=== PATIENT | male | born 1945 | race Caucasian/White ===

== ENCOUNTER 2019-05-22 14:49 | Emergency (ER) | payer OTHER ==
--- OUTSIDE RECORDS SUMMARY | 2019-05-22 14:52 | XMS REPORT ---
:1945 [facility] Address [address] [place] [address] Care Team Providers Name Role Phone EDUARDO TALAVERA Unavailable Unavailable Problems This patient has no known problems. Allergies, Adverse Reactions, Alerts This patient has no known allergies or adverse reactions. Medications This patient has no known medications. Results Test Description Test Time Test Comments Text Results Atomic Results Result Comments ALPHA FETOPROTEIN (AFP), TUMOR MARKER 2016-09-01 11:09:00 Test Item Value Reference Range Comments ALPHA-FETOPROTEIN (BEAKER) (test wvhv=3468) < ng/mL <10.0 Effective 04/16/2014: Reference Range ChangeNew: <10.0 Previous: 0.0- 8.0CBC W/PLT COUNT & AUTO [id number] 10:05:00 Test Item Value Reference Range Comments WHITE BLOOD CELL COUNT (BEAKER) (test oryf=164) 5.3 K/ L 4.0-10.0 RED BLOOD CELL COUNT (BEAKER) (test mqaa=610) 4.73 M/ L 4.20-5.80 HEMOGLOBIN (BEAKER) (test mcao=599) 15.1 GM/DL 13.0-16.8 HEMATOCRIT (BEAKER) (test gjsy=045) 45.8 % 40.0-50.0 MEAN CORPUSCULAR VOLUME (BEAKER) (test qxln=700) 97.0 fL 82.0-98.0 MEAN CORPUSCULAR HEMOGLOBIN (BEAKER) (test 31.9 pg 27.0-33.0 dwbb=858) MEAN CORPUSCULAR HEMOGLOBIN CONC (BEAKER) (test 32.9 GM/DL 32.0-36.0 jyui=736) RED CELL DISTRIBUTION WIDTH (BEAKER) (test 11.8 % 10.3-14.2 octx=073) PLATELET COUNT (BEAKER) (test osiv=375) 267 K/CU MM 150-430 MEAN PLATELET VOLUME (BEAKER) (test qcre=144) 5.9 fL 6.5-10.5 NUCLEATED RED BLOOD CELLS (BEAKER) (test 0 /100 WBC 0-0 drhv=785) NEUTROPHILS RELATIVE PERCENT (BEAKER) (test 61 % drbz=345) LYMPHOCYTES RELATIVE PERCENT (BEAKER) (test 25 % edcf=026) MONOCYTES RELATIVE PERCENT (BEAKER) (test 10 % eojx=285) EOSINOPHILS RELATIVE PERCENT (BEAKER) (test 3 % ebli=755) BASOPHILS RELATIVE PERCENT (BEAKER) (test 1 % utya=924) NEUTROPHILS ABSOLUTE COUNT (BEAKER) (test 3.21 K/ L 1.80-8.00 tani=023) LYMPHOCYTES ABSOLUTE COUNT (BEAKER) (test 1.32 K/ L 1.48-4.50 yzng=892) MONOCYTES ABSOLUTE COUNT (BEAKER) (test 0.53 K/ L 0.00-1.30 njoq=044) EOSINOPHILS ABSOLUTE COUNT (BEAKER) (test 0.15 K/ L 0.00-0.50 qihs=415) BASOPHILS ABSOLUTE COUNT (BEAKER) (test 0.08 K/ L 0.00-0.20 choq=385) 0.00HEPATIC FUNCTION [id number] 09:42:00 Test Item Value Reference Range Comments TOTAL PROTEIN (BEAKER) (test zybl=203) 7.7 gm/dL 6.0-8.3 ALBUMIN (BEAKER) (test kbtd=3267) 4.4 g/dL 3.5-5.0 BILIRUBIN TOTAL (BEAKER) (test papk=143) 0.5 mg/dL 0.2-1.2 BILIRUBIN DIRECT (BEAKER) (test ardl=598) 0.2 mg/dL 0.1-0.5 ALKALINE PHOSPHATASE (BEAKER) (test lsqb=192) 87 U/L 40-150 AST (SGOT) (BEAKER) (test stlj=684) 36 U/L 5-34 ALT (SGPT) (BEAKER) (test jlmb=787) 23 U/L 6-55 BASIC METABOLIC [id number] 09:42:00 Test Item Value Reference Range Comments SODIUM (BEAKER) (test 138 meq/L 136-145 xfww=790) POTASSIUM (BEAKER) (test 4.4 meq/L 3.5-5.1 szhx=257) CHLORIDE (BEAKER) (test 104 meq/L 98-107 nkfm=733) CO2 (BEAKER) (test 27 meq/L 22-29 ldvo=266) BLOOD UREA NITROGEN 16 mg/dL 7-21 (BEAKER) (test zfki=805) CREATININE (BEAKER) (test 0.88 mg/dL 0.57-1.25 dxob=288) GLUCOSE RANDOM (BEAKER) 102 mg/dL 70-105 (test tnou=457) CALCIUM (BEAKER) (test 9.3 mg/dL 8.4-10.2 qajw=306) EGFR (BEAKER) (test 86 mL/min/1.73 sq m ESTIMATED GFR IS NOT wpiz=9852) ACCURATE CREATININE CLEARANCE IN PREDICTING GLOMERULAR FILTRATION RATE. ESTIMATED GFR IS NOT APPLICABLE FOR DIALYSIS PATIENTS. GAMMA GLUTAMYL TRANSFERASE (GGT)2016-09-01 09:42:00 Test Item Value Reference Range Comments GAMMA GLUTAMYL TRANSFERASE (BEAKER) (test xmbe=155) 33 U/L 9-64 PROTHROMBIN TIME/[id number] 09:25:00 Test Item Value Reference Range Comments PROTIME (BEAKER) (test zcnt=599) 13.2 seconds 11.7-14.7 INR (BEAKER) (test wsai=293) 1.0 <=5.9 RECOMMENDED COUMADIN/WARFARIN INR THERAPY RANGESSTANDARD DOSE: 2.0 - 3.0 Includes: PROPHYLAXIS forvenous thrombosis, systemic embolization; TREATMENT for venous thrombosis and/or pulmonary embolus.HIGH RISK: Target INR is 2.5-3.5 for patients with mechanical heart valves.
--- OUTSIDE RECORDS SUMMARY | 2019-05-22 14:52 | XMS REPORT ---
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 Active Assessment Encounter for smoking cessation Z71.6 Active counseling Problem Hyperlipemia E78.5 Active Problem Encounter for smoking cessation Z71.6 Active counseling Problem Hypothyroidism E03.9 Active Problem Elevated blood pressure reading R03.0 Active Problem History of heart artery stent Z95.5 Active Problem Advanced COPD J44.9 Active Medications Medication Code Code Instructions Start End Date Status Dosage System Date Aspirin Adult [facility] 71627265339 81 MG Orally Active 1 tablet Low Dose Once a day Plavix ND 87241005090 75 MG Orally Active 1 tablet Once a day Anoro Ellipta [facility] 15603536196 62.5mcg/25 mcg Feb 06July Active inhaled Orally daily 2017 once a day atarax ND 0 25mg Po QID prn Active 1 Tudorza ND 89604146809 400 MCG/ACT Inactive 1 puff Pressair Inhalation Twice a day PreserVision [facility] 89093507033 - Orally Active not AREDS 2 defined COYOTE HUNTER Thyroid [facility] 93179358127 60 MG Active TAKE ONE TABLET BY MOUTH DAILY Claritin-D [address] [facility] 73302481013 5-120 MG Orally Active 1 tablet Hour every 12 hrs as needed Neurontin ND 82381553072 600 MG Orally Active 1 tablet Twice a day Magnesium Oxide ND 84422346493 400 MG Orally Active 1 tablet Once a day as needed Prevacid [facility] 16965837162 30 MG Orally Active 1 capsule Once a day Bevespi ND 91199840655 9-4.8 MCG/ACT December 08Feb 06, Inactive 2 puffs Aerosphere Inhalation 2017 2017 Twice a day PredniSONE ND 38415695101 10 MG Orally Active 1 tablet Once a day Fluticasone [facility] 97328160859 50 MCG/ACT Inactive 1 spray Propionate Nasally Once a in each day nostril Montelukast [facility] 20606252698 10 MG Orally Active 1 tablet Sodium Once a day in the evening Livalo [facility] 27791999247 4 MG Orally Active 1 tablet Once a day Proventil HFA [facility] 53361161265 108 (90 Base) Active 2 puffs MCG/ACT as needed Inhalation every 6 hrs Results No Known Results Summary Purpose eClinicalWorks Submission
--- OUTSIDE RECORDS SUMMARY | 2019-05-22 14:53 | XMS REPORT ---
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 Assessment Encounter for smoking cessation Z71.6 Active counseling Assessment Hypothyroidism E03.9 Active Problem 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 Problem Hypothyroidism E03.9 Active Problem Essential (primary) hypertension I10 Active Problem History of heart artery stent Z95.5 Active Problem Advanced COPD J44.9 Active Problem Hyperlipemia E78.5 Active Problem Encounter for smoking cessation Z71.6 Active counseling Medications Medication Code Code Instructions Start End Date Status Dosage System Date Aspirin Adult [facility] 68935941527 81 MG Orally Active 1 tablet Low Dose Once a day Plavix [facility] 85977439970 75 MG Orally Active 1 tablet Once a day Anoro Ellipta [facility] 37703985367 62.5mcg/25 mcg Feb 06July Active inhaled Orally daily 2017 once a day Neurontin ND 75992629085 600 MG Orally Active 1 tablet Twice a day Ventolin HFA [facility] 74384983062 108 (90 Base) Active 2 puffs as MCG/ACT needed Inhalation every 6 hrs Levothyroxine ND 72623514209 100 MCG Orally Dec 10, Active 1 tablet Sodium Once a day 2017 on an empty stomach in the morning PreserVision ND 47898035859 - Orally Active not AREDS 2 defined Montelukast ND 52465466799 10 MG Orally Active 1 tablet Sodium Once a day in the evening Claritin-D 12 [facility] 52423211710 5-120 MG Orally Active 1 tablet Hour every 12 hrs as needed atarax NDC 0 25mg Po QID prn Active 1 Magnesium Oxide [facility] 39760054365 400 MG Orally Active 1 tablet Once a day as needed Prevacid [facility] 39804551755 30 MG Orally Active 1 capsule Once a day Nitrostat [facility] 50844062418 0.3 MG May 08, Active as needed Sublingual 2017 for chest daily pain PredniSONE [facility] 60796312037 10 MG Orally Active 1 tablet Once a day Livalo [facility] 42667199755 4 MG Orally Active 1 tablet Once a day Results No Known Results Summary Purpose eClinicalWorks Submission
--- OUTSIDE RECORDS SUMMARY | 2019-05-22 14:53 | XMS REPORT ---
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 Problem Hypothyroidism E03.9 Active Problem Essential (primary) hypertension I10 Active Problem History of heart artery stent Z95.5 Active Problem Advanced COPD J44.9 Active Problem Hyperlipemia E78.5 Active Problem Encounter for smoking cessation Z71.6 Active counseling Medications Medication Code Code Instructions Start End Status Dosage System Date Date PreserVision [facility] 85504303881 - Orally Active not AREDS 2 defined Aspirin Adult Low [facility] 86524063386 81 MG Orally Active 1 tablet Dose Once a day Montelukast ND 79985263820 10 MG Orally Active 1 tablet Sodium Once a day in the evening Magnesium Oxide ND 93965699916 400 MG Orally Active 1 tablet Once a day as needed Levothyroxine ND 23664482158 100 MCG Orally Dec 10, Active 1 tablet Sodium Once a day 2017 on an empty stomach in the morning atarax NDC 0 25mg Po QID prn Active 1 Prevacid ND 75277719861 30 MG Orally Active 1 capsule Once a day Ventolin HFA [facility] 03324691103 108 (90 Base) Active 2 puffs as MCG/ACT needed Inhalation every 6 hrs Plavix ND 25530671892 75 MG Orally Active 1 tablet Once a day Livalo ND 50979274639 4 MG Orally Active 1 tablet Once a day Neurontin ND 79987807568 600 MG Orally Active 1 tablet Twice a day PredniSONE ND 30542488379 10 MG Orally Active 1 tablet Once a day Nitrostat NDC 28242422008 0.3 MG May 08, Active as needed Sublingual 2017 for chest daily pain Claritin-D 12 [facility] 39090647549 5-120 MG Orally Active 1 tablet Hour every 12 hrs as needed Diclofenac Sodium [facility] 34678475016 50 MG Orally AugustOctober 11, Active 1 tablet Three times a 2018 with food day or milk Results No Known Results Summary Purpose eClinicalWorks Submission
--- OUTSIDE RECORDS SUMMARY | 2019-05-22 14:53 | XMS REPORT ---
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 Problem Hypothyroidism E03.9 Active Problem Essential (primary) hypertension I10 Active Problem History of heart artery stent Z95.5 Active Problem Advanced COPD J44.9 Active Problem Hyperlipemia E78.5 Active Problem Encounter for smoking cessation Z71.6 Active counseling Medications Medication Code Code Instructions Start End Date Status Dosage System Date Anoro Ellipta [facility] 55840685667 62.5mcg/25 mcg Feb 06July Active inhaled Orally daily 2017 once a day Claritin-D 12 [facility] 15846850184 5-120 MG Orally Active 1 tablet Hour every 12 hrs as needed GNP Loratadine-D [facility] 46905678984 5-120 MG Orally May 15May 30, Active 1 tablet 12HR every 12 hrs 2017 2018 as needed Levothyroxine [facility] 39969474860 100 MCG Orally May 08, Active 1 tablet Sodium Once a day 2017 on an empty stomach in the morning Aspirin Adult [facility] 57881793486 81 MG Orally Active 1 tablet Low Dose Once a day Plavix [facility] 07134599221 75 MG Orally Active 1 tablet Once a day Prevacid [facility] 55987156852 30 MG Orally Active 1 capsule Once a day Montelukast [facility] 33628010247 10 MG Orally Active 1 tablet Sodium Once a day in the evening atarax ND 0 25mg Po QID prn Active 1 Neurontin ND 89130785068 600 MG Orally Active 1 tablet Twice a day Nitrostat [facility] 43359882322 0.3 MG May 08, Active as needed Sublingual 2017 for chest daily pain Ventolin HFA [facility] 13253066492 108 (90 Base) Active 2 puffs as MCG/ACT needed Inhalation every 6 hrs PredniSONE [facility] 72935502083 10 MG Orally Active 1 tablet Once a day PreserVision [facility] 91415387711 - Orally Active not AREDS 2 defined Zithromax [facility] 54771437433 500 MG Orally May 15, May 20, Active as Once a day 2017 2018 directed Livalo [facility] 12229085697 4 MG Orally Active 1 tablet Once a day Magnesium Oxide [facility] 66452357038 400 MG Orally Active 1 tablet Once a day as needed Results No Known Results Summary Purpose eClinicalWorks Submission
--- OUTSIDE RECORDS SUMMARY | 2019-05-22 14:53 | XMS REPORT ---
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 Problem Hypothyroidism E03.9 Active Problem Essential (primary) hypertension I10 Active Problem History of heart artery stent Z95.5 Active Problem Advanced COPD J44.9 Active Problem Hyperlipemia E78.5 Active Problem Encounter for smoking cessation Z71.6 Active counseling Medications Medication Code Code Instructions Start End Status Dosage System Date Date PredniSONE [facility] 19227551678 10 MG Orally Active 1 tablet Once a day Aspirin Adult Low [facility] 89612412750 81 MG Orally Active 1 tablet Dose Once a day Livalo [facility] 60058854932 4 MG Orally Active 1 tablet Once a day Diclofenac Sodium ND 06791168623 50 MG Orally AugustOctober 11, Active 1 tablet Three times a 2018 2019 with food day or milk Montelukast [facility] 79304699076 10 MG Orally Active 1 tablet Sodium Once a day in the evening Magnesium Oxide ND 56463368563 400 MG Orally Active 1 tablet Once a day as needed PreserVision [facility] 71190332038 - Orally Active not AREDS 2 defined Plavix [facility] 24541115947 75 MG Orally Active 1 tablet Once a day Levothyroxine ND 12722485241 100 MCG Orally May 08, Active 1 tablet Sodium Once a day 2017 on an empty stomach in the morning Nitrostat ND 83946249197 0.3 MG May 08, Active as needed Sublingual 2017 for chest daily pain Ventolin HFA [facility] 24375408183 108 (90 Base) Active 2 puffs as MCG/ACT needed Inhalation every 6 hrs Prevacid [facility] 43517069652 30 MG Orally Active 1 capsule Once a day Neurontin [facility] 15979912731 600 MG Orally Active 1 tablet Twice a day atarax NDC 0 25mg Po QID prn Active 1 Claritin-D 12 [facility] 53348597866 5-120 MG Orally Active 1 tablet Hour every 12 hrs as needed Results No Known Results Summary Purpose eClinicalWorks Submission
--- OUTSIDE RECORDS SUMMARY | 2019-05-22 14:53 | XMS REPORT ---
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 Problem Hypothyroidism E03.9 Active Problem Essential (primary) hypertension I10 Active Problem History of heart artery stent Z95.5 Active Problem Advanced COPD J44.9 Active Problem Hyperlipemia E78.5 Active Problem Encounter for smoking cessation Z71.6 Active counseling Assessment 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 Assessment Advanced COPD J44.9 Active Assessment Tobacco abuse counseling Z71.6 Active Assessment Hypothyroidism E03.9 Active Assessment Essential (primary) hypertension I10 Active Assessment Hyperlipemia E78.5 Active Medications Medication Code Code Instructions Start End Status Dosage System Date Date Nitrostat [facility] 57220798673 0.3 MG May 08, Active as needed Sublingual 2017 for chest daily pain Montelukast [facility] 04619166823 10 MG Orally Active 1 tablet Sodium Once a day in the evening atarax NDC 0 25mg Po QID prn Active 1 Anoro Ellipta [facility] 54901512858 62.5mcg/25 mcg Feb 06July Active inhaled Orally daily 2017 09, once a 2019 day [employer] Thyroid [facility] 43699602389 60 MG Inactive TAKE ONE TABLET BY MOUTH DAILY Levothyroxine ND 23402023042 100 MCG Orally May 08, Active 1 tablet Sodium Once a day 2017 on an empty stomach in the morning PredniSONE ND 52316721293 10 MG Orally Active 1 tablet Once a day Aspirin Adult [facility] 17733602186 81 MG Orally Active 1 tablet Low Dose Once a day Livalo [facility] 94994913228 4 MG Orally Active 1 tablet Once a day Neurontin [facility] 66865233242 600 MG Orally Active 1 tablet Twice a day Proventil HFA [facility] 94319247082 108 (90 Base) Active 2 puffs MCG/ACT as needed Inhalation every 6 hrs Ventolin HFA [facility] 11525686519 108 (90 Base) Active 2 puffs MCG/ACT as needed Inhalation every 6 hrs Claritin-D 12 [facility] 99905742682 5-120 MG Orally Active 1 tablet Hour every 12 hrs as needed Plavix [facility] 38652318788 75 MG Orally Active 1 tablet Once a day PreserVision [facility] 52704547811 - Orally Active not AREDS 2 defined Prevacid [facility] 05670853154 30 MG Orally Active 1 capsule Once a day Magnesium Oxide [facility] 45459709520 400 MG Orally Active 1 tablet Once a day as needed Results No Known Results Summary Purpose eClinicalWorks Submission
[2019-05-22 15:33] LABS: Absolute Lymphocytes (CBC) 1.2 K/uL (0.7-4.9); Basophils % 0.7 % (0-1.3); Hematocrit 35.8 % (39.6-49.0); Lymphocytes % 17.6 % (15.3-44.8); MPV 6.8 fL (7.6-11.3); RBC Red Blood Cell Count 4.08 M/uL (4.33-5.43)
[2019-05-22 15:52] LABS: Albumin 3.2 g/dL (3.4-5.0); Bilirubin Direct 0.1 mg/dL (0-0.2); Bilirubin Total 0.3 mg/dL (0.2-1.0); Potassium 3.8 mmol/L (3.5-5.1); Protein, Total 7.6 g/dL (6.4-8.2)
--- NOTE | 2019-05-22 16:04 | RAD REPORT ---
EXAM DESCRIPTION: RAD - Abdomen 1 View (KUB) - 05/22/2019 3:48 pm CLINICAL HISTORY: abd pain Pain COMPARISON: No comparisons FINDINGS: The bowel gas pattern is non-obstructive. No evidence of free air or pneumatosis. No suspi cious calcifications. No significant bony findings. There is a significant retention of stool in the colon. Cholecystectomy clips. IMPRESSION: Prominent fecal retention in the colon.
[2019-05-22] MEDS ORDERED: FLEET ENEMA ADULT PR ONE (17:00)
--- NOTE | 2019-05-22 18:05 | EDPHYS ---
Physician Documentation [facility] Name: Jose Lake Age: 73 yrs Sex: Male : 1945 Arrival Date: 05/22/2019 Time: 14:52 Bed 8 Private MD: ALY ANGUIANO ED Physician Arlet Joseph HPI: 05/22 18:02 This 73 yrs old Male presents to ER via Ambulatory with complaints of ma2 Constipation, Abdominal Pain. 18:02 Onset: The symptoms/episode began/occurred gradually. Associated signs and symptoms: ma2 Pertinent negatives: constipation, hematuria, nausea. Associated signs and symptoms: Pertinent negatives: anorexia, constipation, dysuria, vomiting, vomiting blood. Severity of pain: At its worst the pain was mild in the emergency department the pain is unchanged. Historical: - Allergies: 15:00 Sulfa (Sulfonamide Antibiotics); rv 15:00 PENICILLINS; rv - Home Meds: 15:00 Plavix 75 mg Oral tab 1 tab once daily [Active]; rv - PMHx: 15:00 cardiac stents; bleeding ulcers; rv 15:01 COPD; Thyroid problem; High Cholesterol; rv - PSHx: 15:00 Cholecystectomy; back sx; rv - Immunization history:: Adult Immunizations up to date, Flu vaccine is up to date. - Social history:: Smoking status: Patient uses tobacco products, smokes one-half pack cigarettes per day. - Ebola Screening: : No symptoms or risks identified at this time. - Family history:: not pertinent. ROS: 18:02 Constitutional: Negative for fever, chills, and weight loss. ma2 18:02 All other systems are negative. Exam: 18:02 Constitutional: This is a well developed, well nourished patient who is awake, alert, ma2 and in no acute distress. Head/Face: Normocephalic, atraumatic. Eyes: Pupils equal round and reactive to light, extra-ocular motions intact. Lids and lashes normal. Conjunctiva and sclera are non-icteric and not injected. Cornea within normal limits. Periorbital areas with no swelling, redness, or edema. ENT: Nares patent. No nasal discharge, no septal abnormalities noted. Tympanic membranes are normal and external auditory canals are clear. Oropharynx with no redness, swelling, or masses, exudates, or evidence of obstruction, uvula midline. Mucous membranes moist. Neck: Trachea midline, no thyromegaly or masses palpated, and no cervical lymphadenopathy. Supple, full range of motion without nuchal rigidity, or vertebral point tenderness. No Meningismus. Chest/axilla: Normal chest wall appearance and motion. Nontender with no deformity. No lesions are appreciated. Cardiovascular: Regular rate and rhythm with a normal S1 and S2. No gallops, murmurs, or rubs. Normal PMI, no JVD. No pulse deficits. Respiratory: Lungs have equal breath sounds bilaterally, clear to auscultation and percussion. No rales, rhonchi or wheezes noted. No increased work of breathing, no retractions or nasal flaring. Abdomen/GI: Soft, non-tender, with normal bowel sounds. No distension or tympany. No guarding or rebound. No evidence of tenderness throughout. Skin: Warm, dry with normal turgor. Normal color with no rashes, no lesions, and no evidence of cellulitis. MS/ Extremity: Pulses equal, no cyanosis. Neurovascular intact. Full, normal range of motion. Vital Signs: 14:58 BP 153 / 90; Pulse 92; Resp 19; Temp 97.5; Pulse Ox 99% ; Weight 58.97 kg; Height 5 ft. rv 4 in. (162.56 cm); Pain 6/10; 16:27 BP 140 / 88; Pulse 76; Resp 16; Pulse Ox 99% ; sv 14:58 Body Mass Index 22.31 (58.97 kg, 162.56 cm) rv MDM: 15:04 Patient medically screened. ma2 18:02 Differential diagnosis: Fatigue Prostatitis, Ureterolithiasis, urinary tract infection. ma2 Data reviewed: vital signs, nurses notes. Counseling: I had a detailed discussion with the patient and/or guardian regarding: the historical points, exam findings, and any diagnostic results supporting the discharge/admit diagnosis, the presence of at least one elevated blood pressure reading (>120/80) during this emergency department visit, the need for outpatient follow up. Response to treatment: the patient's symptoms have markedly improved after treatment. 05/22 15:32 Order name: Urine Dipstick--Ancillary (enter results) bd 05/22 15:17 Order name: Abdomen 1 View (KUB) XRAY ma2 05/22 17:25 Order name: Abdomen 1 View (KUB) EDAK 05/22 17:25 Order name: Basic Metabolic Panel [facility] 05/22 17:25 Order name: Liver (Hepatic) Function EDAK 05/22 17:25 Order name: Lipase [facility] 05/22 17:25 Order name: Creatinine (Radiology Only) [facility] 05/22 17:25 Order name: CBC with Automated Diff [facility] 05/22 15:06 Order name: IV Saline Lock; Complete Time: 15:17 [facility] 05/22 15:06 Order name: Labs collected and sent; Complete Time: 15:17 ia2 05/22 15:17 Order name: Gates Leg Bag; Complete Time: 17:13 [facility] Administered Medications: 17:08 Drug: Fleet Enema 133 ml Route: SC; sv 17:59 Follow up: Response: No adverse reaction sv 18:38 Not Given (Patient Refused): Fleet Enema 133 ml SC once hb Disposition: 05/22/19 18:04 Discharged to Home. Impression: Retention of urine, unspecified. - Condition is Stable. - Discharge Instructions: Acute Urinary Retention, Male, [id number]. - Prescriptions for Fleet Enema - take 1 ampule by RECTAL route 2-3 times daily; 5 Cartridge. Colace 100 mg Oral Tablet - take 1 tablet by ORAL route every 12 hours; 14 tablet. Flomax 0.4 mg Oral Capsule, Sust. Release 24 hr - take 1 capsule by ORAL route once daily 1/2 hour following the same meal each day; 30 capsule. - Medication Reconciliation Form, Thank You Letter, Antibiotic Education, Prescription Opioid Use form. - Follow up: Ab Paniagua MD; When: Tomorrow; Reason: Continuance of care. Signatures: Dispatcher [employer] [facility] Coni Melvin RN RN sv Anna Marie Duque RN RN hb Arlet Joseph MD MD [facility] Kushal Dewey RN RN rv Corrections: (The following items were deleted from the chart) 18:39 18:04 05/22/2019 18:04 Discharged to Home. Impression: Retention of urine, unspecified. hb Condition is Stable. Prescriptions for Fleet Enema - take 1 ampule by RECTAL route 2-3 times daily; 5 Cartridge, Colace 100 mg Oral Tablet - take 1 tablet by ORAL route every 12 hours; 14 tablet, Flomax 0.4 mg Oral Capsule, Sust. Release 24 hr - take 1 capsule by ORAL route once daily 1/2 hour following the same meal each day; 30 capsule. and Forms are Medication Reconciliation Form, Thank You Letter, Antibiotic Education, Prescription Opioid Use. Follow up: Ab Paniagua; When: Tomorrow; Reason: Continuance of care. ma2
--- NOTE | 2019-05-22 18:05 | ER ---
Nurse's Notes [facility] Name: Jose Lake Age: 73 yrs Sex: Male : 1945 Arrival Date: 05/22/2019 Time: 14:52 Bed 8 Private MD: ALY ANGUIANO Diagnosis: Retention of urine, unspecified Presentation: 05/22 14:54 Presenting complaint: Patient states: I have been constipated for four days now, and rv also having urine retention. last urine was at 2pm yesterday. complaining of abdominal pain. denies any fever/nausea/vomiting. Transition of care: patient was not received from another setting of care. Onset of symptoms was May 21, 2019 at 14:00. Risk Assessment: Do you want to hurt yourself or someone else? Patient reports no desire to harm self or others. Initial Sepsis Screen: Does the patient meet any 2 criteria? No. Patient's initial sepsis screen is negative. Does the patient have a suspected source of infection? No. Patient's initial sepsis screen is negative. Care prior to arrival: None. 14:54 Method Of Arrival: Ambulatory 14:54 Acuity: LASHANDA 3 rv Triage Assessment: 15:05 General: Appears in no apparent distress. Behavior is calm, cooperative. Pain: rv Complains of pain in abdomen. Neuro: Level of Consciousness is awake, alert, obeys commands, Oriented to person, place, time, situation. Cardiovascular: Patient's skin is warm and dry. Respiratory: Airway is patent. GI: Abdomen is flat, Reports constipation. Musculoskeletal:. Historical: - Allergies: 15:00 Sulfa (Sulfonamide Antibiotics); rv 15:00 PENICILLINS; rv - Home Meds: 15:00 Plavix 75 mg Oral tab 1 tab once daily [Active]; rv - PMHx: 15:00 cardiac stents; bleeding ulcers; rv 15:01 COPD; Thyroid problem; High Cholesterol; rv - PSHx: 15:00 Cholecystectomy; back sx; rv - Immunization history:: Adult Immunizations up to date, Flu vaccine is up to date. - Social history:: Smoking status: Patient uses tobacco products, smokes one-half pack cigarettes per day. - Ebola Screening: : No symptoms or risks identified at this time. - Family history:: not pertinent. Screenin:15 Abuse screen: Denies threats or abuse. Denies injuries from another. Nutritional sv screening: No deficits noted. Tuberculosis screening: No symptoms or risk factors identified. Fall Risk None identified. Assessment: 15:15 General: Appears in no apparent distress. uncomfortable, slender, Behavior is calm, sv cooperative, appropriate for age. Pain: Complains of pain in abdomen Pain currently is 6 out of 10 on a pain scale. Quality of pain is described as pressure, Is intermittent. Neuro: Level of Consciousness is awake, alert, obeys commands, Oriented to person, place, time, situation, Moves all extremities. Full function Gait is steady. Respiratory: Respiratory effort is even, unlabored, Respiratory pattern is regular, symmetrical. GI: Reports lower abdominal pain, constipation. : Reports inability to void, since 1400 yesterday pain in suprapubic area. Derm: Skin is normal. 16:00 Reassessment: Patient appears in no apparent distress at this time. No changes from sv previously documented assessment. Patient and/or family updated on plan of care and expected duration. Pain level reassessed. Patient is alert, oriented x 3, equal unlabored respirations, skin warm/dry/pink. 17:08 Reassessment: Patient appears in no apparent distress at this time. No changes from sv previously documented assessment. Patient and/or family updated on plan of care and expected duration. Pain level reassessed. Patient is alert, oriented x 3, equal unlabored respirations, skin warm/dry/pink. Fleets enema given. 17:48 Reassessment: Pt on BSC, NAD. Call light within reach. hb 18:26 Reassessment: Discharge ordered, pt still on BSC at this time. hb Vital Signs: 14:58 BP 153 / 90; Pulse 92; Resp 19; Temp 97.5; Pulse Ox 99% ; Weight 58.97 kg; Height 5 ft. rv 4 in. (162.56 cm); Pain 6/10; 16:27 BP 140 / 88; Pulse 76; Resp 16; Pulse Ox 99% ; sv 14:58 Body Mass Index 22.31 (58.97 kg, 162.56 cm) rv ED Course: 14:52 Patient arrived in ED. am2 14:53 ALY ANGUIANO is Private Physician. am2 14:58 Triage completed. rv 15:04 Arlet Joseph MD is Attending Physician. ma2 15:05 Arm band placed on Patient placed in the treatment room, on a stretcher, Patient rv notified of wait time. 15:15 Patient has correct armband on for positive identification. Placed in gown. Bed in low sv position. Call light in reach. Side rails up X 1. Pulse ox on. NIBP on. Door closed. Warm blanket given. Head of bed elevated. 15:16 Coni Melvin RN is Primary Nurse. sv 15:25 Gates cath inserted, using sterile technique, 16 Fr., by wy, balloon inflated, to sv gravity drainage, urine specimen collected. returned clear yellow urine. Patient tolerated well. 15:47 X-ray completed. Patient tolerated procedure well. Patient moved back from radiology. 1 17:59 CBC with Automated Diff Sent. sv 17:59 Creatinine (Radiology Only) Sent. sv 17:59 Lipase Sent. sv 17:59 Liver (Hepatic) Function Sent. sv 17:59 Basic Metabolic Panel Sent. sv 18:00 Abdomen 1 View (KUB) Sent. sv 18:04 Ab Paniagua MD is Referral Physician. ma2 18:18 Primary Nurse role handed off by Coni Melvin RN sv 18:38 No provider procedures requiring assistance completed. IV discontinued, intact, hb bleeding controlled, No redness/swelling at site. Pressure dressing applied. Administered Medications: 17:08 Drug: Fleet Enema 133 ml Route: TN; sv 17:59 Follow up: Response: No adverse reaction sv 18:38 Not Given (Patient Refused): Fleet Enema 133 ml TN once hb Outcome: 18:04 Discharge ordered by . ia2 18:38 Discharged to home ambulatory, with family. hb 18:38 Condition: stable 18:38 Discharge instructions given to patient, family, Instructed on discharge instructions, follow up and referral plans. medication usage, Gates Care Demonstrated understanding of instructions, follow-up care, medications, Prescriptions given X 3. 18:39 Patient left the ED. hb Signatures: Coni Melvin, RN [place] Rosamaria Raza 1 Anna Marie Duque RN RN hb Moreno, Amanda am2 Arlet Joseph MD MD ma2 Vicente, Ronaldo, RN RN rv
[2019-05-22 18:46] VITALS: TEMP 97.5; O2SAT 99
[2019-05-22 18:47] VITALS: BP 140/88
[2019-05-22 18:56] LABS: Urine Blood NEGATIVE (NEG); Urine Glucose NEGATIVE (NEG); Urine Protein NEGATIVE (NEG)
== END 2019-05-22 18:39 | disposition home or self-care (01) ==
LOC: ER 14:49
DX: R33.9 Retention of urine, unspecified (principal); F17.210 Nicotine dependence, cigarettes, uncomplicated; E78.00 Pure hypercholesterolemia, unspecified; E03.9 Hypothyroidism, unspecified; Z79.01 Long term (current) use of anticoagulants; Z88.0 Allergy status to penicillin; Z88.2 Allergy status to sulfonamides; Z95.818 Presence of other cardiac implants and grafts
CPT/HCPCS: 36415; 51702; 74018; 80048; 80076; 81003; 83690; 85025; 99284

== ENCOUNTER 2021-01-04 14:56 | Emergency (ER) | payer OTHER ==
--- OUTSIDE RECORDS SUMMARY | 2021-01-04 15:00 | XMS REPORT | Continuity of Care Document ---
:1945 Author Organization [facility] t Address [address] [place] [address] Care Team Providers Name Role Phone Sharpless Primary Care Physician Leonel Lees Attending Clinician Vadim Spangler DO Attending Clinician Chavez ROSENBAUM Attending Clinician DELVIS TALAVERA Attending Clinician Unavailable Salbador Harvey Jr Attending Clinician Problems Condition Condition Condition Status Onset Resolution Last Treating Co mments Source Name Details Category Date Date Treatment Clinician Date M51.26,CPT Diagnosis Active 2016-07-05 Memoria -[id number] 06-29 07:59:00 l 00:00: Kaz M51.26,CPT 00 -[id number] Active 06/29/2016 [facility] Screening Screening Disease Active [facility] for cancer 02-02 Molly kes - 00:00: Medical 00 [place] Immunity Immunity Disease Active Last [facility] status status 6-22 [facility] - testing testing 00:00: t & Plan: Medic al 00 [facility] Center recommend s that all patients with chronic liver disease, regardles s of etiology, should be immunized to prevent hepatitis A and hepatitis B if they are not already immune. This should be done in addition to other age-appro priate vaccines. We will test for immunity to both viruses - vaccine recommend ations will follow. Liver cyst Liver cyst Disease Active Last [facility] 11-18 Assessaltaf Agudelo - 00:00: t & Plan: Medical 00 Review of Center his record suggests that he has had a simple liver cyst dating back to at least 2008. The report for the 2008 imaging in not available for review. Most recent CT shows a 3.1 cm simple liver cyst in the lateral left liver lobe increased in size since 2008. An US from 08/2015 shows that the cyst is 2.9 x 3.2 cm in size. He has no associate d symptoms. No intervent ion needed at this time. Will obtain most recent imaging and 2009 imaging for our review. The interval increase in size of the liver cyst will be assessed. Will repeat imaging in 3 months. Uncomplica Uncomplica Disease Active Last [facility] - alcohol alcohol 00:00: t & Plan: Medic al dependence dependence 00 Suspect C enter his alcohol intake is greater than reported. He has changes on imaging consisten t with fatty liver from chronic alcoholis m. He should stop all alcohol to prevent progressi on of his liver disease. He says that he has cut back to 5 drinks a week. Coronary Coronary Disease Active [facility] artery artery 11-18 [facility] - disease disease 00:00: Medical involving involving 00 Cent er [place] coronary coronary artery of artery of [place] heart heart Pure Pure Disease Active [facility] St hyperchole hyperchole 11-18 Molly kes - sterolemia sterolemia 00:00: Me dical 00 Center Abnormal Abnormal Disease Active [facility] liver [facility] - diagnostic diagnostic 00:00: t & Plan: Medical imaging imaging 00 Noted to Center have an enlarged liver with increased echotextu re and a simple liver cyst in the lateral left lobe. Please seen discussio n of liver cyst below. Hepatomeg ned and increased echotextu re likely represent s fatty liver from chronic alcoholis m. Suspect his intake is greater than what he reports. Will do a full liver work up to rule out other causes of liver disease. Bronchitis Problem Resolve 2020-08-04 Memoria (disorder) d 01:40:14 l [place] Bronchitis (disorder) Resolved Problem 08/04/2020 Chelsy Art,[facility] Moderate Problem Resolve 2020-08-04 Me moria chronic d 01:40:14 l obstructiv Moderate He rmann e chronic pulmonary obstructiv disease e (disorder) pulmonary disease (disorder) Resolved [facility]04[facility] Bilateral Problem Resolve 2020-08-04 M emoria cataracts d 01:40:14 l (disorder) Eddie n Bilateral cataracts (disorder) Resolved Problem 08/04/2020 [facility] Pneumonia Problem Resolve 2020-08-04 M emoria (disorder) d 01:40:14 l Kaz Pneumonia (disorder) Resolved Problem 08/04/2020 [facility] Stented Problem Resolve 2020-08-04 Mem oria coronary d 01:40:14 l artery Stented [place] (finding) coronary artery (finding) Resolved Problem 08/04/2020 [facility] Coronary Problem Active 2020-08-04 Mem oria arterioscl 01:40:14 l erosis Coronary Eddie n (disorder) arterioscl erosis (disorder) Active Problem 08/04/2020 Chelsy Art,[facility] Pulmonary Problem Active 2020-08-04 Ar moria emphysema 01:40:14 l (disorder) Eddie n Pulmonary emphysema (disorder) Active Problem 08/04/2020 [facility] Ataxia Problem Active 2020-08-04 Memor ia (finding) 01:40:14 l Ataxia Kaz (finding) Active Problem 08/04/2020 [facility] Closed Problem Active 2020-08-04 Memor ia fracture 01:40:14 l of fourth Closed Audra nn cervical fracture vertebra of fourth (disorder) cervical vertebra (disorder) Active Problem 08/04/2020 [facility] Spinal Problem Active 2020-08-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:40:14 l disorder Spinal Eddie n (disorder) cord disorder (disorder) Active Problem 08/04/2020 [facility] Tremor Problem Active 2020-08-04 Memor ia (finding) 01:40:14 l Tremor [place] (finding) Active Problem 08/04/2020 [facility] Essential Problem Active 2020-08-04 Me moria tremor 01:40:14 l (disorder) Eddie n Essential tremor (disorder) Active Problem 08/04/2020 [facility] Orthostati Problem Active 2020-08-04 M emoria c tremor 01:40:14 l (finding) [place] Orthostati c tremor (finding) Active Problem 08/04/2020 [facility] OTHER Diagnosis Active 2016-07-05 Mem oria INTERVERTE 07:59:00 l BRAL DISC OTHER Eddie n DISPLACEME INTERVERTE NT, BRAL DISC DISPLACEME NT, Active [facility] Allergies, Adverse Reactions, Alerts Allergy Allergy Status Severity Reaction(s) Onset Inactive Treating Comm ents Source Name Type Date Date Clinician Penicill Propensi Active [facility] ins ty to 11-18 [facility] - adverse 00:00: Medical reaction 00 Center s Sulfa Propensi Active [facility] (Sulfona ty to 11-18 [facility] - mide adverse 00:00: Medical Antibiot reaction 00 Center ics) s penicill Adverse Active Info Not [facility] in Reaction Available [facility] Sulfacet Adverse Active Info Not [facility] amide Reaction Available [facility] - Sod-Sulf [facility] Amoxicil Adverse Active Info Not [facility] denny Reaction Available [facility] penicill penicill Active Memori a ins ins l Kaz sulfa sulfa Active <not Memoria drugs drugs entered> l Kaz Family History Family Member Diagnosis Comments Start Date Stop Date Source Natural brother Cancer [facility] Natural mother Diabetes [facility] Social History Social Habit Start Date Stop Date Quantity Comments Source Sex Assigned At [facility] Social History 2016-07-01 2016-07-01 [facility] hilary 20:50:54 20:50:54 Alcohol intake 2015-11-19 2015-11-19 Current drinker [facility] S t [facility] - 00:00:00 00:00:00 of alcohol [facility] (finding) Smoking Status Start Date Stop Date Source Former smoker 2015-11-19 00:00:00 2015-11-19 00:00:00 [facility] Medications Ordered Filled Start Stop Current Ordering Indication Dosage Frequency Signature Comments Components Source Medication Medication Date Date Medication? Clinician (SIG) Name Name primidone Yes 50 mg = 1 Mem oria 50 mg oral 5-01 tab, PO, l tablet 15:30: BID, # 60 Eddie n 00 tab, 3 Refill(s), [id number] primidone Yes 50 mg = 1 Mem oria 50 mg oral 1-07 tab, PO, l tablet 22:25: BID, # 60 Eddie n 32 tab, 3 Refill(s), [id number] primidone No 50 mg = 1 Mem oria 50 mg oral 1-07 tab, PO, l tablet 22:22: BID, X 30 Eddie n 48 day, # 60 tab, 3 Refill(s), Pharmacy: [place] [id number] primidone 2018-05 Yes 50 mg = 1 Mem oria 50 mg oral 1-22 tab, PO, l tablet 17:52: Daily, # [place] 00 30 tab, 3 Refill(s), Pharmacy: [place] [id number] omeprazole 2018-05 Yes 20 mg = 1 Me moria 20 mg oral 0-23 tab, PO, l enteric 20:03: Daily, 0 Eddie n coated 00 Refill(s) tablet levothyroxi 2018-05 Yes 100 Memori a ne 100 mcg 0-23 microgram, l (0.1 mg) 20:03: IV, Daily, Her wray intravenous 00 0 injection Refill(s) Mirtazapine 2018-05 Yes 15 mg = 1 M emoria 15 MG Oral 0-23 tab, PO, l Tablet 20:03: Bedtime, 0 Audra nn 00 Refill(s) clopidogrel 2018-05 Yes 75 mg = 1 M emoria 75 mg oral 0-23 tab, PO, l tablet 20:03: Daily, 0 Kaz 00 Refill(s) Bupropion 2018-05 Yes 15 mg, PO, Me moria 0-23 TID, 0 l 20:03: Refill(s) Kaz 00 atorvastati 2018-05 Yes 40 mg = 1 M emoria n 40 mg 0-23 tab, PO, l oral tablet 20:03: Daily, 0 He rmann 00 Refill(s) Fish Oil 2018-05 Yes 1,200 mg = Mem oria 1200 mg 0-23 1 cap, PO, l oral 20:03: TID, 0 [place] capsule 00 Refill(s) Ipratropium 2018-05 Yes 250 Memori a [place] 0.2 0-23 microgram l MG/ML 20:03: = 1.25 mL, Eddie n Inhalant 00 INHALATION Solution , TID, # 75 mL, 0 Refill(s) Albuterol 2018-05 Yes 2.5 mg = 3 Me moria 0.83 MG/ML 0-23 mL, NEB, l Inhalant 20:03: Q6H, 0 Kaz Solution 00 Refill(s) Dulera 100 2018-05 Yes 2 puff, Mathieu chaitanya mcg-5 0-23 INHALER, l mcg/inh 20:03: BID, # 1 Eddie n inhalation 00 ea, 3 aerosol Refill(s) Diclofenac Diclofenac 2018- No Chito [address] [facility] Sodium Sodium 4-15 05-15 Taryn with food Luke s - 00:00: 00:00 or milk Memoria 00 :00 l [facility] ent Clinics Levothyroxi Levothyroxi 2017-05 Yes Chito [address] [facility] ne Sodium ne Sodium 2-10 Taryn on an Nahid es - 00:00: empty Memoria 00 [facility] Nitrostat Nitrostat 2017-05 Yes Chito as needed [facility] 2-10 Taryn for chest [facility] - 00:00: pain Memoria 00 [facility] ent Clinics lansoprazol Yes 30mg QD Take [address] [facility] e 5-04 by mouth [facility] - (PREVACID) 09:14: daily. Medic al 30 MG 50 Center capsule fluticasone Yes 1{puff} Inhale [address] -salmeterol 5-04 puff by [facility] - (ADVAIR) 09:14: mouth via Medi nba 250-50 50 inhaler Center mcg/dose every 12 diskus (twelve) inhaler hours. aspirin 81 Yes 81mg QD Take [address] MG EC 5-04 by mouth [facility] - tablet 09:14: daily. Medical 50 Center magnesium Yes 400mg QD Take [address] oxide 5-04 mg by [facility] - (MAG-OX) 09:14: mouth Medical 400 mg 50 daily. Center tablet Diazepam 5 Yes See Memoria MG Oral 07-05 Instructio l Tablet 19:25: ns, PRN [place] [Valium] 00 Muscle Spasms, 1 tab PO q4-6 hrs prn muscle spasms, # 30 tab, 4 Refill(s) Docusate Yes 100 mg = 1 Mem oria Sodium 100 07-05 cap, PO, l MG Oral 19:25: BID, # 30 Audra nn Capsule 00 cap, 1 Refill(s) glycopyrrol No Route: IV, Memoria ate (ANES) 07-05 Drug form: l 17:07: INJ, ONCE, Stop date: 07/05/16 11:07:00 [employer] neostigmine No Route: IV, Memoria (ANES) 07-05 Drug form: l 17:07: INJ, ONCE, Stop date: 07/05/16 11:07:00 [employer] vancomycin No Route: IV, M emoria (ANES) 07-05 Drug form: l 16:56: INJ, ONCE, Stop date: 07/05/16 10:56:00 [employer] ondansetron No Route: IV, Memoria (ANES) 07-05 Drug form: l 16:51: INJ, ONCE, Stop date: 07/05/16 10:51:00 [employer] ketOROLAC No IV, ONCE Mathieu chaitanya (ANES) 07-05 l 16:51: propofol No Route: IV, Mem oria (ANES) 07-05 Drug form: l 16:51: INJ, ONCE, Stop date: 07/05/16 10:51:00 [employer] fentaNYL No Route: IV, Mem oria (ANES) 07-05 Drug form: l 16:51: INJ, ONCE, Stop date: 07/05/16 10:51:00 [employer] phenylephri No Route: IV, Memoria ne (ANES) 07-05 Drug form: l 16:51: INJ, ONCE, Stop date: 07/05/16 10:51:00 [employer] rocuronium No Route: IV, M emoria (ANES) 07-05 Drug form: l 16:51: INJ, ONCE, [place] 00 Stop date: 07/05/16 10:51:00 [employer] lidocaine No Route: IV, Me moria (ANES) 2- Drug form: l 16:51: INJ, ONCE, Kaz 00 Stop date: 07/05/16 10:51:00 [employer] midazolam No Route: IV, Me moria (ANES) 2-06 Drug form: l 16:51: SOLN, Kaz 00 ONCE, Stop date: 07/05/16 10:51:00 [employer] Albuterol No Notes: SEE Me moria 0.83 MG/ML - RT l Inhalant 16:46: DOCUMENTAT Her wray Solution 00 ION MEDICATION WASTE Product Size: 2.5 mg Product Wasted: ___ mg Atropine No Notes: Mem oria 07-05 MEDICATION l 16:46: WASTE Product Size: 0.4 mg Product Wasted: ___ mg Ephedrine No Notes: Memori a 2-06 (Same as: l 16:46: ePHEDrine Sulfate) Naloxone No Notes: Memoria 2-06 Same as l 16:46: Narcan Meperidine No Notes: Memor ia 2-06 (Same as: l 16:46: Demerol) "Use Precaution in Elderly, Seizure disorders, and Renal impairment " Glycopyrrol No Notes: Mathieu chaitanya ate 2-06 (Same as: l 16:46: Robinul) Racepinephr No Notes: Mathieu chaitanya ine 2-06 (racepinep l 16:46: hrine *2.25% inh 0.5ml SOLN) (Same as:S2) Flumazenil No Notes: Memor ia 2-06 (Same as: l 16:46: Romazicon) Morphine No Notes: Memoria 2-06 (Same l 16:46: as:MORPhin e Sulfate) Labetalol No Notes: Memori a 2-06 (Same as: l 16:46: Normodyne, Kaz 00 Trandate) Push over 2 minutes Give bolus over 2-3 minutes. Ibuprofen No Notes: Memori a 2- (Same as: l 16:46: Motrin) "Do Not Crush" Take with food. Oxycodone No Notes: Memori a 2- (Same as: l 16:46: Roxicodone ) Acetaminoph No Notes: Mathieu chaitanya en 07-05 Infuse l 16:46: over 15 00 minutes Do not exceed 4gm/day of acetaminop hen MEDICATION WASTE Product Size: 1000 mg Product Wasted: ___ mg Hydralazine No Notes: Mathieu chaitanya 07-05 (Same as: l 16:46: Apresoline ) Push over 5 minutes 72 HR No Notes: Memoria Scopolamine 07-05 Change l 0.0139 16:46: patch [place] MG/HR 00 every 72 Transdermal hours Patch (Same as: Transderm- Scop) Promethazin No 6.25 mg, Me moria e 2 50 mL, l 16:46: Route: 00 IVPB, Drug form: SOLN, ONCE, Dosing Weight 60.455, kg, PRN Nausea & Vomiting, Start date: 07/05/16 10:46:00 [employer] Ondansetron No Notes: Mathieu chaitanya 07-05 (Same as: l 16:46: Zofran) MEDICATION WASTE Product Size: 4 mg Product Wasted: ___ mg LR 1000 mL No Route: IV, M emoria INJ (ANES) 2 Total l 16:01: Volume: Kaz 00 1,000, Start date: 07/05/16 10:01:00 [employer], Stop date: 07/05/16 11:01:00 [employer] HYDROcodone Yes 30 mg = 1 M emoria 30 mg oral 2 cap, PO, l capsule, 14:21: Q12H, 0 Eddie n extended 00 Refill(s) release Lactated No 1,000 mL, Mathieu chaitanya Ringers 07-05 Rate: 100 l 1,000 mL 13:04: ml/hr, [place] 00 Infuse over: 10 hr, Route: IV, Dosing Weight 60.455 kg, Total Volume: 1,000, Start date: 07/05/16 7:04:00 [employer], Duration: 30 day, Stop date: 08/04/16 7:03:00 [employer] vancomycin 2016-0 No 2001 mg: Me moria + sodium 2-06 infuse l chloride 11:00: over 2.5 Audra nn 0.9% INJ 00 hours 250 mL MEDICATION WASTE Product Size: 1000 mg Product Wasted: ___ mg LIVALO [address] [facility] Tab 6-14 [facility] - 00:00: Medical 00 Center clopidogrel Yes [facility] (PLAVIX) 75 6-12 [facility] - mg tablet 00:00: Medical 00 [place] metoclopram [address] [facility] [facility] keysha HCl 5-24 [facility] - (REGLAN) 10 00:00: Medica l MG tablet 00 Center SUPREP Yes [facility] BOWEL PREP 5-24 [facility] - KIT 00:00: Medical 17.5-3.13-1 00 Center .6 gram SolR montelukast Yes [facility] (SINGULAIR) 5-16 [facility] - 10 mg 00:00: Medical tablet 00 Center Aspirin Aspirin Yes Chito [address] [facility] [facility] Adult Low Adult Low Taryn Luke s - Dose Dose [facility] atarax atarax Yes Chito [address] [facility] [facility] Taryn [facility] PreserVisio PreserVisio Yes Chito not [facility] n AREDS 2 n AREDS 2 Taryn defined L [facility] - [facility]ics Claritin-D Claritin-D Yes Chito [address] [facility] 12 Hour 12 Hour Taryn as needed Nahid es - [facility] ent Clinics Neurontin Neurontin Yes Chito [address] [facility] [facility] Taryn [facility] Magnesium Magnesium Yes Chito [address] Oxide Oxide Taryn as needed [facility] PredniSONE PredniSONE Yes Chito [address] [facility] [facility] Taryn [facility] Montelukast Montelukast Yes Chito [address] Sodium Sodium Taryn in the [facility] - evening [facility] Livalo Livalo Yes Chito 1 tablet [facility]aryn [facility] Plavix Plavix Yes Chito 1 tablet [facility]aryn [facility] Prevacid Prevacid Yes Chito [address] Taryn [facility] Ventolin Ventolin Yes Chito [address] HFA HFA Taryn needed [facility] Vital Signs Vital Name Observation Time Observation Value Comments Source Systolic (mm Hg) 2020-08-01 16:06:00 Mathieu rial [place] Diastolic (mm Hg) 2020-08-01 16:06:00 Mem orial [place] Heart Rate 2020-08-01 16:06:00 [facility] [place] Respitory Rate 2020-08-01 16:06:00 Memori al Kaz Height 2020-08-01 16:06:00 160.02 cm [facility] [place] Weight 2020-08-01 16:06:00 Memorial Kaz BMI Calculated 2020-08-01 16:06:00 Memori al Kaz Systolic (mm Hg) 2020-02-01 15:51:00 Mathieu rial [place] Diastolic (mm Hg) 2020-02-01 15:51:00 Mem orial [place] Heart Rate 2020-02-01 15:51:00 Memorial Kaz Respitory Rate 2020-02-01 15:51:00 Memori al [place] Height 2020-02-01 15:51:00 160.02 cm Memorial Kaz Weight 2020-02-01 15:51:00 [facility] [place] BMI Calculated 2020-02-01 15:51:00 Memori al Kaz Systolic (mm Hg) 2019-06-05 21:39:00 Mathieu rial Kaz Diastolic (mm Hg) 2019-06-05 21:39:00 Mem orial [place] Heart Rate 2019-06-05 21:39:00 [facility] [place] Respitory Rate 2019-06-05 21:39:00 Memori al Kaz Height 2019-06-05 21:39:00 162.56 cm Memorial Kaz Weight 2019-06-05 21:39:00 Memorial Kaz BMI Calculated 2019-06-05 21:39:00 Memori al Kaz Systolic (mm Hg) 2019-04-20 17:30:00 Mathieu rial Kaz Diastolic (mm Hg) 2019-04-20 17:30:00 Mem orial [place] Heart Rate 2019-04-20 17:30:00 Memorial Kaz Respitory Rate 2019-04-20 17:30:00 Memori al Kaz Height 2019-04-20 17:30:00 160.02 cm Memorial Kaz Weight 2019-04-20 17:30:00 Memorial Kaz BMI Calculated 2019-04-20 17:30:00 Memori al [place] Systolic (mm Hg) 2019-03-21 19:53:00 Mathieu rial Kaz Diastolic (mm Hg) 2019-03-21 19:53:00 Mem orial [place] Heart Rate 2019-03-21 19:53:00 Memorial Kaz Respitory Rate 2019-03-21 19:53:00 Memori al [place] Height 2019-03-21 19:53:00 167.64 cm Memorial Kaz Weight 2019-03-21 19:53:00 Memorial Kaz BMI Calculated 2019-03-21 19:53:00 Memori al [place] Systolic (mm Hg) 2016-07-05 19:05:00 Mathieu rial [place] Diastolic (mm Hg) 2016-07-05 19:05:00 Mem orial Kaz Respitory Rate 2016-07-05 19:05:00 Memori al Kaz Heart Rate 2016-07-05 19:05:00 [facility] [place] Systolic (mm Hg) 2016-07-05 18:30:00 Mathieu rial [place] Diastolic (mm Hg) 2016-07-05 18:30:00 Mem orial [place] Heart Rate 2016-07-05 18:30:00 Memorial Kaz Respitory Rate 2016-07-05 18:30:00 Memori al [place] Respitory Rate 2016-07-05 18:15:00 Memori al [place] Systolic (mm Hg) 2016-07-05 18:15:00 Mathieu rial [place] Diastolic (mm Hg) 2016-07-05 18:15:00 Mem orial Kaz Heart Rate 2016-07-05 14:02:00 [facility] [place] Height 2016-07-01 20:29:00 167.64 cm [facility] [place] BMI Calculated 2016-07-01 20:29:00 Tasha al [place] Weight 2016-07-01 20:29:00 [facility] Procedure Date / Time Performed Performing Clinician Ava martines Cataract extraction [facility] Hand closure<sup>1</sup> Memoria l [place] Heart procedure [facility] [place] Hernia repair [facility] Miscellaneous operations Memoz l Kaz stents in heart [facility] Tonsillectomy [facility] [place] Tonsillectomy and [facility] nn adenoidectomy Encounters Start End Encounter Admission Attending Care Care Encounter Source Date/Time Date/Time Type Type Clinicians Facility Department ID 2021-02-03 2021-02-03 Outpatient MHIE MHIE [id number] Memoria 10:15:00 10:15:00 11 emeka Mccurdy 2020-12-17 2020-12-17 Out[facility] [id number] 2020-08-01 2020-08-02 Outpatient nullFlavo MNA [id number] Memoria 16:00:00 05:59:59 r Neurology 10 emeka Mccurdy 2020-08-01 2020-08-[address] [facility] [id number] 10:00:00 23:59:59 Juan 10 Leonel 2020-08-01 2020-08-01 Outpatient MHIE MHIE [id number] Memoria 10:00:00 10:00:00 10 emeka IzquierdoKaz 2020-08-01 2020-08-01 Patient Aníbal IDOMARI [id number] 00:00:00 00:00:00 Outreach Adán PINO [id number] [facility] [id number] [id number] 2020-06-18 2020-06-18 Out[facility] [id number] [facility] 2020-02-23 2020-02-23 Refill Chavez IDOMARI [id number] 00:00:00 00:00:00 Lidia Trotter [id number] [place] [id number] Professio [id number] nal 085 [facility] 2020-02-21 2020-02-21 [facility] [id number] 00:00:00 00:00:00 (Out) [facility] [id number] CLINICS [id number] [facility] 2020-02-14 2020-02-14 [id number] 00:00:00 00:00:00 Secure Msg [facility] [id number] CLINICS [id number] [facility] 2020-02-01 2020-02-02 Outpatient nullFlavo MNA [id number] Memoria 15:30:00 04:59:59 r Neurology 09 l Carisa [place] 2020-02-01 2020-02-01 Outpatient ISHAN LeesMISCHER MHMISCHER [id number] 10:30:00 23:59:59 Juan 09 Leonel 2020-02-01 2020-02-01 Ambulatory nullFlavo MNA [id number] Memoria 15:30:00 15:30:00 Pre-Reg r Neurology 08 l Carisa [place] 2020-02-01 2020-02-01 Outpatient MHIE MHIE [id number] Memoria 10:30:00 10:30:00 08 l [place] 2020-02-01 2020-02-01 Outpatient MHIE MHIE [id number] Memoria 10:30:00 10:30:00 09 l [place] 2020-02-01 2020-02-01 Outpatient ISHAN LeesMISCHER MHMISCHER [id number] 10:30:00 10:30:00 Juan 08 [facility] 2020-01-31 2020-01-31 [id number] 00:00:00 00:00:00 [facility] [place] [id number] [place] [id number] Professio [id number] nal [address] [place] [address] 2019-09-28 2019-09-29 Outpatient nullFlavo MNA [id number] Memoria 15:30:00 04:59:59 r Neurology 07 l Carisa Mccurdy 2019-09-28 2019-09-28 Outpatient Nabeel, MHMISCHER MHMISCHER [id number] 10:30:00 23:59:59 Juan 07 Leonel 2019-09-28 2019-09-28 Outpatient MHIE MHIE [id number] Memoria 10:30:00 10:30:00 07 emeka Kaz 2019-06-05 2019-06-06 Outpatient nullFlavo MNA [id number] Memoria 21:30:00 05:59:59 r Neurology 06 l Carisa Izquierdoann 2019-06-05 2019-06-05 Outpatient Nabeel, MHMISCHER MHMISCHER [id number] 15:30:00 23:59:59 Juan 06 Leonel 2019-06-05 2019-06-05 Outpatient MHIE MHIE [id number] Memoria 15:30:00 15:30:00 06 emeka Kaz 2019-04-20 2019-04-21 Outpatient nullFlavo MNA [id number] Memoria 17:15:00 05:59:59 r Neurology 05 l [place] Kaz 2019-04-20 2019-04-20 Outpatient Nabeel, MHMISCHER MHMISCHER [id number] 11:15:00 23:59:59 Juan Franchesca Leonel 2019-04-20 2019-04-20 Outpatient MHIE MHIE [id number] Memoria 11:15:00 11:15:00 05 emeka Kaz 2019-03-21 2019-03-22 Outpatient nullFlavo MNA [id number] [facility] 20:00:00 04:59:59 r Neurology 04 l [place] Kaz 2019-03-21 2019-03-21 Outpatient Nabeel MHMISCHER MHMISCHER [id number] 15:00:00 23:59:59 Juan Lois Leonel 2019-03-21 2019-03-21 Outpatient MHIE MHIE [id number] [facility] 15:00:00 15:00:00 Lois hendrickson Kaz 2018-09-19 2018-09-19 [facility] [id number] [facility] 13:24:00 13:24:00 [facility] 2018-09-11 2018-09-11 [facility] [id number] 11[facility]30:00 11:30:00 t [facility] Medicine Outpati ent Clinics 2018-07-17 2018-07-17 [facility] [id number] [address] 09:15:00 09:15:00 t [facility] Medicine Outpati ent Clinics 2018-05-15 2018-05-15 [facility] [id number] 10:15:00 10:15:00 t [facility] Medicine Outpati ent Clinics 2018-05-08 2018-05-08 [facility] [id number] [facility] 08:45:00 08:45:00 t [facility] Medicine Outpati ent Clinics 2018-02-06 2018-02-06 [facility] [id number] [facility] 09:00:00 09:00:00 t [facility] Medicine Outpati ent Clinics 2017-07-08 2017-07-10 Phone nullFlavo MNA Spine [id number] [facility] 18:23:00 05:59:59 Message r [facility] 04 emeka Mccurdy 2017-07-08 2017-07-09 Outpatient MHMISCHER MHMISCHER [id number] 12:23:00 23:59:59 04 2016-08-18 2016-08-18 Outpatient MHIE IE [id number] [facility] 09:15:00 09:15:00 03 emeka Mccurdy 2016-07-21 2016-07-21 Outpatient MHIE MHIE [id number] [facility] 08:15:00 08:15:00 02 emeka Mccurdy 2016-07-05 2016-07-[address] [facility] [id number] [facility] 13:55:00 19:30:00 Surgery r Kaz 00 [facility] 2016-07-05 2016-07-05 Outpatient SHON Harvey [facility] [id number] 07:55:00 13:30:00 Alex Mcnamara 2016-07-05 2016-07-05 Outpatient MHIE IE [id number] [facility] 08:45:00 08:45:00 01 emeka Mccurdy 2016-06-23 2016-06-23 Outpatient KASSANDRA KASSANDRA [id number] [facility] 10:[facility] 10:00:00 00 emeka Mccurdy Results Test Description Test Time Test Comments Results Result Comments Source ALPHA FETOPROTEIN (AFP), TUMOR MARKER 2016-09-01 11:09:00 Test Item Value Reference Range Interpretation Comme nts ALPHA-FETOPROTEIN (BEAKER) (test code = 1094) < ng/mL <10.0 Effective 04/16/2014: Reference Range ChangeNew: <10.0 Previous: 0.0-8.0CBC W/PLT COUNT & AUTO [id number] 10:05:00 Test Item Value Reference Range Interpretation Comments WHITE BLOOD CELL COUNT (BEAKER) 5.3 K/ L 4.0-10.0 (test code = 775) RED BLOOD CELL COUNT (BEAKER) 4.73 M/ L 4.20-5.80 (test code = 761) HEMOGLOBIN (BEAKER) (test code = 15.1 GM/DL 13.0-16.8 410) HEMATOCRIT (BEAKER) (test code = 45.8 % 40.0-50.0 411) MEAN CORPUSCULAR VOLUME (BEAKER) 97.0 fL 82.0-98.0 (test code = 753) MEAN CORPUSCULAR HEMOGLOBIN 31.9 pg 27.0-33.0 (BEAKER) (test code = 751) MEAN CORPUSCULAR HEMOGLOBIN CONC 32.9 GM/DL 32.0-36.0 (BEAKER) (test code = 752) RED CELL DISTRIBUTION WIDTH 11.8 % 10.3-14.2 (BEAKER) (test code = 412) PLATELET COUNT (BEAKER) (test 267 K/CU MM 150-430 code = 756) MEAN PLATELET VOLUME (BEAKER) 5.9 fL 6.5-10.5 L (test code = 754) NUCLEATED RED BLOOD CELLS 0 /100 WBC 0-0 (BEAKER) (test code = 413) NEUTROPHILS RELATIVE PERCENT 61 % (BEAKER) (test code = 429) LYMPHOCYTES RELATIVE PERCENT 25 % (BEAKER) (test code = 430) MONOCYTES RELATIVE PERCENT 10 % (BEAKER) (test code = 431) EOSINOPHILS RELATIVE PERCENT 3 % (BEAKER) (test code = 432) BASOPHILS RELATIVE PERCENT 1 % (BEAKER) (test code = 437) NEUTROPHILS ABSOLUTE COUNT 3.21 K/ L 1.80-8.00 (BEAKER) (test code = 670) LYMPHOCYTES ABSOLUTE COUNT 1.32 K/ L 1.48-4.50 L (BEAKER) (test code = 414) MONOCYTES ABSOLUTE COUNT (BEAKER) 0.53 K/ L 0.00-1.30 (test code = 415) EOSINOPHILS ABSOLUTE COUNT 0.15 K/ L 0.00-0.50 (BEAKER) (test code = 416) BASOPHILS ABSOLUTE COUNT (BEAKER) 0.08 K/ L 0.00-0.20 (test code = 417) 0.00HEPATIC FUNCTION [id number] 09:42:00 Test Item Value Reference Range Interpretation Comments TOTAL PROTEIN (BEAKER) (test code = 7.7 gm/dL 6.0-8.3 770) ALBUMIN (BEAKER) (test code = 1145) 4.4 g/dL 3.5-5.0 BILIRUBIN TOTAL (BEAKER) (test code 0.5 mg/dL 0.2-1.2 = 377) BILIRUBIN DIRECT (BEAKER) (test 0.2 mg/dL 0.1-0.5 code = 706) ALKALINE PHOSPHATASE (BEAKER) (test 87 U/L 40-150 code = 346) AST (SGOT) (BEAKER) (test code = 36 U/L 5-34 H 353) ALT (SGPT) (BEAKER) (test code = 23 U/L 6-55 347) BASIC METABOLIC [id number] 09:42:00 Test Item Value Reference Range Interpretation Comments SODIUM (BEAKER) 138 meq/L 136-145 (test code = 381) POTASSIUM (BEAKER) 4.4 meq/L 3.5-5.1 (test code = 379) CHLORIDE (BEAKER) 104 meq/L 98-107 (test code = 382) CO2 (BEAKER) (test 27 meq/L 22-29 code = 355) BLOOD UREA NITROGEN 16 mg/dL 7-21 (BEAKER) (test code = 354) CREATININE (BEAKER) 0.88 mg/dL 0.57-1.25 (test code = 358) GLUCOSE RANDOM 102 mg/dL 70-105 (BEAKER) (test code = 652) CALCIUM (BEAKER) 9.3 mg/dL 8.4-10.2 (test code = 697) EGFR (BEAKER) (test 86 mL/min/1.73 ESTIMA MARIELA GFR IS code = 1092) sq m NOT ACCURATE CREATININE CLEARANCE IN PREDICTING GLOMERULAR FILTRATION RATE . ESTIMATED GFR I S NOT APPLICABLE FOR DIALYSIS PATIEN TS. GAMMA GLUTAMYL TRANSFERASE (GGT)2016-09-01 09:42:00 Test Item Value Reference Range Interpretation Comments GAMMA GLUTAMYL TRANSFERASE (TREYAKER) 33 U/L 9-64 (test code = 364) PROTHROMBIN TIME/[id number] 09:25:00 Test Item Value Reference Range Interpretation Comments PROTIME (TAMMI) (test code = 13.2 seconds 11.7-14.7 759) INR (BEAKER) (test code = 370) 1.0 <=5.9 RECOMMENDED COUMADIN/WARFARIN INR THERAPY RANGESSTANDARD DOSE: 2.0 - 3.0 Includes: PROPHYLAXIS forvenous thrombosis, systemic embolization; TREATMENT for venous thrombosis and/or pulmonary embolus.HIGH RISK: Target INR is 2.5-3.5 for patients with mechanical heart valves.BLOOD BANK [id number] 15:08:00 Positive 1(07/05/16 9:08 AM)[facility] YzyfcyfWVXLAKOAHFZL2015-96-81 20:55:0035 [facility] BsfuknyIQFKZZQSYYXR7841-97-46 20:55:91764Dgslxzkc HermannELECTROLYTES 2016-07-01 20:55:003.8[facility] JahyxgmJFAYTYQMRLKO0678-82-60 20:55:008.4[facility] PinlylxDMYHSPAYBANZ4550-36-19 20:55:0034[facility] MvxytqxGZLTYNJCSULN6134-97-06 20:55:003.4[facility] QoxgmqeVRAFGIUCBZEI9394-77-02 20:55:007.1[facility] BJCLWGEYVMPJ4795-48-45 20:55:0030[facility] MtycvnvRCOOBLOIYVUW8671-17-36 20:55:00 0.2[facility] FmjsyayQUPQGBSGTWMB8470-78-45 20:55:0072[facility] HermannELECTROLYTES 2016-07-01 20:55:10834Lkpkzfvb JmxzqagXPSWRZAECSPT0671-56-76 20:55:96748Iintxzid PjifabdFMUWGLPQJYPL8632-89-38 20:55:000.77[facility] HermannELECTROLYTES 2016-07-01 20:55:008[facility] CxspbkaCHMEIVHFZX8525-80-63 20:55:0017.8[facility] KiextpgIVDNPCDEZL6344-03-72 20:55:009.2[facility] UnreihzWALCIDVQIJ0382-57-73 20:55:0069.9[facility] QbusrqxBMMMTRMZNI9874-45-42 20:55:000.7[facility] YDIMISFQMP2501-85-01 20:55:002.4[facility] NisvicnRTBHDTVOCD8142-24-32 20:55:001.0 [facility] XlksgaeRIXUMBYZIH4364-97-48 20:55:000.1[facility] HermannHEMATOLOGY 2016-07-01 20:55:004.0[facility] GhusznjJONYJMBGFA4358-07-42 20:55:000.5[facility] BtwpcckHDGOJQOWCF5324-40-13 20:55:001.02[facility] MyofgkyZZWQQDOUCG3807-73-38 20:55:00 Test Item Value Reference Range Interpretation Comments PTT (test code = PTT) 28.1 s 22.9-35.8 [facility] HaaoyxcHXQJWQPZZA9973-76-62 20:55:00 Test Item Value Reference Range Interpretation Comments PT (test code = PT) 13.6 s 12.0-14.7 [facility] MhtbmpbGAQGFLABNS1443-28-12 20:55:007.1[facility] HermannHEMATOLOGY 2016-07-01 20:55:0095.1[facility] VclynikANVDKWKTYN3465-36-03 20:55:0033.0[facility] LoobijxVDTZTADMLC6709-05-98 20:55:00 Test Item Value Reference Range Interpretation Comments MCH (test code = MCH) 31.4 pg 27.0-31.0 [facility] YdgnbwjKRTPAOAXHB8467-06-93 20:55:92949Dohfbxhw HermannHEMATOLOGY 2016-07-01 20:55:0014.1[facility] IwrxlfgAFKEXUXHDC5112-00-55 20:55:0013.0[facility] GlmjstxURXPJHHZEH1532-83-08 20:55:004.14[facility] UibumwlLZIMWOOLKI1050-06-69 20:55:005.7[facility] DmlccmkHEDRENFULG8374-43-77 20:55:0039.4[facility] Kaz URINE AND [id number] 20:55:00Cloudy *ABN*(07/01/16 2:55 PM)[facility] URINE AND [id number] 20:55:00 Test Item Value Reference Range Interpretation Comments UA Spec Grav (test code = UA Spec 1.010 1 Grav) [facility] [id number] 20:55:00Negative (07/01/16 2:55 PM) [facility] [id number] 20:55:00Negative (07/01/16 2:55 PM) [facility] [id number] 20:55:00Negative (07/01/16 2:55 PM) [facility] [id number] 20:55:00Negative (07/01/16 2:55 PM) [facility] [id number] 20:55:00Negative *NA*(07/01/16 2:55 PM) [facility] NQJAF9124-32-08 20:55:000.2[facility]annURINE AND [id number] 20:55:00Negative (07/01/16 2:55 PM)[facility] AND STOOL 2016-07-01 20:55:00Yellow *NA*(07/01/16 2:55 PM)[facility] AND STOOL 2016-07-01 20:55:00Negative *NA*(07/01/16 2:55 PM)[facility]ann[facility] AND STOOL 2016-07-01 20:55:00 Test Item Value Reference Range Interpretation Comments UA pH (test code = UA pH) 8.0 1 5.0-8.0 [facility] AND [id number] 20:55:00None Seen (07/01/16 2:55 PM) [facility] YjlmvcxOANUOCUFNMLL6619-64-95 20:55:007.8[facility] HermannELECTROLYTES 2016-07-01 20:55:003.7[facility] WaadwkfIFDVQOBQZWUA7895-77-87 20:55:000.9[facility] TtbbpqbLRLQZEAFFEMR3868-84-66 20:55:0010[facility] HsorxxqBKZSQTLHIKPT9472-28-78 20:55:0093[facility]
--- NOTE | 2021-01-04 16:19 | RAD REPORT ---
EXAM DESCRIPTION: CT - Head Brain Wo Cont - 01/04/2021 4:05 pm CLINICAL HISTORY: WEAKNESS COMPARISON: Thorax Wo Con dated 12/07/2018Ct Stroke Brain Wo Cont dated 08/18/2018; HEAD BRAIN W O CON TRAST dated 12/22/2010HEAD BRAIN W O CONTRAST dated 04/01/2007 TECHNIQUE: All CT scans are performed using dose optimization technique as appropriate and may inclu de automated exposure control or mA/KV adjustment according to patient size. FINDINGS: No intracranial hemorrhage, hydrocephalus or extra-axial fluid collection.No areas of brai n edema or evidence of midline shift. Prior left orbital fracture repair. Mild thickening within both maxillary sinuses. The calvarium is intact. IMPRESSION: No acute intracranial abnormality.
--- NOTE | 2021-01-04 17:30 | RAD REPORT ---
EXAM DESCRIPTION: RAD - Chest Single View - 01/04/2021 4:33 pm CLINICAL HISTORY: general weakness COMPARISON: Abdomen 1 View (KUB) dated 05/22/2019; Chest Pa And Lat (2 Views) dated 05/02/2019; Head Brain Wo Cont dated 01/04/2021 FINDINGS: No evidence of edema or pneumonia. Emphysema. The heart size is within normal limits.No ac kenaitze osseous abnormality. No significant pleural effusions or pneumothorax. IMPRESSION: Emphysema without superimposed acute process.
[2021-01-04] MEDS ORDERED: NA CHLORIDE 0.9% 500 ML ONE (18:02)
[2021-01-04 18:18] LABS: Absolute Lymphocytes (CBC) 0.7 K/uL (0.7-4.9); Basophils % 0.6 % (0-1.3); Hematocrit 33.4 % (39.6-49.0); Lymphocytes % 12.3 % (15.3-44.8); MPV 6.6 fL (7.6-11.3); RBC Red Blood Cell Count 4.06 M/uL (4.33-5.43)
[2021-01-04 18:19] LABS: Protime INR 1.37
[2021-01-04 18:38] LABS: ALT/SGPT 68 U/L (12-78); AST/SGOT 63 U/L (15-37); Alkaline Phosphatase 121 U/L (45-117); BUN Blood Urea Nitrogen 10 mg/dL (7-18); Bicarbonate 28 mmol/L (21-32); Bilirubin Direct 0.1 mg/dL (0-0.2); Bilirubin Total 0.3 mg/dL (0.2-1.0); Glucose Level 91 mg/dL (74-106); Magnesium 2.4 mg/dL (1.8-2.4); NT PRO-BNP 66 pg/mL (<125); Potassium 4.7 mmol/L (3.5-5.1); Protein, Total 7.3 g/dL (6.4-8.2); Sodium Level 138 mmol/L (136-145); Troponin (Emerg Dept Use Only) < 0.02 ng/mL (0.0-0.045)
[2021-01-04 18:39] LABS: Urine Blood Negative (Negative); Urine Glucose Negative (Negative); Urine Protein Trace (Negative); Urine Specific Gravity 1.025 (1.005-1.030); Urine pH 5.5 (5.0-7.0)
[2021-01-04 19:06] LABS: Urine Bacteria <20 /HPF (NONE SEEN); Urine RBC <5 /HPF (NONE SEEN)
[2021-01-04 19:07] LABS: Urine Mucus HEAVY /HPF (NONE SEEN)
--- NOTE | 2021-01-04 19:11 | ER ---
Nurse's Notes [facility] Name: Jose Lake Age: 75 yrs Sex: Male : 1945 Arrival Date: 01/04/2021 Time: 15:03 Bed 16 Private MD: Diagnosis: Other fatigue;Anemia, unspecified Presentation: 01/04 15:46 Chief complaint: Patient states: Fatigue, no appetite, reports no BM x 4 days. jl7 Coronavirus screen: Client denies travel out of the [place] in the last 14 days. At this time, the client does not indicate any symptoms associated with coronavirus-19. Ebola Screen: No symptoms or risks identified at this time. Initial Sepsis Screen: Does the patient meet any 2 criteria? No. Patient's initial sepsis screen is negative. Does the patient have a suspected source of infection? No. Patient's initial sepsis screen is negative. Risk Assessment: Do you want to hurt yourself or someone else? Patient reports no desire to harm self or others. Onset of symptoms was December 31, 2020. 15:46 Method Of Arrival: Ambulatory [facility] 15:46 Acuity: LASHANDA 3 jl7 Triage Assessment: 15:48 General: Appears in no apparent distress. uncomfortable, Behavior is calm, cooperative, jl7 appropriate for age. Pain: Denies pain. GI: Reports constipation. Historical: - Allergies: 15:48 PENICILLINS; jl7 15:48 Sulfa (Sulfonamide Antibiotics); jl7 - Home Meds: 15:48 Plavix 75 mg Oral tab 1 tab once daily [Active]; losartan 25 mg oral tab [Active]; jl7 - PMHx: 15:48 Thyroid problem; High Cholesterol; COPD; cardiac stents; bleeding ulcers; Hypertensive jl7 disorder; - Immunization history:: Client reports receiving the 2nd dose of the Covid vaccine, Date received: August 2020. - Social history:: Smoking status: Patient/guardian denies using tobacco. Screenin:30 Abuse screen: Denies threats or abuse. Denies injuries from another. Nutritional bp screening: No deficits noted. Tuberculosis screening: No symptoms or risk factors identified. Fall Risk None identified. Assessment: 17:30 General: SEE TRIAGE NOTE. bp 18:30 Reassessment: No changes from previously documented assessment. Patient and/or family bp updated on plan of care and expected duration. Pain level reassessed. Patient is alert, oriented x 3, equal unlabored respirations, skin warm/dry/pink. Vital Signs: 15:46 BP 112 / 60; Pulse 95; Resp 17; Temp 96; Pulse Ox 99% ; Weight 66.68 kg; Height 5 ft. 2 jl7 in. (157.48 cm); Pain 0/10; 18:30 BP 146 / 79; Pulse 94; Resp 16; Pulse Ox 100% ; bp 15:46 Body Mass Index 26.89 (66.68 kg, 157.48 cm) jl7 ED Course: 15:03 Patient arrived in ED. ds1 15:48 Pako Elizalde PA is PHCP. cp 15:48 Pako Jones MD is Attending Physician. cp 15:48 Triage completed. jl7 15:48 Arm band placed on right wrist. jl7 16:05 CT Head Brain wo Cont In Process Unspecified. EDMS 16:33 XRAY Chest (1 view) In Process Unspecified. EDMS 17:19 Bhaskar Brizuela, [place] is Primary Nurse. bp 18:30 Patient has correct armband on for positive identification. Bed in low position. Call bp light in reach. Side rails up X2. Adult w/ patient. 18:30 Inserted saline lock: 20 gauge in right antecubital area, using aseptic technique. bp Blood collected. 19:24 No provider procedures requiring assistance completed. IV discontinued, No lp1 redness/swelling at site. Pressure dressing applied. Administered Medications: 18:30 Drug: NS 0.9% 500 ml Route: IV; Rate: 500 ml/hr; Site: right antecubital; bp 19:25 Follow up: IV Status: Completed infusion; IV Intake: 500ml lp1 Intake: 19:25 IV: 500ml; Total: 500ml. lp1 Outcome: 19:10 Discharge ordered by . cp 19:24 Discharged to home via wheelchair, with friend. lp1 19:24 Condition: good 19:24 Discharge instructions given to patient, Instructed on discharge instructions, follow up and referral plans. Demonstrated understanding of instructions, follow-up care, Reports f/u with PCP on Tuesday 19:24 Patient left the ED. lp1 Signatures: Dispatcher [employer] [facility] Keisha Blevins ds1 Kylah Cotto, RN RN lp1 Pako Elizalde PA PA cp Leal, Jahala, RN RN jl7 Bhaskar Brizuela, RN RN bp
--- NOTE | 2021-01-04 19:12 | EDPHYS ---
Physician Documentation [facility] Name: Jose Lake Age: 75 yrs Sex: Male : 1945 Arrival Date: 01/04/2021 Time: 15:03 Bed 16 Private MD: CAMERON Physician Pako Jones HPI: 01/04 15:55 This 75 yrs old Male presents to ER via Ambulatory with complaints of cp Constipation, Fatigue. 15:55 fatigue, general weakness. Onset: The symptoms/episode began/occurred 4 day(s) ago. cp Patient also reports constipation times 4 days. Patient denies abdominal pain. Historical: - Allergies: 15:48 PENICILLINS; jl7 15:48 Sulfa (Sulfonamide Antibiotics); jl7 - Home Meds: 15:48 Plavix 75 mg Oral tab 1 tab once daily [Active]; losartan 25 mg oral tab [Active]; jl7 - PMHx: 15:48 Thyroid problem; High Cholesterol; COPD; cardiac stents; bleeding ulcers; Hypertensive jl7 disorder; - Immunization history:: Client reports receiving the 2nd dose of the Covid vaccine, Date received: August 2020. - Social history:: Smoking status: Patient/guardian denies using tobacco. ROS: 16:00 Constitutional: Negative for body aches, chills, fever, poor PO intake. cp 16:00 Eyes: Negative for injury, pain, redness, and discharge. cp 16:00 Cardiovascular: Negative for chest pain, edema, palpitations. cp 16:00 ENT: Negative for drainage from ear(s), ear pain, sore throat, difficulty swallowing, cp difficulty handling secretions. 16:00 Respiratory: Negative for cough, shortness of breath, wheezing. 16:00 Abdomen/GI: Positive for constipation, Negative for abdominal pain, nausea, vomiting, and diarrhea, black/tarry stool, rectal bleeding. 16:00 Back: Negative for pain at rest, pain with movement. 16:00 : Negative for urinary symptoms. 16:00 Skin: Negative for rash. 16:00 Neuro: Positive for weakness, Negative for altered mental status, dizziness, gait disturbance, headache, syncope. 16:00 All other systems are negative. Exam: 16:15 Constitutional: The patient appears in no acute distress, alert, awake, cp non-diaphoretic, non-toxic, well developed, well nourished. 16:15 Head/Face: Normocephalic, atraumatic. cp 16:15 Eyes: Periorbital structures: appear normal, Pupils: equal, round, and reactive to light and accomodation, Extraocular movements: intact throughout, Conjunctiva: normal, no exudate, no injection, Sclera: no appreciated abnormality, Lids and lashes: appear normal, bilaterally. 16:15 ENT: External ear(s): are unremarkable, Ear canal(s): are normal, clear, TM's: bulging, is not appreciated, bilaterally, dullness, bilaterally, erythema, is not appreciated, bilaterally, Nose: is normal, Mouth: Lips: dry, Oral mucosa: moist, Posterior pharynx: Airway: no evidence of obstruction, patent. 16:15 Neck: ROM/movement: is normal, is supple, without pain, no range of motions limitations, no meningismus. 16:15 Chest/axilla: Inspection: normal, Palpation: is normal, no crepitus, no tenderness. 16:15 Cardiovascular: Rate: normal, Rhythm: regular, Edema: is not appreciated, JVD: is not appreciated. 16:15 Respiratory: the patient does not display signs of respiratory distress, Respirations: normal, no use of accessory muscles, no retractions, labored breathing, is not present, Breath sounds: are clear throughout, no decreased breath sounds, no stridor, no wheezing. 16:15 Abdomen/GI: Inspection: distension, that is mild, in the abdomen diffusely, Bowel sounds: active, all quadrants, Palpation: abdomen is soft and non-tender, in all quadrants, rebound tenderness, is not appreciated, involuntary guarding, is not appreciated. 16:15 Back: pain, is absent, ROM is normal. 16:15 Neuro: Orientation: to person, place \T\ time. Mentation: is normal. 18:07 ECG was reviewed by the Attending Physician. cp Vital Signs: 15:46 BP 112 / 60; Pulse 95; Resp 17; Temp 96; Pulse Ox 99% ; Weight 66.68 kg; Height 5 ft. 2 jl7 in. (157.48 cm); Pain 0/10; 18:30 BP 146 / 79; Pulse 94; Resp 16; Pulse Ox 100% ; bp 15:46 Body Mass Index 26.89 (66.68 kg, 157.48 cm) jl7 MDM: 16:00 Differential Diagnosis electrolyte abnormality, cardiac arrythmia, TN. cp 17:20 Patient medically screened. cp 19:10 Data reviewed: vital signs, nurses notes, lab test result(s), EKG, radiologic studies, cp CT scan, plain films. 19:10 Test interpretation: by ED physician or midlevel provider: ECG, plain radiologic cp studies. Counseling: I had a detailed discussion with the patient and/or guardian regarding: the historical points, exam findings, and any diagnostic results supporting the discharge/admit diagnosis, lab results, radiology results, the need for outpatient follow up, an hadoop admin, to return to the emergency department if symptoms worsen or persist or if there are any questions or concerns that arise at home. Response to treatment: the patient's symptoms have mildly improved after treatment. ED course: VSS. Discussed results of labs, EKG and radiology studies. Patient reports symptoms improved. Will discharge to home for continued monitoring. 01/04 15:49 Order name: Basic Metabolic Panel; Complete Time: 18:44 cp 01/04 15:49 Order name: CBC with Diff; Complete Time: 18:37 cp 01/04 18:38 Interpretation: Normal except: RBC 4.06; HGB 10.6; HCT 33.4; MCV 82.2; MCH 26.0; MCHC cp 31.6; RDW 18.5; MPV 6.6; LYM% 12.3; MN% 13.3. 01/04 15:49 Order name: LFT's; Complete Time: 18:44 cp 01/04 18:44 Interpretation: Normal except: AST 63; ALK 121; ALB 3.0; GLOB 4.3; A/G 0.7. cp 01/04 15:49 Order name: Magnesium; Complete Time: 18:44 cp 01/04 15:49 Order name: NT PRO-BNP; Complete Time: 18:44 cp 01/04 15:49 Order name: PT-INR; Complete Time: 18:37 cp 01/04 15:49 Order name: Troponin (emerg Dept Use Only); Complete Time: 18:44 cp 01/04 18:44 Interpretation: Abnormal: TROPED < 0.02. cp 01/04 15:49 Order name: XRAY Chest (1 view); Complete Time: 17:35 cp 01/04 17:35 Interpretation: No acute disease. cp 01/04 15:49 Order name: EKG; Complete Time: 15:50 cp 01/04 15:49 Order name: Cardiac monitoring; Complete Time: 18:50 cp 01/04 15:49 Order name: CT Head Brain wo Cont; Complete Time: 17:20 cp 01/04 17:20 Interpretation: Report reviewed. cp 01/04 17:25 Order name: Urine Microscopic Only; Complete Time: 19:09 cp 01/04 19:09 Interpretation: Reviewed. cp 01/04 18:39 Order name: Urine Dipstick-Ancillary; Complete Time: 18:44 EDMS 01/04 18:44 Interpretation: Normal except: UPROT Trace. cp 01/04 15:49 Order name: EKG - Nurse/Tech; Complete Time: 18:50 cp 01/04 15:49 Order name: IV Saline Lock; Complete Time: 18:50 cp 01/04 15:49 Order name: Labs collected and sent; Complete Time: 18:49 cp 01/04 15:49 Order name: O2 Per Protocol; Complete Time: 18:49 cp 01/04 15:49 Order name: O2 Sat Monitoring; Complete Time: 18:49 cp 01/04 17:25 Order name: Urine Dipstick-Ancillary (obtain specimen); Complete Time: 18:49 cp EC:07 Rate is 89 beats/min. Rhythm is regular. RI interval is normal. QRS interval is cp prolonged at 110 msec. QT interval is normal. T waves are Inverted in lead aVR. Interpreted by me. Reviewed by me. Administered Medications: 18:30 Drug: NS 0.9% 500 ml Route: IV; Rate: 500 ml/hr; Site: right antecubital; bp 19:25 Follow up: IV Status: Completed infusion; IV Intake: 500ml lp1 Disposition: 01/05 07:38 Co-signature as Attending Physician, Pako Jones MD I agree with the assessment and galo plan of care. Disposition Summary: 01/04/21 19:10 Discharge Ordered Location: Home cp Problem: new cp Symptoms: have improved cp Condition: Stable cp Diagnosis - Other fatigue cp - Anemia, unspecified cp Followup: cp - With: Private Physician - When: 2 - 3 days - Reason: Recheck today's complaints Discharge Instructions: - Discharge Summary Sheet cp - Anemia cp - Constipation, Adult cp - Fatigue cp Forms: - Medication Reconciliation Form cp - Thank You Letter cp - Antibiotic Education cp - Prescription Opioid Use cp Signatures: Dispatcher [employer] EDPako Kiser MD MD cha Page, Corey, PA PA cp Leal, Jahala, RN RN jl7 Bhaskar Brizuela RN RN bp Kylah Cotto RN lp1
[2021-01-04 19:31] VITALS: TEMP 96
[2021-01-04 19:33] VITALS: BP 146/79; O2SAT 100
== END 2021-01-04 19:24 | disposition home or self-care (01) ==
LOC: ER 14:56
DX: D64.9 Anemia, unspecified (principal); K59.00 Constipation, unspecified; I10 Essential (primary) hypertension; Z79.01 Long term (current) use of anticoagulants; Z88.0 Allergy status to penicillin; Z88.2 Allergy status to sulfonamides; Z95.818 Presence of other cardiac implants and grafts
CPT/HCPCS: 93005; 85025; 80048; 36415; 83735; 85610; 80076; 84484; 83880; 70450; 71045; 96360; 99284; J7040; 81003; 81015

== ENCOUNTER 2021-04-20 06:37 | Emergency (ER) | payer OTHER ==
--- OUTSIDE RECORDS SUMMARY | 2021-04-20 06:44 | XMS REPORT | Continuity of Care Document ---
:1945 Author Organization [facility] t Address [address] [place] [address] Care Team Providers Name Role Phone Meagan CORONA III Primary Care Physician Unavailable ALECIA Attending Clinician Unavailable ALECIA Attending Clinician Unavailable Vadim Spangler DO Attending Clinician Alecia ROSENBAUM Attending Clinician Doctor Unassigned, Name Attending Clinician Unavailable Ryan FLORES, Gene Attending Clinician Meagan Corona MD Attending Clinician 2, Lab Attending Clinician Unavailable Meagan Kaminski Attending Clinician Unavailable Ezekiel PAGE Attending Clinician Unavailable DELVIS TALAVERA Attending Clinician Unavailable ALECIA Admitting Clinician Unavailable Payers Payer Name Policy Type Policy Number Effective Date Expiration Date S master [employer] MEDICARE OUT [id number] 2019 OF NETWORK 00:00:00 Problems Condition Condition Condition Status Onset Resolution Last Treating Co mments Source Name Details Category Date Date Treatment Clinician Date Symptomati Symptomati Disease Active Overview : Univers c anemia c anemia 5-17 Added ity of 00:00: automatic [place] [id number] ally from Medical request Branch for surgery [id number] RLL RLL Disease Active Univers pneumonia pneumonia - ity of 00:00: [place] 00 Medical Branch Acute Acute Disease Active Univers exacerbati exacerbati - it y of on of on of 00:00: [place] chronic chronic 00 Medical obstructiv obstructiv Br anch e e pulmonary pulmonary disease disease (COPD) (COPD) M51.26,CPT Diagnosis Active 2016-07-05 Memoria -[id number] 06-29 07:59:00 l 00:00: [place] M51.26,CPT 00 -[id number] Active 06/29/2016 [facility] Bronchitis Problem Resolve 2020-08-04 Memoria (disorder) d 01:40:14 l Kaz Bronchitis (disorder) Resolved Problem 08/04/2020 [facility] [address] Moderate Problem Resolve 2020-08-04 Me moria chronic d 01:40:14 l obstructiv Moderate He rmann e chronic pulmonary obstructiv disease e (disorder) pulmonary disease (disorder) Resolved Problem 08/04/2020 [facility] [address] Bilateral Problem Resolve 2020-08-04 M emoria cataracts d 01:40:14 l (disorder) Eddie n Bilateral cataracts (disorder) Resolved Problem 08/04/2020 [facility] Pneumonia Problem Resolve 2020-08-04 M emoria (disorder) d 01:40:14 l Kaz Pneumonia (disorder) Resolved Problem 08/04/2020 [facility] Stented Problem Resolve 2020-08-04 Mem oria coronary d 01:40:14 l artery Stented Kaz (finding) coronary artery (finding) Resolved Problem 08/04/2020 [facility] Coronary Problem Active 2020-08-04 Mem oria arterioscl 01:40:14 l erosis Coronary Eddie n (disorder) arterioscl erosis (disorder) Active Problem 08/04/2020 [facility] Pulmonary Problem Active 2020-08-04 Me moria emphysema 01:40:14 l (disorder) Eddie n Pulmonary emphysema (disorder) Active Problem 08/04/2020 [facility] [address] Ataxia Problem Active 2020-08-04 Memor ia (finding) 01:40:14 l Ataxia [place] (finding) Active Problem 08/04/2020 [facility] Closed Problem Active 2020-08-04 Memor ia fracture 01:40:14 l of fourth Closed Audra nn cervical fracture vertebra of fourth (disorder) cervical vertebra (disorder) Active Problem 08/04/2020 [facility] Spinal Problem Active 2020-08-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:40:14 l disorder Spinal Eddie n (disorder) cord disorder (disorder) Active Problem 08/04/2020 [facility] Tremor Problem Active 2020-08-04 Memor ia (finding) 01:40:14 l Tremor [place] (finding) Active Problem 08/04/2020 [facility] Essential Problem Active 2020-08-04 Me moria tremor 01:40:14 l (disorder) Eddie n Essential tremor (disorder) Active Problem 08/04/2020 [facility] Orthostati Problem Active 2020-08-04 M emoria c tremor 01:40:14 l (finding) [place] Orthostati c tremor (finding) Active Problem 08/04/2020 [facility] OTHER Diagnosis Active 2016-07-05 Mem oria INTERVERTE 07:59:00 l BRAL DISC OTHER Eddie n DISPLACEME INTERVERTE NT, BRAL DISC DISPLACEME NT, Active [facility] Allergies, Adverse Reactions, Alerts Allergy Allergy Status Severity Reaction(s) Onset Inactive Treating Comm ents Source Name Type Date Date Clinician Penicill Propensi Active Rash Univer s ins ty to 2-18 ity of adverse 00:00: [place] reaction 00 Medical s Branch Sulfa Propensi Active Unknown - Unive rs (Sulfona ty to See comments 2-18 it y of mide adverse 00:00: [place] Antibiot reaction 00 Medica l ics) s Branch PENICILL Drug Active Med Rash Univers INS Class 2-18 ity of 00:00: [place] 00 Medical Branch SULFA Drug Active Unknown-Cmnt Univ ers (SULFONA Class 2-18 ity of MIDE 00:00: [place] ANTIBIOT 00 Medical ICS) Branch penicill Adverse Active Info Not [facility] Sulfacet Adverse Active Info Not [facility] amide Reaction Available [facility] Amoxicil Adverse Active Info Not [facility] denny Reaction Available [facility] penicill penicill Active Memori a ins ins l [place] sulfa sulfa Active <not Memoria drugs drugs entered> l [place] Social History Social Habit Start Date Stop Date Quantity Comments Source Exposure to Not sure University SARS-CoV-2 (event) [facility] History of tobacco Cigarette Smoker University of use [facility] Sex Assigned At Universit y of [facility] Tobacco use and 2019-07-19 2019-07-19 Never used Universit y of exposure 00:00:00 00:00:00 [facility] Cigarettes smoked 2019-07-19 2019-07-19 Univers ity of current (pack per 00:00:00 00:00:00 [facility] ) - Reported Branch Cigarette 2019-07-19 2019-07-19 University of pack-years 00:00:00 00:00:00 [facility] Alcohol intake 2019-07-19 2019-07-19 Current University of 00:00:00 00:00:00 non-drinker of [facility] alcohol [place] (finding) Social History 2016-07-01 2016-07-01 [facility] 20:50:54 20:50:54 Smoking Status Start Date Stop Date Source Current every day smoker 2019-07-19 00:00:00 Uni versity of [facility] Medications Ordered Filled Start Stop Current Ordering Indication Dosage Frequency Signature Comments Components Source Medication Medication Date Date Medication? Clinician (SIG) Name Name ADVAIR 2019-05 Yes [id number] INHALE 1 Un kim DISKUS 0-07 PUFF EVERY ity of 250-50 00:00: 12 [place] mcg/dose 00 (TWELVE) Medical inhalation HOURS. Branch disk ADVAIR 2019-05 Yes [id number] INHALE 1 Un kim DISKUS 0-07 PUFF EVERY ity of 250-50 00:00: 12 [place] mcg/dose 00 (TWELVE) Medical inhalation HOURS. Branch disk ALBUTEROL Yes TAKE 2 Univer s 90 8-05 PUFFS BY ity of mcg/actuati 00:00: MOUTH [place] on inhaler 00 EVERY 6 Medica l HOURS Branch NEEDED FOR WHEEZE OR FOR SHORTNESS OF BREATH ALBUTEROL Yes TAKE 2 Univer s 90 8-05 PUFFS BY ity of mcg/actuati 00:00: MOUTH [place] on inhaler 00 EVERY 6 Medica l HOURS Branch NEEDED FOR WHEEZE OR FOR SHORTNESS OF BREATH ALBUTEROL 2020-0 Yes TAKE 2 Univer s 90 8-05 PUFFS BY ity of mcg/actuati 00:00: MOUTH [place] on inhaler 00 EVERY 6 Medica l HOURS Branch NEEDED FOR WHEEZE OR FOR SHORTNESS OF BREATH ALBUTEROL 2020-0 Yes TAKE 2 Univer s 90 8-05 PUFFS BY ity of mcg/actuati 00:00: MOUTH [place] on inhaler 00 EVERY 6 Medica l HOURS Branch NEEDED FOR WHEEZE OR FOR SHORTNESS OF BREATH ALBUTEROL 2020-0 Yes TAKE 2 Univer s 90 8-05 PUFFS BY ity of mcg/actuati 00:00: MOUTH [place] on inhaler 00 EVERY 6 Medica l HOURS Branch NEEDED FOR WHEEZE OR FOR SHORTNESS OF BREATH ALBUTEROL 2020-0 Yes TAKE 2 Univer s 90 8-05 PUFFS BY ity of mcg/actuati 00:00: MOUTH [place] on inhaler 00 EVERY 6 Medica l HOURS Branch NEEDED FOR WHEEZE OR FOR SHORTNESS OF BREATH ALBUTEROL 2020-0 Yes TAKE 2 Univer s 90 8-05 PUFFS BY ity of mcg/actuati 00:00: MOUTH [place] on inhaler 00 EVERY 6 Medica l HOURS Branch NEEDED FOR WHEEZE OR FOR SHORTNESS OF BREATH ALBUTEROL 2020-0 Yes TAKE 2 Univer s 90 8-05 PUFFS BY ity of mcg/actuati 00:00: MOUTH [place] on inhaler 00 EVERY 6 Medica l HOURS Branch NEEDED FOR WHEEZE OR FOR SHORTNESS OF BREATH ALBUTEROL 2020-0 Yes TAKE 2 Univer s 90 8-05 PUFFS BY ity of mcg/actuati 00:00: MOUTH [place] on inhaler 00 EVERY 6 Medica l HOURS Branch NEEDED FOR WHEEZE OR FOR SHORTNESS OF BREATH ALBUTEROL 2020-0 Yes TAKE 2 Univer s 90 8-05 PUFFS BY ity of mcg/actuati 00:00: MOUTH [place] on inhaler 00 EVERY 6 Medica l HOURS Branch NEEDED FOR WHEEZE OR FOR SHORTNESS OF BREATH ALBUTEROL 2020-0 Yes TAKE 2 Univer s 90 8-05 PUFFS BY ity of mcg/actuati 00:00: MOUTH [place] on inhaler 00 EVERY 6 Medica l HOURS Branch NEEDED FOR WHEEZE OR FOR SHORTNESS OF BREATH primidone 2020-0 Yes 50 mg = 1 Mem oria 50 mg oral 5-01 tab, PO, l tablet 15:30: BID, # 60 Eddie n 00 tab, 3 Refill(s), Pharmacy: [id number] fluticasone 2020-0 Yes [id number] 1{puff} Inhale 1 Univers propion-sam 2-20 Puff every it y of meterol 00:00: 12 [place] (ADVAIR 00 (twelve) Medical DISKUS) hours. Branch 250-50 mcg/dose inhalation disk albuterol 2020-0 Yes 2{puff} Inhale 2 U nivers 90 2-20 Puffs ity of mcg/actuati 00:00: every 6 [place] as on inhaler 00 (six) Medical hours as Branch needed for Wheezing or Shortness of Breath. fluticasone 2020-0 Yes [id number] 1{puff} Inhale 1 Univers propion-sam 2-20 Puff every it y of meterol 00:00: 12 [place] (ADVAIR 00 (twelve) Medical DISKUS) hours. Branch 250-50 mcg/dose inhalation disk albuterol 2020-0 Yes 2{puff} Inhale 2 U nivers 90 2-20 Puffs ity of mcg/actuati 00:00: every 6 [place] on inhaler 00 (six) Medical hours as Branch needed for Wheezing or Shortness of Breath. fluticasone 2020-0 Yes [id number] 1{puff} Inhale 1 Univers propion-sam 2-20 Puff every it y of meterol 00:00: 12 [place] (ADVAIR 00 (twelve) Medical DISKUS) hours. Branch 250-50 mcg/dose inhalation disk albuterol 2020-0 Yes 2{puff} Inhale 2 U nivers 90 2-20 Puffs ity of mcg/actuati 00:00: every 6 [place] on inhaler 00 (six) Medical hours as Branch needed for Wheezing or Shortness of Breath. fluticasone 2020-0 Yes [id number] 1{puff} Inhale 1 Univers propion-sam 2-20 Puff every it y of meterol 00:00: 12 [place] (ADVAIR 00 (twelve) Medical DISKUS) hours. Branch 250-50 mcg/dose inhalation disk albuterol 2020-0 Yes 2{puff} Inhale 2 U nivers 90 2-20 Puffs ity of mcg/actuati 00:00: every 6 [place] on inhaler 00 (six) Medical hours as Branch needed for Wheezing or Shortness of Breath. fluticasone 2020-0 Yes [id number] 1{puff} Inhale 1 Univers propion-sam 2-20 Puff every it y of meterol 00:00: 12 [place] (ADVAIR (twelve) Medical DISKUS) hours. Branch 250-50 mcg/dose inhalation disk albuterol 2020-0 Yes 2{puff} Inhale 2 U nivers 90 2-20 Puffs ity of mcg/actuati 00:00: every 6 [place] on inhaler 00 (six) Medical hours as Branch needed for Wheezing or Shortness of Breath. fluticasone 2020-0 Yes [id number] 1{puff} Inhale 1 Univers propion-sam 2-20 Puff every it y of meterol 00:00: 12 [place] (ADVAIR (twelve) Medical DISKUS) hours. Branch 250-50 mcg/dose inhalation disk albuterol 2020-0 Yes 2{puff} Inhale 2 U nivers 90 2-20 Puffs ity of mcg/actuati 00:00: every 6 [place] on inhaler 00 (six) Medical hours as Branch needed for Wheezing or Shortness of Breath. fluticasone 2020-0 Yes [id number] 1{puff} Inhale 1 Univers propion-sam 2-20 Puff every it y of meterol 00:00: 12 [place] (ADVAIR (twelve) Medical DISKUS) hours. Branch 250-50 mcg/dose inhalation disk fluticasone 2020-0 Yes [id number] 1{puff} Inhale 1 Univers propion-sam 2-20 Puff every it y of meterol 00:00: 12 [place] (ADVAIR (twelve) Medical DISKUS) hours. Branch 250-50 mcg/dose inhalation disk fluticasone 2020-0 Yes [id number] 1{puff} Inhale 1 Univers propion-sam 2-20 Puff every it y of meterol 00:00: 12 [place] (ADVAIR 00 (twelve) Medical DISKUS) hours. Branch 250-50 mcg/dose inhalation disk fluticasone 2020-0 Yes [id number] 1{puff} Inhale 1 Univers propion-sam 2-20 Puff every it y of meterol 00:00: 12 [place] (ADVAIR 00 () Medical DISKUS) hours. Branch 250-50 mcg/dose inhalation disk fluticasone 2020-0 Yes [id number] 1{puff} Inhale 1 Univers propion-sam 2-20 Puff every it y of meterol 00:00: 12 [place] (ADVAIR (twelve) Medical DISKUS) hours. Branch 250-50 mcg/dose inhalation disk fluticasone 2020-0 Yes [id number] 1{puff} Inhale 1 Univers propion-sam 2-20 Puff every it y of meterol 00:00: 12 [place] (ADVAIR () Medical DISKUS) hours. Branch 250-50 mcg/dose inhalation disk fluticasone 2020-0 Yes [id number] 1{puff} Inhale 1 Univers propion-sam 2-20 Puff every it y of meterol 00:00: 12 [place] (ADVAIR () Medical DISKUS) hours. Branch 250-50 mcg/dose inhalation disk fluticasone 2020-0 Yes [id number] 1{puff} Inhale 1 Univers propion-sam 2-20 Puff every it y of meterol 00:00: 12 [place] (ADVAIR 00 () Medical DISKUS) hours. Branch 250-50 mcg/dose inhalation disk fluticasone 2020-0 Yes [id number] 1{puff} Inhale 1 Univers propion-sam 2-20 Puff every it y of meterol 00:00: 12 [place] (ADVAIR 00 () Medical DISKUS) hours. Branch 250-50 mcg/dose inhalation disk fluticasone 2020-0 Yes [id number] 1{puff} Inhale 1 Univers propion-sam 2-20 Puff every it y of meterol 00:00: 12 [place] (ADVAIR (twelve) Medical DISKUS) hours. Branch 250-50 mcg/dose inhalation disk fluticasone 2020-0 2020- No [id number] 1{puff} Inhale 1 Univers propion-sam 2-20 10-07 Puff every i ty of meterol 00:00: 00:00 12 [place] (ADVAIR 00 : (twelve) Medical DISKUS) hours. Branch 250-50 mcg/dose inhalation disk albuterol 2020-0 2020- No 2{puff} Inhale 2 Univers 90 2-20 08-05 Puffs ity of mcg/actuati 00:00: 00:00 [place] 6 [place] inhaler 00 :00 (six) Medical hours as Branch needed for Wheezing or Shortness of Breath. primidone Yes 50 mg = 1 Mem oria 50 mg oral 1-07 tab, PO, l tablet 22:25: BID, # 60 Eddie n 32 tab, 3 Refill(s), Pharmacy: [id number] primidone No 50 mg = 1 Mem oria 50 mg oral 1-07 tab, PO, l tablet 22:22: BID, X 30 Eddie n 48 day, # 60 tab, 3 Refill(s), Pharmacy: [place] [id number] primidone 2018-05 Yes 50 mg = 1 Mem oria 50 mg oral 1-22 tab, PO, l tablet 17:52: Daily, # Kaz 00 30 tab, 3 Refill(s), Pharmacy: [place] [id number] omeprazole 2018-05 Yes 20 mg = 1 [...] moria 0-23 TID, 0 l 20:03: Refill(s) [place] 00 atorvastati 2018-05 Yes 40 mg = 1 M emoria n 40 mg 0-23 tab, PO, l oral tablet 20:03: Daily, 0 He rmann 00 Refill(s) Fish Oil 2018-05 Yes 1,200 mg = Mem oria 1200 mg 0-23 1 cap, PO, l oral 20:03: TID, 0 Kaz capsule 00 Refill(s) Ipratropium 2018-05 Yes 250 Memori [place] 0.2 0-23 microgram l MG/ML 20:03: = [...] n inhalation 00 ea, 3 aerosol Refill(s) vit Yes Take by Univers C/E/Zn/juliet 9 mouth. ity of r/lutein/ze 20:53: [place] [address] Medical (PRESERVISI Branch ON AREDS-2 ORAL) levothyroxi Yes 100ug Take 100 U nivers ne 100 mcg 9-03 mcg by ity of tablet 20:53: mouth. [address] docosahexan Yes Take by Un kim oic 9 mouth. ity of acid/epa 20:53: [place] (FISH OIL 54 Medical ORAL) Branch omeprazole Yes 20mg Take 20 mg U nivers 20 mg 9-03 by mouth ity of capsule 20:53: daily. [address] vit Yes Take by Univers C/E/Zn/juliet 9 mouth. ity of r/lutein/ze 20:53: [address] (PRESERVISI Branch ON AREDS-2 ORAL) levothyroxi Yes 100ug Take 100 U nivers ne 100 mcg 9-03 mcg by ity of tablet 20:53: mouth. [address] docosahexan Yes Take by Un kim oic 903 mouth. ity of acid/epa 20:53: [place] (FISH OIL 54 Medical ORAL) Branch omeprazole Yes 20mg Take 20 mg U nivers 20 mg 9-03 by mouth ity of capsule 20:53: daily. [address] vit Yes Take by Univers C/E/Zn/juliet 9-03 mouth. ity of r/lutein/ze 20:53: [place] [address] Medical (PRESERVISI Branch ON AREDS-2 ORAL) levothyroxi 2019-0 Yes 100ug Take 100 U nivers ne 100 mcg 9-03 mcg by ity of tablet 20:53: mouth. [place] [address] Medical Branch docosahexan 0 Yes Take by Un kim oic 9-03 mouth. ity of acid/epa 20:53: [place] (FISH OIL 54 Medical ORAL) Branch omeprazole 0 Yes 20mg Take 20 mg U nivers 20 mg 9-03 by mouth ity of capsule 20:53: daily. [address] vit 0 Yes Take by Univers C/E/Zn/juliet 9-03 mouth. ity of r/lutein/ze 20:53: [place] [address] Medical (PRESERVISI Branch ON AREDS-2 ORAL) levothyroxi 0 Yes 100ug Take 100 U nivers ne 100 mcg 9-03 mcg by ity of tablet 20:53: mouth. [place] [address] Medical Branch docosahexan 0 Yes Take by Un kim oic 9-03 mouth. ity of acid/epa 20:53: [place] (FISH OIL 54 Medical ORAL) Branch omeprazole 0 Yes 20mg Take 20 mg U nivers 20 mg 9-03 by mouth ity of capsule 20:53: daily. [address] vit 2018-0 Yes Take by Univers C/E/Zn/juliet 9-03 mouth. ity of r/lutein/ze 20:53: [place] [address] Medical (PRESERVISI Branch ON AREDS-2 ORAL) levothyroxi 2018-0 Yes 100ug Take 100 U nivers ne 100 mcg 9-03 mcg by ity of tablet 20:53: mouth. [place] [address] Medical Branch docosahexan 0 Yes Take by Un kim oic 9-03 mouth. ity of acid/epa 20:53: [place] (FISH OIL 54 Medical ORAL) Branch omeprazole 2019-0 Yes 20mg Take 20 mg U nivers 20 mg 9-03 by mouth ity of capsule 20:53: daily. [address] vit 2018-0 Yes Take by Univers C/E/Zn/juliet 9-03 mouth. ity of r/lutein/ze 20:53: [place] axan 54 Medical (PRESERVISI Branch ON AREDS-2 ORAL) levothyroxi 2018-0 Yes 100ug Take 100 U nivers ne 100 mcg 9-03 mcg by ity of tablet 20:53: mouth. [place] [address] Medical Branch docosahexan 2018-0 Yes Take by Un kim oic 9-03 mouth. ity of acid/epa 20:53: [place] (FISH OIL 54 Medical ORAL) Branch omeprazole 0 Yes 20mg Take 20 mg U nivers 20 mg 9-03 by mouth ity of capsule 20:53: daily. [address] vit 2018-0 Yes Take by Univers C/E/Zn/juliet 9-03 mouth. ity of r/lutein/ze 20:53: [place] [address] Medical (PRESERVISI Branch ON AREDS-2 ORAL) levothyroxi 0 Yes 100ug Take 100 U nivers ne 100 mcg 9-03 mcg by ity of tablet 20:53: mouth. [place] [address] Medical [place] docosahexan Yes Take by Un kim oic 9-03 mouth. ity of acid/epa 20:53: [place] (FISH OIL 54 Medical ORAL) Branch omeprazole Yes 20mg Take 20 mg U nivers 20 mg 9-03 by mouth ity of capsule 20:53: daily. [address] vit 0 Yes Take by Univers C/E/Zn/juliet 9-03 mouth. ity of r/lutein/ze 20:53: [place] [address] Medical (PRESERVISI Branch ON AREDS-2 ORAL) levothyroxi 0 Yes 100ug Take 100 U nivers ne 100 mcg 9-03 mcg by ity of tablet 20:53: mouth. [place] [address] Medical Branch docosahexan 0 Yes Take by Un kim oic 9-03 mouth. ity of acid/epa 20:53: [place] (FISH OIL 54 Medical ORAL) Branch omeprazole [id number] Yes 20mg Take 20 mg U nivers 20 mg 9-03 by mouth ity of capsule 20:53: daily. [address] vit 2019-0 Yes Take by Univers C/E/Zn/juliet 9-03 mouth. ity of r/lutein/ze 20:53: [place] [address] Medical (PRESERVISI Branch ON AREDS-2 ORAL) levothyroxi 2019-0 Yes 100ug Take 100 U nivers ne 100 mcg 9-03 mcg by ity of tablet 20:53: mouth. [place] [address] Medical Branch docosahexan 0 Yes Take by Un kim oic 9-03 mouth. ity of acid/epa 20:53: [place] (FISH OIL 54 Medical ORAL) Branch omeprazole [id number] Yes 20mg Take 20 mg U nivers 20 mg 9-03 by mouth ity of capsule 20:53: daily. [address] vit 2018-0 Yes Take by Univers C/E/Zn/juliet 9-03 mouth. ity of r/lutein/ze 20:53: [place] [address] Medical (PRESERVISI Branch ON AREDS-2 ORAL) levothyroxi 0 Yes 100ug Take 100 U nivers ne 100 mcg 9-03 mcg by ity of tablet 20:53: mouth. [address] docosahexan Yes Take by Un kim oic 9-03 mouth. ity of acid/epa 20:53: [place] (FISH OIL 54 Medical ORAL) Branch omeprazole 0 Yes 20mg Take 20 mg U nivers 20 mg 9-03 by mouth ity of capsule 20:53: daily. [address] vit 2018-0 Yes Take by Univers C/E/Zn/juliet 9-03 mouth. ity of r/lutein/ze 20:53: [place] [address] Medical (PRESERVISI Branch ON AREDS-2 ORAL) levothyroxi 2018-0 Yes 100ug Take 100 U nivers ne 100 mcg 9-03 mcg by ity of tablet 20:53: mouth. [place] [address] Medical Branch docosahexan 2018-0 Yes Take by Un kim oic 9-03 mouth. ity of acid/epa 20:53: [place] (FISH OIL 54 Medical ORAL) Branch omeprazole 2019-0 Yes 20mg Take 20 mg U nivers 20 mg 9-03 by mouth ity of capsule 20:53: daily. [address] vit 2019-0 Yes Take by Univers C/E/Zn/juliet 9-03 mouth. ity of r/lutein/ze 20:53: [place] [address] Medical (PRESERVISI Branch ON AREDS-2 ORAL) levothyroxi 2019-0 Yes 100ug Take 100 U nivers ne 100 mcg 9-03 mcg by ity of tablet 20:53: mouth. [place] [address] Medical Branch docosahexan 0 Yes Take by Un kim oic 9-03 mouth. ity of acid/epa 20:53: [place] (FISH OIL 54 Medical ORAL) Branch omeprazole 0 Yes 20mg Take 20 mg U nivers 20 mg 9-03 by mouth ity of capsule 20:53: daily. [address] vit 0 Yes Take by Univers C/E/Zn/juliet 9-03 mouth. ity of r/lutein/ze 20:53: [place] [address] Medical (PRESERVISI Branch ON AREDS-2 ORAL) levothyroxi 0 Yes 100ug Take 100 U nivers ne 100 mcg 9-03 mcg by ity of tablet 20:53: mouth. [place] [address] Medical Branch docosahexan Yes Take by Un kim oic 9-03 mouth. ity of acid/epa 20:53: [place] (FISH OIL 54 Medical ORAL) Branch omeprazole 0 Yes 20mg Take 20 mg U nivers 20 mg 9-03 by mouth ity of capsule 20:53: daily. [address] vit 0 Yes Take by Univers C/E/Zn/juliet 9-03 mouth. ity of r/lutein/ze 20:53: [place] [address] Medical (PRESERVISI Branch ON AREDS-2 ORAL) levothyroxi 0 Yes 100ug Take 100 U nivers ne 100 mcg 9-03 mcg by ity of tablet 20:53: mouth. [address] Branch docosahexan 0 Yes Take by Un kim oic 9-03 mouth. ity of acid/epa 20:53: [place] (FISH OIL 54 Medical ORAL) Branch omeprazole 0 Yes 20mg Take 20 mg U nivers 20 mg 9-03 by mouth ity of capsule 20:53: daily. [address] vit 0 Yes Take by Univers C/E/Zn/juliet 9-03 mouth. ity of r/lutein/ze 20:53: [place] [address] Medical (PRESERVISI Branch ON AREDS-2 ORAL) levothyroxi 2018-0 Yes 100ug Take 100 U nivers ne 100 mcg 9-03 mcg by ity of tablet 20:53: mouth. [place] [address] Medical Branch docosahexan 0 Yes Take by Un kim oic 9-03 mouth. ity of acid/epa 20:53: [place] (FISH OIL 54 Medical ORAL) Branch omeprazole 0 Yes 20mg Take 20 mg U nivers 20 mg 9-03 by mouth ity of capsule 20:53: daily. [address] vit 0 Yes Take by Univers C/E/Zn/juliet 9-03 mouth. ity of r/lutein/ze 20:53: [place] [address] Medical (PRESERVISI Branch ON AREDS-2 ORAL) levothyroxi 2018-0 Yes 100ug Take 100 U nivers ne 100 mcg 9-03 mcg by ity of tablet 20:53: mouth. [address] docosahexan Yes Take by Un kim oic 9-03 mouth. ity of acid/epa 20:53: [place] (FISH OIL 54 Medical ORAL) Branch omeprazole Yes 20mg Take 20 mg U nivers 20 mg 9-03 by mouth ity of capsule 20:53: daily. [address] vit 0 Yes Take by Univers C/E/Zn/juliet 9-03 mouth. ity of r/lutein/ze 20:53: [place] [address] Medical (PRESERVISI Branch ON AREDS-2 ORAL) levothyroxi 0 Yes 100ug Take 100 U nivers ne 100 mcg 9-03 mcg by ity of tablet 20:53: mouth. [address] docosahexan Yes Take by Un kim oic 9-03 mouth. ity of acid/epa 20:53: [place] (FISH OIL 54 Medical ORAL) Branch omeprazole 0 Yes 20mg Take 20 mg U nivers 20 mg 9-03 by mouth ity of capsule 20:53: daily. [address] vit 2018-0 Yes Take by Univers C/E/Zn/juliet 9-03 mouth. ity of r/lutein/ze 20:53: [place] [address] Medical (PRESERVISI Branch ON AREDS-2 ORAL) levothyroxi 0 Yes 100ug Take 100 U nivers ne 100 mcg 9-03 mcg by ity of tablet 20:53: mouth. [place] 54 Medical Branch docosahexan Yes Take by Un kim oic 9-03 mouth. ity of acid/epa 20:53: [place] (FISH OIL 54 Medical ORAL) Branch omeprazole 0 Yes 20mg Take 20 mg U nivers 20 mg 9-03 by mouth ity of capsule 20:53: daily. [place] [address] Medical Branch vit 2018-0 Yes Take by Univers C/E/Zn/juliet 9-03 mouth. ity of r/lutein/ze 20:53: [place] [address] Medical (PRESERVISI Branch ON AREDS-2 ORAL) levothyroxi 0 Yes 100ug Take 100 U nivers ne 100 mcg 9-03 mcg by ity of tablet 20:53: mouth. [place] [address] Medical Branch docosahexan Yes Take by Un kim oic 9-03 mouth. ity of acid/epa 20:53: [place] (FISH OIL 54 Medical ORAL) Branch omeprazole Yes 20mg Take 20 mg U nivers 20 mg 9-03 by mouth ity of capsule 20:53: daily. [place] [address] [facility] [place] vit 0 Yes Take by [facility] C/E/Zn/juliet 9-03 mouth. ity of r/lutein/ze 20:53: [place] [address] Medical (PRES[facility] Branch ON AREDS-2 ORAL) levothyroxi 0 Yes 100ug Take 100 U nivers ne 100 mcg 9-03 mcg by ity of tablet 20:53: mouth. [place] [address] [facility] [place] docosahexan Yes Take by Un k[facility] oic 9-03 mouth. ity of acid/epa 20:53: [place] (FISH OIL 54 Medical ORAL) Branch omeprazole 0 Yes 20mg Take 20 mg U nivers 20 mg 9-03 by mouth ity of capsule 20:53: daily. [place] [address] [facility] [place] vit 0 Yes Take by [facility] C/E/Zn/juliet 9-03 mouth. ity of r/lutein/ze 20:53: [place] [address] Medical (PRES[facility] Branch ON AREDS-2 ORAL) levothyroxi 0 Yes 100ug Take 100 U nivers ne 100 mcg 9-03 mcg by ity of tablet 20:53: mouth. [place] [address] [facility] Branch docosahexan 0 Yes Take by [facility] 9-03 mouth. ity of acid/epa 20:53: [place] (FISH OIL 54 Medical ORAL) Branch omeprazole [id number] Yes 20mg Take 20 mg U nivers 20 mg 9-03 by mouth ity of capsule 20:53: daily. [address] vit 2018-0 Yes Take by [facility] C/E/Zn/juliet 9-03 mouth. ity of r/lutein/ze 20:53: [place] [address] Medical (PRES[facility] Branch ON AREDS-2 ORAL) levothyroxi 0 Yes 100ug Take 100 U nivers ne 100 mcg 9-03 mcg by ity of tablet 20:53: mouth. [place] [address] [facility] Branch docosahexan 0 Yes Take by [facility] 9-03 mouth. ity of acid/epa 20:53: [place] (FISH OIL 54 Medical ORAL) Branch omeprazole Yes 20mg Take 20 mg U nivers 20 mg 9-03 by mouth ity of capsule 20:53: daily. [address] vit 0 Yes Take by [facility] C/E/Zn/juliet 9-03 mouth. ity of r/lutein/ze 20:53: [place] [address] Medical (PRESERV[facility] Branch ON AREDS-2 ORAL) levothyroxi 0 Yes 100ug Take 100 U nivers ne 100 mcg 9-03 mcg by ity of tablet 20:53: mouth. [place] [address] [facility] Branch docosahexan 0 Yes Take by Un [facility] 9-03 mouth. ity of acid/epa 20:53: [place] (FISH OIL 54 Medical ORAL) Branch omeprazole Yes 20mg Take 20 mg U nivers 20 mg 9-03 by mouth ity of capsule 20:53: daily. [place] [address] [facility] [place] vit 2018-0 Yes Take by [facility] C/E/Zn/juliet 9-03 mouth. ity of r/lutein/ze 20:53: [place] [address] Medical ([facility] ON AREDS-2 ORAL) levothyroxi 2018-0 Yes 100ug Take 100 U nivers ne 100 mcg 9-03 mcg by ity of tablet 20:53: mouth. [address] docosahexan 2018-0 Yes Take by [facility] 9-03 mouth. ity of acid/epa 20:53: [place] (FISH OIL 54 Medical ORAL) Branch omeprazole 2019-0 Yes 20mg Take 20 mg U nivers 20 mg 9-03 by mouth ity of capsule 20:53: daily. [address] vit 2018-0 Yes Take by [facility] C/E/Zn/juliet 9-03 mouth. ity of r/lutein/ze 20:53: [place] [address] Medical ([facility] ON AREDS-2 ORAL) levothyroxi 2018-0 Yes 100ug Take 100 U nivers ne 100 mcg 9-03 mcg by ity of tablet 20:53: mouth. [place] [address] [facility] Branch docosahexan 0 Yes Take by [facility] 9-03 mouth. ity of acid/epa 20:53: [place] (FISH OIL 54 Medical ORAL) Branch omeprazole 0 Yes 20mg Take 20 mg U nivers 20 mg 9-03 by mouth ity of capsule 20:53: daily. [address] vit 0 Yes Take by [facility] C/E/Zn/juliet 9-03 mouth. ity of r/lutein/ze 20:53: [place] [address] Medical ([facility] ON AREDS-2 ORAL) levothyroxi 2018-0 Yes 100ug Take 100 U nivers ne 100 mcg 9-03 mcg by ity of tablet 20:53: mouth. [place] [address] [facility] Branch docosahexan 0 Yes Take by [facility] 9-03 mouth. ity of acid/epa 20:53: [place] (FISH OIL 54 Medical ORAL) Branch omeprazole 0 Yes 20mg Take 20 mg U nivers 20 mg 9-03 by mouth ity of capsule 20:53: daily. [address] vit 2018-0 Yes Take by [facility] C/E/Zn/juliet 9-03 mouth. ity of r/lutein/ze 20:53: [place] [address] Medical ([facility] ON AREDS-2 ORAL) levothyroxi 2019-0 Yes 100ug Take 100 U nivers ne 100 mcg 9-03 mcg by ity of tablet 20:53: mouth. [place] [address] [facility] Branch docosahexan 2019-0 Yes Take by [facility] 9-03 mouth. ity of acid/epa 20:53: [place] (FISH OIL 54 Medical ORAL) Branch omeprazole 2019-0 Yes 20mg Take 20 mg U nivers 20 mg 9-03 by mouth ity of capsule 20:53: daily. [address] vit 2018-0 Yes Take by [facility] C/E/Zn/juliet 9-03 mouth. ity of r/lutein/ze 20:53: [place] [address] Medical ([facility] ON AREDS-2 ORAL) levothyroxi 2018-0 Yes 100ug Take 100 U nivers ne 100 mcg 9-03 mcg by ity of tablet 20:53: mouth. [address] Branch docosahexan 2018-0 Yes Take by Un [facility] 9-03 mouth. ity of acid/epa 20:53: [place] (FISH OIL 54 Medical ORAL) Branch omeprazole Yes 20mg Take 20 mg U nivers 20 mg 9-03 by mouth ity of capsule 20:53: daily. [address] vit 0 Yes Take by [facility] C/E/Zn/juliet 9-03 mouth. ity of r/lutein/ze 20:53: [place] [address] Medical ([facility] ON AREDS-2 ORAL) levothyroxi 0 Yes 100ug Take 100 U nivers ne 100 mcg 9-03 mcg by ity of tablet 20:53: mouth. [address] Branch docosahexan 0 Yes Take by [facility] 9-03 mouth. ity of acid/epa 20:53: [place] (FISH OIL 54 Medical ORAL) Branch omeprazole 0 Yes 20mg Take 20 mg U nivers 20 mg 9-03 by mouth ity of capsule 20:53: daily. [address] Branch ipratropium 2019-0 Yes [id number] .5mg Inhale 2.5 Univers 0.02 % 8-26 mL every 6 ity of nebulizer 00:00: (six) [place] solution 00 hours as Medical needed for Branch Wheezing or Shortness of Breath. albuterol 2018-0 Yes [id number] 2.5mg Inhale 3 Univers 2.5 mg /3 8-26 mL every 6 ity of mL (0.083 00:00: (six) [place] %) 00 hours as Medical nebulizer needed for Bran ch solution Wheezing or Shortness of Breath. ipratropium 2018-0 Yes [id number] .5mg Inhale 2.5 Univers 0.02 % 8-26 mL every 6 ity of nebulizer 00:00: (six) [place] solution 00 hours as Medical needed for Branch Wheezing or Shortness of Breath. albuterol 2019-0 Yes [id number] 2.5mg Inhale 3 [facility] 2.5 mg /3 8-26 mL every 6 ity of mL (0.083 00:00: (six) [place] %) 00 hours as Medical nebulizer needed for Bran ch solution Wheezing or Shortness of Breath. ipratropium 2019-0 Yes [id number] .5mg Inhale 2.5 Univers 0.02 % 8-26 mL every 6 ity of nebulizer 00:00: (six) [place] solution 00 hours as Medical needed for Branch Wheezing or Shortness of Breath. albuterol 2019-0 Yes [id number] 2.5mg Inhale 3 [facility] 2.5 mg /3 8-26 mL every 6 ity of mL (0.083 00:00: (six) [place] %) 00 hours as Medical nebulizer needed for Bran ch solution Wheezing or Shortness of Breath. ipratropium 2019-0 Yes [id number] .5mg Inhale 2.5 Univers 0.02 % 8-26 mL every 6 ity of nebulizer 00:00: (six) [place] solution 00 hours as Medical needed for Branch Wheezing or Shortness of Breath. albuterol 2019-0 Yes [id number] 2.5mg Inhale 3 Univers 2.5 mg /3 8-26 mL every 6 ity of mL (0.083 00:00: (six) [place] %) 00 hours as Medical nebulizer needed for Bran ch solution Wheezing or Shortness of Breath. ipratropium 2019-0 Yes [id number] .5mg Inhale 2.5 [facility] 0.02 % 8-26 mL every 6 ity of nebulizer 00:00: (six) [place] solution 00 hours as Medical needed for Branch Wheezing or Shortness of Breath. albuterol 2019-0 Yes [id number] 2.5mg Inhale 3 [facility] 2.5 mg /3 8-26 mL every 6 ity of mL (0.083 00:00: (six) [place] %) 00 hours as Medical nebulizer needed for Bran ch solution Wheezing or Shortness of Breath. ipratropium 2019-0 Yes [id number] .5mg Inhale 2.5 Univers 0.02 % 8-26 mL every 6 ity of nebulizer 00:00: (six) [place] solution 00 hours as Medical needed for Branch Wheezing or Shortness of Breath. albuterol 2019-0 Yes [id number] 2.5mg Inhale 3 Univers 2.5 mg /3 8-26 mL every 6 ity of mL (0.083 00:00: (six) [place] %) 00 hours as Medical nebulizer needed for Bran ch solution Wheezing or Shortness of Breath. ipratropium 2019-0 Yes [id number] .5mg Inhale 2.5 Univers 0.02 % 8-26 mL every 6 ity of nebulizer 00:00: (six) [place] solution 00 hours as Medical needed for Branch Wheezing or Shortness of Breath. albuterol 2019-0 Yes [id number] 2.5mg Inhale 3 [facility] 2.5 mg /3 8-26 mL every 6 ity of mL (0.083 00:00: (six) [place] %) 00 hours as Medical nebulizer needed for Bran ch solution Wheezing or Shortness of Breath. ipratropium 2019-0 Yes [id number] .5mg Inhale 2.5 Univers 0.02 % 8-26 mL every 6 ity of nebulizer 00:00: (six) [place] solution 00 hours as Medical needed for Branch Wheezing or Shortness of Breath. albuterol 2019-0 Yes [id number] 2.5mg Inhale 3 Univers 2.5 mg /3 8-26 mL every 6 ity of mL (0.083 00:00: (six) [place] %) 00 hours as Medical nebulizer needed for Bran ch solution Wheezing or Shortness of Breath. ipratropium 2019-0 Yes [id number] .5mg Inhale 2.5 [facility] 0.02 % 8-26 mL every 6 ity of nebulizer 00:00: (six) [place] solution 00 hours as Medical needed for Branch Wheezing or Shortness of Breath. albuterol 2019-0 Yes [id number] 2.5mg Inhale 3 [facility] 2.5 mg /3 8-26 mL every 6 ity of mL (0.083 00:00: (six) [place] %) 00 hours as Medical nebulizer needed for Bran ch solution Wheezing or Shortness of Breath. ipratropium 2019-0 Yes [id number] .5mg Inhale 2.5 Univers 0.02 % 8-26 mL every 6 ity of nebulizer 00:00: (six) [place] solution 00 hours as Medical needed for Branch Wheezing or Shortness of Breath. albuterol 2019-0 Yes [id number] 2.5mg Inhale 3 [facility] 2.5 mg /3 8-26 mL every 6 ity of mL (0.083 00:00: (six) [place] %) 00 hours as Medical nebulizer needed for Bran ch solution Wheezing or Shortness of Breath. ipratropium 2019-0 Yes [id number] .5mg Inhale 2.5 Univers 0.02 % 8-26 mL every 6 ity of nebulizer 00:00: (six) [place] solution 00 hours as Medical needed for Branch Wheezing or Shortness of Breath. albuterol 2019-0 Yes [id number] 2.5mg Inhale 3 [facility] 2.5 mg /3 8-26 mL every 6 ity of mL (0.083 00:00: (six) [place] %) 00 hours as Medical nebulizer needed for Bran ch solution Wheezing or Shortness of Breath. ipratropium 2019-0 Yes [id number] .5mg Inhale 2.5 Univers 0.02 % 8-26 mL every 6 ity of nebulizer 00:00: (six) [place] solution 00 hours as Medical needed for Branch Wheezing or Shortness of Breath. albuterol 2019-0 Yes [id number] 2.5mg Inhale 3 [facility] 2.5 mg /3 8-26 mL every 6 ity of mL (0.083 00:00: (six) [place] %) 00 hours as Medical nebulizer needed for Bran ch solution Wheezing or Shortness of Breath. ipratropium 2019-0 Yes [id number] .5mg Inhale 2.5 Univers 0.02 % 8-26 mL every 6 ity of nebulizer 00:00: (six) [place] solution 00 hours as Medical needed for Branch Wheezing or Shortness of Breath. albuterol 2019-0 Yes [id number] 2.5mg Inhale 3 [facility] 2.5 mg /3 8-26 mL every 6 ity of mL (0.083 00:00: (six) [place] %) 00 hours as Medical nebulizer needed for Bran ch solution Wheezing or Shortness of Breath. ipratropium 2019-0 Yes [id number] .5mg Inhale 2.5 Univers 0.02 % 8-26 mL every 6 ity of nebulizer 00:00: (six) [place] solution 00 hours as Medical needed for Branch Wheezing or Shortness of Breath. albuterol 2019-0 Yes [id number] 2.5mg Inhale 3 [facility] 2.5 mg /3 8-26 mL every 6 ity of mL (0.083 00:00: (six) [place] %) 00 hours as Medical nebulizer needed for Bran ch solution Wheezing or Shortness of Breath. ipratropium 2019-0 Yes [id number] .5mg Inhale 2.5 Univers 0.02 % 8-26 mL every 6 ity of nebulizer 00:00: (six) [place] solution 00 hours as Medical needed for Branch Wheezing or Shortness of Breath. albuterol 2019-0 Yes [id number] 2.5mg Inhale 3 [facility] 2.5 mg /3 8-26 mL every 6 ity of mL (0.083 00:00: (six) [place] %) 00 hours as Medical nebulizer needed for Bran ch solution Wheezing or Shortness of Breath. ipratropium 2019-0 Yes [id number] .5mg Inhale 2.5 Univers 0.02 % 8-26 mL every 6 ity of nebulizer 00:00: (six) [place] solution 00 hours as Medical needed for Branch Wheezing or Shortness of Breath. albuterol 2019-0 Yes [id number] 2.5mg Inhale 3 [facility] 2.5 mg /3 8-26 mL every 6 ity of mL (0.083 00:00: (six) [place] %) 00 hours as Medical nebulizer needed for Bran ch solution Wheezing or Shortness of Breath. ipratropium 2019-0 Yes [id number] .5mg Inhale 2.5 Univers 0.02 % 8-26 mL every 6 ity of nebulizer 00:00: (six) [place] solution 00 hours as Medical needed for Branch Wheezing or Shortness of Breath. albuterol 2019-0 Yes [id number] 2.5mg Inhale 3 [facility] 2.5 mg /3 8-26 mL every 6 ity of mL (0.083 00:00: (six) [place] %) 00 hours as Medical nebulizer needed for Bran ch solution Wheezing or Shortness of Breath. ipratropium 2019-0 Yes [id number] .5mg Inhale 2.5 Univers 0.02 % 8-26 mL every 6 ity of nebulizer 00:00: (six) [place] solution 00 hours as Medical needed for Branch Wheezing or Shortness of Breath. albuterol 2019-0 Yes [id number] 2.5mg Inhale 3 [facility] 2.5 mg /3 8-26 mL every 6 ity of mL (0.083 00:00: (six) [place] %) 00 hours as Medical nebulizer needed for Bran ch solution Wheezing or Shortness of Breath. ipratropium 2019-0 Yes [id number] .5mg Inhale 2.5 Univers 0.02 % 8-26 mL every 6 ity of nebulizer 00:00: (six) [place] solution 00 hours as Medical needed for Branch Wheezing or Shortness of Breath. albuterol 2019-0 Yes [id number] 2.5mg Inhale 3 Univers 2.5 mg /3 8-26 mL every 6 ity of mL (0.083 00:00: (six) [place] %) 00 hours as Medical nebulizer needed for Bran ch solution Wheezing or Shortness of Breath. ipratropium 2019-0 Yes [id number] .5mg Inhale 2.5 Univers 0.02 % 8-26 mL every 6 ity of nebulizer 00:00: (six) [place] solution 00 hours as Medical needed for Branch Wheezing or Shortness of Breath. albuterol 2019-0 Yes [id number] 2.5mg Inhale 3 Univers 2.5 mg /3 8-26 mL every 6 ity of mL (0.083 00:00: (six) [place] %) 00 hours as Medical nebulizer needed for Bran ch solution Wheezing or Shortness of Breath. ipratropium 2019-0 Yes [id number] .5mg Inhale 2.5 Univers 0.02 % 8-26 mL every 6 ity of nebulizer 00:00: (six) [place] solution 00 hours as Medical needed for Branch Wheezing or Shortness of Breath. albuterol 2019-0 Yes [id number] 2.5mg Inhale 3 Univers 2.5 mg /3 8-26 mL every 6 ity of mL (0.083 00:00: (six) [place] %) 00 hours as Medical nebulizer needed for Bran ch solution Wheezing or Shortness of Breath. ipratropium 2019-0 Yes [id number] .5mg Inhale 2.5 Univers 0.02 % 8-26 mL every 6 ity of nebulizer 00:00: (six) [place] solution 00 hours as Medical needed for Branch Wheezing or Shortness of Breath. albuterol 2019-0 Yes [id number] 2.5mg Inhale 3 Univers 2.5 mg /3 8-26 mL every 6 ity of mL (0.083 00:00: (six) [place] %) 00 hours as Medical nebulizer needed for Bran ch solution Wheezing or Shortness of Breath. ipratropium 2019-0 Yes [id number] .5mg Inhale 2.5 Univers 0.02 % 8-26 mL every 6 ity of nebulizer 00:00: (six) [place] solution 00 hours as Medical needed for Branch Wheezing or Shortness of Breath. albuterol 2019-0 Yes [id number] 2.5mg Inhale 3 [facility] 2.5 mg /3 8-26 mL every 6 ity of mL (0.083 00:00: (six) [place] %) 00 hours as Medical nebulizer needed for Bran ch solution Wheezing or Shortness of Breath. ipratropium 2019-0 Yes [id number] .5mg Inhale 2.5 Univers 0.02 % 8-26 mL every 6 ity of nebulizer 00:00: (six) [place] solution 00 hours as Medical needed for Branch Wheezing or Shortness of Breath. albuterol 2019-0 Yes [id number] 2.5mg Inhale 3 [facility] 2.5 mg /3 8-26 mL every 6 ity of mL (0.083 00:00: (six) [place] %) 00 hours as Medical nebulizer needed for Bran ch solution Wheezing or Shortness of Breath. ipratropium 2019-0 Yes [id number] .5mg Inhale 2.5 Univers 0.02 % 8-26 mL every 6 ity of nebulizer 00:00: (six) [place] solution 00 hours as Medical needed for Branch Wheezing or Shortness of Breath. albuterol 2019-0 Yes [id number] 2.5mg Inhale 3 [facility] 2.5 mg /3 8-26 mL every 6 ity of mL (0.083 00:00: (six) [place] %) 00 hours as Medical nebulizer needed for Bran ch solution Wheezing or Shortness of Breath. ipratropium 2019-0 Yes [id number] .5mg Inhale 2.5 Univers 0.02 % 8-26 mL every 6 ity of nebulizer 00:00: (six) [place] solution 00 hours as Medical needed for Branch Wheezing or Shortness of Breath. albuterol 2019-0 Yes [id number] 2.5mg Inhale 3 [facility] 2.5 mg /3 8-26 mL every 6 ity of mL (0.083 00:00: (six) [place] %) 00 hours as Medical nebulizer needed for Bran ch solution Wheezing or Shortness of Breath. ipratropium 2019-0 Yes [id number] .5mg Inhale 2.5 Univers 0.02 % 8-26 mL every 6 ity of nebulizer 00:00: (six) [place] solution 00 hours as Medical needed for Branch Wheezing or Shortness of Breath. albuterol 2019-0 Yes [id number] 2.5mg Inhale 3 Univers 2.5 mg /3 8-26 mL every 6 ity of mL (0.083 00:00: (six) [place] %) 00 hours as Medical nebulizer needed for Bran ch solution Wheezing or Shortness of Breath. ipratropium 2019-0 Yes [id number] .5mg Inhale 2.5 Univers 0.02 % 8-26 mL every 6 ity of nebulizer 00:00: (six) [place] solution 00 hours as Medical needed for Branch Wheezing or Shortness of Breath. albuterol 2019-0 Yes [id number] 2.5mg Inhale 3 [facility] 2.5 mg /3 8-26 mL every 6 ity of mL (0.083 00:00: (six) [place] %) 00 hours as Medical nebulizer needed for Bran ch solution Wheezing or Shortness of Breath. ipratropium 2019-0 Yes [id number] .5mg Inhale 2.5 Univers 0.02 % 8-26 mL every 6 ity of nebulizer 00:00: (six) [place] solution 00 hours as Medical needed for Branch Wheezing or Shortness of Breath. albuterol 2019-0 Yes [id number] 2.5mg Inhale 3 Univers 2.5 mg /3 8-26 mL every 6 ity of mL (0.083 00:00: (six) [place] %) 00 hours as Medical nebulizer needed for Bran ch solution Wheezing or Shortness of Breath. ipratropium 2019-0 Yes [id number] .5mg Inhale 2.5 Univers 0.02 % 8-26 mL every 6 ity of nebulizer 00:00: (six) [place] solution 00 hours as Medical needed for Branch Wheezing or Shortness of Breath. albuterol 2019-0 Yes [id number] 2.5mg Inhale 3 [facility] 2.5 mg /3 8-26 mL every 6 ity of mL (0.083 00:00: (six) [place] %) 00 hours as Medical nebulizer needed for Bran ch solution Wheezing or Shortness of Breath. ipratropium 2019-0 Yes [id number] .5mg Inhale 2.5 Univers 0.02 % 8-26 mL every 6 ity of nebulizer 00:00: (six) [place] solution 00 hours as Medical needed for Branch Wheezing or Shortness of Breath. albuterol 2019-0 Yes [id number] 2.5mg Inhale 3 Univers 2.5 mg /3 8-26 mL every 6 ity of mL (0.083 00:00: (six) [place] %) 00 hours as Medical nebulizer needed for Bran ch solution Wheezing or Shortness of Breath. ipratropium 2019-0 Yes [id number] .5mg Inhale 2.5 Univers 0.02 % 8-26 mL every 6 ity of nebulizer 00:00: (six) [place] solution 00 hours as Medical needed for Branch Wheezing or Shortness of Breath. albuterol 2019-0 Yes [id number] 2.5mg Inhale 3 Univers 2.5 mg /3 8-26 mL every 6 ity of mL (0.083 00:00: (six) [place] %) 00 hours as Medical nebulizer needed for Bran ch solution Wheezing or Shortness of Breath. ipratropium 2019-0 Yes [id number] .5mg Inhale 2.5 Univers 0.02 % 8-26 mL every 6 ity of nebulizer 00:00: (six) [place] solution 00 hours as Medical needed for Branch Wheezing or Shortness of Breath. albuterol 2019-0 Yes [id number] 2.5mg Inhale 3 [facility] 2.5 mg /3 8-26 mL every 6 ity of mL (0.083 00:00: (six) [place] %) 00 hours as Medical nebulizer needed for Bran ch solution Wheezing or Shortness of Breath. omeprazole 2019-0 Yes 20mg Take 20 mg U nivers 20 mg 8-15 by mouth ity of capsule 13:46: daily. [address] omeprazole 2019-0 Yes 20mg Take 20 mg U nivers 20 mg 8-15 by mouth ity of capsule 13:46: daily. [address] omeprazole 2019-0 Yes 20mg Take 20 mg U nivers 20 mg 8-15 by mouth ity of capsule 13:46: daily. [address] omeprazole 2018-0 Yes 20mg Take 20 mg U nivers 20 mg 8-15 by mouth ity of capsule 13:46: daily. [address] omeprazole 2019-0 Yes 20mg Take 20 mg U nivers 20 mg 8-15 by mouth ity of capsule 13:46: daily. [address] omeprazole 2019-0 Yes 20mg Take 20 mg U nivers 20 mg 8-15 by mouth ity of capsule 13:46: daily. [address] omeprazole 2019- Yes 20mg Take 20 mg U nivers 20 mg 8-15 by mouth ity of capsule 13:46: daily. [address] omeprazole 2019-0 Yes 20mg Take 20 mg U nivers 20 mg 8-15 by mouth ity of capsule 13:46: daily. [address] omeprazole 2019-0 Yes 20mg Take 20 mg U nivers 20 mg 8-15 by mouth ity of capsule 13:46: daily. [address] vit 2019-0 Yes Take by Univers C/E/Zn/juliet 7-22 mouth. ity of r/lutein/ze 14:53: [address] (PRES[facility] Branch ON AREDS-2 ORAL) docosahexan 2019-0 Yes Take by Un [facility] - mouth. ity of acid/epa 14:53: [place] (FISH OIL Medical ORAL) Branch vit 2019-0 Yes Take by Univers C/E/Zn/juliet -22 mouth. ity of r/lutein/ze 14:53: [address] (PRESERV[facility]I Branch ON AREDS-2 ORAL) docosahexan 2019-0 Yes Take by Un kim oic 7-22 mouth. ity of acid/epa 14:53: [place] (FISH OIL 51 Medical ORAL) Branch vit 2019-0 Yes Take by [facility] C/E/Zn/juliet 7-22 mouth. ity of r/lutein/ze 14:53: [place] [address] Medical (PRESERV[facility]I Branch ON AREDS-2 ORAL) vit 2019-0 Yes Take by Univers C/E/Zn/juliet 7-22 mouth. ity of r/lutein/ze 14:53: [place] [address] Medical (PRESERV[facility]I Branch ON AREDS-2 ORAL) docosahexan 2018-0 Yes Take by Un [facility] 7-22 mouth. ity of acid/epa 14:53: [place] (FISH OIL 51 Medical ORAL) Branch docosahexan 2018-0 Yes Take by Un k[facility]ic 7- mouth. ity of acid/epa 14:53: [place] (FISH OIL 51 Medical ORAL) Branch vit 2018-0 Yes Take by Univers C/E/Zn/juliet 7- mouth. ity of r/lutein/ze 14:53: [place] [address] Medical (PRESERV[facility]I Branch ON AREDS-2 ORAL) docosahexan 2018-0 Yes Take by Un [facility] 7-22 mouth. ity of acid/epa 14:53: [place] (FISH OIL 51 Medical ORAL) Branch vit 2018-0 Yes Take by Univers C/E/Zn/juliet 7-22 mouth. ity of r/lutein/ze 14:53: [place] [address] Medical (PRESERV[facility]I Branch ON AREDS-2 ORAL) docosahexan 2019-0 Yes Take by Un [facility] 7-22 mouth. ity of acid/epa 14:53: [place] (FISH OIL 51 Medical ORAL) Branch vit 2019-0 Yes Take by Univers C/E/Zn/juliet 7-22 mouth. ity of r/lutein/ze 14:53: [place] [address] Medical (PRESERV[facility]I Branch ON AREDS-2 ORAL) docosahexan 2019-0 Yes Take by Un kim oic 7-22 mouth. ity of acid/epa 14:53: [place] (FISH OIL 51 Medical ORAL) Branch vit 2019-0 Yes Take by Univers C/E/Zn/juliet 7-22 mouth. ity of r/lutein/ze 14:53: [place] ax [address] Medical (PRESERVISI Branch ON AREDS-2 ORAL) docosahexan 0 Yes Take by Un kim oic 7-22 mouth. ity of acid/epa 14:53: [place] (FISH OIL 51 Medical ORAL) Branch vit Yes Take by Univers C/E/Zn/juliet 7-22 mouth. ity of r/lutein/ze 14:53: [place] ax [address] Medical (PRESERVISI Branch ON AREDS-2 ORAL) docosahexan Yes Take by Un kim oic 7-22 mouth. ity of acid/epa 14:53: [place] (FISH OIL 51 Medical ORAL) Branch levothyroxi Yes 100ug Take 100 U nivers ne 100 mcg 7-10 mcg by ity of tablet 12:29: mouth. [address] levothyroxi Yes 100ug Take 100 U nivers ne 100 mcg 7-10 mcg by ity of tablet 12:29: mouth. [address] levothyroxi Yes 100ug Take 100 U nivers ne 100 mcg 7-10 mcg by ity of tablet 12:29: mouth. [address] levothyroxi Yes 100ug Take 100 U nivers ne 100 mcg 7-10 mcg by ity of tablet 12:29: mouth. [address] levothyroxi Yes 100ug Take 100 U nivers ne 100 mcg 7-10 mcg by ity of tablet 12:29: mouth. [address] levothyroxi Yes 100ug Take 100 U nivers ne 100 mcg 7-10 mcg by ity of tablet 12:29: mouth. [address] levothyroxi Yes 100ug Take 100 U nivers ne 100 mcg 7-10 mcg by ity of tablet 12:29: mouth. [address] levothyroxi Yes 100ug Take 100 U nivers ne 100 mcg 7-10 mcg by ity of tablet 12:29: mouth. [address] levothyroxi Yes 100ug Take 100 U nivers ne 100 mcg 7-10 mcg by ity of tablet 12:29: mouth. [address] mirtazapine 2018-0 Yes [id number] 15mg Take 1 Univers (REM[facility]) 6-10 tablet by ity o f 15 mg 00:00: mouth at [place] tablet 00 bedtime. [facility] mirtazapine 2018-0 Yes [id number] 15mg Take 1 Univers ([place]ER[place]) 6-10 tablet by ity o f 15 mg 00:00: mouth at [place] tablet 00 bedtime. [facility] mirtazapine 2018-0 Yes [id number] 15mg Take 1 Univers ([place]ER[place]) 6-10 tablet by ity o f 15 mg 00:00: mouth at [place] tablet 00 bedtime. [facility] mirtazapine 2018-0 Yes [id number] 15mg Take 1 Univers ([place]ER[place]) 6-10 tablet by ity o f 15 mg 00:00: mouth at [place] tablet 00 bedtime. [facility] mirtazapine 2018-0 Yes [id number] 15mg Take 1 Univers ([place]ER[place]) 6-10 tablet by ity o f 15 mg 00:00: mouth at [place] tablet 00 bedtime. [facility] mirtazapine 2018-0 Yes [id number] 15mg Take 1 Univers ([place]ER[place]) 6-10 tablet by ity o f 15 mg 00:00: mouth at [place] tablet 00 bedtime. [facility] [facility] mirtazapine 2018-0 Yes [id number] 15mg Take 1 [facility] (REM[facility] 6-10 tablet by ity o f 15 mg 00:00: mouth at [place] tablet 00 bedtime. [facility] mirtazapine 2018-0 Yes [id number] 15mg Take 1 [facility] (REMERON) 6-10 tablet by ity o f 15 mg 00:00: mouth at [place] tablet 00 bedtime. [facility] mirtazapine 2018-0 Yes [id number] 15mg Take 1 [facility] (REMERON) 6-10 tablet by ity o f 15 mg 00:00: mouth at [place] tablet 00 bedtime. [facility] mirtazapine 2018-0 Yes [id number] 15mg Take 1 [facility] (REMERON) 6-10 tablet by ity o f 15 mg 00:00: mouth at [place] tablet 00 bedtime. [facility] mirtazapine 2018-0 Yes [id number] 15mg Take 1 [facility] (REMERON) 6-10 tablet by ity o f 15 mg 00:00: mouth at [place] tablet 00 bedtime. [facility] mirtazapine 2018-0 Yes [id number] 15mg Take 1 [facility] (REMERON) 6-10 tablet by ity o f 15 mg 00:00: mouth at [place] tablet 00 bedtime. [facility] mirtazapine 2018-0 Yes [id number] 15mg Take 1 [facility] (REMERON) 6-10 tablet by ity o f 15 mg 00:00: mouth at [place] tablet 00 bedtime. [facility] mirtazapine 2018-0 Yes [id number] 15mg Take 1 [facility] (REMERON) 6-10 tablet by ity o f 15 mg 00:00: mouth at [place] tablet 00 bedtime. [facility] mirtazapine 2018-0 Yes [id number] 15mg Take 1 [facility] (REMERON) 6-10 tablet by ity o f 15 mg 00:00: mouth at [place] tablet 00 bedtime. [facility] mirtazapine 2018- Yes [id number] 15mg Take 1 [facility] (REMERON) 6-10 tablet by ity o f 15 mg 00:00: mouth at [place] tablet 00 bedtime. [facility] mirtazapine 2018-0 Yes [id number] 15mg Take 1 [facility] (REMERON) 6-10 tablet by ity o f 15 mg 00:00: mouth at [place] tablet 00 bedtime. [facility] mirtazapine 2018-0 Yes [id number] 15mg Take 1 [facility] (REMERON) 6-10 tablet by ity o f 15 mg 00:00: mouth at [place] tablet 00 bedtime. [facility] mirtazapine 2018-0 Yes [id number] 15mg Take 1 [facility] (REMERON) 6-10 tablet by ity o f 15 mg 00:00: mouth at [place] tablet 00 bedtime. [facility] mirtazapine 2018-0 Yes [id number] 15mg Take 1 [facility] (REMERON) 6-10 tablet by ity o f 15 mg 00:00: mouth at [place] tablet 00 bedtime. [facility] mirtazapine 2018-0 Yes [id number] 15mg Take 1 [facility] (REMERON) 6-10 tablet by ity o f 15 mg 00:00: mouth at [place] tablet 00 bedtime. [facility] mirtazapine 2018-0 Yes [id number] 15mg Take 1 [facility] (REMERON) 6-10 tablet by ity o f 15 mg 00:00: mouth at [place] tablet 00 bedtime. [facility] mirtazapine 2018-0 Yes [id number] 15mg Take 1 [facility] (REMERON) 6-10 tablet by ity o f 15 mg 00:00: mouth at [place] tablet 00 bedtime. [facility] mirtazapine 2018-0 Yes [id number] 15mg Take 1 [facility] (REMERON) 6-10 tablet by ity o f 15 mg 00:00: mouth at [place] tablet 00 bedtime. [facility] mirtazapine 2018- Yes [id number] 15mg Take 1 [facility] (REMERON) 6-10 tablet by ity o f 15 mg 00:00: mouth at [place] tablet 00 bedtime. [facility] mirtazapine Yes [id number] 15mg Take 1 [facility] (REMERON) 6-10 tablet by ity o f 15 mg 00:00: mouth at [place] tablet 00 bedtime. [facility] mirtazapine 2018- Yes [id number] 15mg Take 1 [facility] (REMERON) 6-10 tablet by ity o f 15 mg 00:00: mouth at [place] tablet 00 bedtime. [facility] mirtazapine 2018- Yes [id number] 15mg Take 1 [facility] (REMERON) 6-10 tablet by ity o f 15 mg 00:00: mouth at [place] tablet 00 bedtime. [facility] mirtazapine 2018-0 Yes [id number] 15mg Take 1 [facility] (REMERON) 6-10 tablet by ity o f 15 mg 00:00: mouth at [place] tablet 00 bedtime. [facility] mirtazapine 2018-0 Yes [id number] 15mg Take 1 [facility] (REMERON) 6-10 tablet by ity o f 15 mg 00:00: mouth at [place] tablet 00 bedtime. [facility] mirtazapine 2018-0 Yes [id number] 15mg Take 1 [facility] (REMERON) 6-10 tablet by ity o f 15 mg 00:00: mouth at [place] tablet 00 bedtime. [facility] mirtazapine 2018-0 Yes [id number] 15mg Take 1 [facility] (REMERON) 6-10 tablet by ity o f 15 mg 00:00: mouth at [place] tablet 00 bedtime. [facility] mirtazapine 2018- Yes [id number] 15mg Take 1 [facility] (REMERON) 6-10 tablet by ity o f 15 mg 00:00: mouth at [place] tablet 00 bedtime. [facility] mirtazapine Yes [id number] 15mg Take 1 [facility] (REMERON) 6-10 tablet by ity o f 15 mg 00:00: mouth at [place] tablet 00 bedtime. [facility] mirtazapine Yes [id number] 15mg Take 1 [facility] (REMERON) 6-10 tablet by ity o f 15 mg 00:00: mouth at [place] tablet 00 bedtime. [facility] mirtazapine Yes [id number] 15mg Take 1 [facility] (REMERON) 6-10 tablet by ity o f 15 mg 00:00: mouth at [place] tablet 00 bedtime. [facility] mirtazapine Yes [id number] 15mg Take 1 [facility] (REMERON) 6-10 tablet by ity o f 15 mg 00:00: mouth at [place] tablet 00 bedtime. [facility] mirtazapine Yes [id number] 15mg Take 1 [facility] (REMERON) 6-10 tablet by ity o f 15 mg 00:00: mouth at [place] tablet 00 bedtime. [facility] pantoprazol Yes [id number] 40mg Take 1 [facility] e 40 mg EC 5-20 tablet by ity of tablet 00:00: mouth 2 (two) Medical times Branch daily. pantoprazol Yes [id number] 40mg Take 1 [facility] e 40 mg EC 5-20 tablet by ity of tablet 00:00: mouth 2 (two) Medical times Branch daily. pantoprazol Yes [id number] 40mg Take 1 [facility] e 40 mg EC 5-20 tablet by ity of tablet 00:00: mouth 2 (two) Medical times Branch daily. pantoprazol Yes [id number] 40mg Take 1 [facility] e 40 mg EC 5-20 tablet by ity of tablet 00:00: mouth 2 (two) Medical times Branch daily. pantoprazol Yes [id number] 40mg Take 1 [facility] e 40 mg EC 5-20 tablet by ity of tablet 00:00: mouth 2 (two) Medical times Branch daily. pantoprazol Yes [id number] 40mg Take 1 [facility] e 40 mg EC 5-20 tablet by ity of tablet 00:00: mouth (two) Medical times Branch daily. pantoprazol Yes [id number] 40mg Take 1 [facility] e 40 mg EC 5-20 tablet by ity of tablet 00:00: mouth (two) Medical times Branch daily. pantoprazol Yes [id number] 40mg Take 1 [facility] e 40 mg EC 5-20 tablet by ity of tablet 00:00: mouth (two) Medical times Branch daily. pantoprazol Yes [id number] 40mg Take 1 [facility] e 40 mg EC 5-20 tablet by ity of tablet 00:00: mouth (two) Medical times Branch daily. pantoprazol Yes [id number] 40mg Take 1 [facility] e 40 mg EC 5-20 tablet by ity of tablet 00:00: mouth (two) Medical times Branch daily. pantoprazol Yes [id number] 40mg Take 1 [facility] e 40 mg EC 5-20 tablet by ity of tablet 00:00: mouth (two) Medical times Branch daily. pantoprazol Yes [id number] 40mg Take 1 [facility] e 40 mg EC 5-20 tablet by ity of tablet 00:00: mouth (two) Medical times Branch daily. pantoprazol Yes [id number] 40mg Take 1 [facility] e 40 mg EC 5-20 tablet by ity of tablet 00:00: mouth (two) Medical times Branch daily. pantoprazol Yes [id number] 40mg Take 1 [facility] e 40 mg EC 5-20 tablet by ity of tablet 00:00: mouth (two) Medical times Branch daily. pantoprazol 2018-0 Yes [id number] 40mg Take 1 [facility] e 40 mg EC 5-20 tablet by ity of tablet 00:00: mouth (two) Medical times Branch daily. pantoprazol 2018- Yes [id number] 40mg Take 1 [facility] e 40 mg EC 5-20 tablet by ity of tablet 00:00: mouth (two) Medical times Branch daily. pantoprazol Yes [id number] 40mg Take 1 [facility] e 40 mg EC 5-20 tablet by ity of tablet 00:00: mouth (two) Medical times Branch daily. pantoprazol Yes [id number] 40mg Take 1 [facility] e 40 mg EC 5-20 tablet by ity of tablet 00:00: mouth (two) Medical times Branch daily. pantoprazol Yes [id number] 40mg Take 1 [facility] e 40 mg EC 5-20 tablet by ity of tablet 00:00: mouth (two) Medical times Branch daily. pantoprazol Yes [id number] 40mg Take 1 [facility] e 40 mg EC 5-20 tablet by ity of tablet 00:00: mouth (two) Medical times Branch daily. pantoprazol Yes [id number] 40mg Take 1 [facility] e 40 mg EC 5-20 tablet by ity of tablet 00:00: mouth (two) Medical times Branch daily. pantoprazol Yes [id number] 40mg Take 1 [facility] e 40 mg EC 5-20 tablet by ity of tablet 00:00: mouth (two) Medical times Branch daily. pantoprazol Yes [id number] 40mg Take 1 [facility] e 40 mg EC 5-20 tablet by ity of tablet 00:00: mouth (two) Medical times Branch daily. pantoprazol Yes [id number] 40mg Take 1 [facility] e 40 mg EC 5-20 tablet by ity of tablet 00:00: mouth (two) Medical times Branch daily. pantoprazol Yes [id number] 40mg Take 1 [facility] e 40 mg EC 5-20 tablet by ity of tablet 00:00: mouth (two) Medical times Branch daily. pantoprazol Yes [id number] 40mg Take 1 [facility] e 40 mg EC 5-20 tablet by ity of tablet 00:00: mouth (two) Medical times Branch daily. pantoprazol Yes [id number] 40mg Take 1 [facility] e 40 mg EC 5-20 tablet by ity of tablet 00:00: mouth (two) Medical times Branch daily. pantoprazol Yes [id number] 40mg Take 1 [facility] e 40 mg EC 5-20 tablet by ity of tablet 00:00: mouth (two) Medical times Branch daily. pantoprazol Yes [id number] 40mg Take 1 [facility] e 40 mg EC 5-20 tablet by ity of tablet 00:00: mouth (two) Medical times Branch daily. pantoprazol Yes [id number] 40mg Take 1 [facility] e 40 mg EC 5-20 tablet by ity of tablet 00:00: mouth (two) Medical times Branch daily. pantoprazol 2018- Yes [id number] 40mg Take 1 [facility] e 40 mg EC 5-20 tablet by ity of tablet 00:00: mouth (two) Medical times Branch daily. pantoprazol Yes [id number] 40mg Take 1 [facility] e 40 mg EC 5-20 tablet by ity of tablet 00:00: mouth (two) Medical times Branch daily. pantoprazol Yes [id number] 40mg Take 1 [facility] e 40 mg EC 5-20 tablet by ity of tablet 00:00: mouth (two) Medical times Branch daily. pantoprazol Yes [id number] 40mg Take 1 [facility] e 40 mg EC 5-20 tablet by ity of tablet 00:00: mouth (two) Medical times Branch daily. pantoprazol Yes [id number] 40mg Take 1 [facility] e 40 mg EC 5-20 tablet by ity of tablet 00:00: mouth (two) Medical times Branch daily. pantoprazol Yes [id number] 40mg Take 1 [facility] e 40 mg EC 5-20 tablet by ity of tablet 00:00: mouth (two) Medical times Branch daily. pantoprazol Yes [id number] 40mg Take 1 [facility] e 40 mg EC 5-20 tablet by ity of tablet 00:00: mouth (two) Medical times Branch daily. pantoprazol Yes [id number] 40mg Take 1 [facility] e 40 mg EC 5-20 tablet by ity of tablet 00:00: mouth 2 (two) Medical times Branch daily. Diclofenac Diclofenac 2019- No [place] [address] [facility] Sodium Sodium 4-15 05-15 Taryn with food Luke [facility] - 00:00: 00:00 or milk [facility] 00 :[facility] Mometasone- Yes [id number] 2{puff} Inhale 2 [facility] Formoterol 3-08 Puffs 2 ity of (DULERA) 00:00: (two) [place] 100-5 00 times Medical mcg/actuati daily. Branch on inhaler Mometasone- Yes [id number] 2{puff} Inhale 2 [facility] Formoterol 3-08 Puffs 2 ity of (DULERA) 00:00: (two) [place] 100-5 00 times Medical mcg/actuati daily. Branch on inhaler Mometasone Yes [id number] 2{puff} Inhale 2 [facility] Formoterol 3-08 Puffs 2 ity of (DULERA) 00:00: (two) [place] 100-5 00 times Medical mcg/actuati daily. Branch on inhaler Mometasone Yes [id number] 2{puff} Inhale 2 [facility] Formoterol 3-08 Puffs 2 ity of (DULERA) 00:00: (two) [place] 100-5 00 times Medical mcg/actuati daily. Branch on inhaler Mometasone Yes [id number] 2{puff} Inhale 2 [facility] Formoterol 3-08 Puffs 2 ity of (DULERA) 00:00: (two) [place] 100-5 00 times Medical mcg/actuati daily. Branch on inhaler Mometasone Yes [id number] 2{puff} Inhale 2 [facility] Formoterol 3-08 Puffs 2 ity of (DULERA) 00:00: (two) [place] 100-5 00 times Medical mcg/actuati daily. Branch on inhaler Mometasone Yes [id number] 2{puff} Inhale 2 [facility] Formoterol 3-08 Puffs 2 ity of (DULERA) 00:00: (two) [place] 100-5 00 times Medical mcg/actuati daily. Branch on inhaler Mometasone Yes [id number] 2{puff} Inhale 2 [facility] Formoterol 3-08 Puffs 2 ity of (DULERA) 00:00: (two) [place] 100-5 00 times Medical mcg/actuati daily. Branch on inhaler Mometasone Yes [id number] 2{puff} Inhale 2 [facility] Formoterol 3-08 Puffs 2 ity of (DULERA) 00:00: (two) [place] 100-5 00 times Medical mcg/actuati daily. Branch on inhaler Mometasone Yes [id number] 2{puff} Inhale 2 [facility] Formoterol 3-08 Puffs 2 ity of (DULERA) 00:00: (two) [place] 100-5 00 times Medical mcg/actuati daily. Branch on inhaler Mometasone Yes [id number] 2{puff} Inhale 2 [facility] Formoterol 3-08 Puffs 2 ity of (DULERA) 00:00: (two) [place] 100-5 00 times Medical mcg/actuati daily. Branch on inhaler Mometasone Yes [id number] 2{puff} Inhale 2 [facility] Formoterol 3-08 Puffs 2 ity of (DULERA) 00:00: (two) [place] 100-5 00 times Medical mcg/actuati daily. Branch on inhaler Mometasone Yes [id number] 2{puff} Inhale 2 [facility] Formoterol 3-08 Puffs 2 ity of (DULERA) 00:00: (two) [place] 100-5 00 times Medical mcg/actuati daily. Branch on inhaler Mometasone Yes [id number] 2{puff} Inhale 2 [facility] Formoterol 3-08 Puffs 2 ity of (DULERA) 00:00: (two) [place] 100-5 00 times Medical mcg/actuati daily. Branch on inhaler Mometasone Yes [id number] 2{puff} Inhale 2 [facility] Formoterol 3-08 Puffs 2 ity of (DULERA) 00:00: (two) [place] 100-5 00 times Medical mcg/actuati daily. Branch on inhaler Mometasone Yes [id number] 2{puff} Inhale 2 [facility] Formoterol 3-08 Puffs 2 ity of (DULERA) 00:00: (two) [place] 100-5 00 times Medical mcg/actuati daily. Branch on inhaler Mometasone Yes [id number] 2{puff} Inhale 2 [facility] Formoterol 3-08 Puffs 2 ity of (DULERA) 00:00: (two) [place] 100-5 00 times Medical mcg/actuati daily. Branch on inhaler Mometasone- Yes [id number] 2{puff} Inhale 2 [facility] Formoterol 3-08 Puffs 2 ity of (DULERA) 00:00: (two) [place] 100-5 00 times Medical mcg/actuati daily. Branch on inhaler Mometasone- Yes [id number] 2{puff} Inhale 2 [facility] Formoterol 3-08 Puffs 2 ity of (DULERA) 00:00: (two) [place] 100-5 00 times Medical mcg/actuati daily. Branch on inhaler Mometasone- 2020- No [id number] 2{puff} Inhale 2 [facility] Formoterol 3-08 02-20 Puffs 2 ity o f (DULERA) 00:00: 00:00 (two) [place] 100-5 00 :00 times Medical mcg/actuati daily. Branch on inhaler Mometasone- 2020- No [id number] 2{puff} Inhale 2 [facility] Formoterol 3-08 02-20 Puffs 2 ity o f (DULERA) 00:00: 00:00 (two) [place] 100-5 00 :00 times Medical mcg/actuati daily. Branch on inhaler albuterol Yes [id number] 2{puff} Inhale 2 [facility] 90 2-14 Puffs ity of mcg/actuati 00:00: every 6 [place] as on inhaler 00 (six) Medical hours as Branch needed for Wheezing or Shortness of Breath. albuterol Yes [id number] 2{puff} Inhale 2 [facility] 90 2-14 Puffs ity of mcg/actuati 00:00: every 6 [place] as on inhaler 00 (six) Medical hours as Branch needed for Wheezing or Shortness of Breath. albuterol Yes [id number] 2{puff} Inhale 2 [facility] 90 2-14 Puffs ity of mcg/actuati 00:00: every 6 [place] on inhaler 00 (six) Medical hours as Branch needed for Wheezing or Shortness of Breath. albuterol Yes [id number] 2{puff} Inhale 2 [facility] 90 2-14 Puffs ity of mcg/actuati 00:00: every 6 [place] on inhaler 00 (six) Medical hours as Branch needed for Wheezing or Shortness of Breath. albuterol Yes [id number] 2{puff} Inhale 2 [facility] 90 2-14 Puffs ity of mcg/actuati 00:00: every 6 [place] on inhaler 00 (six) Medical hours as Branch needed for Wheezing or Shortness of Breath. albuterol Yes [id number] 2{puff} Inhale 2 [facility] 90 2-14 Puffs ity of mcg/actuati 00:00: every 6 [place] on inhaler 00 (six) Medical hours as Branch needed for Wheezing or Shortness of Breath. albuterol Yes [id number] 2{puff} Inhale 2 [facility] 90 2-14 Puffs ity of mcg/actuati 00:00: every 6 [place] on inhaler 00 (six) Medical hours as Branch needed for Wheezing or Shortness of Breath. albuterol Yes [id number] 2{puff} Inhale 2 [facility] 90 2-14 Puffs ity of mcg/actuati 00:00: every 6 [place] on inhaler 00 (six) Medical hours as Branch needed for Wheezing or Shortness of Breath. albuterol Yes [id number] 2{puff} Inhale 2 [facility] 90 2-14 Puffs ity of mcg/actuati 00:00: every 6 [place] on inhaler 00 (six) Medical hours as Branch needed for Wheezing or Shortness of Breath. albuterol Yes [id number] 2{puff} Inhale 2 [facility] 90 2-14 Puffs ity of mcg/actuati 00:00: every 6 [place] on inhaler 00 (six) Medical hours as Branch needed for Wheezing or Shortness of Breath. albuterol Yes [id number] 2{puff} Inhale 2 [facility] 90 2-14 Puffs ity of mcg/actuati 00:00: every 6 [place] on inhaler 00 (six) Medical hours as Branch needed for Wheezing or Shortness of Breath. albuterol Yes [id number] 2{puff} Inhale 2 [facility] 90 2-14 Puffs ity of mcg/actuati 00:00: every 6 [place] on inhaler 00 (six) Medical hours as Branch needed for Wheezing or Shortness of Breath. albuterol Yes [id number] 2{puff} Inhale 2 [facility] 90 2-14 Puffs ity of mcg/actuati 00:00: every 6 [place] on inhaler 00 (six) Medical hours as Branch needed for Wheezing or Shortness of Breath. albuterol 2018- Yes [id number] 2{puff} Inhale 2 [facility] 90 2-14 Puffs ity of mcg/actuati 00:00: every 6 [place] on inhaler 00 (six) Medical hours as Branch needed for Wheezing or Shortness of Breath. albuterol Yes [id number] 2{puff} Inhale 2 [facility] 90 2-14 Puffs ity of mcg/actuati 00:00: every 6 [place] on inhaler 00 (six) Medical hours as Branch needed for Wheezing or Shortness of Breath. albuterol Yes [id number] 2{puff} Inhale 2 [facility] 90 2-14 Puffs ity of mcg/actuati 00:00: every 6 [place] as on inhaler 00 (six) Medical hours as Branch needed for Wheezing or Shortness of Breath. albuterol Yes [id number] 2{puff} Inhale 2 [facility] 90 2-14 Puffs ity of mcg/actuati 00:00: every 6 [place] on inhaler 00 (six) Medical hours as Branch needed for Wheezing or Shortness of Breath. albuterol Yes [id number] 2{puff} Inhale 2 [facility] 90 2-14 Puffs ity of mcg/actuati 00:00: every 6 [place] as on inhaler 00 (six) Medical hours as Branch needed for Wheezing or Shortness of Breath. albuterol Yes [id number] 2{puff} Inhale 2 [facility] 90 2-14 Puffs ity of mcg/actuati 00:00: every 6 [place] as on inhaler 00 (six) Medical hours as Branch needed for Wheezing or Shortness of Breath. albuterol 2020- No [id number] 2{puff} Inhale 2 [facility] 90 2-14 02-20 Puffs ity of mcg/actuati 00:00: 00:00 every 6 [place] on inhaler 00 :00 (six) Medical hours as Branch needed for Wheezing or Shortness of Breath. albuterol 2020- No [id number] 2{puff} Inhale 2 [facility] 90 2-14 02-20 Puffs ity of mcg/actuati 00:00: 00:00 every 6 [place] on inhaler 00 :00 (six) Medical hours as Branch needed for Wheezing or Shortness of Breath. atorvastati 2019-0 Yes Univer s n 40 mg 1-22 ity of tablet 00:00: [place] [facility] atorvastati 2019-0 Yes Univer s n 40 mg 1-22 ity of tablet 00:00: [place] [facility] atorvastati 2019-0 Yes Univer s n 40 mg 1-22 ity of tablet 00:00: [place] [facility] atorvastati 2019-0 Yes Univer s n 40 mg 1-22 ity of tablet 00:00: [place] [facility] atorvastati 2019-0 Yes Univer s n 40 mg 1-22 ity of tablet 00:00: [place] [facility] atorvastati 2019-0 Yes Univer s n 40 mg 1-22 ity of tablet 00:00: [place] [facility] atorvastati 2019-0 Yes Univer s n 40 mg 1-22 ity of tablet 00:00: [place] [facility] atorvastati 2019-0 Yes Univer s n 40 mg 1-22 ity of tablet 00:00: [place] [facility] atorvastati 2019-0 Yes Univer s n 40 mg 1-22 ity of tablet 00:00: [place] [facility] atorvastati 2019-0 Yes Univer s n 40 mg 1-22 ity of tablet 00:00: [place] [facility] atorvastati 2019-0 Yes Univer s n 40 mg 1-22 ity of tablet 00:00: [place] [facility] atorvastati 2019-0 Yes Univer s n 40 mg 1-22 ity of tablet 00:00: [place] [facility] atorvastati 2019-0 Yes Univer s n 40 mg 1-22 ity of tablet 00:00: [place] [address] Medical Branch atorvastati 2019-0 Yes Univer s n 40 mg 1-22 ity of tablet 00:00: [place] 00 [facility] Branch atorvastati 2019-0 Yes Univer s n 40 mg 1-22 ity of tablet 00:00: [place] 00 [facility] Branch atorvastati 2019-0 Yes Univer s n 40 mg 1-22 ity of tablet 00:00: [place] [facility] atorvastati 2019-0 Yes Univer s n 40 mg 1-22 ity of tablet 00:00: [place] [facility] atorvastati 2019-0 Yes Univer s n 40 mg 1-22 ity of tablet 00:00: [place] [facility] atorvastati 2019-0 Yes Univer s n 40 mg 1-22 ity of tablet 00:00: [place] [address] Medical Branch atorvastati 2019-0 Yes Univer s n 40 mg 1-22 ity of tablet 00:00: [place] [address] Medical Branch atorvastati 2019-0 Yes Univer s n 40 mg 1-22 ity of tablet 00:00: [place] [address] Medical Branch atorvastati 2019-0 Yes Univer s n 40 mg 1-22 ity of tablet 00:00: [place] [address] Medical Branch atorvastati 2019-0 Yes Univer s n 40 mg 1-22 ity of tablet 00:00: [place] [address] Medical Branch atorvastati 2019-0 Yes Univer s n 40 mg 1-22 ity of tablet 00:00: [place] [address] Medical Branch atorvastati 2019-0 Yes Univer s n 40 mg 1-22 ity of tablet 00:00: [place] [address] Medical Branch atorvastati 2019-0 Yes Univer s n 40 mg 1-22 ity of tablet 00:00: [place] [facility] atorvastati 2019-0 Yes Univer s n 40 mg 1-22 ity of tablet 00:00: [place] [address] Medical Branch atorvastati 2019-0 Yes Univer s n 40 mg 1-22 ity of tablet 00:00: [place] [address] Medical Branch atorvastati 2019-0 Yes Univer s n 40 mg 1-22 ity of tablet 00:00: [place] [address] Medical Branch atorvastati 2019-0 Yes Univer s n 40 mg 1-22 ity of tablet 00:00: [place] [address] Medical Branch atorvastati 2019-0 Yes Univer s n 40 mg 1-22 ity of tablet 00:00: [place] [address] Medical Branch atorvastati 2019-0 Yes Univer s n 40 mg 1-22 ity of tablet 00:00: [place] [facility] atorvastati Yes Univer s n 40 mg 1-22 ity of tablet 00:00: [place] [facility] atorvastati Yes Univer s n 40 mg 1-22 ity of tablet 00:00: [place] [facility] atorvastati Yes Univer s n 40 mg 1-22 ity of tablet 00:00: [place] [facility] atorvastati Yes Univer s n 40 mg 1-22 ity of tablet 00:00: [place] [facility] atorvastati Yes Univer s n 40 mg -22 ity of tablet 00:00: [place] [facility] atorvastati Yes Univer s n 40 mg -22 ity of tablet 00:00: [place] [facility] Levothyroxi Levothyroxi 2017-05 Yes [place] [address] [facility] ne Sodium ne Sodium 2-10 Taryn on an Nahid es - 00:00: empty [facility] 00 stomach [facility] l [facility] Nitrostat Nitrostat 2017-05 Yes [facility] as needed [facility] 2-10 [facility]: [facility] Diazepam 5 Yes See [facility] MG Oral 206 Instructio l Tablet 19:25: ns, PRN Kaz [Valium] 00 Muscle Spasms, 1 tab PO q4-6 hrs prn muscle spasms, # 30 tab, 4 Refill(s) Docusate Yes 100 mg = 1 Mem oria Sodium 100 2-06 cap, PO, l MG Oral 19:25: BID, # 30 Audra nn Capsule 00 cap, 1 Refill(s) glycopyrrol No Route: IV, Memoria ate (ANES) 07-05 Drug form: l 17:07: INJ, ONCE, [place] Stop date: 07/05/16 11:07:00 BUSINESS OFFICE DIRECTOR neostigmine No Route: IV, [facility] (ANES) 07-05 Drug form: l 17:07: INJ, ONCE, [place] Stop date: 07/05/16 11:07:00 BUSINESS OFFICE DIRECTOR vancomycin 2016- No Route: IV, M emoria (ANES) 07-05 Drug form: l 16:56: INJ, ONCE, Stop date: 07/05/16 10:56:00 BUSINESS OFFICE DIRECTOR ondansetron No Route: IV, [facility] (ANES) 2 Drug form: l 16:51: INJ, ONCE, Stop date: 07/05/16 10:51:00 BUSINESS OFFICE DIRECTOR ketOROLAC 2016- No IV, ONCE Mathieu chaitanya (ANES) 07-05 l 16:51: Kaz 00 propofol No Route: IV, Mem oria (ANES) 07-05 Drug form: l 16:51: INJ, ONCE, Stop date: 07/05/16 10:51:00 BUSINESS OFFICE DIRECTOR fentaNYL No Route: IV, Mem oria (ANES) 07-05 Drug form: l 16:51: INJ, ONCE, Stop date: 07/05/16 10:51:00 BUSINESS OFFICE DIRECTOR phenylephri No Route: IV, Memoria ne (ANES) 07-05 Drug form: l 16:51: INJ, ONCE, Stop date: 07/05/16 10:51:00 BUSINESS OFFICE DIRECTOR rocuronium No Route: IV, M emoria (ANES) 07-05 Drug form: l 16:51: INJ, ONCE, Stop date: 07/05/16 10:51:00 BUSINESS OFFICE DIRECTOR lidocaine 2016- No Route: IV, Me moria (ANES) 07-05 Drug form: l 16:51: INJ, ONCE, Stop date: 07/05/16 10:51:00 BUSINESS OFFICE DIRECTOR midazolam 2016- No Route: IV, Me moria (ANES) 07-05 Drug form: l 16:51: SOLN, Kaz 00 ONCE, Stop date: 07/05/16 10:51:00 BUSINESS OFFICE DIRECTOR Albuterol No Notes: SEE Me moria 0.83 MG/ML 2-06 RT l Inhalant 16:46: DOCUMENTAT Her wray Solution 00 ION MEDICATION WASTE Product Size: 2.5 mg Product Wasted: ___ mg Atropine No Notes: Mem oria 2-06 MEDICATION l 16:46: WASTE Product Size: 0.4 [...] chaitanya ine 2-06 (racepinep l 16:46: hrine 00 *2.25% inh 0.5ml SOLN) (Same as:S2) Flumazenil No Notes: Memor ia 2-06 (Same as: l 16:46: Romazicon) Morphine No Notes: Memoria 2-06 (Same l 16:46: as:MORPhin e Sulfate) Labetalol No Notes: Memori a 2-06 (Same as: l 16:46: Normodyne, Trandate) Push over 2 minutes Give bolus over 2-3 minutes. Ibuprofen No Notes: Memori a 2-06 (Same as: l 16:46: Motrin) "Do Not Crush" Take with food. Oxycodone No Notes: Memori a 2-06 (Same as: l 16:46: Roxicodone ) Acetaminoph No Notes: Mathieu chaitanya en 2-06 Infuse l 16:46: over 15 minutes Do not exceed 4gm/day of acetaminop hen MEDICATION WASTE Product Size: 1000 mg Product Wasted: ___ mg Hydralazine No Notes: Mathieu chaitanya 2-06 (Same as: l 16:46: Apresoline ) Push over 5 minutes 72 HR No Notes: Memoria Scopolamine 2-06 Change l 0.0139 16:46: patch Kaz MG/HR 00 every 72 Transdermal hours Patch (Same as: Transderm- Scop) Promethazin No 6.25 mg, Me moria e 2-06 50 mL, l 16:46: Route: Vernon 00 IVPB, Drug form: SOLN, ONCE, Dosing Weight 60.455, kg, PRN Nausea & Vomiting, Start date: 07/05/16 10:46:00 BUSINESS OFFICE DIRECTOR Ondansetron No Notes: Mathieu chaitanya 2-06 (Same as: l 16:46: Zofran) [place] 00 MEDICATION WASTE Product Size: 4 mg Product Wasted: ___ mg LR 1000 mL No Route: IV, M emoria INJ (ANES) 2-06 Total l 16:01: Volume: Kaz 00 1,000, Start date: 07/05/16 10:01:00 BUSINESS OFFICE DIRECTOR, Stop date: 07/05/16 11:01:00 BUSINESS OFFICE DIRECTOR HYDROcodone Yes 30 mg = 1 M emoria 30 mg oral 206 cap, PO, l capsule, 14:21: Q12H, 0 Eddie n extended 00 Refill(s) release Lactated No 1,000 mL, Mathieu chaitanya Ringers 07-05 Rate: 100 l 1,000 mL 13:04: ml/hr, Vernon 00 Infuse over: 10 hr, Route: IV, Dosing Weight 60.455 kg, Total Volume: 1,000, Start date: 07/05/16 7:04:00 BUSINESS OFFICE DIRECTOR, Duration: 30 day, Stop date: 08/04/16 7:03:00 BUSINESS OFFICE DIRECTOR vancomycin No 2001 mg: Me moria + sodium 2-06 infuse l chloride 11:00: over 2.5 Audra nn 0.9% INJ 00 hours 250 mL MEDICATION WASTE Product Size: 1000 mg Product Wasted: ___ mg Aspirin Aspirin Yes Chito [address] [facility] Adult Low Adult Low T[facility] - Dose [facility] atarax atarax Yes Chito [address] [facility] PreserVisio PreserVisio Yes Chito not [facility] n AREDS 2 n AREDS 2 Taryn defined [facility] Claritin-D Claritin-D Yes Chito [address] [facility] 12 Hour 12 Hour Taryn as needed N[facility]id es [facility] Neurontin Neurontin Yes Chito [address] [facility] Magnesium Magnesium Yes Chito [address] [facility] Oxide Oxide Taryn as needed [facility] PredniSONE PredniSONE Yes Chito [address] [facility] Montelukast Montelukast Yes Chito [address] [facility] Sodium Sodium Taryn in the [facility] - evening [facility] Plavix Plavix Yes [facility] Prevacid Prevacid Yes Chito [address] [facility] Ventolin Ventolin Yes Chito [address] [facility] HFA HFA Taryn needed kes - [facility] Immunizations Ordered Filled Immunization Date Status Comments Sour e Immunization Name Name Influenza Virus 2019-03-22 Completed [facility]it [facility] Vaccine [facility] 00:00:00 [facility] [place] [facility], Preserv and ABX Branc h Free 18-64 YRS Influenza Virus 2019-03-22 Completed [facility]it [facility] of Vaccine [facility] 00:00:00 [facility], Preserv and ABX Branc h Free 18-64 YRS Influenza Virus 2019-03-22 Completed [facility]it y of Vaccine [facility]comb Quad 00:00:00 [facility] [place] [facility], Preserv and ABX Branc h Free 18-64 YRS Influenza Virus 2019-03-22 Completed [facility]it [facility] Vaccine [facility] 00:00:00 [place] [facility], Preserv and ABX Branc h Free 18-64 YRS Influenza Virus 2019-03-22 Completed [facility]it y of Vaccine Recomb Quad 00:00:00 [facility], Preserv and ABX Branc h Free 18-64 YRS Influenza Virus 2019-03-22 Completed [facility]it [facility] Vaccine [facility] 00:00:00 [place] [facility], Preserv and ABX Branc h Free 18-64 YRS Influenza Virus 2019-03-22 Completed [facility]it y of Vaccine [facility]comb Quad 00:00:00 [facility], Preserv and ABX Branc h Free 18-64 YRS Influenza Virus 2019-03-22 Completed [facility]it [facility] of Vaccine [facility] 00:00:00 [facility], Preserv and ABX Branc h Free 18-64 YRS Influenza Virus 2019-03-22 Completed [facility]it y of Vaccine [facility] Quad 00:00:00 [place] [facility], Preserv and ABX Branc h Free 18-64 YRS Influenza Virus 2019-03-22 Completed [facility]it [facility] of Vaccine Recomb Quad 00:00:00 [place] [facility], Preserv and ABX Branc h Free 18-64 YRS Influenza Virus 2019-03-22 Completed [facility]it [facility] of Vaccine Recomb Quad 00:00:00 [facility], Preserv and ABX Branc h Free 18-64 YRS Influenza Virus 2019-03-22 Completed [facility]it y of Vaccine Recomb Quad 00:00:00 [place] [facility], Preserv and ABX Branc h Free 18-64 YRS Influenza Virus 2019-03-22 Completed [facility]it y of Vaccine Recomb Quad 00:00:00 [place] [facility], Preserv and ABX Branc h Free 18-64 YRS Influenza Virus 2019-03-22 Completed [facility]it y of Vaccine Recomb Quad 00:00:00 [place] [facility], Preserv and ABX Branc h Free 18-64 YRS Influenza Virus 2019-03-22 Completed [facility]it [facility] of Vaccine Recomb Quad 00:00:00 [place] [facility], Preserv and ABX Branc h Free 18-64 YRS Influenza Virus 2019-03-22 Completed [facility]it [facility] of Vaccine Recomb Quad 00:00:00 [place] [facility], Preserv and ABX Branc h Free 18-64 YRS Influenza Virus 2019-03-22 Completed [facility]it [facility] of Vaccine Recomb Quad 00:00:00 [place] [facility], Preserv and ABX Branc h Free 18-64 YRS Influenza Virus 2019-03-22 Completed [facility]it y of Vaccine Recomb Quad 00:00:00 [place] [facility], Preserv and ABX Branc h Free 18-64 YRS Influenza Virus 2019-03-22 Completed [facility]it y of Vaccine Recomb Quad 00:00:00 [place] [facility], Preserv and ABX Branc h Free 18-64 YRS Pneumococcal 2018-10-18 Completed University o f Polysaccharide, 00:00:00 [place] [facility] PPSV23 (PNEUMOVAX) Branch Pneumococcal 2018-10-18 Completed University o f Polysaccharide, 00:00:00 [place] [facility] PPSV23 (PNEUMOVAX) Branch Pneumococcal 2018-10-18 Completed University o f Polysaccharide, 00:00:00 [place] [facility] PPSV23 (PNEUMOVAX) Branch Pneumococcal 2018-10-18 Completed University o f Polysaccharide, 00:00:00 [place] [facility] PPSV23 (PNEUMOVAX) Branch Pneumococcal 2018-10-18 Completed University o f Polysaccharide, 00:00:00 [place] [facility] PPSV23 (PNEUMOVAX) Branch Pneumococcal 2018-10-18 Completed University o f Polysaccharide, 00:00:00 [place] [facility] PPSV23 (PNEUMOVAX) Branch Pneumococcal 2018-10-18 Completed University o f Polysaccharide, 00:00:00 [place] [facility] PPSV23 (PNEUMOVAX) Branch Pneumococcal 2018-10-18 Completed University o f Polysaccharide, 00:00:00 [place] [facility] PPSV23 (PNEUMOVAX) Branch Pneumococcal 2018-10-18 Completed University o f Polysaccharide, 00:00:00 [place] [facility] PPSV23 (PNEUMOVAX) Branch Pneumococcal 2018-10-18 Completed University o f Polysaccharide, 00:00:00 [place] [facility] PPSV23 (PNEUMOVAX) Branch Pneumococcal 2018-10-18 Completed University o f Polysaccharide, 00:00:00 [place] [facility] PPSV23 (PNEUMOVAX) Branch Pneumococcal 2018-10-18 Completed University o f Polysaccharide, 00:00:00 [place] [facility] PPSV23 (PNEUMOVAX) Branch Pneumococcal 2018-10-18 Completed University o f Polysaccharide, 00:00:00 [place] [facility] PPSV23 (PNEUMOVAX) Branch Pneumococcal 2018-10-18 Completed University o f Polysaccharide, 00:00:00 [place] [facility] PPSV23 (PNEUMOVAX) Branch Pneumococcal 2018-10-18 Completed University o f Polysaccharide, 00:00:00 [place] [facility] PPSV23 (PNEUMOVAX) Branch Pneumococcal 2018-10-18 Completed University o f Polysaccharide, 00:00:00 [place] [facility] PPSV23 (PNEUMOVAX) Branch Pneumococcal 2018-10-18 Completed University o f Polysaccharide, 00:00:00 [place] [facility] PPSV23 (PNEUMOVAX) Branch Pneumococcal 2018-10-18 Completed University o f Polysaccharide, 00:00:00 [place] [facility] PPSV23 (PNEUMOVAX) Branch Pneumococcal 2018-10-18 Completed University o f Polysaccharide, 00:00:00 [place] [facility] PPSV23 (PNEUMOVAX) Branch Pneumococcal 2018-10-18 Completed University o f Polysaccharide, 00:00:00 [place] [facility] PPSV23 (PNEUMOVAX) Branch Pneumococcal 2018-10-18 Completed University o f Polysaccharide, 00:00:00 [place] [facility] PPSV23 (PNEUMOVAX) Branch Pneumococcal 2018-10-18 Completed University o f Polysaccharide, 00:00:00 [place] [facility] PPSV23 (PNEUMOVAX) Branch Pneumococcal 2018-10-18 Completed University o f Polysaccharide, 00:00:00 [place] [facility] PPSV23 (PNEUMOVAX) Branch Pneumococcal 2018-10-18 Completed University o f Polysaccharide, 00:00:00 [place] [facility] PPSV23 (PNEUMOVAX) Branch Pneumococcal 2018-10-18 Completed University o f Polysaccharide, 00:00:00 [place] [facility] PPSV23 (PNEUMOVAX) Branch Pneumococcal 2018-10-18 Completed University o f Polysaccharide, 00:00:00 [place] [facility] PPSV23 (PNEUMOVAX) Branch Pneumococcal 2018-10-18 Completed University o f Polysaccharide, 00:00:00 [place] [facility] PPSV23 (PNEUMOVAX) Branch Pneumococcal 2018-10-18 Completed University o f Polysaccharide, 00:00:00 [place] [facility] PPSV23 (PNEUMOVAX) Branch Pneumococcal 2018-10-18 Completed University o f Polysaccharide, 00:00:00 [place] [facility] PPSV23 (PNEUMOVAX) Branch Pneumococcal 2018-10-18 Completed University o f Polysaccharide, 00:00:00 [place] [facility] PPSV23 (PNEUMOVAX) Branch Pneumococcal 2018-10-18 Completed University o f Polysaccharide, 00:00:00 [place] [facility] PPSV23 (PNEUMOVAX) Branch Pneumococcal 2018-10-18 Completed University o f Polysaccharide, 00:00:00 [place] [facility] PPSV23 (PNEUMOVAX) Branch Pneumococcal 2018-10-18 Completed University o f Polysaccharide, 00:00:00 [place] [facility] PPSV23 (PNEUMOVAX) Branch Pneumococcal 2018-10-18 Completed University o f Polysaccharide, 00:00:00 [place] [facility] PPSV23 (PNEUMOVAX) Branch Pneumococcal 2018-10-18 Completed University o f Polysaccharide, 00:00:00 [place] [facility] PPSV23 (PNEUMOVAX) Branch Pneumococcal 2018-10-18 Completed University o f Polysaccharide, 00:00:00 [place] [facility] PPSV23 (PNEUMOVAX) Branch Pneumococcal 2018-10-18 Completed University o f Polysaccharide, 00:00:00 [place] [facility] PPSV23 (PNEUMOVAX) Branch Pneumococcal 2018-10-18 Completed University o f Polysaccharide, 00:00:00 [facility] ical PPSV23 (PNEUMOVAX) Branch Tdap 2018-05-30 Completed University of 00:00:00 [facility] Tdap 2018-05-30 Completed University of 00:00:00 [facility] Tdap 2018-05-30 Completed University of 00:00:00 [facility] Tdap 2018-05-30 Completed University of 00:00:00 [facility] Tdap 2018-05-30 Completed University of 00:00:00 [facility] Tdap 2018-05-30 Completed University of 00:00:00 [facility] Tdap 2018-05-30 Completed University of 00:00:00 [facility] TDAP 2018-05-30 Completed University of 00:00:00 [facility] TDAP 2018-05-30 Completed University of 00:00:00 [facility] TDAP 2018-05-30 Completed University of 00:00:00 [facility] TDAP 2018-05-30 Completed University of 00:00:00 [facility] TDAP 2018-05-30 Completed University of 00:00:00 [facility] TDAP 2018-05-30 Completed University of 00:00:00 [facility] TDAP 2018-05-30 Completed University of 00:00:00 [facility] TDAP 2018-05-30 Completed University of 00:00:00 [facility] TDAP 2018-05-30 Completed University of 00:00:00 [facility] TDAP 2018-05-30 Completed University of 00:00:00 [facility] TDAP 2018-05-30 Completed University of 00:00:00 [facility] TDAP 2018-05-30 Completed University of 00:00:00 [facility] Zoster Vaccine 2015-05-30 Completed University of Recombinant 00:00:00 [facility] Zoster Vaccine 2015-05-30 Completed University of Recombinant 00:00:00 [facility] Zoster Vaccine 2015-05-30 Completed University of Recombinant 00:00:00 [facility] Zoster Vaccine 2015-05-30 Completed University of Recombinant 00:00:00 [facility] Zoster Vaccine 2015-05-30 Completed University of Recombinant 00:00:00 [facility] Zoster Vaccine 2015-05-30 Completed University of Recombinant 00:00:00 [facility] Zoster Vaccine 2015-05-30 Completed University of Recombinant 00:00:00 [facility] Zoster Vaccine 2015-05-30 Completed University of Recombinant 00:00:00 [facility] Zoster Vaccine 2015-05-30 Completed University of Recombinant 00:00:00 [facility] Zoster Vaccine 2015-05-30 Completed University of Recombinant 00:00:00 [facility] Zoster Vaccine 2015-05-30 Completed University of Recombinant 00:00:00 [facility] Zoster Vaccine 2015-05-30 Completed University of Recombinant 00:00:00 [facility] Zoster Vaccine 2015-05-30 Completed University of Recombinant 00:00:00 [facility] Zoster Vaccine 2015-05-30 Completed University of Recombinant 00:00:00 [facility] Zoster Vaccine 2015-05-30 Completed University of Recombinant 00:00:00 [facility] Zoster Vaccine 2015-05-30 Completed University of Recombinant 00:00:00 [facility] Zoster Vaccine 2015-05-30 Completed University of Recombinant 00:00:00 [facility] Zoster Vaccine 2015-05-30 Completed University of Recombinant 00:00:00 [facility] Zoster Vaccine 2015-05-30 Completed University of Recombinant 00:00:00 [facility] Vital Signs Vital Name Observation Time Observation Value Comments Source Systolic blood 2019-07-19 14:45:00 152 mm[Hg] Univer sity of pressure [facility] Diastolic blood 2019-07-19 14:45:00 88 mm[Hg] Unive rsity of pressure [facility] Heart rate 2019-07-19 14:44:00 78 /min [facility] Respiratory rate 2019-07-19 14:44:00 19 /min Univ ersity of [facility] Body height 2019-07-19 14:44:00 162.6 cm [facility] Body weight 2019-07-19 14:44:00 62.596 kg [facility] BMI 2019-07-19 14:44:00 23.69 kg/m2 [facility] Oxygen saturation in 2019-07-19 14:44:00 98 /min University of Arterial blood by [place] [employer] Pulse oximetry Branch Systolic blood 2019-01-30 20:52:00 121 mm[Hg] Univer sity of pressure [facility] Diastolic blood 2019-01-30 20:52:00 72 mm[Hg] Unive rsity of pressure [facility] Heart rate 2019-01-30 20:52:00 91 /min [facility] Body temperature 2019-01-30 20:52:00 36.33 Sri Univ ersity of [facility] Respiratory rate 2019-01-30 20:52:00 18 /min Univ ersity of [facility] Body weight 2019-01-30 20:52:00 61.326 kg [facility] BMI 2019-01-30 20:52:00 21.82 kg/m2 [facility] Oxygen saturation in 2019-01-30 20:52:00 97 /min University of Arterial blood by [place] [employer] Pulse oximetry Branch Systolic blood 2019-01-22 13:41:00 134 mm[Hg] Univer sity of pressure [facility] Diastolic blood 2019-01-22 13:41:00 79 mm[Hg] Unive rsity of pressure [facility] Heart rate 2019-01-22 13:41:00 96 /min [facility] Respiratory rate 2019-01-22 13:41:00 19 /min Univ ersity of [facility] Body height 2019-01-22 13:41:00 167.6 cm [facility] Body weight 2019-01-22 13:41:00 61.417 kg [facility] BMI 2019-01-22 13:41:00 21.85 kg/m2 [facility] Oxygen saturation in 2019-01-22 13:41:00 97 /min University of Arterial blood by [place] [employer] Pulse oximetry Branch Systolic blood 2019-01-11 13:46:00 149 mm[Hg] Univer sity of pressure [facility] Diastolic blood 2019-01-11 13:46:00 77 mm[Hg] Unive rsity of pressure [facility] Heart rate 2019-01-11 13:39:00 85 /min [facility] Respiratory rate 2019-01-11 13:39:00 18 /min [facility] Body height 2019-01-11 13:39:00 167.6 cm [facility] Body weight 2019-01-11 13:39:00 62.143 kg [facility] BMI 2019-01-11 13:39:00 22.11 kg/m2 [facility] Oxygen saturation in 2019-01-11 13:39:00 98 /min [facility] Arterial blood by [facility] Pulse oximetry Branch Systolic (mm Hg) 2020-08-01 16:06:00 Mathieu rial Kaz Diastolic (mm Hg) 2020-08-01 16:06:00 Mem orial Kaz Heart Rate 2020-08-01 16:06:00 [facility] Respitory Rate 2020-08-01 16:06:00 Memori al Kaz Height 2020-08-01 16:06:00 160.02 cm [facility] Kaz Weight 2020-08-01 16:06:00 [facility] BMI Calculated 2020-08-01 16:06:00 Memori al Kaz Systolic (mm Hg) 2020-02-01 15:51:00 Mathieu rial Kaz Diastolic (mm Hg) 2020-02-01 15:51:00 Mem orial [place] Heart Rate 2020-02-01 15:51:00 [facility] Respitory Rate 2020-02-01 15:51:00 Memori al Kaz Height 2020-02-01 15:51:00 160.02 cm [facility] Weight 2020-02-01 15:51:00 [facility] BMI Calculated 2020-02-01 15:51:00 Memori al [place] Systolic (mm Hg) 2019-06-05 21:39:00 Mathieu rial Kaz Diastolic (mm Hg) 2019-06-05 21:39:00 Mem orial Kaz Heart Rate 2019-06-05 21:39:00 [facility] Respitory Rate 2019-06-05 21:39:00 Memori al Kaz Height 2019-06-05 21:39:00 162.56 cm [facility] Weight 2019-06-05 21:39:00 [facility] BMI Calculated 2019-06-05 21:39:00 Memori al Kaz Systolic (mm Hg) 2019-04-20 17:30:00 Mathieu rial Kaz Diastolic (mm Hg) 2019-04-20 17:30:00 Mem orial [place] Heart Rate 2019-04-20 17:30:00 [facility] Respitory Rate 2019-04-20 17:30:00 Memori al [place] Height 2019-04-20 17:30:00 160.02 cm [facility] Weight 2019-04-20 17:30:00 [facility] BMI Calculated 2019-04-20 17:30:00 Memori al [place] Systolic (mm Hg) 2019-03-21 19:53:00 Mathieu rial Kaz Diastolic (mm Hg) 2019-03-21 19:53:00 Mem orial Kaz Heart Rate 2019-03-21 19:53:00 [facility] Respitory Rate 2019-03-21 19:53:00 Memori al [place] Height 2019-03-21 19:53:00 167.64 cm [facility] Weight 2019-03-21 19:53:00 [facility] Kaz BMI Calculated 2019-03-21 19:53:00 Memori al Kaz Systolic (mm Hg) 2016-07-05 19:05:00 Mathieu rial Kaz Diastolic (mm Hg) 2016-07-05 19:05:00 Mem orial Kaz Respitory Rate 2016-07-05 19:05:00 Memori al Kaz Heart Rate 2016-07-05 19:05:00 [facility] [place] Systolic (mm Hg) 2016-07-05 18:30:00 Mathieu rial Kaz Diastolic (mm Hg) 2016-07-05 18:30:00 Mem orial Kaz Heart Rate 2016-07-05 18:30:00 [facility] [place] Respitory Rate 2016-07-05 18:30:00 Memori al [place] Respitory Rate 2016-07-05 18:15:00 Memori al [place] Systolic (mm Hg) 2016-07-05 18:15:00 Mathieu rial Kaz Diastolic (mm Hg) 2016-07-05 18:15:00 Mem orial [place] Heart Rate 2016-07-05 14:02:00 [facility] Akz Height 2016-07-01 20:29:00 167.64 cm [facility] BMI Calculated 2016-07-01 20:29:00 Memori al Kaz Weight 2016-07-01 20:29:00 Delmar [place] Procedures Procedure Date / Time Performing Clinician Source Performed CT LOW DOSE LUNG NODULE 2020-01-10 18:47:34 Analilia Alston [facility] CT LOW DOSE LUNG NODULE 2019-10-01 14:36:40 Analilia Alston [facility] ASSIGNMENT OF BENEFITS 2019-10-01 14:18:18 Doctor Tawny, [facility] Name [facility] EXTERNAL PROVIDER RECORDS 2019-08-01 06:01:00 Doctor Tawny, [facility] Name [facility] INSURANCE CORRESPONDENCE 2019-07-18 06:01:00 Doctor Tawny, [facility] Name [facility] MR BRAIN WO CONTRAST 2019-02-06 20:52:30 Henok Corona [facility] COMP. METABOLIC PANEL 2019-01-31 13:24:00 Henok Corona [facility] ([id number]) [facility] CBC WITH DIFFERENTIAL 2019-01-31 13:24:00 Heonk Corona [facility] NOTICE OF BILLING 2019-01-30 20:11:06 Doctor Tawny, [facility] PRACTICES FOR MEDICARE [facility] PATIENTS AGREEMENTS AUTHORIZATIONS 2019-01-11 05:01:00 Doctor Tawyn, [facility] AND IRREVOCABLE [facility] ASSIGNMENTS (FORM 2001) Cataract extraction Delmar wray Hand closure<sup>1</sup> Marimar hendrickson [facility] Miscellaneous operations Marimar hendrickson Kaz stents in heart [facility] Tons[facility] T[facility] and [facility] nn adenoidectomy Encounters Start End Encounter Admission Attending Care Care Encounter Source Date/Time Date/Time Type Type Clinicians Facility Department ID 2021-04-16 2021-04-16 Outpatient R ANALILIA ALSTON [facility] [id number] Univers 10:00:00 10:00:00 ANALILIA ALSTON [id number] i ty of [facility] 2021-04-16 2021-04-16 Outpatient R ANALILIA ALSTON [facility] [id number] Univers 10:00:00 10:00:00 ANALILIA ALSTON i ty of [facility] 2021-02-03 2021-02-03 Outpatient MHIE MHIE [id number] [facility] [place] 10:15:00 10:15:00 11 l Kaz 2020-12-17 2020-12-17 Outpatient [facility] [id number] 00:[facility]:00 Magnus hendrickson Outpati ent Clinics 2020-08-01 2020-08-02 Outpatient nullFlavo MNA [id number] Memoria 16:00:00 05:59:59 r Neurology 10 l [place] 2020-08-01 2020-08-01 [facility] [id number] 00:00:00 00:00:00 Outreach Adán PRIMARY [id number] [facility] [id number] PAVILLION [id number] 2020-08-01 2020-08-01 Patient Aníbal [facility] [id number] Univers 00:00:00 00:00:00 Outreach [facility] [id number] i ty of [facility] [id number] [id number] Ri dical [address] Branch 2020-06-18 2020-06-18 [facility] [id number] 00:[facility] 00:00:00 Magnus hendrickson Outpati ent [facility] 2020-02-23 2020-02-23 Saba Alston [facility] [id number] 00:00:00 00:00:00 Analilia [place] [id number] [place] [id number] Professio [id number] nal [address] [place] [address] 2020-02-23 2020-02-23 [facility] [id number] Univers 00:00:00 00:00:00 Shiwan [place] [id number] i ty of [id number] [id number] Ri dical [address] 2020-02-21 2020-02-21 DEVONTE Andres [id number] 00:00:00 00:00:00 (Out) [facility] HEALTH [id number] CLINICS [id number] [facility] 2020-02-21 2020-02-[address] [facility] [id number] Univers 00:00:00 00:00:00 (Out) [facility] HE[facility] 350.1.13.10 i [place] [phone] [address] 2020-02-14 2020-02-[address] [facility] [id number] 00:00:00 00:00:00 Secure Msg [facility] HEALTH 350.1.13.10 CLINICS 4.2.7.2.686 [phone] [facility] 2020-02-14 2020-02-[address] [facility] [id number] Univers 00:00:00 00:00:00 Secure Msg [facility]ly [facility] 350.1.13.10 it[place] [phone] [address] 2020-02-01 2020-02-02 Outpatient nullFlavo MNA [id number] Memoria 15:30:00 04:59:59 r Neurology 09 l [facility] 2020-02-01 2020-02-01 Ambulatory nullFlavo MNA [id number] Memoria 15:30:00 15:30:00 Pre-Reg r [facility] 08 [facility] 2020-01-31 2020-01-31 Telephone [facility] [id number] 00:00:00 00:00:00 Analilia Trotter 350.1.13.10 [place] 4.2.7.2.686 Professio [phone] [address] 2020-01-31 2020-01-31 Telephone [facility] [id number] Univers 00:00:00 00:00:00 Shijosen [place] 350.1.13.10 i ty [place] Profess[place] [phone] Ri dical nal [address] [place] [address] 2020-01-10 2020-01-10 [facility] 1.2.840.114 [id number] Univers 13:21:33 23:59:00 Encounter Analilia Trotter 350.1.13.10 ity of [place] [phone] [address] 2020-01-10 2020-01-10 Outpatient R ANALILIA ALSTON [facility] [id number] Univers 00:00:00 00:00:00 ANALILIA ALSTON [id number] i ty of [facility] 2020-01-10 2020-01-10 Outpatient R YISSEL ALSTONNMRuy [facility] RAD 10 [id number] Univers 00:00:00 00:00:00 ANALILIA ALSTON i ty of [facility] 2019-12-22 2019-12-22 [facility] 1.2.840.114 [id number] Univers 00:00:00 00:00:00 Analilia Trotter 350.1.13.10 i [place] [phone] [address] 2019-11-01 2019-11-01 [facility] 1.2.840.114 [id number] Univers 00:00:00 00:00:00 Analilia Trotter 350.1.13.10 i [place] [phone] Ri dicms nal [address] [place] [address] 2019-10-18 2019-10-18 Outpatient R ANALILIA ALSTON [facility] [id number] Univers 11:40:00 11:40:00 ANALILIA ALSTON [id number] i ty of [facility] 2019-10-12 2019-10-12 Outpatient R ANALILIA ALSTON [facility] 10 [id number] Univers 10:00:00 10:00:00 ANALILIA ALSTON i ty of [facility] 2019-10-12 2019-10-12 Outpatient R ANALILIA ALSTON [facility] [id number] Univers 09:55:00 09:55:00 ANALILIA ALSTON [id number] i ty of [facility] 2019-10-12 2019-10-12 [facility]ici [facility] 1.2.840.114 [id number] Univers 07:50:28 08:10:28 ne Visit Analilia Trotter 350.1.13.10 ity of [place] [phone] Ri dical nal 085 [facility] 2019-10-01 2019-10-01 Outpatient R ANALILIA ALSTON [facility] RAD 10 [id number] Univers 09:22:50 23:59:00 ANALILIA ALSTON i ty of [facility] 2019-10-01 2019-10-01 [facility] 1.2.840.114 [id number] Univers 09:22:00 23:59:00 Encounter Analilia Trotter 350.1.13.10 ity of [place] [phone] [address] 2019-10-01 2019-10-01 Outpatient ANALILIA ALSTON [facility] [id number] Univers 09:30:00 09:30:00 ANALILIA ALSTON [id number] i ty of [facility] 2019-10-01 2019-10-01 Orders Doctor MAMTA 1.2.840.114 [id number] Univers 00:00:00 00:00:00 Only Unassigned, TIMOTHY 350.1.13.10 ity of [place] [facility] 4.2.7.2.686 Shawn as [phone] [address] 2019-09-28 2019-09-29 Outpatient nullFlavo MNA [id number] Memoria 15:30:00 04:59:59 r Neurology 07 l [place] 2019-08-01 2019-08-01 Orders Doctor OLEARY 1.2.840.114 [id number] Univers 00:00:00 00:00:00 Only Unassigned, TIMOTHY 350.1.13.10 ity of [place] [facility] 4.2.7.2.686 Shawn as [phone] [address] 2019-07-19 2019-07-19 Outpatient R YISSEL ALSTONNMRuy [facility] 10 [id number] Univers 09:40:00 09:22:07 ANALILIA ALSTON i ty of [facility] 2019-07-19 2019-07-19 Office Alston [facility] 1.2.840.114 [id number] Univers 08:02:41 08:22:41 Visit Analilia Trotter 350.1.13.10 i [place] [phone] Ri dical nal 085 [facility] 2019-07-18 2019-07-18 Orders Doctor MAMTA 1.2.840.114 [id number] Univers 00:00:00 00:00:00 Only Unassigned, TIMOTHY 350.1.13.10 ity of [facility] 4.2.7.2.686 Shawn as [phone] [address] 2019-07-02 2019-07-02 Telephone Alecia [facility] [id number] [facility] 00:00:00 00:00:00 Analilia Trotter 350.1.13.10 i [place] [phone] Ri dical nal 059 [facility] 2019-06-05 2019-06-06 Outpatient nullFlavo MNA [id number] Memoria 21:30:00 05:59:59 r Neurology 06 l Carisa [place] 2019-04-20 2019-04-21 Outpatient nullFlavo MNA [id number] Memoria 17:15:00 05:59:59 r Neurology 05 l Carisa [place] 2019-03-21 2019-03-22 Outpatient nullFlavo MNA [id number] Memoria 20:00:00 04:59:59 r Neurology 04 l Carisa Izquierdoann 2019-02-13 2019-02-13 Telephone Ryan [facility] 1.2.840.114 [id number] Univers 00:00:00 00:00:00 Angel Trotter 350.1.13.10 ity of [place] [phone] Ri dical nal 092 [facility] 2019-02-07 2019-02-07 Telephone Henok Corona [facility] 1.2.840.114 [id number] Univers 00:00:00 00:00:00 Meagan Trotter 350.1.13.10 i ty [place] [phone] Ri dical nal 044 [facility] 2019-02-06 2019-02-06 Hospital Henok Corona [facility] 1.2.840.114 [id number] Univers 14:57:14 23:59:00 Encounter C SPECIALTY 350.1.13.10 [place] [phone] Ri mya VICTORY 804 [facility] 2019-01-30 2019-02-01 Office Henok Corona [facility] 1.2.840.114 [id number] Univers 15:11:23 08:54:18 Visit Meagan Trotter 350.1.13.10 i ty [place] [phone] Ri dical nal 044 [facility] 2019-01-31 2019-01-31 Spanish Medical Interpreter 2, Adc Lab [facility] 1.2.840.114 [id number] Univers 08:19:00 08:34:00 Visit CjHenok 350.1.13.10 ity of [place] [phone] Ri dical nal 353 [facility] 2019-01-30 2019-01-30 Orders Doctor MAMTA 1.2.840.114 [id number] Univers 00:00:00 00:00:00 Only Unassigned, TIMOTHY 350.1.13.10 ity of [place] [facility] 4.2.7.2.686 Shawn as [phone] [facility] 009 [place] 2019-01-22 2019-01-22 Office Alecia [facility] 1.2.840.114 [id number] Univers 08:22:57 09:24:15 Visit Analilia Trotter 350.1.13.10 i [place] [phone] Ri dical nal 085 [facility] 2019-01-15 2019-01-15 Telephone Henok Corona [facility] 1.2.840.114 [id number] Univers 00:00:00 00:00:00 Meagan Trotter 350.1.13.10 i ty [place] [phone] Ri dical nal 044 [facility] 2019-01-11 2019-01-11 Spanish Medical Interpreter 2, Adc Lab [facility] 1.2.840.114 [id number] Univers 09:36:58 10:06:58 Visit Henok [place]ona 350.1.13.10 it[place] [phone] Ri dical nal 353 [facility] 2019-01-11 2019-01-11 Office Henok Corona [facility] 1.2.840.114 [id number] Univers 08:38:13 09:31:04 Visit Meagan Trotter 350.1.13.10 i ty [place] [phone] [facility] 044 [facility] 2019-01-11 2019-01-11 Letter Jun [facility] 1.2.840.114 [id number] Univers 00:00:00 00:00:00 (Out) Vesna Trotter 350.1.13.10 i ty [place] [phone] Ri dical nal 296 [facility] 2019-01-11 2019-01-11 Orders Doctor MAMTA 1.2.840.114 [id number] Univers 00:00:00 00:00:00 Only Unassigned, TIMOTHY 350.1.13.10 ity of [place] [facility] 4.2.7.2.686 Shawn as [phone] [address] 2018-11-21 2018-11-21 Outpatient Chay PAGE [facility] [id number] Univers 10:00:00 15:12:43 ESTELA silvestre [facility] 2018-10-27 2018-10-27 Outpatient Chay PAGE [facility] [id number] Univers 10:00:00 13:09:17 ESTELA silvestre [facility] 2018-09-19 2018-09-19 [facility] [id number] [facility] 13:24:00 13:24:00 t [facility] Medicine Outpati [facility] Clinics 2018-09-11 2018-09-11 [facility] [id number] [facility] 11:30:00 11:30:00 t [facility] Medicine Outpati [facility] Clinics 2018-07-17 2018-07-17 [facility] [id number] [facility] [address] 09:15:00 09:15:00 t [facility] Medicine Outpati [facility] Clinics 2018-05-15 2018-05-15 [facility] [id number] [facility] [address] 10:15:00 10:15:00 t [facility] Medicine Outpati [facility] Clinics 2018-05-08 2018-05-08 [facility] [id number] [facility] [address] 08:45:00 08:45:00 t [facility] Medicine Outpati [facility] Clinics 2018-02-06 2018-02-06 [facility] [id number] 09:00:00 09:00:00 t [facility] Medicine Outpati ent Clinics 2017-07-08 2017-07-10 Phone nullFlavo MNA Spine [id number] Memoria 18:23:00 05:59:59 Message r Clinic [facility] 04 [facility] 2016-08-18 2016-08-18 Outpatient MHIE MHIE [id number] Memoria 09:15:00 09:15:00 03 emeka [place] 2016-07-21 2016-07-21 Outpatient MHIE MHIE [id number] Memoria 08:15:00 08:15:00 02 [facility] 2016-07-05 2016-07-05 Day nullFlavo [facility] [id number] Memoria 13:55:00 19:30:00 Surgery r [place] 00 [facility] 2016-07-05 2016-07-05 Outpatient MHIE MHIE [id number] Memoria 08:45:00 08:45:00 01 [facility] 2016-06-23 2016-06-23 Outpatient MHIE MHIE [id number] Memoria 10:00:00 10:00:00 00 l Kaz Results Test Test Test Results Result Source Description Time Comments Comments CT LUNG NODULE 2019-12 1. Unchanged left lung University -13 nodule.2. Additional chronic of [place] 19:08:0 bilateral pulmonary and pleural Medical 4 changes discussedabove.3. Branch Nodular thickening of the mucosal lining and the mucosal webs noted inthe lower trachea without tracheal stenosis, unchanged. Lung RADS Category 2-S. Recommendation: Continue with annual screening Category 2: Negative screen - nodules with benign appearance or behavior -continue annual screening in 12 months ?S modifier: Other clinically significant or potentially significantfindings PROCEDURE: CT CHEST NON CONTRAST ? LUNG CANCER SCREENING. CLINICAL INDICATION: Lung nodule, >=1cm COMPARISON: None. TECHNIQUE: Low dose helical CT was acquired from lung apices to bases wasobtained and reconstructed at 1 mm, without intravenous contrast. MIP andcoronal & sagittal MPR images were generated and reviewed. (DFOV = 40 cm) FINDINGS: Comparison is made with most recent CT scan of 10/01/2019. Lower neck/thyroid: Unremarkable. Lungs: Chronic changes of obstructive lung disease noted throughout butmore in the upper lobes. Mild bilateral apical pleural scarring noted.Focal areas of pulmonary fibrosis are seen in posterior segment of rightupper lobe and superior segment of right lower lobe. Calcified granulomas are seen in both apical lungs. 6 mm nodule in the superior segment of left lower lobe noted on series #8:44 Central airway: Retained secretions/nodularity in the trachea noted withlong mucous with blebs in lower portion of the trachea extending up tobifurcation. Pleura: No pleural effusion, thickening or pneumothorax. Nodular pleuralthickening noted in the right lower chest. An additional nodule thickeningalso noted near the lateral segment of the right middle lobe. Thoracic aorta and great vessels: Classic arch anatomy. Normal in diameter.Mild atherosclerotic disease affects the visualized aorta. Pulmonary arteries: Unremarkable. Heart and pericardium: Extensive triple-vessel coronary atherosclerosiswith probable metallic stents in the right coronary artery. Unremarkablecardiac morphology and pericardium. Lymph nodes: Slightly enlarged lymph nodes are seen anterior to thetrachea, in the subcarinal space and subcentimeter lymph nodes are seen inboth jamal, unchanged. Thoracic spine and chest wall: Degenerative changes in middle and lowerthoracic spines. Shallow Schmorl's nodes in lower thoracic/upper lumbarvertebral endplates secondary to remote trauma. Old trauma to upper plateof T4 vertebral body and old fracture of left ninth rib noted. Other Lines/Tubes/Devices/Hardware: None Visualized upper abdomen: Short sliding hiatal hernia. S/P cholecystectomy. [facility], Radiant Results Inft User - 01/10/2020 2:09 PM CDTPROCEDURE: CT CHEST NON CONTRAST ? LUNG CANCER SCREENING.CLINICAL INDICATION: Lung nodule, >=1cm COMPARISON: None.TECHNIQUE: Low dose helical CT was acquired from lung apices to bases wasobtained and reconstructed at 1 mm, without intravenous contrast. MIP andcoronal & sagittal MPR images were generated and reviewed. (DFOV = 40 cm)FINDINGS: Comparison is made with most recent CT scan of 10/01/2019.Lower neck/thyroid: Unremarkable.Lungs: Chronic changes of obstructive lung disease noted throughout butmore in the upper lobes. Mild bilateral apical pleural scarring noted.Focal areas of pulmonary fibrosis are seen in posterior segment of rightupper lobe and superior segment of right lower lobe.Calcified granulomas are seen in both apical lungs.6 mm nodule in the superior segment of left lower lobe noted on series #8:44Central airway: Retained secretions/nodularity in the trachea noted withlong mucous with blebs in lower portion of the trachea extending up tobifurcation.Pleura: No pleural effusion, thickening or pneumothorax. Nodular pleuralthickening noted in the right lower chest. An additional nodule thickeningalso noted near the lateral segment of the right middle lobe.Thoracic aorta and great vessels: Classic arch anatomy. Normal in diameter.Mild atherosclerotic disease affects the visualized aorta.Pulmonary arteries: Unremarkable.Heart and pericardium: Extensive triple-vessel coronary atherosclerosiswith probable metallic stents in the right coronary artery. Unremarkablecardiac morphology and pericardium.Lymph nodes: Slightly enlarged lymph nodes are seen anterior to thetrachea, in the subcarinal space and subcentimeter lymph nodes are seen inboth jamal, unchanged.Thoracic spine and chest wall: Degenerative changes in middle and lowerthoracic spines. Shallow Schmorl's nodes in lower thoracic/upper lumbarvertebral endplates secondary to remote trauma. Old trauma to upper plateof T4 vertebral body and old fracture of left ninth rib noted.Other Lines/Tubes/Devices/Hardware: NoneVisualized upper abdomen: Short sliding hiatal hernia. S/P cholecystectomy. IMPRESSION1. Unchanged left lung nodule.2. Additional chronic bilateral pulmonary and pleural changes discussedabove.3. Nodular thickening of the mucosal lining and the mucosal webs noted inthe lower trachea without tracheal stenosis, unchanged.Lung RADS Category 2-S. Recommendation: Continue with annual screeningCategory 2: Negative screen - nodules with benign appearance or behavior -continue annual screening in 12 months S modifier: Other clinically significant or potentially significantfindings CT LUNG NODULE 2019-09 1. LungRADS Category 3. - Recommendation a 6 month of [place] 19:04:0 follow-up chest CT toassess for Medical 3 stability of finding. 2. Right Branch middle/lower lobe atelectasis and mild lung scarring, likelysequela of remote infection. 3. Emphysema. LungRADS reference table: See www.acr.org/Quality-Safety/Reso urces/LungRads for more information onthe lung cancer screening reporting structure. Category 0 ?Incomplete screen Category 1 ?Negative screen ? no nodules and/or definitely benign nodules ?continue annual screening in 12 months Category 2 ? ? Negative screen - nodules with benign appearance or behavior- continue annual screening in 12 months Category 3 ? Positive screen, probably benign - recommend low dose noduleCT in 6 months Category 4A ? ?Positive screen, suspicious - recommend low dose nodule CTin 3 months; may consider PET/CT if solid ? nodule component of 8 mm or more Category 4B ? Positive screen,?suspicious?- recommend multidisciplinaryconsultation and additional imaging(either ? chest CT with contrast and/or PET CT?if solid nodule componentof 8 mm or more)and/or tissue sampling ?S modifier ? ? Other clinically significant or potentially significantfindings C modifier ? ? History of prior lung cancer Preliminary Report Dictated by Resident: Yasmine Anna ?MD. Rayo, have reviewed this study and agree with the abovereport.EXAM: CT LUNG NODULE HISTORY: Lung nodule, <1cm, mod-high risk COMPARISON: Chest CT-10/05/2018. TECHNIQUE: Low dose helical CT was acquired from lung apices withoutintravenous contrast at a slice thickness of 1 mm. MIP and coronal &sagittal MPR images were generated and reviewed. (DFOV = 40 cm) FINDINGS: Lower neck/thyroid: Unremarkable. Lungs: Mild upper lobe predominant centrilobular emphysematous changes arenoted bilaterally. Right middle/lower lobe mild peribronchial thickening,mild bronchiectasis and atelectatic changes are seen, likely sequela ofremote infection. - 7 mm left lower lobe, image # [id number] Central airway: Nodularity of the tracheal wall and streaks of mucus in thelower trachea and the right mainstem bronchus. Diffuse tracheal andbronchial wall thickening with mild bronchial dilatation in the rightmiddle and bilateral lower lobes with areas of scattered mucous plugging.. Pleura: There is flattening of bilateral hemidiaphragms. Moderate pleuraleffusion with areas of nodular pleural thickening. The right lower lobenodular pleural thickening or pleural-based nodule measuring 8 x 11 mm(2:129). Thoracic aorta and great vessels: Normal in diameter. Calcifiedatherosclerotic disease of the visualized aorta. Pulmonary arteries: Unremarkable. Heart and pericardium: 3 vessels coronary arterial calcification. The heartis normal in size. Lymph nodes: No enlarged thoracic lymph nodes. Mediastinum: Unremarkable. Thoracic spine and chest wall: Diffuse osteopenia is seen. Remote fracturedeformity of left lateral ninth rib. Other Lines/Tubes/Devices/Hardware: None Visualized upper abdomen: 3.7 x 3.8 cm fluid attenuation lesion is presentin the left hepatic lobe. [facility], Radiant Results Inft User - 10/01/2019 2:05 PM CDTEXAM: CT LUNG NODULEHISTORY: Lung nodule, <1cm, mod-high risk COMPARISON: Chest CT-10/05/2018.TECHNIQUE: Low dose helical CT was acquired from lung apices withoutintravenous contrast at a slice thickness of 1 mm. MIP and coronal &sagittal MPR images were generated and reviewed. (DFOV = 40 cm)FINDINGS:Lower neck/thyroid: Unremarkable.Lungs: Mild upper lobe predominant centrilobular emphysematous changes arenoted bilaterally. Right middle/lower lobe mild peribronchial thickening,mild bronchiectasis and atelectatic changes are seen, likely sequela ofremote infection. - 7 mm left lower lobe, image # [id number] airway: Nodularity of the tracheal wall and streaks of mucus in thelower trachea and the right mainstem bronchus. Diffuse tracheal andbronchial wall thickening with mild bronchial dilatation in the rightmiddle and bilateral lower lobes with areas of scattered mucous plugging..Pleura: There is flattening of bilateral hemidiaphragms. Moderate pleuraleffusion with areas of nodular pleural thickening. The right lower lobenodular pleural thickening or pleural-based nodule measuring 8 x 11 mm(2:129).Thoracic aorta and great vessels: Normal in diameter. Calcifiedatherosclerotic disease of the visualized aorta.Pulmonary arteries: Unremarkable.Heart and pericardium: 3 vessels coronary arterial calcification. The heartis normal in size.Lymph nodes: No enlarged thoracic lymph nodes.Mediastinum: Unremarkable.Thoracic spine and chest wall: Diffuse osteopenia is seen. Remote fracturedeformity of left lateral ninth rib.Other Lines/Tubes/Devices/Hardware: NoneVisualized upper abdomen: 3.7 x 3.8 cm fluid attenuation lesion is presentin the left hepatic lobe. IMPRESSION1. LungRADS Category 3. Recommendation a 6 month follow-up chest CT toassess for stability of finding.2. Right middle/lower lobe atelectasis and mild lung scarring, likelysequela of remote infection.3. Emphysema. LungRADS reference table: See www.acr.org/Quality-Safety/Reso urces/LungRads for more information onthe lung cancer screening reporting structure.Category 0 Incomplete screenCategory 1 Negative screen ? no nodules and/or definitely benign nodules ?continue annual screening in 12 monthsCategory 2 ? Negative screen - nodules with benign appearance or behavior- continue annual screening in 12 monthsCategory 3 ? Positive screen, probably benign - recommend low dose noduleCT in 6 monthsCategory 4A ? Positive screen, suspicious - recommend low dose nodule CTin 3 months; may consider PET/CT if solid nodule component of 8 mm or moreCategory 4B Positive screen,?suspicious?- recommend multidisciplinaryconsultation and additional imaging(either chest CT with contrast and/or PET CT?if solid nodule componentof 8 mm or more)and/or tissue sampling S modifier ? Other clinically significant or potentially significantfindingsC modifier ? History of prior lung cancerPreliminary Report Dictated by Resident: Calderon Wang, Yasmien Cade MD., have reviewed this study and agree with the abovereport. MR BRAIN WO 2019-01 No acute intracranial findings University CONTRAST -10 such as acute ischemia, o f [place] 21:47:5 intracranialhemorrhage or mass Medical 7 effect. Mild chronic small Branch vessel ischemic disease is seen. IJose C MD., have reviewed this study and agree with the abovereport.MR BRAIN WO CONTRAST HISTORY: 73 years-old; Male; Neuro deficit(s), subacute COMPARISON: None TECHNIQUE: Multiplanar multisequence imaging of the brain was obtained on a1.5 Myrna MRI without contrast. FINDINGS: The ventricles and cerebral sulci are normal in caliber and configuration.No midline shift, hydrocephalus or pathological extra-axial fluidcollection is present. The basal cisterns are unremarkable. No restricted diffusion is present to suggest acute infarct. A few foci ofT2/FLAIR hyperintensity are noted in the periventricular, deep andsubcortical white matter, suggestive of mild chronic small vessel ischemicdisease. No abnormal gradient blooming. The T2 flow voids for the major intracranial vessels are unremarkable.Susceptibility artifact noted in the left premaxillary region. Correlationwith physical exam would be useful. [facility], Radiant Results Inft User - 02/06/2019 4:48 PM CDTMR BRAIN WO CONTRASTHISTORY: 73 years-old; Male; Neuro deficit(s), subacute COMPARISON: NoneTECHNIQUE: Multiplanar multisequence imaging of the brain was obtained on a1.5 Myrna MRI without contrast.FINDINGS:The ventricles and cerebral sulci are normal in caliber and configuration.No midline shift, hydrocephalus or pathological extra-axial fluidcollection is present. The basal cisterns are unremarkable.No restricted diffusion is present to suggest acute infarct. A few foci ofT2/FLAIR hyperintensity are noted in the periventricular, deep andsubcortical white matter, suggestive of mild chronic small vessel ischemicdisease. No abnormal gradient blooming.The T2 flow voids for the major intracranial vessels are unremarkable.Susceptibility artifact noted in the left premaxillary region. Correlationwith physical exam would be useful.IMPRESSIONNo acute intracranial findings such as acute ischemia, intracranialhemorrhage or mass effect.Mild chronic small vessel ischemic disease is seen.IJose C MD., have reviewed this study and agree with the abovereport. COMP. METABOLIC PANEL (18111) 2019-01-31 17:29:00 Test Item Value Reference Range Interpretation Comme nts NA (test code = 4460174784) 142 mmol/L 135-145 K (test code = 3739582131) 5.0 mmol/L 3.5-5 CL (test code = 0117279845) 104 mmol/L 98-108 CO2 TOTAL (test code = 8098934648) 28 mmol/L 23-31 AGAP (test code = 0874711130) 2-16 BUN (test code = 4762781588) 12 mg/dL 7-23 GLUCOSE (test code = 9272402134) 83 mg/dL 70-110 CREATININE (test code = 0.70 mg/dL 0.6-1.25 7379804368) TOTAL BILI (test code = 0.2 mg/dL 0.1-1.9 0726556540) CALCIUM (test code = 4319735966) 8.9 mg/dL 8.6-10.6 T PROTEIN (test code = 1434014172) 7.6 g/dL 6.3-8.2 ALBUMIN (test code = 8881583979) 4.2 g/dL 3.5-5 ALK PHOS (test code = 2876228489) 117 U/L 34-122 ALT(SGPT) (test code = 1858279261) 24 U/L 9-51 AST(SGOT) (test code = 6158928907) 41 U/L 13-40 H eGFR Calculation (Non- mL/min/1.73m2 [facility]) (test code = 5963242128) eGFR Calculation ( mL/min/1.73m2 [facility]) (test code = 9638317102) PRABHA (test code = PRABHA) Association of Glomerular Filtration Rate (GFR) and Staging of Kidney Disease*+ + + +| GFR (mL/min/1.73 m2)?| With Kidney Damage?|?Without Kidney Damage+ +-- + +|?>90?|?Stage one?|? Normal?+ +- + +|?60-89?|?Stage two?|? Decreased GFR? + +-------- + ------+|?30-59?|?Stage three?|? Stage three? + +-------- + ------+|?15-29?|?Stage four? |? Stage four?+ +--- + +|?<15 (or dialysis)?|?Stage five? |? Stage five?+ +--- + +*Each stage assumes the associated GFR level has been in effect for at least three months.?Stages 1 to 5, with or without kidney disease, indicate chronic kidney disease.Notes: Determination of stages one and two (with eGFR >59mL/min/1.73 m2) requires estimation of kidney damage for at least three months as defined by structural or functional abnormalities of the kidney, manifested by either:Pathological abnormalities or Markers of kidney damage (including abnormalities in the composition of the blood or urine or abnormalities in imaging tests). Lab Interpretation (test code = Abnormal 74448-2) [facility] WITH [id number] 17:16:00 Test Item Value Reference Range Interpretation Comments WBC (test code = See_Comment [Automated 2575-2) message] The sy stem which generated this result transmitted reference range : 4.20 - 10.70 10*3/?L. The reference range was not used to interpret this result as normal/abnormal . RBC (test code = See_Comment [Automated 329-8) message] The sy stem which generated this result transmitted reference range : 4.26 - 5.52 10*6/?L. The reference range was not used to interpret this result as normal/abnormal . HGB (test code = 11.9 g/dL 12.2-16.4 L 718-7) HCT (test code = 40.1 % 38.4-49.3 4544-3) MCV (test code = 82.5 fL 81.7-95.6 787-2) MCH (test code = 24.5 pg 26.1-32.7 L 785-6) MCHC (test code = 29.7 g/dL 31.2-35 L 786-4) RDW-SD (test code = 70.5 fL 38.5-51.6 H 52073-5) RDW-CV (test code = 23.5 % 12.1-15.4 H 788-0) PLT (test code = See_Comment H [Automated 777-3) message] The sy stem which generated this result transmitted reference range : 150 - 328 10*3/ ?L. The reference r brandie was not used to interpret this result as normal/abnormal . MPV (test code = 9.2 fL 9.8-13 L 17154-9) NRBC/100 WBC (test See_Comment [Automat ed code = 7904601352) message] The system which generated this result transmitted reference range : 0.0 - 10.0 /100 WBCs. The refer ence range was not u sed to interpret th is result as normal/abnormal . NRBC x10^3 (test code <0.01 See_Comment [Auto mated = 7486359162) message] The s ystem which generated this result transmitted reference range : 10*3/?L. The reference range was not used to interpret this result as normal/abnormal . GRAN MAT (NEUT) % 51.8 % (test code = 770-8) IMM GRAN % (test code 0.20 % = 3124264473) LYMPH % (test code = 28.4 % 736-9) MONO % (test code = 11.6 % 5905-5) EOS % (test code = 6.7 % 713-8) BASO % (test code = 1.3 % 706-2) GRAN MAT x10^3(ANC) 2.40 10*3/uL 1.99-6.95 (test code = 4384958418) IMM GRAN x10^3 (test <0.03 0-0.06 code = 3593265268) LYMPH x10^3 (test code 1.32 10*3/uL 1.09-3.23 = 731-0) MONO x10^3 (test code 0.54 10*3/uL 0.36-1.02 = 742-7) EOS x10^3 (test code = 0.31 10*3/uL 0.06-0.53 711-2) BASO x10^3 (test code 0.06 10*3/uL 0.01-0.09 = 704-7) Lab Interpretation Abnormal (test code = 28919-9) [facility] T[facility] 2016-09-01 11:09:00 Test Item Value Reference Range Interpretation Comments ALPHA-FETOPROTEIN (BEAKER) (test code < ng/mL <10.0 = 1094) Effective 04/16/2014: Reference Range ChangeNew: <10.0 Previous: 0.0-8.0CBC W/PLT COUNT & AUTO [id number] 10:05:00 Test Item Value Reference Range Interpretation [...] 0.00-0.20 (test code = 417) 0.00HEPATIC FUNCTION [id number] 09:42:00 Test Item Value Reference Range Interpretation [...] = 23 U/L 6-55 347) BASIC METABOLIC [id number] 09:42:00 Test Item Value Reference Range Interpretation [...] Reference Range Interpretation Comments GAMMA GLUTAMYL TRANSFERASE (BEAKER) 33 U/L 9-64 (test code = 364) PROTHROMBIN TIME/[id number] 09:25:00 Test Item Value Reference Range Interpretation Comments PROTIME (BEAKER) (test code = 13.2 seconds 11.7-14.7 759) INR (BEAKER) (test code = 370) 1.0 <=5.9 RECOMMENDED COUMADIN/WARFARIN INR THERAPY RANGESSTANDARD DOSE: 2.0 - 3.0 Includes: PROPHYLAXIS forvenous thrombosis, systemic embolization; TREATMENT for venous thrombosis and/or pulmonary embolus.HIGH RISK: Target INR is 2.5-3.5 for patients with mechanical heart valves.BLOOD BANK [id number] 15:08:00 Positive 1(07/05/16 9:08 AM)[facility] [id number] 20:55:00 Negative (07/01/16 2:55 PM)[facility] [id number] 20:55:00 Negative (07/01/16 2:55 PM)[facility] [id number] 20:55:00 Negative *NA*(07/01/16 2:55 PM)[facility] [id number] 20:55:00 0.2[facility] [id number] 20:55:00Negative (07/01/16 2:55 PM) [facility] [id number] 20:55:00Yellow *NA*(07/01/16 2:55 PM) [facility] [id number] 20:55:00Negative *NA*(07/01/16 2:55 PM) [facility] [id number] 20:55:00 Test Item Value Reference Range Interpretation Comments UA pH (test code = UA pH) 8.0 1 5.0-8.0 [facility] [id number] 20:55:00None Seen (07/01/16 2:55 PM) [facility] KcpniwzEDJPYNHDOYWM4026-69-44 20:55:007.8[facility]ann[facility]LECTROLYTES 2016-07-01 20:55:003.7[facility] OqsfciaTMYHZHHZFRGH8937-74-22 20:55:000.9[facility] UybkhldEIFVSHATGIPE7318-90-05 20:55:0010[facility] AydfcusJAEDTBKWFQDC2703-12-48 20:55:0093[facility] LrhpzduGGOFVINHQKOR2545-47-72 20:55:0035[facility] HALJBKRPALBR6258-23-25 20:55:60420Mhwgtqfg BktasrwDEUTMOPQTHHY4247-76-43 20:55:003.8[facility] ZfolqikDHOXNBHKFOOD8125-26-01 20:55:008.4[facility] OXNZQEGVSGTB7518-32-37 20:55:0034[facility] ZguvrmbOSHUHDWZZDLM1705-60-11 20:55:00 3.4[facility] DulptskQTWFIZSQSJOA2570-78-21 20:55:007.1[facility] CDGDZPNKCBLE1864-92-23 20:55:0030[facility] VycslgmNGPENSMTFLOI8669-71-89 20:55:00 0.2[facility] JmebzebPSHUNIIKLBXS0404-20-96 20:55:0072[facility]ann[facility]LECTROLYTES 2016-07-01 20:55:81689Kyyxafaa ShgjxhoKKBMYTSKDEPB8470-28-75 20:55:50824Zqfahmvv ZqklbrhZUNSQRGJWIRA6915-03-50 20:55:000.77[facility] ZfntmvwNNOTAXCQKVTZ4301-33-35 20:55:008[facility] VeikrujVOUABQKJIJ6313-81-37 20:55:0017.8[facility] NISMHXRBJN4610-66-44 20:55:009.2[facility] DrvvpjyVVWPBAMRDG4844-68-55 20:55:00 69.9[facility] LmiqyzkJDEUNJHPFQ7699-66-87 20:55:000.7[facility]OLOGY 2016-07-01 20:55:002.4[facility] YljkdvpOZAHEAHKSN1937-67-02 20:55:001.0[facility] EhrlthfBZNZNKBROS8322-79-88 20:55:000.1[facility] GhjltseQPUDQEDBTZ8639-26-84 20:55:004.0[facility] BhimfrkSVVHPBVKMK4853-71-96 20:55:000.5[facility] VPWLATOMZR6651-27-99 20:55:001.02[facility] DcodklbOUTSAMIFUM8555-56-10 20:55:00 Test Item Value Reference Range Interpretation Comments PTT (test code = PTT) 28.1 s 22.9-35.8 [facility] QvjhzvcZIRKTOTPRR0489-79-74 20:55:00 Test Item Value Reference Range Interpretation Comments PT (test code = PT) 13.6 s 12.0-14.7 [facility] ZcrbxdfHEEDXKKWHN7740-26-35 20:55:007.1[facility] 2016-07-01 20:55:0095.1[facility] UpccehiVVAZCRXQYP6698-76-72 20:55:0033.0[facility] BkbiosfIVVVVTZJWO9493-88-97 20:55:00 Test Item Value Reference Range Interpretation Comments MCH (test code = MCH) 31.4 pg 27.0-31.0 [facility] MqikkjbLQSMWJXPTM9850-94-73 20:55:50356Bjzycysp [facility]annHEMATOLOGY 2016-07-01 20:55:0014.1[facility] SwmxqqiARITPJNYYI7837-72-56 20:55:0013.0[facility] NvuygvbLHZIWVWTUN1829-03-42 20:55:004.14[facility] RcxptxuRCIVXPMAQS6705-85-92 20:55:005.7[facility] BezkqmtRMLPYCPNJO4167-82-26 20:55:0039.4[facility] JBNWB0310-80-45 20:55:00Cloudy *ABN*(07/01/16 2:55 PM)[facility] AND [id number] 20:55:00 Test Item Value Reference Range Interpretation Comments UA Spec Grav (test code = UA Spec 1.010 1 Grav) [facility] AND [id number] 20:55:00Negative (07/01/16 2:55 PM) [facility] AND EHNQK7734-16-72 20:55:00Negative (07/01/16 2:55 PM) [facility]
[2021-04-20] MEDS ORDERED: NA CHLORIDE 0.9% 100 ML ONE (06:55)
[2021-04-20] MEDS ORDERED: CEFAZOLIN SODIUM 1 GM/VIAL ONE (06:55)
[2021-04-20] MEDS ORDERED: NA CHLORIDE 0.9% 1,000 ML ONE ×2 (06:57→10:23)
[2021-04-20] MEDS ORDERED: TETANUS & DIPHTHERIA TOX,ADULT 0.5 ML VIAL ONE (06:57)
[2021-04-20 07:32] LABS: Protime INR 1.04
[2021-04-20 07:36] LABS: Absolute Lymphocytes (CBC) 0.8 K/uL (0.7-4.9); Basophils % 0.6 % (0-1.3); Hematocrit 39.6 % (39.6-49.0); Lymphocytes % 7.9 % (15.3-44.8); MPV 6.8 fL (7.6-11.3); RBC Red Blood Cell Count 4.18 M/uL (4.33-5.43)
[2021-04-20 07:44] LABS: ALT/SGPT 47 U/L (12-78); AST/SGOT 42 U/L (15-37); Albumin 3.4 g/dL (3.4-5.0); Alkaline Phosphatase 95 U/L (45-117); BUN Blood Urea Nitrogen 16 mg/dL (7-18); Bicarbonate 28 mmol/L (21-32); Bilirubin Total 0.2 mg/dL (0.2-1.0); Glucose Level 105 mg/dL (74-106); Potassium 4.4 mmol/L (3.5-5.1); Protein, Total 7.2 g/dL (6.4-8.2); Sodium Level 141 mmol/L (136-145)
[2021-04-20] MEDS ORDERED: FENTANYL CITR 100 MCG/2 ML ONE ×3 (07:53→10:23)
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
[2021-04-20 11:18] VITALS: TEMP 97.8
[2021-04-20 11:23] VITALS: BP 108/80; O2SAT 95
== END 2021-04-20 11:12 | disposition short-term general hospital (02) ==
LOC: ER 06:37
PROC: 2W3MX1Z Immobilization of Left Lower Extremity using Splint (ICD-10-PCS; principal; 2021-04-20)
DX: S72.402A Unspecified fracture of lower end of left femur, initial encounter for closed fracture (principal); W32.0XXA Accidental handgun discharge, initial encounter; E78.00 Pure hypercholesterolemia, unspecified; I10 Essential (primary) hypertension; F17.210 Nicotine dependence, cigarettes, uncomplicated; Z23 Encounter for immunization; Z88.0 Allergy status to penicillin; Z88.2 Allergy status to sulfonamides; Z20.822 Contact with and (suspected) exposure to COVID-19; Z95.818 Presence of other cardiac implants and grafts
CPT/HCPCS: 29505; 96365; 96361; 85025; 36415; 86900; 86850; 85610; 86902; 86870; 86901; 85730; 80053; 73706; 73562; 90471; 90714; 96375; 99285; U0003; Q9967; J3010 ×3; J7030 ×2; J0690

== ENCOUNTER 2021-08-11 08:28 | Day surgery (SDC) | payer OTHER ==
[2021-08-07 10:38] LABS: Absolute Lymphocytes (CBC) 0.7 K/uL (0.7-4.9); Hematocrit 39.8 % (39.6-49.0); MPV 6.2 fL (7.6-11.3)
--- NOTE | 2021-08-07 10:40 | RAD REPORT ---
EXAM DESCRIPTION: RAD - Chest Pa And Lat (2 Views) - 08/07/2021 10:34 am CLINICAL HISTORY: Pre op pending urolift COMPARISON: Chest Single View dated 01/04/2021; Abdomen 1 View (KUB) dated 05/22/2019; Chest Pa And La t (2 Views) dated 05/02/2019 FINDINGS: Lines: None. Lungs: No evidence of edema or pneumonia. Emphysema. Mild scarring in the right lung base. Pleural: No significant pleural effusions or pneumothorax. Cardiac: The heart size is within normal limits. Bones: No acute fractures. Other: IMPRESSION: No acute cardiopulmonary disease.
[2021-08-07 10:43] LABS: Protime INR 1.12
[2021-08-07 10:53] LABS: BUN Blood Urea Nitrogen 10 mg/dL (7-18); Bicarbonate 28 mmol/L (21-32); Glucose Level 87 mg/dL (74-106); Sodium Level 132 mmol/L (136-145)
--- NOTE | 2021-08-07 13:08 | EKG ---
Test Date: 2021-08-07 Test Time: 10:14:16 Digital Media Coordinator: [employer]EMA MEASUREMENT RESULTS: Intervals: Rate: 77 OR: 148 QRSD: 120 QT: 388 QTc: 439 Given: P: 66 OR: 148 QRS: -73 T: 55 INTERPRETIVE STATEMENTS: Normal sinus rhythm Left axis deviation Right bundle branch block Abnormal ECG Compared to ECG 01/04/2021 17:59:02 Left-axis deviation now present Electronically Signed On 08-07-21 13:07:51 MULTI CRAFT MAINTENANCE TECHNICIAN by Luis Miguel Gilbert
[~2021-08-11 08:28] MED LIST: CLINDAMYCIN 600MG/D5W 600 MG/50 ML BAG IV ONE; Gentamicin Inj 120 MG in NA CHLORIDE 0.9% 100 ML IV ONE
[2021-08-11] MEDS ORDERED: Ringers Lactate 1,000 ML IV ONE (08:59)
[2021-08-11] MEDS ORDERED: ACETAMINOPHEN 500 MG TAB ONE (09:48)
[2021-08-11] MEDS ORDERED: MIDAZOLAM HCL 2 MG/2 ML INJ ONE (10:40)
[2021-08-11] MEDS ORDERED: FENTANYL CITR 100 MCG/2 ML ONE (10:40)
[2021-08-11] MEDS ORDERED: propofoL 200 MG/20 ML VIAL IV ONE (10:40)
[2021-08-11] MEDS ORDERED: Phenylephrine HCl 10 MG/ML 1 ML VIAL ONE (11:06)
[2021-08-11 11:53] VITALS: O2SAT 99
[2021-08-11 14:27] VITALS: BP 92/55; TEMP 96.8
--- NOTE | 2021-08-11 20:01 | OP ---
Surgeon: TEE STEVENSON Preoperative Diagnoses: BPH with lower urinary tract obstruction and history of acute urinary retention. Postoperative Diagnoses: BPH with lower urinary tract obstruction and history of acute urinary retention. Principal Procedures: 1. UroLift. 2. Number of implants placed 5 with 3 on the left and 2 on the right. Indication For Procedure: Mr. Lake is a 76-year-old gentleman, heavy smoker with COPD, hypothyroidism, GERD, and coronary artery disease status post percutaneous intervention in 2012, on aspirin and Plavix, also on prednisone with a history of urinary retention in 2019, asymptomatic on Flomax, but with moderate volume and incomplete emptying. He had also been on finasteride for over a year and still had postoperative urinary retention. As a result, after cystoscopic evaluation revealed some lateral lobar hypertrophy without significant intravesical projection, UroLift was recommended, and he agreed. Side effects were discussed in detail. Procedure In Detail: The patient was consented in the preoperative holding area before being transferred to the operative suite where general anesthesia was induced. He was given clindamycin and gentamicin IV antimicrobial prophylaxis due to his allergy to penicillin and sulfa. Pneumo boots were provided for DVT prophylaxis. He was placed in the lithotomy position, padded and secured to the table appropriately. His genitalia were prepped using Hibiclens and was draped in standard fashion. The case was begun by inserting the 20-Bolivian cystoscope into the urethra and traversed the urethra before entering the bladder. The bladder was decompressed of fluid and urine, and then refilled and surveyed. There was no significant intravesical projection; however, there was the expected and previously observed lateral lobar hypertrophy. The prostatic urethral length was approximately 2-3 cm. The first treatment was on the patient's left side approximately 1-1.5 cm proximal to the verumontanum. The distal tip of the delivery device was angled laterally approximately 30-35 degrees to compress the lateral lobe in the upper 1/2 to 1/3 of the tissue. The needle was retracted allowing one end of the implant to be delivered to the capsular surface of the prostate. The implant was then tensioned to assure capsular seeding and removal of a slack monofilament. The device was then angled back toward midline and slowly advanced proximally typically 3-4 mm until cystoscopic verification of the monofilament being centered in the delivery bed. The urethral end piece was then affixed to the monofilament, thereby tailoring the size of the implant. Excess filament was then severed. The delivery device was then readvanced into the bladder. The bladder was then decompressed while a new implant was attached to the cystoscope, and a similar implant was placed contralaterally in the right lateral lobe. This implant did end up more superior in the lateral lobe than its contralateral implant, which did open the urethral lumen, but slightly asymmetrically. An additional implant following the same procedure described above was then placed at the left apex this time at the level of the verumontanum. A fourth implant was then placed in the apex at the level of the verumontanum on the right lateral lobe. Once this was completed, we then surveyed the prostatic urethral lumen, and there was some slight anterior overhang from the left lateral lobe that persisted; so a fifth implant was then placed to essentially stack it above the most proximally placed implant on the left lateral lobe, but this time more anteriorly. This did completely open the channel, and the implants were sufficient distance from the bladder neck to avoid intravesical injury and incrustation. Final cystoscopic evaluation was conducted to inspect the location and state of each implant and confirmed the presence of a continuous anterior channel through the prostatic urethra. This was done with the bladder decompressed, and then the bladder was filled in order to place an 18-Bolivian urethral catheter. This was done, and about 20 cc of sterile water was placed in the balloon. The catheter was connected to a leg bag and the patient was taken out of the lithotomy position. He was then awakened from general anesthesia, transferred to a stretcher, and then transferred to the recovery room in good condition. Complications: None. Discharge Disposition: He will be taught to remove the catheter at home tomorrow morning by the discharge nurses and subsequently will establish follow up with me in about a month. He was given a prescription for ciprofloxacin again given his allergy to penicillin and sulfa for 3 days. He will resume his Plavix on or Tuesday if the urine is minimally pink or clear. He may resume his aspirin immediately. LATASHA/MONIKAL Voice ID: [id number] Report ID: [id number] [facility] CENTER[facility]olly
== END 2021-08-11 13:08 | disposition home or self-care (01) ==
LOC: OR 08:28
PROVIDERS: ATTEND Urology
PROC: 0T7D8DZ Dilation of Urethra with Intraluminal Device, Via Natural or Artificial Opening Endoscopic (ICD-10-PCS; principal; 2021-08-11 10:30)
DX: N40.1 Benign prostatic hyperplasia with lower urinary tract symptoms (principal); R33.9 Retention of urine, unspecified; J44.9 Chronic obstructive pulmonary disease, unspecified; K21.9 Gastro-esophageal reflux disease without esophagitis; I25.10 Atherosclerotic heart disease of native coronary artery without angina pectoris; F17.220 Nicotine dependence, chewing tobacco, uncomplicated; E03.9 Hypothyroidism, unspecified; Z20.822 Contact with and (suspected) exposure to COVID-19
CPT/HCPCS: 93005; 87088; 85025; 87086; 80048; 36415; 85610; 85730; 71046; 52441; 52442 ×4; U0003; J2704; J2370; J1580; J2250; J3010; J7120

== ENCOUNTER 2022-03-01 09:20 | Inpatient (IN) | payer OTHER ==
--- OUTSIDE RECORDS SUMMARY | 2022-03-01 09:32 | XMS REPORT | Continuity of Care Document ---
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 Pharmacy: [facility] #[id number], 162.56, cm, 02/03/21 10:23:00 CDT, Height, 65.455, kg, 02/03/21 10:23:00 CDT, Weight ALBUTEROL 2019-0 Yes TAKE 2 Univer s 90 8-05 PUFFS BY ity of mcg/actuati 00:00: MOUTH [place] on inhaler 00 EVERY 6 Medica l HOURS Branch NEEDED FOR WHEEZE OR FOR SHORTNESS OF BREATH ALBUTEROL 2019-0 Yes TAKE 2 Univer s 90 8-05 PUFFS BY ity of mcg/actuati 00:00: MOUTH [place] on inhaler 00 EVERY 6 Medica l HOURS Branch NEEDED FOR WHEEZE OR FOR SHORTNESS OF BREATH primidone 2019-0 Yes 50 mg = 1 Mem oria 50 mg oral 5-01 tab, PO, l tablet 15:30: BID, # 60 Eddie n 00 tab, 3 Refill(s), Pharmacy: [facility] #[id number] primidone 2020-0 Yes 50 mg = 1 Mem oria 50 mg oral 5-01 tab, PO, l tablet 15:30: BID, # 60 Eddie n 00 tab, 3 Refill(s), Pharmacy: [facility] #[id number] primidone 2020-0 Yes 50 mg = 1 Mem oria 50 mg oral 1-07 tab, PO, l tablet 22:25: BID, # 60 Eddie n 32 tab, 3 Refill(s), [id number] primidone 2020-0 Yes 50 mg = 1 Mem oria 50 mg oral 1-07 tab, PO, l tablet 22:25: BID, # 60 Eddie n 32 tab, 3 Refill(s), [id number] primidone 0 No 50 mg = 1 Mem oria 50 mg oral 1-07 tab, PO, l tablet 22:22: BID, X 30 Eddie n 48 day, # 60 tab, 3 Refill(s), Pharmacy: [place] [id number] primidone 2019-0 No 50 mg = 1 Mem oria 50 mg oral 1-07 tab, PO, l tablet 22:22: BID, X 30 Eddie n 48 day, # 60 tab, 3 Refill(s), Pharmacy: [place] [id number] primidone 2018-05 Yes 50 mg = 1 Mem oria 50 mg oral 1-22 tab, PO, l tablet 17:52: Daily, # Kaz 00 30 tab, 3 Refill(s), Pharmacy: [place] [id number] primidone 2018-05 Yes 50 mg = 1 Mem oria 50 mg oral 1-22 tab, PO, l tablet 17:52: Daily, # [place] 00 30 tab, 3 Refill(s), Pharmacy: [place] [id number] omeprazole 2018-05 Yes 20 mg = 1 [...] Refill(s) Ipratropium 2018-05 Yes 250 Memori a [place] 0.2 0-23 microgram l MG/ML 20:03: = [...] n inhalation 00 ea, 3 aerosol Refill(s) omeprazole 2018-05 Yes 20 mg = 1 [...] tab, PO, l tablet 20:03: Daily, 0 [place] 00 Refill(s) Bupropion 2018-05 Yes 15 mg, [...] Refill(s) Ipratropium 2018-05 Yes 250 Memori a [place] 0.2 0-23 microgram l MG/ML 20:03: = 1.25 mL, Eddie n Inhalant 00 INHALATION Solution , TID, # 75 mL, 0 Refill(s) Albuterol 2018-05 Yes 2.5 mg = 3 Me moria 0.83 MG/ML 0-23 mL, NEB, l Inhalant 20:03: Q6H, 0 [place] Solution 00 Refill(s) Dulera 100 2018-05 Yes 2 puff, Mathieu chaitanya mcg-5 0-23 INHALER, l mcg/inh 20:03: BID, # 1 Eddie n inhalation 00 ea, 3 aerosol Refill(s) ipratropium Yes [id number] .5mg Inhale 2.5 Univers 0.02 % 8-26 mL every 6 ity of nebulizer 00:00: (six) [place] solution 00 hours as Medical needed for Branch Wheezing or Shortness of Breath. albuterol Yes [id number] 2.5mg Inhale 3 Univers 2.5 mg /3 8-26 mL every 6 ity of mL (0.083 00:00: (six) [place] %) 00 hours as Medical nebulizer needed for Bran ch solution Wheezing or Shortness of Breath. ipratropium Yes [id number] .5mg Inhale 2.5 Univers 0.02 % 8-26 mL every 6 ity of nebulizer 00:00: (six) [place] solution 00 hours as Medical needed for Branch Wheezing or Shortness of Breath. albuterol Yes [id number] 2.5mg Inhale 3 Univers 2.5 mg /3 8-26 mL every 6 ity of mL (0.083 00:00: (six) [place] %) 00 hours as Medical nebulizer needed for Bran ch solution Wheezing or Shortness of Breath. Diclofenac Diclofenac 2019- No Chito 1 tablet Common Sodium Sodium 4-15 05-15 Taryn with food Spir it 00:00: 00:00 or milk - [facility] 00 [facility]00 [facility] atorvastati Yes 40mg Take 40 mg Univers n 40 mg 1-22 by mouth ity of tablet 00:00: at [place] 00 bedtime. Medical Branch atorvastati Yes 40mg Take 40 mg Univers n 40 mg 1-22 by mouth ity of tablet 00:00: at [place] [id number] bedtime. Medical Branch Levothyroxi Levothyroxi 2017-05 Yes Chito 1 tablet Common ne Sodium ne Sodium 2-10 Taryn on an Spi rit 00:00: empty - [facility] 00 stomach in [facility] Nitrostat Nitrostat 2017-05 Yes Chito as needed Common 2-10 Taryn for chest Spirit 00:00: pain - [facility] lansoprazol Yes 30mg QD Take [address] e 5-04 by [facility] (PREVACID) 09:14: daily. Medic al 30 MG 50 Center capsule fluticasone Yes 1{puff} Inhale [address] -salmeterol 5-04 puff by [facility] (ADVAIR) 09:14: mouth via Medi nba 250-50 50 inhaler Center mcg/dose every 12 diskus (twelve) inhaler hours. aspirin 81 Yes 81mg QD Take [address] MG EC 5-04 by mouth [facility] tablet 09:14: daily. Medical 50 Center magnesium Yes 400mg QD Take [address] oxide 5-04 mg by [facility] (MAG-OX) 09:14: mouth Medical 400 mg 50 daily. Center tablet Diazepam 5 Yes See Memoria MG Oral 2-06 Instructio l Tablet 19:25: ns, PRN [place] [Valium] 00 Muscle Spasms, 1 tab PO q4-6 hrs prn muscle spasms, # 30 tab, 4 Refill(s) Docusate Yes 100 mg = 1 Mem oria Sodium 100 2-06 cap, PO, l MG Oral 19:25: BID, # 30 Audra nn Capsule 00 cap, 1 Refill(s) Diazepam 5 Yes See Memoria MG Oral 2-06 Instructio l Tablet 19:25: ns, PRN Kaz [...] 17:07: INJ, ONCE, Stop date: 07/05/16 11:07:00 PHARMACEUTICAL ANALYST neostigmine No Route: IV, Memoria (ANES) 07-05 Drug form: l 17:07: INJ, ONCE, Stop date: 07/05/16 11:07:00 PHARMACEUTICAL ANALYST glycopyrrol No Route: IV, Memoria ate (ANES) 07-05 Drug form: l 17:07: INJ, ONCE, Stop date: 07/05/16 11:07:00 PHARMACEUTICAL ANALYST neostigmine No Route: IV, Memoria (ANES) 07-05 Drug form: l 17:07: INJ, ONCE, Stop date: 07/05/16 11:07:00 PHARMACEUTICAL ANALYST vancomycin No Route: IV, M emoria (ANES) 07-05 Drug form: l 16:56: INJ, ONCE, Stop date: 07/05/16 10:56:00 PHARMACEUTICAL ANALYST vancomycin No Route: IV, M emoria (ANES) 07-05 Drug form: l 16:56: INJ, ONCE, Stop date: 07/05/16 10:56:00 PHARMACEUTICAL ANALYST ondansetron No Route: IV, Memoria (ANES) 07-05 Drug form: l 16:51: INJ, ONCE, Stop date: 07/05/16 10:51:00 PHARMACEUTICAL ANALYST ketOROLAC No IV, ONCE Mathieu chaitanya (ANES) 07-05 l 16:51: [place] 00 propofol No Route: IV, Mem oria (ANES) 07-05 Drug form: l 16:51: INJ, ONCE, Stop date: 07/05/16 10:51:00 PHARMACEUTICAL ANALYST fentaNYL 2017-0 No Route: IV, Mem oria (ANES) 2- Drug form: l 16:51: INJ, ONCE, Stop date: 07/05/16 10:51:00 PHARMACEUTICAL ANALYST phenylephri 2017-0 No Route: IV, Memoria ne (ANES) 2 Drug form: l 16:51: INJ, ONCE, Stop date: 07/05/16 10:51:00 PHARMACEUTICAL ANALYST rocuronium 2017-0 No Route: IV, M emoria (ANES) 2- Drug form: l 16:51: INJ, ONCE, Stop date: 07/05/16 10:51:00 PHARMACEUTICAL ANALYST lidocaine 2017-0 No Route: IV, Me moria (ANES) 2 Drug form: l 16:51: INJ, ONCE, Stop date: 07/05/16 10:51:00 PHARMACEUTICAL ANALYST midazolam 2017-0 No Route: IV, Me moria (ANES) 2- Drug form: l 16:51: SOLN, ONCE, Stop date: 07/05/16 10:51:00 PHARMACEUTICAL ANALYST ondansetron 2017-0 No Route: IV, Memoria (ANES) 2- Drug form: l 16:51: INJ, ONCE, Stop date: 07/05/16 10:51:00 PHARMACEUTICAL ANALYST ketOROLAC 2017-0 No IV, ONCE Mathieu chaitanya (ANES) 2- l 16:51: propofol 2017-0 No Route: IV, Mem oria (ANES) 2- Drug form: l 16:51: INJ, ONCE, Stop date: 07/05/16 10:51:00 PHARMACEUTICAL ANALYST fentaNYL 2017-0 No Route: IV, Mem oria (ANES) 2- Drug form: l 16:51: INJ, ONCE, Stop date: 07/05/16 10:51:00 PHARMACEUTICAL ANALYST phenylephri 2017-0 No Route: IV, Memoria ne (ANES) 2- Drug form: l 16:51: INJ, ONCE, Stop date: 07/05/16 10:51:00 PHARMACEUTICAL ANALYST rocuronium 2017-0 No Route: IV, M emoria (ANES) 2 Drug form: l 16:51: INJ, ONCE, Kaz Stop date: 07/05/16 10:51:00 PHARMACEUTICAL ANALYST lidocaine No Route: IV, moria (ANES) 2 Drug form: l 16:51: INJ, ONCE, Kaz 00 Stop date: 07/05/16 10:51:00 PHARMACEUTICAL ANALYST midazolam No Route: IV, moria (ANES) 2 Drug form: l 16:51: SOLN, Kaz 00 ONCE, Stop date: 07/05/16 10:51:00 PHARMACEUTICAL ANALYST Albuterol No Notes: SEE Me moria 0.83 MG/ML 07-05 RT l Inhalant 16:46: DOCUMENTAT Her wray [...] ) Acetaminoph No Notes: Mathieu chaitanya en - Infuse l 16:46: over 15 [place] 00 minutes Do not exceed 4gm/day of acetaminop hen MEDICATION WASTE Product Size: 1000 mg Product Wasted: ___ mg Hydralazine No Notes: Mathieu chaitanya - (Same as: l 16:46: Apresoline ) Push over 5 minutes 72 HR No Notes: Memoria Scopolamine 07-05 Change l 0.0139 16:46: patch [place] MG/HR 00 every 72 Transdermal hours Patch (Same as: Transderm- Scop) Promethazin No 6.25 mg, Me moria e - 50 mL, l 16:46: Route: 00 IVPB, Drug form: SOLN, ONCE, Dosing Weight 60.455, kg, PRN Nausea & Vomiting, Start date: 07/05/16 10:46:00 PHARMACEUTICAL ANALYST Ondansetron No Notes: Mathieu chaitanya 07-05 (Same as: l 16:46: Zofran) [place] 00 MEDICATION WASTE Product Size: 4 mg Product Wasted: ___ mg Albuterol No Notes: SEE Me moria 0.83 MG/ML - RT l Inhalant 16:46: DOCUMENTAT Her wray Solution 00 ION MEDICATION WASTE Product Size: 2.5 mg Product Wasted: ___ mg Atropine No Notes: Mem oria 07-05 MEDICATION l 16:46: WASTE [place] Product Size: 0.4 mg Product Wasted: ___ mg Ephedrine No Notes: Memori a 2-06 (Same as: l 16:46: ePHEDrine Kaz 00 Sulfate) Naloxone No Notes: Memoria 2-06 Same [...] Notes: Memoria 2-06 (Same l 16:46: as:MORPhin [place] 00 e Sulfate) Labetalol No Notes: Memori a 2-06 (Same as: l 16:46: Normodyne, 00 Trandate) Push over 2 minutes Give bolus over 2-3 minutes. Ibuprofen No Notes: Memori a 2-06 (Same as: l 16:46: Motrin) 00 "Do Not Crush" Take with food. Oxycodone No Notes: Memori a 2-06 (Same as: l 16:46: Roxicodone ) Acetaminoph No Notes: Mathieu chaitanya en 2-06 Infuse l 16:46: over 15 00 minutes [...] e 2-06 50 mL, l 16:46: Route: [place] 00 IVPB, Drug form: SOLN, ONCE, Dosing Weight 60.455, kg, PRN Nausea & Vomiting, Start date: 07/05/16 10:46:00 PHARMACEUTICAL ANALYST Ondansetron 2016-0 No Notes: Mathieu chaitanya 2-06 (Same as: l 16:46: Zofran) [place] 00 MEDICATION WASTE Product Size: 4 mg Product Wasted: ___ mg LR 1000 mL No Route: IV, M emoria INJ (ANES) 2-06 Total l 16:01: Volume: Kaz 00 1,000, Start date: 07/05/16 10:01:00 PHARMACEUTICAL ANALYST, Stop date: 07/05/16 11:01:00 PHARMACEUTICAL ANALYST LR 1000 mL No Route: IV, M emoria INJ (ANES) 2-06 Total l 16:01: Volume: Kaz 00 1,000, Start date: 07/05/16 10:01:00 PHARMACEUTICAL ANALYST, Stop date: 07/05/16 11:01:00 PHARMACEUTICAL ANALYST HYDROcodone 2017-0 Yes 30 mg = 1 M emoria 30 mg oral 2-06 cap, PO, l capsule, 14:21: Q12H, 0 Eddie n extended 00 Refill(s) release HYDROcodone 2017-0 Yes 30 mg = 1 M emoria 30 mg oral 2-06 cap, PO, l capsule, 14:21: Q12H, 0 Eddie n extended 00 Refill(s) release Lactated 2016-0 No 1,000 mL, Mathieu chaitanya Ringers 2-06 Rate: 100 l 1,000 mL 13:04: ml/hr, [place] 00 Infuse over: 10 hr, Route: IV, Dosing Weight 60.455 kg, Total Volume: 1,000, Start date: 07/05/16 7:04:00 PHARMACEUTICAL ANALYST, Duration: 30 day, Stop date: 08/04/16 7:03:00 PHARMACEUTICAL ANALYST Lactated 2017-0 No 1,000 mL, Mathieu chaitanya [place] 2-06 Rate: 100 l 1,000 mL 13:04: ml/hr, [place] 00 Infuse over: 10 hr, Route: IV, Dosing Weight 60.455 kg, Total Volume: 1,000, Start date: 07/05/16 7:04:00 PHARMACEUTICAL ANALYST, Duration: 30 day, Stop date: 08/04/16 7:03:00 PHARMACEUTICAL ANALYST vancomycin 2016- No 2001 mg: Me moria + sodium 2-06 infuse l chloride 11:00: over 2.5 Audra nn 0.9% INJ 00 hours 250 mL MEDICATION WASTE Product Size: 1000 mg Product Wasted: ___ mg vancomycin No 2001 mg: Me moria + sodium 2-06 infuse l chloride 11:00: over 2.5 Audra nn 0.9% INJ 00 hours 250 mL MEDICATION WASTE Product Size: 1000 mg Product Wasted: ___ mg LIVALO [address] [facility] Tab 6-14 [facility]: Medical 00 [place] clopidogrel [facility] (PLAVIX) 75 6-12 [facility] mg tablet 00:00: Medical 00 [place] metoclopram Yes [facility] keysha HCl 5-24 [facility] (REGLAN) 10 00:00: Medica l MG tablet 00 [place] SUPREP Yes [facility] BOWEL PREP 5-24 [facility] KIT 00:00: Medical 17.5-3.13-1 00 Center .6 gram SolR [facility] (SINGULAIR) 5-16 [facility] 10 mg 00:00: Medical tablet 00 Center PredniSONE PredniSONE Yes [place] 1 tablet Common Taryn [facility] Yes [place] 1 tablet Common Sodium Sodium Taryn in the Spirit evening [facility] Livalo Livalo Yes [place] 1 tablet Commo n Taryn [facility] Plavix Plavix Yes [place] 1 tablet Commo n Taryn [facility] Prevacid Prevacid Yes Chito 1 capsule Common Taryn [facility] Ventolin Ventolin Yes Chito 2 puffs as Common HFA HFA Taryn needed [facility] Aspirin Aspirin Yes [place] 1 tablet Com mon Adult Low Adult Low Taryn Spir it Dose Dose - [facility] atarax atarax Yes Chito 1 Common Taryn [facility] PreserVisio PreserVisio Yes Chito not Common n AREDS 2 n AREDS 2 Taryn defined S pirit [facility] Claritin-D Claritin-D Yes Chito 1 tablet Common 12 Hour 12 Hour Taryn as needed Spi rit - [facility] Neurontin Neurontin Yes [place] 1 tablet Common Taryn Spirit [facility] Magnesium Magnesium Yes Chito 1 tablet Common Oxide Oxide Taryn as needed [facility] Immunizations Ordered Filled Immunization Date Status Comments Sourc e Immunization Name Name Influenza Virus 2019-03-22 Completed [facility] Vaccine Recomb Quad 00:00:00 [place] [facility] IM, Preserv and ABX Branc h Free 18-64 YRS Influenza Virus 2019-03-22 Completed Universit y of Vaccine Recomb Quad 00:00:00 [place] [facility] IM, Preserv and ABX Branc h Free 18-64 YRS Pneumococcal 2018-10-18 Completed [place] o f Polysaccharide, 00:00:00 [place] [facility] ical PPSV23 (PNEUMOVAX) Branch Pneumococcal 2018-10-18 Completed [place] o f Polysaccharide, 00:00:00 [facility] ical PPSV23 (PNEUMOVAX) Branch TDAP 2018-05-30 Completed University of 00:00:00 [facility] TDAP 2018-05-30 Completed University of 00:00:00 [facility] Zoster Vaccine 2015-05-30 Completed University of Recombinant 00:00:00 [facility] Zoster Vaccine 2015-05-30 Completed University of Recombinant 00:00:00 [facility] Vital Signs Vital Name Observation Time Observation Value Comments Source Body height 2021-08-20 16:20:00 [facility] weight 2021-08-20 16:20:00 [facility]411 [facility] BMI 2021-08-20 16:20:00 25.97 kg[facility]m2 [facility] Body height 2021-06-04 17:32:00 [facility]5 [facility] Body weight 2021-06-04 17:32:00 [facility]225 [facility] BMI 2021-06-04 17:32:00 26.70 kg[facility]m2 [facility] Body height 2021-05-07 17:42:00 157[facility]5 [facility] Body weight 2021-05-07 17:42:00 [facility]225 [facility] BMI 2021-05-07 17:42:00 26.70 [facility]2 [facility] 2022-02-04 15:51:00 Mathieu rial Kaz Diastolic (mm Hg) 2022-02-04 15:51:00 Mem orial Kaz Heart Rate 2022-02-04 15:51:00 [facility] [place] Respitory Rate 2022-02-04 15:51:00 Memori al Kaz Height 2022-02-04 15:51:00 162.56 cm [facility] Kaz Weight 2022-02-04 15:51:00 [facility] Kaz BMI Calculated 2022-02-04 15:51:00 Memori al [place] Systolic (mm Hg) 2021-08-04 16:03:00 Mathieu rial [place] Diastolic (mm Hg) 2021-08-04 16:03:00 Mem orial Kaz Heart Rate 2021-08-04 16:03:00 [facility] [place] Respitory Rate 2021-08-04 16:03:00 Memori al [place] Height 2021-08-04 16:03:00 160.02 cm [facility] [place] Weight 2021-08-04 16:03:00 [facility] Kaz BMI Calculated 2021-08-04 16:03:00 Memori al [place] Temperature Oral (F) 2021-04-22 17:36:00 97.6 F [facility] [place] Heart Rate 2021-04-22 17:36:00 [facility] [place] Respitory Rate 2021-04-22 17:36:00 Memori al [place] Systolic (mm Hg) 2021-04-22 17:36:00 Mathieu rial [place] Diastolic (mm Hg) 2021-04-22 17:36:00 Mem orial [place] Temperature Oral (F) 2021-04-22 13:16:00 98.1 F [facility] Kaz Heart Rate 2021-04-22 13:16:00 [facility] [place] Respitory Rate 2021-04-22 13:16:00 Memori al [place] Systolic (mm Hg) 2021-04-22 13:16:00 Mathieu rial [place] Diastolic (mm Hg) 2021-04-22 13:16:00 Mem orial Kaz Temperature Oral (F) 2021-04-22 11:27:00 98.1 F [facility] Kaz Heart Rate 2021-04-22 11:27:00 [facility] [place] Respitory Rate 2021-04-22 11:27:00 Memori al [place] Systolic (mm Hg) 2021-04-22 11:27:00 Mathieu rial [place] Diastolic (mm Hg) 2021-04-22 11:27:00 Mem orial [place] Height 2021-04-21 02:56:00 157.48 cm Memorial Kaz Weight 2021-04-21 02:56:00 [facility] [place] BMI Calculated 2021-04-21 02:56:00 Memori al [place] Systolic (mm Hg) 2021-02-03 15:23:00 Mathieu rial [place] Diastolic (mm Hg) 2021-02-03 15:23:00 Mem orial [place] Heart Rate 2021-02-03 15:23:00 [facility] [place] Respitory Rate 2021-02-03 15:23:00 Memori al [place] Height 2021-02-03 15:23:00 162.56 cm [facility] Kaz Weight 2021-02-03 15:23:00 [facility] [place] BMI Calculated 2021-02-03 15:23:00 Memori al [place] Systolic (mm Hg) 2020-08-01 16:06:00 Mathieu rial [place] Diastolic (mm Hg) 2020-08-01 16:06:00 Mem orial Kaz Heart Rate 2020-08-01 16:06:00 [facility] [place] Respitory Rate 2020-08-01 16:06:00 Memori al [place] Height 2020-08-01 16:06:00 160.02 cm [facility] Kaz Weight 2020-08-01 16:06:00 [facility] [place] BMI Calculated 2020-08-01 16:06:00 Memori al Kaz Systolic (mm Hg) 2020-02-01 15:51:00 Mathieu rial [place] Diastolic (mm Hg) 2020-02-01 15:51:00 Mem orial [place] Heart Rate 2020-02-01 15:51:00 [facility] Kaz Respitory Rate 2020-02-01 15:51:00 Memori al Kaz Height 2020-02-01 15:51:00 160.02 cm [facility] [place] Weight 2020-02-01 15:51:00 [facility] [place] BMI Calculated 2020-02-01 15:51:00 Memori al [place] Systolic (mm Hg) 2019-06-05 21:39:00 Mathieu rial Kaz Diastolic (mm Hg) 2019-06-05 21:39:00 Mem orial Kaz Heart Rate 2019-06-05 21:39:00 [facility] Kaz Respitory Rate 2019-06-05 21:39:00 Memori al [place] Height 2019-06-05 21:39:00 162.56 cm [facility] [place] Weight 2019-06-05 21:39:00 [facility] Kaz BMI Calculated 2019-06-05 21:39:00 Memori al [place] Systolic (mm Hg) 2019-04-20 17:30:00 Mathieu rial [place] Diastolic (mm Hg) 2019-04-20 17:30:00 Mem orial Kaz Heart Rate 2019-04-20 17:30:00 [facility] Kaz Respitory Rate 2019-04-20 17:30:00 Memori al [place] Height 2019-04-20 17:30:00 160.02 cm [facility] Kaz Weight 2019-04-20 17:30:00 [facility] [place] BMI Calculated 2019-04-20 17:30:00 Memori al Kaz Systolic (mm Hg) 2019-03-21 19:53:00 Mathieu rial [place] Diastolic (mm Hg) 2019-03-21 19:53:00 Mem orial Kaz Heart Rate 2019-03-21 19:53:00 [facility] Kaz Respitory Rate 2019-03-21 19:53:00 Memori al Kaz Height 2019-03-21 19:53:00 167.64 cm [facility] Kaz Weight 2019-03-21 19:53:00 [facility] [place] BMI Calculated 2019-03-21 19:53:00 Memori al [place] Systolic (mm Hg) 2016-07-05 19:05:00 Mathieu rial Kaz Diastolic (mm Hg) 2016-07-05 19:05:00 Mem orial Kaz Respitory Rate 2016-07-05 19:05:00 Memori al [place] Heart Rate 2016-07-05 19:05:00 [facility] [place] Systolic (mm Hg) 2016-07-05 18:30:00 Mathieu rial Kaz Diastolic (mm Hg) 2016-07-05 18:30:00 Mem orial [place] Heart Rate 2016-07-05 18:30:00 [facility] [place] Respitory Rate 2016-07-05 18:30:00 Memori al [place] Respitory Rate 2016-07-05 18:15:00 Memori al [place] Systolic (mm Hg) 2016-07-05 18:15:00 Mathieu rial Kaz Diastolic (mm Hg) 2016-07-05 18:15:00 Mem orial [place] Heart Rate 2016-07-05 14:02:00 [facility] [place] Height 2016-07-01 20:29:00 167.64 cm [facility] Kaz BMI Calculated 2016-07-01 20:29:00 Memori al Kaz Weight 2016-07-01 20:29:00 [facility] Kaz Procedures Procedure Date / Time Performing Clinician Source Performed EXTERNAL PROVIDER - ADC 2021-12-02 05:01:00 Doctor Unassigned, N o [facility] Cataract extraction [facility] Hand closure<sup>1</sup> Memoria l Kaz Heart procedure [facility] Hernia repair [facility] [place] Miscellaneous operations Memoria l [place] stents in heart [facility] Tonsillectomy [facility] [place] Tonsillectomy and Memorial Audra nn adenoidectomy Encounters Start End Encounter Admission Attending Care Care Encounter Source Date/Time Date/Time Type Type Clinicians Facility Department ID 2021-09-02 Outpatient [facility] [id number] Common 12:56:00 [facility] 2021-08-24 Outpatient [facility] [id number] [place] 01:05:51 [id number] [facility] 2021-08-20 Outpatient JAMI, [facility] [id number] [place] 11:02:43 [facility] [id number] [facility] 2021-08-18 Outpatient [facility] [id number] Common 10:39:01 [facility] 2021-07-21 Outpatient SANTO, [facility] [id number] [place] 01:04:45 [facility] 2021-07-13 Outpatient [facility] [id number] Common 13:52:00 [facility] 2021-06-29 Outpatient [facility] [id number] [place] 10:00:43 [facility] 2021-06-24 Outpatient [facility] [id number] Common 12:23:38 [id number] [facility] 2021-06-24 Outpatient Erica [facility] [id number] Common 12:19:51 Chito [id number] [facility] 2021-06-04 Outpatient SANTO [facility] [id number] [place] 11:33:41 MEDINA [facility] 2021-05-28 Outpatient [facility] [id number] [place] 10:05:27 [facility] 2022-04-27 2022-04-27 Outpatient R ANALILIA ALSTON [facility] [id number] [facility] 10:30:00 10:30:00 ANALILIA ALSTON [id number] i ty [facility] 2022-03-23 2022-03-23 Outpatient MHIE ISHANIE [id number] Memoria 10:15:00 10:15:00 14 emeka Mccurdy 2022-02-11 2022-02-11 Outpatient R ANALILIA ALSTON [facility] 10 [id number] Univers 09:00:00 09:00:00 ANALILIA ALSTON i ty of [facility] 2022-02-11 2022-02-11 Outpatient R ANALILIA ALSTON [facility] 53 [id number] Univers 00:00:00 00:00:00 ANALILIA ALSTON [id number] i ty of [facility] 2022-02-04 2022-02-05 Outpatient nullFlavo [facility] [id number] Memoria 15:45:00 04:59:59 r Neurology 13 l Carisa Mccurdy 2022-02-04 2022-02-04 Outpatient ISHAN LeesMISCHER MHMISCHER [id number] 10:45:00 23:59:59 Juan 13 Leonel 2022-02-04 2022-02-04 Outpatient ISHANIE ISHANIE [id number] Memoria 10:45:00 10:45:00 13 emeka Mccurdy 2021-12-02 2021-12-02 Telephone Chavez [facility] [id number] [facility] 00:00:00 00:00:00 Analilia KENNEDY [id number] i ty of [id number] [id number] Dc dical NAL 5 [facility] 2021-12-02 2021-12-02 Orders Doctor MAMTA [id number] Univers 00:00:00 00:00:00 Only Unassigned, TIMOTHY [id number] [place] [facility] [id number] Shawn as [id number] [place] [address] [place] 2021-09-11 2021-09-11 ambulatory STLMLC STLMLC [id number] Common 00:00:00 00:00:00 [facility] 2021-08-20 2021-08-20 Office RUDY Farrell 6414 [id number] [place] 11:00:00 11:50:00 Visit Dany BRAVO [id number] [facility] [id number] [id number] 2021-08-14 2021-08-14 ambulatory STLMLC STLMLC [id number] Common 00:00:00 00:00:00 [facility] 2021-08-12 2021-08-12 ambulatory STLMLC STLMLC [id number] Common 00:00:00 00:00:00 [facility] 2021-08-04 2021-08-05 Outpatient nullFlavo MNA [id number] Memoria 16:00:00 05:59:59 r Neurology 12 l Carisa Mccurdy 2021-08-04 2021-08-04 Outpatient KHAO LeesSCHKIMBERLY COUCHSCHKIMBERLY [id number] 10:00:00 23:59:59 Juan 12 Leonel 2021-08-04 2021-08-04 Outpatient BHAVNA HUGGINS [id number] Memoria 10:00:00 10:00:00 12 emeka Mccurdy 2021-06-17 2021-06-17 ambulatory STLMLC STLMLC [id number] Common 00:00:00 00:00:00 [facility] 2021-06-04 2021-06-04 Office RUDY [place] 6414 [id number] [place] 11:00:00 11:32:[address] [id number] Health [id number] 2021-05-07 2021-05-07 Office RUDY [place] 6414 [id number] [place] 10:45:00 12:04:[address] [id number] Health 9.2.7.2.686 [id number] 2021-04-29 2021-04-29 ambulatory STLMLC STLMLC [id number] Common 00:00:00 00:00:00 [facility] 2021-04-20 2021-04-22 [facility] [id number] Memoria 18:07:00 19:45:00 chanda Mccurdy 26 [facility] 2021-04-20 2021-04-22 Outpatient Priya [facility] [id number] 12:07:00 13:45:00 Heenamariam [place] 2021-04-20 2021-04-22 Outpatient Priya [facility] [id number] 12:07:00 13:45:00 Heena [place] 2021-02-03 2021-02-04 Outpatient nullFlavo [facility] [id number] Memoria 15:15:00 04:59:59 r Neurology 11 emeka Mccurdy 2021-02-03 2021-02-03 Outpatient PEGGY Lees [id number] 10:15:00 23:59:59 Juan You Castaneda 2021-02-03 2021-02-03 Outpatient MHIE MHIE [id number] Memoria 10:15:00 10:15:00 11 emeka Mccurdy 2021-02-03 2021-02-03 Outpatient MHIE MHIE [id number] Memoria 10:15:00 10:15:00 11 meeka Mccurdy 2020-12-17 2020-12-17 Outpatient STLMLC STLMLC [id number] Common 00:00:00 00:00:00 [facility] 2020-08-01 2020-08-02 Outpatient nullFlavo MNA [id number] Memoria 16:00:00 05:59:59 r Neurology 10 l Carisa Mccurdy 2020-08-01 2020-08-02 Outpatient nullFlavo MNA [id number] Memoria 16:00:00 05:59:59 r Neurology 10 l Carisa Mccurdy 2020-08-01 2020-08-01 [id number] 10:00:00 23:59:59 Juan 10 Leonel 2020-08-01 2020-08-01 Outpatient MHIE MHIE [id number] Memoria 10:00:00 10:00:00 10 l Kaz 2020-08-01 2020-08-01 Patient Aníbal [facility] [id number] 00:00:00 00:00:00 Outreach [facility] [id number] [facility] 4.2.7.2.686 [facility] [id number] 2020-06-18 2020-06-18 Outpatient STLMLC STLMLC [id number] Common 00:00:00 00:00:00 [facility] 2020-02-23 2020-02-23 [facility] 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 Item Value Reference Range Interpretation [...] (test code = 23 U/L 6-55 347) PROTHROMBIN TIME/[id number] 09:25:00 Test Item Value Reference Range Interpretation Comments PROTIME (BEAKER) (test code = 13.2 seconds 11.7-14.7 759) INR (BEAKER) (test code = 370) 1.0 <=5.9 RECOMMENDED COUMADIN/WARFARIN INR THERAPY RANGESSTANDARD DOSE: 2.0 - 3.0 Includes: PROPHYLAXIS for venous thrombosis, systemic embolization; TREATMENT for venous thrombosis and/or pulmonary embolus.HIGH RISK: Target INR is 2.5-3.5 for patients with mechanical heart valves.BLO[facility] BANK [id number] 15:08:00 Test Item Value Reference Range Interpretation Comments AB Int (test code = AB Int) Anti-E [facility] BANK RHNTAOU7718-38-97 15:08:00 Test Item Value Reference Range Interpretation Comments Antigen VOLODYMYR Int (test code = Antigen c pos VOLODYMYR Int) [facility] [employer] GYPCXKG5465-47-41 15:08:00 Test Item Value Reference Range Interpretation Comments Antigen VOLODYMYR Int (test code = Antigen E neg VOLODYMYR Int) [facility] [employer] [id number] 15:08:00 Test Item Value Reference Range Interpretation Comments Antibody Scrn (test Positive 1(07/05/16 9:08 code = Antibody Scrn) AM) [facility] [employer] [id number] 15:08:00 Test Item Value Reference Range Interpretation Comments ABO/Rh (test code = ABO/Rh) A POS [facility] [employer] QXFJSBE2635-73-80 15:08:00Positive 1(07/05/16 9:08 AM) [facility] XrdjwutOJAIOWLOSWFH4448-83-31 20:55:00 Test Item Value Reference Range Interpretation Comments AGAP (test code = AGAP) 7.8 10.0-20.0 [facility] QahurjzKEJPMFZLKXUA9788-38-31 20:55:00 Test Item Value Reference Range Interpretation Comments Globulin (test code = Globulin) 3.7 2.7-4.2 [facility] LgonmmwNAQJCEMWUKML6516-66-42 20:55:00 Test Item Value Reference Range Interpretation Comments A/G Ratio (test code = A/G Ratio) 0.9 0.7-1.6 [facility] UolezacTOXOABRKKBFL8960-49-73 20:55:00 Test Item Value Reference Range Interpretation Comments B/C Ratio (test code = B/C Ratio) 10 6-25 [facility] SbjcpvbUSQKWTDPXLVX3095-58-50 20:55:00 Test Item Value Reference Range Interpretation Comments eGFR (test code = eGFR) 93 [facility]VisvnvgXFTPAGMSSQIM5970-05-19 20:55:00 Test Item Value Reference Range Interpretation Comments CO2 (test code = CO2) 35 24-32 [facility]FlintRdzfkgvQZRTGBRUIQLY6673-06-70 20:55:00 Test Item Value Reference Range Interpretation Comments Chloride Lvl (test code = Chloride Lvl) 103 95-109 [facility]FlintEgwrjwyKUCTPOQQLSYS4430-66-65 20:55:00 Test Item Value Reference Range Interpretation Comments Potassium Lvl (test code = Potassium 3.8 3.5-5.1 Lvl) [facility]FlintZacdljtQCQKXZBFSKLE2219-27-59 20:55:00 Test Item Value Reference Range Interpretation Comments Calcium Lvl (test code = Calcium Lvl) 8.4 8.5-10.5 [facility]FlintFawzlcuCPTAZZXPMRRO8307-91-49 20:55:00 Test Item Value Reference Range Interpretation Comments ALT (test code = ALT) 34 See_Comment [Auto mated message] The system which ge nerated this result transmit mariela reference range : <=65. The reference range was not used to interpr et this result as morgan l/abnormal. [facility]intXcjgjkpQAPOPNVALKZF1600-08-21 20:55:00 Test Item Value Reference Range Interpretation Comments Albumin Lvl (test code = Albumin Lvl) 3.4 3.5-5.0 [facility]intXpbmwdhPBDEHNARSWKO7927-77-76 20:55:00 Test Item Value Reference Range Interpretation Comments Total Protein (test code = Total 7.1 6.4-8.4 Protein) [facility]intIvgtlztZNXHKYKYFXIQ3807-08-77 20:55:00 Test Item Value Reference Range Interpretation Comments AST (test code = AST) 30 See_Comment [Auto mated message] The system which ge nerated this result transmit mariela reference range : <=37. The reference range was not used to interpr et this result as morgan l/abnormal. [facility]intNtxzpgePBHOYGHNSQQG5474-86-16 20:55:00 Test Item Value Reference Range Interpretation Comments Bili Total (test code = Bili Total) 0.2 0.2-1.3 [facility]FlintBgyhgtnULIZBEYPRJVD9791-42-07 20:55:00 Test Item Value Reference Range Interpretation Comments Alk Phos (test code = Alk Phos) 72 39-136 [facility]FlintYuppczwHDGKKMNJZNHV1747-44-51 20:55:00 Test Item Value Reference Range Interpretation Comments Sodium Lvl (test code = Sodium Lvl) 142 135-145 [facility]FlintXkziwnbCBHDWPIPMWMD5979-48-66 20:55:00 Test Item Value Reference Range Interpretation Comments Glucose Lvl (test code = Glucose Lvl) 110 70-99 [facility]FlintTbbnqmxLFXTKVMONFHI7485-95-41 20:55:00 Test Item Value Reference Range Interpretation Comments Creatinine Lvl (test code = Creatinine 0.77 0.50-1.40 Lvl) [facility]intEpsxuwkNKUUFQTORBVY6509-98-83 20:55:00 Test Item Value Reference Range Interpretation Comments BUN (test code = BUN) 8 7-22 [facility] CenterCaqplbiHPOVYSLFQU6058-48-10 20:55:00 Test Item Value Reference Range Interpretation Comments Lymphocytes (test code = Lymphocytes) 17.8 20.0-40.0 [facility] CenterGrcfmrsJETZVUTJFG8638-88-23 20:55:00 Test Item Value Reference Range Interpretation Comments Monocytes (test code = Monocytes) 9.2 2.0-12.0 [facility] CenterOjpcaxyMGFQQIUIDH8919-55-01 20:55:00 Test Item Value Reference Range Interpretation Comments Segs (test code = Segs) 69.9 45.0-75.0 [facility] CenterGovudbzVYMQJZRCKF9988-12-25 20:55:00 Test Item Value Reference Range Interpretation Comments Basophils (test code = 0.7 See_Comment [Aut omated message] The Basophils) system which ge nerated this result tra nsmitted reference range : <=1.0. The reference r brandie was not used to int erpret this result as normal/abnormal . [facility] CenterSxjwxtdCIFPBVMPQA2969-14-09 20:55:00 Test Item Value Reference Range Interpretation Comments Eosinophils (test code = 2.4 See_Comment [A utomated message] The Eosinophils) system which ge nerated this result tra nsmitted reference range : <=4.0. The reference r brandie was not used to int erpret this result as normal/abnormal . [facility] CenterAyugzjdDAAFRIMPAT4660-75-20 20:55:00 Test Item Value Reference Range Interpretation Comments Lymphocytes # (test code = Lymphocytes 1.0 1.0-5.5 #) [facility] CenterYnouikqKDLICRQDTR1820-44-04 20:55:00 Test Item Value Reference Range Interpretation Comments Eosinophils # (test code 0.1 See_Comment [A utomated message] The = Eosinophils #) system whic h generated this result tra nsmitted reference range : <=0.5. The reference r brandie was not used to int erpret this result as normal/abnormal . [facility] CenterAhuxjkfLHRMNYRZSC2347-42-61 20:55:00 Test Item Value Reference Range Interpretation Comments Segs-Bands # (test code = Segs-Bands #) 4.0 1.5-8.1 [facility] CenterOzeltgmGXMKUWAZIY5824-35-06 20:55:00 Test Item Value Reference Range Interpretation Comments Monocytes # (test code 0.5 See_Comment [Aut omated message] The = Monocytes #) system which generated this result tra nsmitted reference range : <=0.8. The reference r brandie was not used to int erpret this result as normal/abnormal . [facility] CenterYhwraszPGNNHPPTTP2389-21-01 20:55:00 Test Item Value Reference Range Interpretation Comments INR (test code = INR) 1.02 0.85-1.17 [facility] CenterMrpzhyvLENSIDWWHJ0079-38-62 20:55:00 Test Item Value Reference Range Interpretation Comments PTT (test code = PTT) 28.1 s 22.9-35.8 [facility] CenterIsdryxwFZAVPZGWPZ4553-32-26 20:55:00 Test Item Value Reference Range Interpretation Comments PT (test code = PT) 13.6 s 12.0-14.7 [facility] CenterWcqokidIHOROUQNUH2562-68-71 20:55:00 Test Item Value Reference Range Interpretation Comments MPV (test code = MPV) 7.1 7.4-10.4 [facility] CenterRsoovbtNTGWVAALZN3073-72-30 20:55:00 Test Item Value Reference Range Interpretation Comments MCV (test code = MCV) 95.1 80.0-94.0 [facility] CenterAprobaaAYUEEPYPOF9259-11-29 20:55:00 Test Item Value Reference Range Interpretation Comments MCHC (test code = MCHC) 33.0 32.0-36.0 [facility] CenterLdzyboyCIWHAGDTDH2838-02-89 20:55:00 Test Item Value Reference Range Interpretation Comments MCH (test code = MCH) 31.4 pg 27.0-31.0 [facility] CenterApugtfqZZHXQREITL3849-52-28 20:55:00 Test Item Value Reference Range Interpretation Comments Platelet (test code = Platelet) 256 133-450 [facility] CenterXunfmcpDWPDXFVWYW4720-54-50 20:55:00 Test Item Value Reference Range Interpretation Comments RDW (test code = RDW) 14.1 11.5-14.5 [facility] CenterZzjqguiXSRACNKSJF0567-01-17 20:55:00 Test Item Value Reference Range Interpretation Comments Hgb (test code = Hgb) 13.0 14.0-18.0 [facility] CenterRztfdhbGBPKCMCUPI5650-05-02 20:55:00 Test Item Value Reference Range Interpretation Comments RBC (test code = RBC) 4.14 4.70-6.10 [facility] CenterKecyhmjOQMGXNLVSP3884-67-45 20:55:00 Test Item Value Reference Range Interpretation Comments WBC (test code = WBC) 5.7 3.7-10.4 [facility] CenterTrustweNVDFEOOCKG9924-89-15 20:55:00 Test Item Value Reference Range Interpretation Comments Hct (test code = Hct) 39.4 42.0-54.0 [facility] AND [id number] 20:55:00 Test Item Value Reference Range Interpretation Comments UA Turbidity (test code Cloudy *ABN*(07/01/16 = UA Turbidity) 2:55 PM) [facility] AND [id number] 20:55:00 Test Item Value Reference Range Interpretation Comments UA Spec Grav (test code = UA Spec 1.010 1 Grav) [facility] AND [id number] 20:55:00 Test Item Value Reference Range Interpretation Comments UA Nitrite (test code Negative (07/01/16 2:55 = UA Nitrite) PM) [facility] AND [id number] 20:55:00 Test Item Value Reference Range Interpretation Comments UA Leuk Est (test Negative (07/01/16 2:55 code = UA Leuk Est) PM) [facility] AND [id number] 20:55:00 Test Item Value Reference Range Interpretation Comments UA Glucose (test code Negative (07/01/16 2:55 = UA Glucose) PM) [facility] AND EBDWG7977-09-24 20:55:00 Test Item Value Reference Range Interpretation Comments UA Protein (test code Negative (07/01/16 2:55 = UA Protein) PM) [facility] BJPGY1563-20-23 20:55:00 Test Item Value Reference Range Interpretation Comments UA Bili (test code = Negative *NA*(07/01/16 UA Bili) 2:55 PM) [facility] [id number] 20:55:00 Test Item Value Reference Range Interpretation Comments UA Urobilinogen (test code = UA 0.2 0.1-1.0 Urobilinogen) [facility] [id number] 20:55:00 Test Item Value Reference Range Interpretation Comments UA Blood (test code = Negative (07/01/16 2:55 UA Blood) PM) [facility] [id number] 20:55:00 Test Item Value Reference Range Interpretation Comments UA Color (test code = Yellow *NA*(07/01/16 2:55 UA Color) PM) [facility] [id number] 20:55:00 Test Item Value Reference Range Interpretation Comments UA Ketones (test code Negative *NA*(07/01/16 = UA Ketones) 2:55 PM) [facility] GLMZS1187-08-85 20:55:00 Test Item Value Reference Range Interpretation Comments UA pH (test code = UA pH) 8.0 1 5.0-8.0 [facility] [id number] 20:55:00 Test Item Value Reference Range Interpretation Comments UA RBC (test code = 0-2 /HPF See_Comment [Automa mariela message] The UA RBC) system which ge nerated this result tra nsmitted reference range : <=2. The reference range was not used to interpr et this result as morgan l/abnormal. [facility] [id number] 20:55:00 Test Item Value Reference Range Interpretation Comments UA Mucus (test code = UA Mucus) Few /LPF [facility] [id number] 20:55:00 Test Item Value Reference Range Interpretation Comments UA Sq Epi (test code = None Seen (07/01/16 2:55 UA Sq Epi) PM) [facility] JRJWL0752-58-45 20:55:00 Test Item Value Reference Range Interpretation Comments UA WBC (test code = UA WBC) 0-2 /HPF [facility] AND WSZKC1469-42-09 20:55:00 Test Item Value Reference Range Interpretation Comments UA Amorph Rani (test code = UA Many /HPF Amorph Rani) [facility] AloeamgCRWNYMWPJDMK4448-92-17 20:55:0072[facility]annELECTROLYTES 2016-07-01 20:55:11328Chqtttzp LjeutvoCXJFAXQVSSYS6942-66-09 20:55:11567Rgbhklza GdcbvsaZXEBRWWNFNWK1635-41-69 20:55:000.77[facility] SbsqsvtMOSXOWXIRBWX6963-34-62 20:55:008[facility] BezvdcxRGICMNCKGS5554-80-26 20:55:0017.8[facility] SHMDBBKTPG9478-72-34 20:55:009.2[facility] SqeffweOCOEIFYZNS8111-48-57 20:55:00 69.9[facility] UysnfyqCKVXLHQMIU6934-29-88 20:55:000.7[facility]annHEMATOLOGY 2016-07-01 20:55:002.4[facility] UiqbxkyMTHDYGWFDH5975-21-96 20:55:001.0[facility] MsxaitfRGFOCNTXOV4093-49-03 20:55:000.1[facility] DxflwtaVHRKQESOXT2457-04-68 20:55:004.0[facility] AwmuifqVDTVTLAIYS3581-87-47 20:55:000.5[facility] [place] TTVHBEVVHV0429-02-50 20:55:001.02[facility] FmuyqcrFTWKBNFXME2869-69-64 20:55:00 Test Item Value Reference Range Interpretation Comments PTT (test code = PTT) 28.1 s 22.9-35.8 [facility] VmmwquaGKTCRESFCT9945-09-06 20:55:00 Test Item Value Reference Range Interpretation Comments PT (test code = PT) 13.6 s 12.0-14.7 [facility] PvlgbztESFHITOBWV1808-23-66 20:55:007.1[facility]annHEMATOLOGY 2016-07-01 20:55:0095.1[facility] XkbusntDNEWSBCRBD5420-33-53 20:55:0033.0[facility] ZfjukxeRVIFOECZZI1319-13-24 20:55:00 Test Item Value Reference Range Interpretation Comments MCH (test code = MCH) 31.4 pg 27.0-31.0 [facility] ZicuxrwBIVCDJSKBB5625-87-60 20:55:55524Upwmaaou [facility]annHEMATOLOGY 2016-07-01 20:55:0014.1[facility] NuqzuvrBOSIMPKMYH4307-80-90 20:55:0013.0[facility] AncqkmoWYLNAONPVU6019-98-03 20:55:004.14[facility] BnuckenFOANWXWWLM9858-09-85 20:55:005.7[facility] UyjolyyXXAMHVACMO3403-28-68 20:55:0039.4[facility] [place] [facility] AND VNNQE6572-75-98 20:55:00Cloudy *ABN*(07/01/16 2:55 PM)[facility] [place] [facility] AND ZTRTV4980-31-17 20:55:00 Test Item Value Reference Range Interpretation Comments UA Spec Grav (test code = UA Spec 1.010 1 Grav) [facility] CKKQY7737-66-13 20:55:00Negative (07/01/16 2:55 PM) [facility] GTJUI0206-82-30 20:55:00Negative (07/01/16 2:55 PM) [facility] DEPLW0569-34-87 20:55:00Negative (07/01/16 2:55 PM) [facility] TCYKH6255-49-64 20:55:00Negative (07/01/16 2:55 PM) [facility] ECGTA9686-90-59 20:55:00Negative *NA*(07/01/16 2:55 PM) [facility] DGXTB4589-58-07 20:55:000.2[facility] NVBXY1601-59-17 20:55:00Negative (07/01/16 2:55 PM)[facility] STOOL 2016-07-01 20:55:00Yellow *NA*(07/01/16 2:55 PM)[facility] STOOL 2016-07-01 20:55:00Negative *NA*(07/01/16 2:55 PM)[facility] STOOL 2016-07-01 20:55:00 Test Item Value Reference Range Interpretation Comments UA pH (test code = UA pH) 8.0 1 5.0-8.0 [facility] OQJVQ5813-35-71 20:55:00None Seen (07/01/16 2:55 PM) [facility] CyeoyitLPVPBZZSDCUI9225-03-73 20:55:007.8[facility] HermannELECTROLYTES 2016-07-01 20:55:003.7[facility] UvcpismRBOSSFCYNYXO5127-05-47 20:55:000.9[facility] EjvtfrqJKESZVKIASPT6388-88-63 20:55:0010[facility] GgvpnyiMHSPBNIRIFCF3915-96-12 20:55:0093[facility] VetuikzNKEHYAUDJNJZ5097-59-26 20:55:0035[facility] JPSPMZKXDBMP4350-84-88 20:55:72222Rkvoihgz HtjpuceDCOLWHIOTIWV6094-09-71 20:55:003.8[facility] ZnkiszfOVLYCUFCRDMV6735-95-51 20:55:008.4[facility] HWHERNLMZELA5340-56-39 20:55:0034[facility] PsdylieLGIGMMIVXTOR7360-95-41 20:55:00 3.4[facility] MgpsidhMICNCGYXHTVI5379-59-14 20:55:007.1[facility] HRAJPDEPPQPZ2372-78-95 20:55:0030[facility] DohkpifNKSGEZRRJSTA0905-18-97 20:55:00 0.2[facility]
[2022-03-01] MEDS ORDERED: IPRATROPIUM BROM 0.5MG/2.5ML ONE (09:39)
[2022-03-01] MEDS ORDERED: METHYLPREDNISOLONE 125 MG INJ ONE (09:39)
[2022-03-01] MEDS ORDERED: ALBUTEROL 2.5 MG/3 ML NEB SOL ONE (09:39)
[2022-03-01] MEDS ORDERED: Magnesium Sulfate 2gm IVPB 2 G/50 ML BAG IV ONE (09:39)
[2022-03-01 09:58] LABS: Absolute Lymphocytes (CBC) 0.9 K/uL (0.7-4.9); Hematocrit 44.1 % (39.6-49.0); Lymphocytes % 6.8 % (15.3-44.8); MCV 91.8 fL (80-100); MPV 6.9 fL (7.6-11.3)
[2022-03-01 10:00] LABS: Troponin High Sensitivity 5.7 pg/mL (<58.9)
[2022-03-01 10:15] LABS: Albumin 3.5 g/dL (3.4-5.0); Bilirubin Total 0.5 mg/dL (0.2-1.0); Protein, Total 8.1 g/dL (6.4-8.2)
[2022-03-01] MEDS ORDERED: NA CHLORIDE 0.9% 2,000 ML ONE (10:40)
--- NOTE | 2022-03-01 10:55 | RAD REPORT ---
EXAM DESCRIPTION: RAD - Chest Single View - 03/01/2022 10:38 am CLINICAL HISTORY: DYSPNEA Chest pain. COMPARISON: Chest Pa And Lat (2 Views) dated 08/07/2021; Chest Single View dated 01/04/2021; Abdomen 1 View (KUB) dated 05/22/2019; Chest Pa And Lat (2 Views) dated 05/02/2019 FINDINGS: Portable technique limits examination quality. Emphysematous changes are seen with moderate airspace infiltrate in the right lung base and right mid lung most likely representing pneumonia. The heart is upper limit of normal in size. No displaced fr actures.Aortic atherosclerosis. IMPRESSION: Moderate right-sided infiltrate/pneumonia.
[2022-03-01] MEDS ORDERED: CEFTRIAXONE 1000 MG/VIAL ONE ×2 (11:16→19:55)
[2022-03-01] MEDS ORDERED: NA CHLORIDE 0.9% 250 ML ONE (11:16)
[2022-03-01] MEDS ORDERED: AZITHROMYCIN 500 MG INJ IVPB ONE (11:16)
[2022-03-01] MEDS ORDERED: NA CHLORIDE 0.9% 50 ML IV ONE (11:17)
[2022-03-01] MEDS ORDERED: NOREPINEPHRINE BITARTRATE/D5W 4 MG/250 ML BAG IV ONE (11:58)
--- NOTE | 2022-03-01 12:01 | EDPHYS ---
Physician Documentation [facility] Name: Jose Lake Age: 76 yrs Sex: Male : 1945 Arrival Date: 03/01/2022 Time: 09:22 Bed 19 Private MD: Chito Centeno ED Physician Cash Martinez HPI: 03/01 14:23 This 76 yrs old Male presents to ER via Wheelchair with complaints of Shortness Of kb Breath, Wheezing > 1 Year. 14:23 The patient has shortness of breath at rest. Onset: The symptoms/episode began/occurred kb 3 day(s) ago. Duration: The symptoms are continuous. The patient's shortness of breath is aggravated by exertion, light activity, is alleviated by nothing. Associated signs and symptoms: Pertinent positives: chest pain, non-productive cough. Severity of symptoms: At their worst the symptoms were moderate in the emergency department the symptoms are unchanged. The patient has experienced similar episodes in the past. The patient has been recently seen by a physician: the patient's primary care provider, earlier today, with similar presenting complaints, and was sent to the [facility] Emergency Department for further evaluation. Pt reports shortness of breath that started on Tuesday. States he went to Dr Centeno's office today and was sent to ED for treatment and admission. Dr Centeno called ahead and reported pt's O2 sat 83% on room air in his office. . Historical: - Allergies: 09:49 PENICILLINS; ss 09:49 Sulfa (Sulfonamide Antibiotics); ss - PMHx: 09:49 bleeding ulcers; High Cholesterol; COPD; cardiac stents; Thyroid problem; Hypertensive ss disorder; - Immunization history:: Adult Immunizations up to date, Client reports receiving the 2nd dose of the Covid vaccine. - Social history:: Smoking status: Patient/guardian denies using tobacco, Stopped _ months ago .25. ROS: 12:25 Constitutional: Negative for fever, chills, and weight loss. kb 12:25 Cardiovascular: Positive for chest pain, with cough. 12:25 Respiratory: Positive for cough, dyspnea on exertion, shortness of breath, wheezing. 12:25 All other systems are negative. Exam: 11:56 Constitutional: This is a well developed, well nourished patient who is awake, alert, kb and in no acute distress. Head/Face: Normocephalic, atraumatic. ENT: Moist Mucous membranes Cardiovascular: Regular rate and rhythm with a normal S1 and S2. No gallops, murmurs, or rubs. No pulse deficits. Abdomen/GI: Soft, non-tender. No distention Skin: Warm, dry with normal turgor. Normal color. MS/ Extremity: Pulses equal, no cyanosis. Neurovascular intact. Full, normal range of motion. Neuro: Awake and alert, GCS 15, oriented to person, place, time, and situation. Moves all extremities. Normal gait. Psych: Awake, alert, with orientation to person, place and time. Behavior, mood, and affect are within normal limits. 11:56 ECG was reviewed by the Attending Physician. 11:56 Respiratory: mild respiratory distress is noted, Respirations: labored breathing, that kb is mild, that is moderate, Breath sounds: decreased breath sounds, that are mild, are located in both bases, wheezing: inspiratory expiratory is heard diffusely. Vital Signs: 09:25 Pulse Ox 84% on R/A; mb8 09:28 BP 102 / 79; Pulse 97; Resp 24; Temp 98.0(TE); Pulse Ox 85% on R/A; Weight 62.6 kg; ss Height 5 ft. 3 in. (160.02 cm); Pain 0/10; 09:28 Pulse Ox 98% on 4 lpm NC; mb8 09:50 BP 101 / 74; Pulse 97; Resp 37; Pulse Ox 100% on 6% Nebulizer Mask; Pain 0/10; mb8 10:10 BP 99 / 69; Pulse 96; Resp 31; Pulse Ox 100% on 6% Nebulizer Mask; mb8 10:25 BP 87 / 70; Pulse 99; Resp 32; Pulse Ox 96% on R/A; mb8 10:37 BP 84 / 67; Pulse 102; Pulse Ox 96% on R/A; mb8 10:48 Pulse Ox 89% on R/A; mb8 10:50 BP 88 / 62; Pulse 101; Resp 30; Pulse Ox 95% on 2 lpm NC; mb8 11:05 BP 77 / 61; Pulse 99; Resp 29; Pulse Ox 95% on 2 lpm NC; mb8 11:09 BP 82 / 63; Pulse 98; Resp 30; Pulse Ox 94% on 2 lpm NC; mb8 11:15 BP 85 / 68; Pulse 96; Resp 30; Pulse Ox 95% on 2 lpm NC; mb8 11:30 BP 84 / 64; Pulse 99; mb8 11:45 BP 82 / 63; Pulse 97; Resp 32; Pulse Ox 96% on 2 lpm NC; mb8 12:05 BP 73 / 56; Pulse 97; mb8 12:10 BP 77 / 63; Pulse 95; mb8 12:20 BP 77 / 64; Pulse 96; mb8 12:37 BP 81 / 59; Pulse 97; Resp 26; Pulse Ox 95% ; mb8 12:40 BP 80 / 64; Pulse 95; Resp 27; Temp 98.6(T); Pulse Ox 95% 2 lpm ; Pain 0/10; mb8 12:50 BP 78 / 66; Pulse 95; Resp 29; Pulse Ox 95% on 2 lpm NC; mb8 13:00 BP 80 / 68; Pulse 95; Resp 30; Pulse Ox 97% on 2 lpm NC; mb8 13:10 BP 75 / 60; Pulse 93; Resp 29; Pulse Ox 97% on 2 lpm NC; mb8 13:21 BP 76 / 60; Pulse 92; mb8 13:30 BP 73 / 62; Pulse 91; Resp 30; Pulse Ox 92% on 2 lpm NC; mb8 13:40 BP 89 / 62; Pulse 99; Resp 29; Pulse Ox 95% on 2 lpm NC; mb8 13:50 BP 74 / 53; Pulse 92; Pulse Ox 96% on 2 lpm NC; mb8 14:01 BP 91 / 55 RA; Pulse 95; Resp 28; Pulse Ox 97% on 2 lpm NC; mb8 14:30 BP 97 / 53; Pulse 90; Resp 28; Pulse Ox 95% on 2 lpm NC; mb8 09:28 Body Mass Index 24.45 (62.60 kg, 160.02 cm) ss 10:25 MAP=76 mb8 10:50 MAP=72 mb8 11:05 MAP=68 mb8 11:15 MAP=76 mb8 12:05 MAP=63 mb8 12:10 MAP=69 mb8 12:20 MAP=70 mb8 12:37 MAP=68 mb8 12:40 MAP=71 mb8 12:50 MAP=72 mb8 13:00 MAP=73 mb8 13:21 MAP=67 mb8 13:30 MAP=67 mb8 14:30 MAP=67 mb8 MDM: 09:22 Patient medically screened. kb 11:57 Data reviewed: vital signs, nurses notes. Data interpreted: Pulse oximetry: on room air kb is 86 %. Interpretation: hypoxia. 12:25 Counseling: I had a detailed discussion with the patient and/or guardian regarding: the kb historical points, exam findings, and any diagnostic results supporting the discharge/admit diagnosis, lab results, radiology results, the need for further work-up and treatment in the hospital. Physician consultation: Chito Centeno MD was contacted at 11:09, regarding admission, to the ICU, patient's condition, and will see patient. 14:16 ED course: Dr Centeno saw pt in the ED. Recommends NS at 250ml/hr for 2 liters prior to kb initiation of levophed. . 14:27 ED course: Sepsis reevaluation complete.. kb 14:29 ED course: Severe sepsis criteria met at 1038. Source (A): Pneumonia; SIRS criteria kb (B): HR, RR, WBC; End Organ Damage (C): SBP <90. Septic Shock criteria met at 1038 due to SBP <90mmHg x2. . 03/01 09:29 Order name: CBC with Diff kb 03/01 09:29 Order name: Basic Metabolic Panel kb 03/01 09:29 Order name: Blood Culture Adult (2) kb 03/01 09:29 Order name: Lactate kb 03/01 09:29 Order name: Troponin High Sensitivity kb 03/01 10:00 Order name: Basic Metabolic Panel; Complete Time: 10:14 EDMS 03/01 10:00 Order name: Troponin High Sensitivity; Complete Time: 10:15 EDMS 03/01 10:05 Order name: CBC with Automated Diff; Complete Time: 12:26 EDMS 03/01 10:14 Order name: COVID-19 SARS RT PCR (Document "Date of Onset" if Symptomatic) kb 03/01 10:15 Order name: Comprehensive Metabolic Panel; Complete Time: 10:15 EDMS 03/01 10:15 Order name: Lactate; Complete Time: 10:15 EDMS 03/01 11:07 Order name: SARS-COV-2 RT PCR; Complete Time: 11:18 EDMS 10/03 12:17 Order name: CBC Smear Scan; Complete Time: 12:26 EDMS 03/01 09:29 Order name: IV Start; Complete Time: 09:49 kb 03/01 09:29 Order name: EKG; Complete Time: 09:29 kb 03/01 09:29 Order name: EKG - Nurse/Tech; Complete Time: 09:39 kb 03/01 09:29 Order name: Oxygen; Complete Time: 09:49 kb 03/01 10:14 Order name: Chest Single View XRAY kb 03/01 10:55 Order name: RAD; Complete Time: 11:03 EDMS EC:56 Rate is 95 beats/min. Rhythm is regular. QRS Leslie is Normal. OK interval is normal at kb 132 msec. QRS interval is normal at 122 msec. QT interval is normal at 449 msec. Administered Medications: 09:48 Drug: Magnesium Sulfate 2 grams Route: IVPB; Infused Over: 2 hrs; Site: right mb8 antecubital; 10:47 Follow up: IV Status: Completed infusion; Order to discontinue infusion mb8 09:48 Drug: DuoNeb (albuterol 2.5 mg, ipratropium 0.5 mg) (3:1) (2.5 mg - 0.5 mg) 3 ml Route: mb8 Nebulizer; 10:10 Follow up: Response: No adverse reaction; Wheezing diminished mb8 09:49 Drug: SOLU-Medrol (methylPrednisoLONE) 125 mg Route: IVP; Site: right antecubital; mb8 10:10 Follow up: Response: No adverse reaction mb8 10:47 Drug: NS 0.9% (30 ml/kg) 30 ml/kg Route: IV; Rate: bolus; Site: right antecubital; mb8 11:51 Follow up: IV Status: Completed infusion mb8 11:26 Drug: Rocephin (cefTRIAXone) 1 grams Route: IV; Rate: calculated rate; Site: right mb8 antecubital; 11:59 Follow up: Response: No adverse reaction; IV Status: Completed infusion mb8 11:59 Drug: Zithromax (azithromycin) 500 mg Route: IVPB; Infused Over: 1 hrs; Site: right mb8 antecubital; 13:00 Follow up: Response: No adverse reaction mb8 13:00 Follow up: IV Status: Completed infusion mb8 13:19 Not Given (Physician Discretion): Levophed (norepinephrine) 0.1 mcg/kg/min IV at kb calculated rate See Administration Instructions; (Standard concentration 4 mg / 250 mL D5W); Recommended max rate 3 mcg/kg/min; Titrate 0.05 mcg/kg/min as often as every 5 minutes to achieve goal (see titration policy); Goal parameter MAP greater than 65 mmHg. 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 I agree with assessment [id number] and care plan and confirm the diagnosis (es) above. Attestation: The patient's history, exam findings, diagnostics, and a summary of any interventions or procedures was reviewed in detail with Veronica SIDDIQUI. Disposition Summary: 03/01/22 12:00 Hospitalization Ordered Hospitalization Status: Inpatient Admission kb Provider: Chito Centeno Location: Intensive Care Unit kb Condition: Fair kb Problem: new kb Symptoms: are unchanged kb Bed/Room Type: Standard Room Assignment: 2-(03/01/22 14:05) bd Diagnosis - Pneumonia, unspecified organism kb - Severe sepsis with septic shock kb Forms: - Medication Reconciliation Form kb - SBAR form kb Signatures: Dispatcher [employer] Veronica Modi FNP-C FNP-Ckb Dirrim, Barbara bd Smirch, Shelby, RN RN ss Rosillo, Jose, MD MD [id number] Juanito Momin RN RN mb8 Corrections: (The following items were deleted from the chart) 14:05 12:00 kb bd
--- NOTE | 2022-03-01 12:01 | ER ---
Nurse's Notes [facility] Name: Jose Lake Age: 76 yrs Sex: Male : 1945 Arrival Date: 03/01/2022 Time: 09:22 Bed 19 Private MD: Chito Centeno Diagnosis: Pneumonia, unspecified organism;Severe sepsis with septic shock Presentation: 03/01 09:28 Chief complaint: Patient states: Shortness of breath and cough that began Tuesday. ss Sent by Dr. Centeno for further evaluation. O2 in office was 83% on RA. Coronavirus screen: Client denies travel out of the [place] in the last 14 days. Ebola Screen: Patient denies exposure to infectious person. Patient denies travel to an Ebola-affected area in the 21 days before illness onset. Initial Sepsis Screen: Does the patient meet any 2 criteria? RR > 20 per min. HR > 90 bpm. Does the patient have a suspected source of infection? Yes: Productive cough/pneumonia Risk Assessment: Do you want to hurt yourself or someone else? Patient reports no desire to harm self or others. Onset of symptoms was February 27, 2022. 09:28 Method Of Arrival: Wheelchair ss 09:28 Acuity: LAHSANDA 2 ss Historical: - Allergies: 09:49 PENICILLINS; ss 09:49 Sulfa (Sulfonamide Antibiotics); ss - PMHx: 09:49 bleeding ulcers; High Cholesterol; COPD; cardiac stents; Thyroid problem; Hypertensive ss disorder; - Immunization history:: Adult Immunizations up to date, Client reports receiving the 2nd dose of the Covid vaccine. - Social history:: Smoking status: Patient/guardian denies using tobacco, Stopped _ months ago .25. Screenin:52 Abuse screen: Denies threats or abuse. Denies injuries from another. Nutritional mb8 screening: No deficits noted. Tuberculosis screening: No symptoms or risk factors identified. Tuberculosis screening: No symptoms or risk factors identified. Fall Risk None identified. Assessment: 09:30 Pain: Complains of pain in chest Aggravated by Coughing. Cardiovascular: Pulses are 3+ mb8 in right radial artery and left radial artery Rhythm is sinus rhythm. Respiratory: Airway is patent Respiratory effort is labored, Respiratory pattern is tachypnea Breath sounds with wheezes bilaterally. 09:30 General: Appears uncomfortable, ill, Behavior is cooperative, appropriate for age, mb8 anxious. 10:48 General: Patient BP decreasing, [employer] aware, ordered to d/c mag infusion and start 30ml/kg mb8 of NS. . 10:51 Reassessment: Patient and/or family updated on plan of care and expected duration. Pain mb8 level reassessed. Patient is alert, oriented x 3, equal unlabored respirations, skin warm/dry/pink. 11:28 Reassessment: Patient and/or family updated on plan of care and expected duration. Pain mb8 level reassessed. Patient is alert, oriented x 3, equal unlabored respirations, skin warm/dry/pink. 12:30 Reassessment: Patient and/or family updated on plan of care and expected duration. Pain mb8 level reassessed. Patient is alert, oriented x 3, equal unlabored respirations, skin warm/dry/pink. Vital Signs: 09:25 Pulse Ox 84% on R/A; mb8 09:28 BP 102 / 79; Pulse 97; Resp 24; Temp 98.0(TE); Pulse Ox 85% on R/A; Weight 62.6 kg; ss Height 5 ft. 3 in. (160.02 cm); Pain 0/10; 09:28 Pulse Ox 98% on 4 lpm NC; mb8 09:50 BP 101 / 74; Pulse 97; Resp 37; Pulse Ox 100% on 6% Nebulizer Mask; Pain 0/10; mb8 10:10 BP 99 / 69; Pulse 96; Resp 31; Pulse Ox 100% on 6% Nebulizer Mask; mb8 10:25 BP 87 / 70; Pulse 99; Resp 32; Pulse Ox 96% on R/A; mb8 10:37 BP 84 / 67; Pulse 102; Pulse Ox 96% on R/A; mb8 10:48 Pulse Ox 89% on R/A; mb8 10:50 BP 88 / 62; Pulse 101; Resp 30; Pulse Ox 95% on 2 lpm NC; mb8 11:05 BP 77 / 61; Pulse 99; Resp 29; Pulse Ox 95% on 2 lpm NC; mb8 11:09 BP 82 / 63; Pulse 98; Resp 30; Pulse Ox 94% on 2 lpm NC; mb8 11:15 BP 85 / 68; Pulse 96; Resp 30; Pulse Ox 95% on 2 lpm NC; mb8 11:30 BP 84 / 64; Pulse 99; mb8 11:45 BP 82 / 63; Pulse 97; Resp 32; Pulse Ox 96% on 2 lpm NC; mb8 12:05 BP 73 / 56; Pulse 97; mb8 12:10 BP 77 / 63; Pulse 95; mb8 12:20 BP 77 / 64; Pulse 96; mb8 12:37 BP 81 / 59; Pulse 97; Resp 26; Pulse Ox 95% ; mb8 12:40 BP 80 / 64; Pulse 95; Resp 27; Temp 98.6(T); Pulse Ox 95% 2 lpm ; Pain 0/10; mb8 12:50 BP 78 / 66; Pulse 95; Resp 29; Pulse Ox 95% on 2 lpm NC; mb8 13:00 BP 80 / 68; Pulse 95; Resp 30; Pulse Ox 97% on 2 lpm NC; mb8 13:10 BP 75 / 60; Pulse 93; Resp 29; Pulse Ox 97% on 2 lpm NC; mb8 13:21 BP 76 / 60; Pulse 92; mb8 13:30 BP 73 / 62; Pulse 91; Resp 30; Pulse Ox 92% on 2 lpm NC; mb8 13:40 BP 89 / 62; Pulse 99; Resp 29; Pulse Ox 95% on 2 lpm NC; mb8 13:50 BP 74 / 53; Pulse 92; Pulse Ox 96% on 2 lpm NC; mb8 14:01 BP 91 / 55 RA; Pulse 95; Resp 28; Pulse Ox 97% on 2 lpm NC; mb8 14:30 BP 97 / 53; Pulse 90; Resp 28; Pulse Ox 95% on 2 lpm NC; mb8 09:28 Body Mass Index 24.45 (62.60 kg, 160.02 cm) ss 10:25 MAP=76 mb8 10:50 MAP=72 mb8 11:05 MAP=68 mb8 11:15 MAP=76 mb8 12:05 MAP=63 mb8 12:10 MAP=69 mb8 12:20 MAP=70 mb8 12:37 MAP=68 mb8 12:40 MAP=71 mb8 12:50 MAP=72 mb8 13:00 MAP=73 mb8 13:21 MAP=67 mb8 13:30 MAP=67 mb8 14:30 MAP=67 mb8 Vitals: 10:10 Cardiac Rhythm Assessment Sinus rhythm. mb8 12:40 Cardiac Rhythm Assessment Sinus rhythm. mb8 12:50 Cardiac Rhythm Assessment Sinus rhythm. mb8 ED Course: 09:22 Patient arrived in ED. as 09:22 Chito Centeno MD is Private Physician. as 09:22 Veronica Newton F[facility]-C [facility]. kb 09:22 Cash Martinez MD is Attending Physician. kb 09:22 Juanito Momin RN is Primary Nurse. mb8 09:30 Patient has correct armband on for positive identification. Allergy band placed. Placed mb8 in gown. Bed in low position. Call light in reach. Side rails up X2. Client placed on continuous cardiac and pulse oximetry monitoring. NIBP monitoring applied. monitoring analyst on. 09:33 Triage completed. ss 09:36 Inserted saline lock: 18 gauge in right antecubital area, using aseptic technique. mb8 Blood collected. 09:49 Troponin High Sensitivity Sent. mb8 09:49 Lactate Sent. mb8 09:49 Blood Culture Adult (2) Sent. mb8 09:49 Basic Metabolic Panel Sent. mb8 09:49 CBC with Diff Sent. mb8 09:49 Arm band placed on right wrist. ss 11:51 COVID-19 SARS RT PCR (Document "Date of Onset" if Symptomatic) Sent. mb8 11:51 Chest Single View XRAY Sent. mb8 12:00 Chito Centeno MD is Hospitalizing Provider. kb 14:23 No provider procedures requiring assistance completed. Patient admitted, IV remains in mb8 place. Administered Medications: 09:48 Drug: Magnesium Sulfate 2 grams Route: IVPB; Infused Over: 2 hrs; Site: right mb8 antecubital; 10:47 Follow up: IV Status: Completed infusion; Order to discontinue infusion mb8 09:48 Drug: DuoNeb (albuterol 2.5 mg, ipratropium 0.5 mg) (3:1) (2.5 mg - 0.5 mg) 3 ml Route: mb8 Nebulizer; 10:10 Follow up: Response: No adverse reaction; Wheezing diminished mb8 09:49 Drug: SOLU-Medrol (methylPrednisoLONE) 125 mg Route: IVP; Site: right antecubital; mb8 10:10 Follow up: Response: No adverse reaction mb8 10:47 Drug: NS 0.9% (30 ml/kg) 30 ml/kg Route: IV; Rate: bolus; Site: right antecubital; mb8 11:51 Follow up: IV Status: Completed infusion mb8 11:26 Drug: Rocephin (cefTRIAXone) 1 grams Route: IV; Rate: calculated rate; Site: right mb8 antecubital; 11:59 Follow up: Response: No adverse reaction; IV Status: Completed infusion mb8 11:59 Drug: Zithromax (azithromycin) 500 mg Route: IVPB; Infused Over: 1 hrs; Site: right mb8 antecubital; 13:00 Follow up: Response: No adverse reaction mb8 13:00 Follow up: IV Status: Completed infusion mb8 13:19 Not Given (Physician Discretion): Levophed (norepinephrine) 0.1 mcg/kg/min IV at kb calculated rate See Administration Instructions; (Standard concentration 4 mg / 250 mL D5W); Recommended max rate 3 mcg/kg/min; Titrate 0.05 mcg/kg/min as often as every 5 minutes to achieve goal (see titration policy); Goal parameter MAP greater than 65 mmHg. 14:09 Drug: NS 0.9% 1000 ml Route: IV; Rate: 250 ml/hr; Site: right antecubital; mb8 Intake: 12:43 IV: 2050ml; Total: 2050ml. mb8 Output: 12:43 Urine: 400ml (Voided); Total: 400ml. mb8 Outcome: 12:00 Decision to Hospitalize by Provider. kb 14:23 Admitted to ICU accompanied by nurse, accompanied by tech, family with patient, via mb8 stretcher, room 2, with oxygen, on monitor, with chart, Report called to Rocio 15:19 Patient left the ED. mb8 Signatures: Veronica Newton, CHEN MAYA-Era Roldan Shelby, RN RN ss Bates, Michael, RN RN mb8 Corrections: (The following items were deleted from the chart) 12:54 12:40 BP 80 / 64; Pulse 95bpm; Resp 27bpm; Pulse Ox 95% 2 lpm; Pain 0/10; mb8 mb8 13:14 10:25 BP 87 / 70; Pulse 99bpm; Resp 32bpm; Pulse Ox 96% RA; mb8 mb8 13:14 10:50 BP 88 / 62; Pulse 101bpm; Resp 30bpm; Pulse Ox 95% 2 lpm Nasal Cannula; mb8 mb8 13:14 11:05 BP 77 / 61; Pulse 99bpm; Resp 29bpm; Pulse Ox 95% 2 lpm Nasal Cannula; mb8 mb8 13:14 11:15 BP 85 / 68; Pulse 96bpm; Resp 30bpm; Pulse Ox 95% 2 lpm Nasal Cannula; mb8 mb8 13:14 12:13 BP 73 / 56; Pulse 96bpm; mb8 mb8 13:14 12:20 BP 77 / 64; Pulse 96bpm; mb8 mb8 13:14 12:10 BP 77 / 63; Pulse 95bpm; mb8 mb8 13:14 12:05 BP 73 / 56; Pulse 97bpm; mb8 mb8 13:14 12:37 BP 81 / 59; Pulse 97bpm; Resp 26bpm; Pulse Ox 95%; mb8 mb8 13:14 12:40 BP 80 / 64; Pulse 95bpm; Resp 27bpm; Pulse Ox 95% 2 lpm; Temp 98.6F Tympanic; mb8 Pain 0/10; mb8 13:14 12:50 BP 78 / 66; Pulse 95bpm; Resp 29bpm; Pulse Ox 95% 2 lpm Nasal Cannula; mb8 mb8
[2022-03-01 12:16] LABS: Anisocytosis 1+; Blood Morphology Comment NOTED (NOT SEEN); Macrocytosis 1+; Platelet Estimate ADEQ; Platelets, Giant 1+; White Blood Cell Scan OK (OK)
[2022-03-01] MEDS ORDERED: ACETAMINOPHEN 500 MG TAB PO PRN (13:00)
[2022-03-01] MEDS ORDERED: ALBUTEROL 2.5 MG/3 ML NEB SOL NEB PRN (13:00)
[2022-03-01] MEDS ORDERED: NOREPINEPHRINE BITARTRATE/D5W 4 MG/250 ML BAG IV SCH (14:00)
[2022-03-01] MEDS ORDERED: NA CHLORIDE 0.9% 1,000 ML ONE (14:05)
[2022-03-01 15:30] VITALS: BMI 24.3
[2022-03-01] MEDS: METHYLPREDNISOLONE 40 MG INJ IV SCH (16:42)
--- NOTE | 2022-03-01 16:52 | P.HP ---
Certification for Inpatient Patient admitted to: Inpatient With expected LOS: >2 Midnights Practitioner: I am a practitioner with admitting privileges, knowledge of patient current condition, hospital course, and medical plan of care. Services: Services provided to patient in accordance with Admission requirements found in Title 42 Section 412.3 of the Code of Federal Regulations Patient History Date of Service: 03/01/22 Primary Care Provider: Cari Hoskins Reason for admission: Pneumonia, severe sepsis History of Present Illness: Patient came to the office short of breath using accessory muscles to breath. The paitent had hypoxia of approx 83. The patient was sent to the ER Was found to have right sided pneumonia and was hypoxic. He recieved 2 units of fluids. However the map stayed below 65. He was awake and stating he was feeling better. Allergies Penicillins Adverse Reaction (Verified 08/07/21 10:04) unknown Sulfa (Sulfonamide Antibiotics) Adverse Reaction (Verified 08/07/21 10:04) unknown Home Medications: Clopidogrel Bisulfate [Plavix] 75 mg PO DAILY 05/13/17 Albuterol Inhaler [Ventolin Inhaler*] 2 puff IH Q6HP PRN 08/07/21 Albuterol Neb [Proventil 0.083% Neb Soln] 2.5 mg IH PRN PRN 08/07/21 Atorvastatin Calcium 40 mg PO BEDTIME 08/07/21 Levothyroxine [Synthroid*] 100 mcg PO [id number] 08/07/21 Losartan Potassium [Cozaar] 25 mg PO DAILY 08/07/21 Primidone 50 mg PO BID 08/07/21 Sertraline HCl 100 mg PO DAILY 08/07/21 Temazepam [Restoril*] 15 mg PO BEDTIME 08/07/21 - Past Medical/Surgical History Has patient received pneumonia vaccine in the past: Yes Diabetic: No -: bleeding ulcer -: high cholesterol -: COPD -: hypothyroid -: HTN -: blockage in L arm -: 4 cardiac stents -: gallbladder removal. - Social History Smoking Status: Current every day smoker Alcohol use: Yes CD- Drugs: No Caffeine use: Yes Place of Residence: Home Review of Systems 10-point ROS is otherwise unremarkable Respiratory: Cough, Shortness of Breath Physical Examination - Vital Signs Temperature: 98.6 F Blood Pressure: 97/53 Pulse: 90 Respirations: 28 - Physical Exam General: Alert, In no apparent distress HEENT: Atraumatic, PERRLA, Mucous membr. moist/pink, EOMI, Sclerae nonicteric Neck: Supple, 2+ carotid pulse no bruit, No LAD, Without JVD or thyroid abnormality Respiratory: Crackles/rales, Expiratory wheezes Cardiovascular: Regular rate/rhythm, Normal S1 S2 Gastrointestinal: Normal bowel sounds, No tenderness Musculoskeletal: No tenderness Integumentary: No rashes Neurological: Normal gait, Normal speech, Normal strength at 5/5 x4 extr, Normal tone, Normal affect Lymphatics: No axilla or inguinal lymphadenopathy - Studies Laboratory Data (last 24 hrs) 03/01/22 09:34: Sodium 134 L, Potassium 4.0, BUN 11, Creatinine 0.76, Glucose 122 H, Total Bilirubin 0.5, AST 23, ALT 26, Alkaline Phosphatase 102 03/01/22 09:34: WBC 12.60 H, Hgb 14.7, Hct 44.1, Plt Count 259 Assessment and Plan - Problems (Diagnosis) (1) Pneumonia Current Visit: Yes Status: Acute Plan: will admit to the ICU . continue fluids and antibiotics. Will start him on steroids and breathing treatment. Await blood cultures. Qualifiers: Pneumonia type: due to unspecified organism Laterality: right Lung location: unspecified part of lung Qualified Code(s): J18.9 - Pneumonia, unspecified organism (2) Severe sepsis Current Visit: Yes Status: Acute Plan: Continue fluid hydration. Patient is AAO x 3. The patient bp remains low. Continue aggressive fluid hydration. Will continue antibiotics (3) Atrial fibrillation Current Visit: Yes Status: Chronic Plan: Patient is stable. Off beta blockers as this time. 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 transplanted heart: [place] heart Qualified Code(s): I25.10 - Atherosclerotic heart disease of [place] coronary artery without angina pectoris Discharge Plan: Home Plan to discharge in: Greater than 2 days - Advance Directives Does patient have a Living Will: No Does patient have a Durable POA for Healthcare: No - Code Status/Comfort Care Code Status Assessed: Yes Code Status: Full Code Physician Review: Patient Assessed, Agree with Above Assessment and Plan Critical Care: Yes Time Spent Managing Pts Care (In Minutes): 60
[2022-03-01] MEDS: ENOXAPARIN 40 MG/0.4 ML SQ SCH (17:10)
[2022-03-01] MEDS ORDERED: NA CHLORIDE 0.9% 100 ML IV ONE (19:58)
[2022-03-01] MEDS: CEFTRIAXONE 1,000 MG in NA CHLORIDE 0.9% 50 ML IVPB SCH (20:02)
[2022-03-02] MEDS: METHYLPREDNISOLONE 40 MG INJ IV SCH ×3 (01:15→20:45)
[2022-03-02 05:16] LABS: Potassium 4.5 mmol/L (3.5-5.1)
[2022-03-02 05:28] LABS: Absolute Lymphocytes (CBC) 0.5 K/uL (0.7-4.9); Hematocrit 37.7 % (39.6-49.0); MCV 92.6 fL (80-100); MPV 7.4 fL (7.6-11.3); RBC Red Blood Cell Count 4.07 M/uL (4.33-5.43)
[2022-03-02] MEDS: PANTOPRAZOLE 40MG TABLET PO SCH (07:35)
[2022-03-02] MEDS: AZITHROMYCIN IV 250 MG in NA CHLORIDE 0.9% 250 ML IVPB SCH (09:34)
[2022-03-02] MEDS: CEFTRIAXONE 1,000 MG in NA CHLORIDE 0.9% 50 ML IVPB SCH ×2 (09:53→20:42)
[2022-03-02] MEDS: IPRATROPIUM BROM 0.5MG/2.5ML NEB PRN ×2 (10:56→17:14)
[2022-03-02] MEDS: LEVALBUTEROL 0.63 MG/3 ML NEB NEB PRN ×2 (10:56→17:14)
--- NOTE | 2022-03-02 10:57 | P.PN ---
Subjective Date of Service: 03/02/22 Primary Care Provider: Cari Hoskins Chief Complaint: Pneumonia, severe sepsis Subjective: Improving (Patient bp has improved. Talking comfortably) Review of Systems 10-point ROS is otherwise unremarkable Physical Examination - Vital Signs Temperature: 97.5 F Blood Pressure: 115/59 Pulse: 64 Respirations: 29 Pulse Ox (%): 97 - Physical Exam General: Alert, In no apparent distress HEENT: Atraumatic, PERRLA, EOMI Neck: Supple, JVD not distended Respiratory: Crackles/rales (much improved from yesterday ) Cardiovascular: Regular rate/rhythm, Normal S1 S2 Gastrointestinal: Normal bowel sounds, No tenderness Musculoskeletal: No tenderness Integumentary: No rashes Neurological: Normal speech, Normal tone, Normal affect Lymphatics: No axilla or inguinal lymphadenopathy Assessment And Plan - Current Problems (Diagnosis) (1) Pneumonia Current Visit: Yes Status: Acute Plan: will admit to the ICU . continue fluids and antibiotics. Will start him on steroids and breathing treatment. Await blood cultures. 03/02 Patient is much improved. His bp is stable. Will decrease his steroids and send him to the floor. Qualifiers: Pneumonia type: due to unspecified organism Laterality: right Lung location: unspecified part of lung Qualified Code(s): J18.9 - Pneumonia, unspecified organism (2) Atrial fibrillation Current Visit: Yes Status: Chronic Plan: Patient is stable. Off beta blockers as this time. 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 transplanted heart: [place] heart Qualified Code(s): I25.10 - Atherosclerotic heart disease of [place] coronary artery without angina pectoris Discharge Plan: Home Plan to discharge in: 48 Hours - Code Status/Comfort Care Code Status Assessed: No Physician Review: Patient Assessed, Agree with Above Assessment and Plan Critical Care: Yes Time Spent Managing PTS Care (In Minutes): 20
[2022-03-02] MEDS: ENOXAPARIN 40 MG/0.4 ML SQ SCH (16:59)
[2022-03-02] MEDS ORDERED: CEFTRIAXONE 1000 MG/VIAL ONE (20:30)
[2022-03-02] MEDS ORDERED: NA CHLORIDE 0.9% 100 ML ONE (20:36)
[2022-03-02] MEDS: TEMAZEPAM 15 MG CAP PO SCH (20:44)
[2022-03-02] MEDS: ATORVASTATIN 40 MG TAB PO SCH (20:44)
[2022-03-02] MEDS ORDERED: PRIMIDONE 50 MG TAB PO SCH ×2 (21:00→21:26)
[2022-03-02] MEDS ORDERED: PRIMIDONE 50 MG TAB PO ONE (21:35)
[2022-03-03] MEDS: LEVOTHYROXINE SOD 0.1 MG TAB PO SCH (06:32)
--- NOTE | 2022-03-03 07:55 | EKG ---
Test Date: 2022-03-01 Test Time: 09:28:00 Color Repairer: ALP MEASUREMENT RESULTS: Intervals: Rate: 95 GA: 132 QRSD: 122 QT: 358 QTc: 449 [place]: P: 50 GA: 132 QRS: -77 T: 50 INTERPRETIVE STATEMENTS: Normal sinus rhythm Left axis deviation Right bundle branch block Abnormal ECG Compared to ECG 08/07/2021 10:14:16 No significant changes Electronically Signed On 03-03-22 07:48:42 CDT by Luis Miguel Gilbert
[2022-03-03] MEDS ORDERED: CEFTRIAXONE 1000 MG/VIAL ONE (08:47)
[2022-03-03] MEDS ORDERED: NA CHLORIDE 0.9% 50 ML ONE (09:05)
[2022-03-03] MEDS: CEFTRIAXONE 1,000 MG in NA CHLORIDE 0.9% 50 ML IVPB SCH ×2 (09:22→20:00)
[2022-03-03] MEDS: METHYLPREDNISOLONE 40 MG INJ IV SCH ×2 (09:23→20:00)
[2022-03-03] MEDS: CLOPIDOGREL 75 MG TABLET PO SCH (09:23)
[2022-03-03] MEDS: PANTOPRAZOLE 40MG TABLET PO SCH (09:23)
[2022-03-03] MEDS: AZITHROMYCIN IV 250 MG in NA CHLORIDE 0.9% 250 ML IVPB SCH (09:23)
[2022-03-03] MEDS: PRIMIDONE 50 MG TAB PO SCH ×2 (09:24→20:00)
[2022-03-03] MEDS: SERTRALINE HCL 100 MG TAB PO SCH (09:24)
--- NOTE | 2022-03-03 10:29 | P.PN ---
Subjective Date of Service: 03/03/22 Primary Care Provider: Cari Hoskins Chief Complaint: Pneumonia, severe sepsis Subjective: No new changes Review of Systems 10-point ROS is otherwise unremarkable Physical Examination - Vital Signs Temperature: 97.1 F Blood Pressure: 126/74 Pulse: 75 Respirations: 19 Pulse Ox (%): 99 - Physical Exam General: Alert, In no apparent distress HEENT: Atraumatic, PERRLA, EOMI Neck: Supple, JVD not distended Respiratory: Clear to auscultation bilaterally, Normal air movement Cardiovascular: Regular rate/rhythm, Normal S1 S2 Gastrointestinal: Normal bowel sounds, No tenderness Musculoskeletal: No tenderness Integumentary: No rashes Neurological: Normal speech, Normal tone, Normal affect Lymphatics: No axilla or inguinal lymphadenopathy Assessment And Plan - Current Problems (Diagnosis) (1) Pneumonia Current Visit: Yes Status: Acute Plan: will admit to the ICU . continue fluids and antibiotics. Will start him on steroids and breathing treatment. Await blood cultures. 03/02 Patient is much improved. His bp is stable. Will decrease his steroids and send him to the floor. Qualifiers: Pneumonia type: due to unspecified organism Laterality: right Lung location: unspecified part of lung Qualified Code(s): J18.9 - Pneumonia, unspecified organism (2) Atrial fibrillation Current Visit: Yes Status: Chronic Plan: Patient is stable. Off beta blockers as this time. 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 transplanted heart: [place] heart Qualified Code(s): I25.10 - Atherosclerotic heart disease of [place] coronary artery without angina pectoris Discharge Plan: Home Plan to discharge in: 24 Hours - Code Status/Comfort Care Code Status Assessed: No Physician Review: Patient Assessed, Agree with Above Assessment and Plan Critical Care: No Time Spent Managing PTS Care (In Minutes): 20
[2022-03-03] MEDS: ENOXAPARIN 40 MG/0.4 ML SQ SCH (16:35)
[2022-03-03] MEDS: ATORVASTATIN 40 MG TAB PO SCH (19:59)
[2022-03-03] MEDS: TEMAZEPAM 15 MG CAP PO SCH (20:00)
[2022-03-03 21:42] VITALS: O2SAT 98
[2022-03-04] MEDS: LEVOTHYROXINE SOD 0.1 MG TAB PO SCH (05:02)
--- NOTE | 2022-03-04 07:53 | P.DS ---
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 transplanted heart: [place] heart Qualified Code(s): I25.10 - At herosclerotic heart disease of [place] coronary artery without angina pectoris Brief History of Present Illness: Patient came to the office short of breath using accessory muscles to breath. The paitent had hypoxia of approx 83. The patient was sent to the ER Was found to have right sided pneumonia and was hypoxic. He recieved 2 units of fluids. However the map stayed below 65. He was awake and stating he was feeling better. Hospital Course: Patient was admitted and put in the icu due to low blood pressure. He responded to fluids. He is doing well. Walking, eating and has no complaints of fevers or chills, cough. He has plans to go fishing. He has negative blood cultures. Will discharge the patient on 10 days of levaquin. Vital Signs/Physical Exam: Temp Pulse Resp BP Pulse Ox 97.1 F 68 14 109/60 99 03/04/22 04:00 03/04/22 04:00 03/04/22 04:00 03/04/22 04:00 03/04/22 04:00 General: Alert, In no apparent distress HEENT: Atraumatic, PERRLA, EOMI Neck: Supple, JVD not distended Respiratory: Clear to auscultation bilaterally, Normal air movement Cardiovascular: Regular rate/rhythm, Normal S1 S2 Gastrointestinal: Normal bowel sounds, No tenderness Musculoskeletal: No tenderness Integumentary: No rashes Neurological: Normal speech, Normal tone, Normal affect Lymphatics: No axilla or inguinal lymphadenopathy Laboratory Data at Discharge: WBC 8.90 K/uL (4.3-10.9) 03/02/22 04:48 Hgb 12.7 g/dL (13.6-17.9) L D 03/02/22 04:48 Hct 37.7 % (39.6-49.0) L 03/02/22 04:48 Plt Count 197 K/uL (152-406) 03/02/22 04:48 Sodium 139 mmol/L (136-145) D 03/02/22 04:48 Potassium 4.5 mmol/L (3.5-5.1) 03/02/22 04:48 BUN 13 mg/dL (7-18) 03/02/22 04:48 Creatinine 0.66 mg/dL (0.55-1.3) 03/02/22 04:48 Glucose 215 mg/dL (74-106) H 03/02/22 04:48 Total Bilirubin 0.5 mg/dL (0.2-1.0) 03/01/22 09:34 AST 23 U/L (15-37) 03/01/22 09:34 ALT 26 U/L (12-78) 03/01/22 09:34 Alkaline Phosphatase 102 U/L (45-117) 03/01/22 09:34 Home Medications: Clopidogrel Bisulfate [Plavix] 75 mg PO DAILY 05/13/17 Albuterol Inhaler [Ventolin Inhaler*] 2 puff IH Q6HP PRN 08/07/21 Albuterol Neb [Proventil 0.083% Neb Soln] 2.5 mg IH PRN PRN 08/07/21 Atorvastatin Calcium 40 mg PO BEDTIME 08/07/21 Levothyroxine [Synthroid*] 100 mcg PO [id number] 08/07/21 Primidone 100 mg PO BID 08/07/21 Sertraline HCl 100 mg PO DAILY 08/07/21 Temazepam [Restoril*] 15 mg PO BEDTIME 08/07/21 Levofloxacin [Levaquin] 500 mg PO DAILY 10 Days #10 tab 03/03/22 New Medications: Levofloxacin [Levaquin] 500 mg PO DAILY 10 Days #10 tab Diet: Regular Activity: Ad johnnie Followup: Chito Centeno MD [Primary Care Provider] - 1 Week Physician Review: Patient Assessed, Agree with Above Assessment and Plan Time spent managing pt's care (in minutes): 30
[2022-03-04] MEDS: PANTOPRAZOLE 40MG TABLET PO SCH (08:03)
[2022-03-04] MEDS: CLOPIDOGREL 75 MG TABLET PO SCH (08:03)
[2022-03-04] MEDS: SERTRALINE HCL 100 MG TAB PO SCH (08:04)
[2022-03-04] MEDS: METHYLPREDNISOLONE 40 MG INJ IV SCH (08:04)
[2022-03-04] MEDS: CEFTRIAXONE 1,000 MG in NA CHLORIDE 0.9% 50 ML IVPB SCH (08:04)
[2022-03-04] MEDS ORDERED: AZITHROMYCIN 250 MG TAB PO SCH (09:00)
[2022-03-04] MEDS: PRIMIDONE 50 MG TAB PO SCH (09:06)
[2022-03-04 10:31] VITALS: BP 132/76; TEMP 97.7
== END 2022-03-04 10:25 | disposition home or self-care (01) | DRG 871 ==
LOC: ER 09:20 → ERHOLD 13:08 → 3RD-ICU 14:23 → 2ND 03-02 17:35
PROVIDERS: ADMIT Internal Medicine; ATTEND Internal Medicine
DX: A41.9 Sepsis, unspecified organism (principal); J18.9 Pneumonia, unspecified organism; R57.1 Hypovolemic shock; J96.01 Acute respiratory failure with hypoxia; R65.21 Severe sepsis with septic shock; J44.0 Chronic obstructive pulmonary disease with (acute) lower respiratory infection; I25.10 Atherosclerotic heart disease of native coronary artery without angina pectoris; I48.0 Paroxysmal atrial fibrillation; F17.210 Nicotine dependence, cigarettes, uncomplicated; Z88.0 Allergy status to penicillin; Z88.1 Allergy status to other antibiotic agents; Z95.5 Presence of coronary angioplasty implant and graft; Z79.02 Long term (current) use of antithrombotics/antiplatelets; Z79.890 Hormone replacement therapy; Z79.899 Other long term (current) drug therapy; Z20.822 Contact with and (suspected) exposure to COVID-19
CPT/HCPCS: 36415; 71045; 80048; 80053; 83605; 84484; 85025; 87040; 93005; 94640; 94760; 96365; 96367; 96368; 96375; 99285; J0456; J1650; J2920; J2930; J3475; J7030; J7050; U0003

== ENCOUNTER 2022-08-18 10:00 | Inpatient (IN) | payer OTHER ==
--- OUTSIDE RECORDS SUMMARY | 2022-08-18 10:13 | XMS REPORT | Continuity of Care Document ---
:1945 Author Organization [facility] t Address [address] [facility] [address] [place] [address] Care Team Providers Name Role Phone Coni Hoskins Primary Care Physician [phone] MEDINA DAVENPROT Attending Clinician Unavailable Chito Maldonado Attending Clinician Unavailable ANALILIA ALSTON Attending Clinician Unavailable ANALILIA ALSTON Attending Clinician Unavailable Juan Lees Attending Clinician Analilia Alston DO Attending Clinician Doctor Unassigned, [place] Attending Clinician Unavailable Anna Marie Damian Attending Clinician Heena Powers Attending Clinician Adán Spangler DO Attending Clinician Angel Davis MD Attending Clinician Henko Corona MD Attending Clinician 2, [facility] Attending Clinician Unavailable Vesna Kaminski Attending Clinician Unavailable ESTELA PAGE Attending Clinician Unavailable EDUARDO TALAVERA Attending Clinician Unavailable Alex Harvey Jr Attending Clinician ANALILIA ALSTON Admitting Clinician Unavailable Medina Davenport Admitting Clinician Payers Payer Name Policy Type Policy Number Effective Date Expiration Date S ouralexander AETNA MEDICARE [id number] 2019 2019 HMO 00:00:00 00:00:00 AETNA MEDICARE [id number] 2019 OUT OF NETWORK 00:00:00 AETNA MEDICARE 53 [id number] Common S pirit PPO - [facility] AETNA C1 [id number] Common Spiri t - [facility] AETNA C1 [id number] Common Spiri t [facility] Problems Condition Condition Condition Status Onset Resolution [...] KNEE KNEE 06-19 16:26:00 l Active 00:00: Kaz 04/19/2021 [facility] Symptomati Symptomati Disease Active Overview : Univers c anemia c anemia 5-17 Formattin ity of 00:00: g of this [place] [address] note Medical might be Branch different from the original. Added automatic ally from request for surgery [id number] RLL RLL Disease Active Univers pneumonia pneumonia 10-05 ity of 00:00: [place] [address] Medical Branch Acute Acute Disease Active Univers exacerbati exacerbati 5-09 it y of on of on of 00:00: [place] chronic chronic 00 Medical obstructiv obstructiv Br anch e e pulmonary pulmonary disease disease (COPD) (COPD) M51.26,CPT M51.26,CP Diagnosis Active 2016-07-05 [facility] -[id number] 06-29 07:59:00 l Active 00:00: [place] 06/29/2016 00 [facility] Screening Screening Disease Active [facility] for cancer 02-02 Molly kes 00:00: [address] Abnormal Abnormal Disease Active Last [facility] diagnostic diagnostic 00:00: t & Plan: [facility] [place] [facility] of this note might be different [...] Last [facility] t status status 11-18 [facility] testing testing 00:00: t & Plan: Medic al [address] [place] [address] g of this note might be different [...] follow. Liver cyst Liver cyst Disease Active [facility] 11[facility]18 [facility] 00:[facility]: t & Plan: Medical [address] [place] [address] g of this note might be different from the original. Review of his record suggests that he has had a simple liver cyst dating back to at least 2008. The report for the 2009 imaging in not available for review. Most [...] Uncomplica Disease Active Last [facility] tequila tequila 11-18 [facility] alcohol alcohol 00:00: t & Plan: Medic al dependence dependence 00 [facility] g of this note might be [...] 00:00: Medical involving involving 00 [facility] [place] coronary coronary artery of artery of [place] heart heart Pure Pure Disease Active [facility] hyperchole hyperchole 11-18 Molly kes sterolemia sterolemia [facility] Bronchitis Bronchiti Problem Resolve 2022-02-07 Memoria (disorder) s d 04:11:45 l (disorder) Eddie n Resolved Problem 02/07/2022 [facility] Moderate Moderate Problem Resolve 2022-02-07 Memoria chronic chronic d 04:11:45 l obstructiv obstructiv He rmvonda e e pulmonary pulmonary disease disease (disorder) (disorder) Resolved Problem 02/07/2022 [facility] Bilateral Bilateral Problem Resolve 2022-02-07 Memoria cataracts cataracts d 04:11:45 l (disorder) (disorder) He rmann Resolved Problem 02/07/2022 [facility] Pneumonia Pneumonia Problem Resolve 2022-02-07 Memoria (disorder) (disorder) d 04:11:45 l Resolved Kaz Problem 02/07/2022 [facility] Stented Stented Problem Resolve 2022-02-07 M emoria coronary coronary d 04:11:45 l artery artery Sayner (finding) (finding) Resolved Problem 02/07/2022 [facility] OTHER OTHER Diagnosis Active 2016-07-05 Mem oria INTERVERTE INTERVERTE 07:59:00 l BRAL DISC BRAL DISC Herm vonda DISPLACEME DISPLACEME NT, NT, Active [facility] 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 13:50:02 l erosis erosis Sayner (disorder) (disorder) Active Problem 07/02/2022 [facility] Ataxia Ataxia Problem Active 2022-07-02 Mathieu chaitanya (finding) (finding) 13:50:02 l Active Kaz Problem 07/02/2022 [facility] Chronic Chronic Problem Active 2022-07-02 Me moria obstructiv obstructiv 13:50:02 l e lung e lung Kaz disease disease (disorder) (disorder) Active Problem 07/02/2022 [facility] Closed Closed Problem Active 2022-07-02 Mathieu chaitanya fracture fracture 13:50:02 l of fourth of fourth Herm vonda cervical cervical vertebra vertebra (disorder) (disorder) Active Problem 07/02/2022 [facility] 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 (disorder) (disorder) Active Problem 07/02/2022 [facility] [place] 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 13:50:02 l (disorder) (disorder) He rmann Active Problem 07/02/2022 [facility] 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 13:50:02 l anemia anemia Sayner (disorder) (disorder) Active Problem 07/02/2022 [facility] 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 tremor 13:50:02 l (finding) (finding) Herm vonda Active Problem 07/02/2022 [facility] 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 emphysema 13:50:02 l (disorder) (disorder) He rmann Active Problem 07/02/2022 [facility] 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 coronary 13:50:02 l arterioscl arterioscl He rmann erosis erosis after after percutaneo percutaneo us us translumin translumin al al coronary coronary angioplast angioplast y y (disorder) (disorder) Active Problem 07/02/2022 [facility] Spinal Spinal Problem Active 2022-07-02 [facility] oria cord cord 13:50:02 l disorder disorder Eddie n (disorder) (disorder) Active Problem 07/02/2022 [facility] Tremor Tremor Problem Active 2022-07-02 Mathieu chaitanya (finding) (finding) 13:50:02 l Active Kaz Problem 07/02/2022 [facility] [id number] OAB Problem Active Common (overactiv Spirit e bladder) - [facility] Hyperlipid Hyperlipem Problem Active C ommon aemia ia [facility] Hypothyroi Hypothyroi Problem Active C ommon dism dism [facility] Post History of Problem Active Commo n percutaneo heart Spirit us artery - [facility] translumin stent [facility] coronary Medical angioplast Center y [id number] BPH loc w Problem Active Com mon urin Spirit obs/LUTS - [facility] [id number] Prostate Problem Active Com tue [id number] nodule Spirit - [facility] Elevated Elevated Problem Active Commo n blood-pres blood Spirit sure pressure - [facility] reading reading [facility] diagnosis [facility] hypertensi on Smoking Encounter Problem Active Commo n cessation for Spirit therapy smoking - [facility] cessation [facility] Essential Essential Problem Active Com mon hypertensi (primary) Spi rit on hypertensi - [facility] on [facility] [id number] Coronary Problem Active Com mon 107 artery Spirit disease of - [facility] [address] [facility] artery [facility] [place] Medical heart with Center stable angina pectoris [id number] Incomplete Problem Active Co mmon emptying Spirit of bladder - [facility] [id number] Elevated Problem Active Comm on PSA Spirit - [facility] Allergies, Adverse Reactions, Alerts Allergy Allergy [...] mide adverse 00:00: Medical Antibiot reaction 00 [place] [facility]) s Penicill Propensi Active [facility] ins ty to 11-18 [facility] adverse 00:00: Medical reaction 00 Center s Sulfa Propensi Active [facility] (Sulfona ty to 6 [facility] mide adverse 00:00: Medical Antibiot reaction 00 Center [facility]) s Penicill Allergy Active Rash Other [place] ins to 2-18 reaction( Health substanc 00:00: s): e 00 UnknownOt her reaction( s): Info Not Available , unknown Sulfa Allergy Active Other [place] Antibiot to 2-18 reaction( Healt h ics substanc 00:00: s): e 00 rashOther reaction( s): Unknown - See commentsO ther reaction( s): unknown Penicill Propensi Active Rash Univer s ins [...] [place] ANTIBIOT 00 Medical ICS) Branch Penicill Propensi Active Rash Univer s ins ty to 2-18 ity of adverse 00:00: [place] reaction 00 Medical s Branch penicill penicill Active Memori a ins ins l [place] sulfa sulfa Active <not Memoria drugs drugs entered> l [place] amoxicil amoxicil Active Unknown Commo n denny denny [facility] [address] Drug Active Unknown Common allergy [facility] Penicill Penicill Active Unknown Commo n in in [facility] Family History Family Member Diagnosis Comments Start Date Stop Date Source Natural brother Cancer [facility] Natural mother Diabetes [facility] Social History Social Habit Start Date Stop Date Quantity Comments Source History of tobacco Cigarette Smoker University of use [facility] Exposure to 2022-04-17 2022-04-27 Not sure University SARS-CoV-2 (event) 00:00:00 10:44:[address] [facility] Tobacco use and 2022-04-27 2022-04-27 Smokeless Universit y of exposure 00:00:00 00:00:00 tobacco non-user [facility] dicok Branch Cigarettes smoked 2022-04-27 2022-04-27 Univers ity of current (pack per 00:00:00 00:00:00 ) - Reported Branch Cigarette 2022-04-27 2022-04-27 University of pack-years 00:00:00 00:00:[address] [facility] Social History 2021-04-21 2021-04-21 [facility] Ángel richard 02:53:29 02:53:29 Alcohol intake 2015-11-19 2015-11-19 Current drinker [facility] S mayra [employer] 00:00:00 00:00:00 of alcohol [facility] (finding) Sex [birth year] [facility] 00:00:00 00:00:00 [facility] Smoking Status Start Date Stop Date Source Tobacco smoking [facility] consumption unknown Tobacco smoking status 2022-06-29 15:46:21 Iesha Mccurdy Former Smoker 2021-09-11 00:00:00 2021-09-11 Common Spiri t [facility] 00[facility] nter Medications Ordered Filled Start Stop Current Ordering Indication Dosage Frequency Signature Comments Components Source Medication Medication Date Date Medication? Clinician (SIG) Name Name primidone 2021-05 Yes See Memoria 50 mg oral 1-09 Instructio l tablet 14:30: ns, 3 tab Eddie n 00 PO BID, # 540 tab, 3 Refill(s), Pharmacy: [facility] #[id number], 160.02, cm, 03/26/22 14:35:00 CDT, Height, 64.545, kg, 03/26/22 14:35:00 CDT, Weight primidone 2021-05 Yes See Memoria 50 mg oral 0-28 Instructio l tablet 20:08: ns, 3 tab Eddie n 00 PO BID, # 540 tab, 1 Refill(s), Pharmacy: [id number], 160.02, cm, 03/26/22 14:35:00 CDT, Height, 64.545, kg, 03/26/22 14:35:00 CDT, Weight primidone 2021-05 Yes See Memoria 50 mg oral 0-28 Instructio l tablet 20:08: ns, 3 tab Eddie n 00 PO BID, # 540 tab, 1 Refill(s), Pharmacy: [facility] #[id number], 160.02, cm, 03/26/22 14:35:00 CDT, Height, 64.545, kg, 03/26/22 14:35:00 CDT, Weight ADVAIR Yes [id number] TAKE 1 Univ ers DISKUS 6-08 PUFF BY ity of 250-50 00:00: MOUTH [place] mcg/dose 00 EVERY 12 Medical inhalation HOURS Branch disk ADVAIR 0 Yes [id number] TAKE 1 Univ ers DISKUS 6-08 PUFF BY ity of 250-50 00:00: MOUTH [place] mcg/dose 00 EVERY 12 Medical inhalation HOURS Branch disk ADVAIR 0 Yes [id number] TAKE 1 Univ ers DISKUS 6-08 PUFF BY ity of 250-50 00:00: MOUTH [place] mcg/dose 00 EVERY 12 Medical inhalation HOURS Branch disk ADVAIR 0 Yes [id number] TAKE 1 Univ ers DISKUS 6-08 PUFF BY ity of 250-50 00:00: MOUTH [place] mcg/dose 00 EVERY 12 Medical inhalation HOURS Branch disk docosahexan 0 Yes Take by Uni vers oic 5-26 mouth. ity of acid/epa 10:53: [place] (FISH OIL 38 Medical ORAL) Branch losartan 25 0 Yes 25mg Take 25 mg Univers mg tablet 5-26 by mouth ity of 10:53: daily. [place] [address] Medical Branch primidone 0 Yes 50mg Take 50 mg Un kim 50 mg 5-26 by mouth ity of tablet 10:53: every 8 [place] [address] (eight) Medical hours. Branch ferrous 2021-0 Yes 325mg Take 325 Unive rs sulfate 325 5-26 mg by ity of mg (65 mg 10:53: mouth [place] iron) 38 daily. Medical tablet Branch temazepam 2021-0 Yes 15mg Take 15 mg Un kim [...] by mouth ity of tablet 10:53: daily. [place] [address] Medical Branch docosahexan 0 Yes Take by Uni vers oic 5-26 mouth. ity of acid/epa 10:53: [place] (FISH OIL 38 Medical ORAL) Branch losartan 25 0 Yes 25mg Take 25 mg Univers mg tablet 5-26 by mouth ity of 10:53: daily. [place] [address] Medical Branch primidone 0 Yes 50mg Take 50 mg Un kim 50 mg 5-26 by mouth ity of tablet 10:53: every 8 [place] [address] (eight) Medical hours. Branch ferrous 2021-0 Yes 325mg Take 325 Unive rs sulfate 325 5-26 mg by ity of mg (65 mg 10:53: mouth [place] iron) 38 daily. Medical tablet Branch temazepam 2021-0 Yes 15mg Take 15 mg Un kim 15 mg 5-26 by mouth ity of capsule 10:53: at bedtime [place] 38 [place] needed Medical for Branch Insomnia. SERTraline 2021-0 Yes 100mg Take 100 Un kim 100 mg 5-26 mg by ity of tablet 10:53: mouth [place] 38 daily. Medical Branch clopidogreL 2021-0 Yes 75mg Take 75 mg Univers 75 mg 5-26 by mouth ity of tablet 10:53: daily. [place] [address] Medical Branch docosahexan 0 Yes Take by Uni vers oic 5-26 mouth. ity of acid/epa 10:53: [place] (FISH OIL 38 Medical ORAL) Branch losartan 25 0 Yes 25mg Take 25 mg Univers mg tablet 5-26 by mouth ity of 10:53: daily. [place] [address] Medical Branch primidone 2021-0 Yes 50mg Take 50 mg Un kim 50 mg 5-26 by mouth ity of tablet 10:53: every 8 [place] 38 (eight) Medical hours. Branch ferrous 2021-0 Yes 325mg Take 325 Unive rs sulfate 325 5-26 mg by ity of mg (65 mg 10:53: mouth [place] iron) 38 daily. Medical tablet Branch temazepam 2021-0 Yes 15mg Take 15 mg Un kim 15 mg 5-26 by mouth ity of capsule 10:53: at [place]time [place] 38 [place] needed Medical for Branch Insomnia. SERTraline 0 Yes 100mg Take 100 Un kim 100 mg 5-26 mg by ity of tablet 10:53: mouth [place] 38 daily. Medical Branch clopidogreL 2021-0 Yes 75mg Take 75 mg Univers 75 mg 5-26 by mouth ity of tablet 10:53: daily. [place] [address] Medical Branch docosahexan 0 Yes Take by Uni vers oic 5-26 mouth. ity of acid/epa 10:53: [place] (FISH OIL 38 Medical ORAL) Branch losartan 25 0 Yes 25mg Take 25 mg Univers mg tablet 5-26 by mouth ity of 10:53: daily. [place] [address] Medical Branch primidone 2021-0 Yes 50mg Take 50 mg Un kim 50 mg 5-26 by mouth ity of tablet 10:53: every 8 [place] 38 (eight) Medical hours. Branch ferrous 2021-0 Yes 325mg Take 325 Unive rs sulfate 325 5-26 mg by ity of mg (65 mg 10:53: mouth [place] iron) 38 daily. Medical tablet Branch temazepam 2021-0 Yes 15mg Take 15 mg Un kim 15 mg 5-26 by mouth ity of capsule 10:53: at bedtime [place] 38 as needed Medical for Branch Insomnia. SERTraline 0 Yes 100mg Take 100 Un kim 100 mg 5-26 mg by ity of tablet 10:53: mouth [place] 38 daily. Medical Branch clopidogreL 0 Yes 75mg Take 75 mg Univers 75 mg 5-26 by mouth ity of tablet 10:53: daily. [place] [address] Medical Branch vit 0 Yes Take by Univers C/E/Zn/juliet 5-26 mouth 2 ity o f r/lutein/ze 10:53: (two) [place] axan 22 times Medical (PRESERVISI daily. Branch ON AREDS-2 ORAL) vit 0 Yes Take by Univers C/E/Zn/juliet 5-26 mouth 2 ity o f r/lutein/ze 10:53: (two) [place] axan 22 times Medical (PRESERVISI daily. Branch ON AREDS-2 ORAL) vit 0 Yes Take by Univers C/E/Zn/juliet 5-26 mouth 2 ity o f r/lutein/ze 10:53: (two) [place] ax 22 times Medical (PRESERVISI daily. Branch ON AREDS-2 ORAL) vit 0 Yes Take by Univers C/E/Zn/juliet 5-26 mouth 2 ity o f r/lutein/ze 10:53: (two) [place] ax 22 times Medical (PRESERVISI daily. Branch ON AREDS-2 ORAL) levothyroxi Yes 100ug Take 100 U nivers ne 100 mcg 5-26 mcg by ity of tablet 10:52: mouth. [address] Branch levothyroxi Yes 100ug Take 100 U nivers ne 100 mcg 5-26 mcg by ity of tablet 10:52: mouth. [address] Branch levothyroxi Yes 100ug Take 100 U nivers ne 100 mcg 5-26 mcg by ity of tablet 10:52: mouth. [address] levothyroxi 0 Yes 100ug Take 100 U nivers ne 100 mcg 5-26 mcg by ity of tablet 10:52: mouth. [address] umeclidiniu Yes [id number] 1{puff} Inhale 1 Univers m (INCRUSE 5-26 Puff ity of ELLIPTA) 00:00: daily. [place] [address].5 00 Medical mcg/actuati Branch on DsDv umeclidiniu 0 Yes [id number] 1{puff} Inhale 1 Univers m (INCRUSE 5-26 Puff ity of ELLIPTA) 00:00: daily. [place] [address].5 00 Medical mcg/actuati Branch on DsDv umeclidiniu 0 Yes [id number] 1{puff} Inhale 1 Univers m (INCRUSE 5-26 Puff ity of ELLIPTA) 00:00: daily. [place] [address]. 00 Medical mcg/actuati Branch on DsDv umeclidiniu 0 Yes [id number] 1{puff} Inhale 1 Univers m (INCRUSE 5-26 Puff ity of ELLIPTA) 00:00: daily. [place] [address]. 00 Medical mcg/actuati Branch on DsDv Tamsulosin Tamsulosin 2020-05- No 1{capsu QD Tamsulosin HCl 0.4 MG HCl 0.4 MG 07-01 le} HCl 0.4 MG 00:00: 00:00 00 :00 Tamsulosin Tamsulosin 2020-05- No 1{capsu QD Tamsulosin HCl 0.4 MG HCl 0.4 MG 07-01 le} HCl 0.4 MG 00:00: 00:00 00 :00 Tamsulosin Tamsulosin 2020-05- No 1{capsu QD Tamsulosin HCl 0.4 MG HCl 0.4 MG 07-01 le} HCl 0.4 MG 00:00: 00:00 00 :00 Tamsulosin Tamsulosin 2020-05- No 1{capsu QD Tamsulosin HCl 0.4 MG HCl 0.4 MG 07-01 le} HCl 0.4 MG 00:00: 00:00 00 :00 Tamsulosin Tamsulosin 2020-05- No 1{capsu QD Tamsulosin HCl 0.4 MG HCl 0.4 MG 07-01 le} HCl 0.4 MG 00:00: 00:00 00 :00 Oxycodone 2020-05 Yes 5 mg = 1 Mathieu chaitanya Hydrochlori 1-24 tab, PO, l de 5 MG 16:58: Q4H, PRN Eddie n Oral Tablet 00 Pain Score 7-10, X 5 day, # 10 tab, 0 Refill(s), Pharmacy: [facility] #[id number], 157.48, cm, 04/20/21 20:56:00 HAY CHOPPER, Height, 66.364, kg, 04/20/21 20:56:00 HAY CHOPPER, Weight 0.3 ML 2020-05 Yes 30 mg, Memoria Enoxaparin 1-24 SUB-Q, l sodium 100 16:58: Q12H, X 21 H ermann MG/ML 00 day, # 42 Prefilled ea, 0 Syringe Refill(s), [Lovenox] Pharmacy: [email or web address] #[id number], 157.48, cm, 04/20/21 20:56:00 HAY CHOPPER, Height, 66.364, kg, 04/20/21 20:56:00 HAY CHOPPER, Weight tamsulosin 2020-05 Yes 0.4 mg = 1 M emoria 0.4 mg oral 1-24 cap, PO, l capsule 16:58: After Kaz 00 Breakfast, # 30 cap, 0 Refill(s), Pharmacy: [email or web address] #[id number], 157.48, cm, 04/20/21 20:56:00 HAY CHOPPER, Height, 66.364, kg, 04/20/21 20:56:00 HAY CHOPPER, Weight Oxycodone 2020-05 Yes 5 mg = 1 Mathieu chaitanya Hydrochlori 1-24 tab, PO, l de 5 MG 16:58: Q4H, PRN Eddie n Oral Tablet 00 Pain Score 7-10, X 5 day, # 10 tab, 0 Refill(s), Pharmacy: [email or web address] #[id number], 157.48, cm, 04/20/21 20:56:00 HAY CHOPPER, Height, 66.364, kg, 04/20/21 20:56:00 HAY CHOPPER, Weight tamsulosin 2020-05 Yes 0.4 mg = 1 M emoria 0.4 mg oral 1-24 cap, PO, l capsule 16:58: After Kaz 00 Breakfast, # 30 cap, 0 Refill(s), Pharmacy: [email or web address] #[id number], 157.48, cm, 04/20/21 20:56:00 HAY CHOPPER, Height, 66.364, kg, 04/20/21 20:56:00 HAY CHOPPER, Weight 0.3 ML 2020-05 Yes 30 mg, Memoria Enoxaparin 1-24 SUB-Q, l sodium 100 16:58: Q12H, X 21 H ermann MG/ML 00 day, # 42 Prefilled ea, 0 Syringe Refill(s), [Lovenox] Pharmacy: [facility] #[id number], 157.48, cm, 04/20/21 20:56:00 HAY CHOPPER, Height, 66.364, kg, 04/20/21 20:56:00 HAY CHOPPER, Weight Oxycodone 2020-05 Yes 5 mg = 1 Mathieu chaitanya Hydrochlori 1-24 tab, PO, l de 5 MG 16:58: Q4H, PRN Eddie n Oral Tablet 00 Pain Score 7-10, X 5 day, # 10 tab, 0 Refill(s), Pharmacy: [email or web address] #[id number], 157.48, cm, 04/20/21 20:56:00 HAY CHOPPER, Height, 66.364, kg, 04/20/21 20:56:00 HAY CHOPPER, Weight 0.3 ML 2020-05 Yes 30 mg, Memoria Enoxaparin 1-24 SUB-Q, l sodium 100 16:58: Q12H, X 21 H ermann MG/ML day, # 42 Prefilled ea, 0 Syringe Refill(s), [Lovenox] Pharmacy: [email or web address] #[id number], 157.48, cm, 04/20/21 20:56:00 HAY CHOPPER, Height, 66.364, kg, 04/20/21 20:56:00 HAY CHOPPER, Weight tamsulosin 2020-05 Yes 0.4 mg = 1 M emoria 0.4 mg oral 1-24 cap, PO, l capsule 16:58: After Sayner 00 Breakfast, # 30 cap, 0 Refill(s), Pharmacy: [email or web address] #[id number], 157.48, cm, 04/20/21 20:56:00 HAY CHOPPER, Height, 66.364, kg, 04/20/21 20:56:00 HAY CHOPPER, Weight gabapentin 2020-05 Yes 200 mg = 2 M emoria 100 MG Oral 1-24 cap, PO, l Capsule 16:57: Bedtime, # Herm vonda 00 28 cap, 0 Refill(s), Pharmacy: [facility] #[id number], 157.48, cm, 04/20/21 20:56:00 HAY CHOPPER, Height, 66.364, kg, 04/20/21 20:56:00 HAY CHOPPER, Weight acetaminoph 2020-05 Yes 1,000 mg = Memoria en 500 mg 1-24 2 tab, PO, l oral 16:57: Q8H-06, 0 Sayner tablet. 00 Refill(s) gabapentin 2020-05 Yes 200 mg = 2 M emoria 100 mg oral 1-24 cap, PO, l capsule 16:57: Bedtime, # Herm ovnda 00 28 cap, 0 Refill(s), Pharmacy: [facility] #[id number], 157.48, cm, 04/20/21 20:56:00 HAY CHOPPER, Height, 66.364, kg, 04/20/21 20:56:00 HAY CHOPPER, Weight acetaminoph 2020-05 Yes 1,000 mg = Memoria en 500 mg 1-24 2 tab, PO, l oral 16:57: Q8H-06, 0 Sayner tablet. 00 Refill(s) gabapentin 2020-05 Yes 200 mg = 2 M emoria 100 MG Oral 1-24 cap, PO, l Capsule 16:57: Bedtime, # Herm vonda 00 28 cap, 0 Refill(s), Pharmacy: [facility] #[id number], 157.48, cm, 04/20/21 20:56:00 HAY CHOPPER, Height, 66.364, kg, 04/20/21 20:56:00 HAY CHOPPER, Weight gabapentin 2020-05 Yes 200 mg = 2 M emoria 100 MG Oral 1-24 cap, PO, l Capsule 16:57: Bedtime, # Herm vonda 00 28 cap, 0 Refill(s), Pharmacy: [facility] #[id number], 157.48, cm, 04/20/21 20:56:00 HAY CHOPPER, Height, 66.364, kg, 04/20/21 20:56:00 HAY CHOPPER, Weight acetaminoph 2020-05 Yes 1,000 mg = Memoria en 500 mg 1-24 2 tab, PO, l oral 16:57: Q8H-06, 0 Kaz tablet. 00 Refill(s) gabapentin 2020-05 Yes 200 mg = 2 M emoria 100 mg oral 1-24 cap, PO, l capsule 16:57: Bedtime, # Herm vonda 00 28 cap, 0 Refill(s), Pharmacy: [facility] #[id number], 157.48, cm, 04/20/21 20:56:00 HAY CHOPPER, Height, 66.364, kg, 04/20/21 20:56:00 HAY CHOPPER, Weight Aspirin 2020-05 No Notes: Do Memor ia 1-24 not crush l 15:00: or chew. (Same As: Ecotrin) omega-3 2020-05 No 1,200 mg, Memor ia polyunsatur 1-24 Route: PO, l ated fatty 15:00: Daily, Audra nn acids Dosing Weight 66.364, kg, Start date: 04/22/21 9:00:00 HAY CHOPPER, Duration: 30 day, Stop date: 05/21/21 9:00:00 HAY CHOPPER Aspirin 2020-05 No Notes: Do Memor ia 1-24 not crush l 15:00: or chew. (Same As: Ecotrin) omega-3 2020-05 No 1,200 mg, Memor ia polyunsatur -24 Route: PO, l ated fatty 15:00: Daily, Audra nn acids Dosing Weight 66.364, kg, Start date: 04/22/21 9:00:00 HAY CHOPPER, Duration: 30 day, Stop date: 05/21/21 9:00:00 HAY CHOPPER Aspirin 2020-05 No Notes: Do Memor ia 1-24 not crush l 15:00: or chew. (Same As: Ecotrin) omega-3 2020-05 No 1,200 mg, Memor ia polyunsatur -24 Route: PO, l ated fatty 15:00: Daily, Audra nn acids 00 Dosing Weight 66.364, kg, Start date: 04/22/21 9:00:00 HAY CHOPPER, Duration: 30 day, Stop date: 05/21/21 9:00:00 HAY CHOPPER atorvastati 2020-05 No Notes: Mathieu chaitanya n 1-24 (Same as: l 03:00: Lipitor) gabapentin 2020-05 No Notes: Memor ia 100 MG Oral -24 (Same as: l Capsule 03:00: Neurontin) Melatonin 2020-05 No Notes: Memori a 1-24 (Same as: l 03:00: Melatonin) atorvastati 2020-05 No Notes: Mathieu chaitanya n 1-24 (Same as: l 03:00: Lipitor) gabapentin 2020-05 No Notes: Memor ia 100 MG Oral -24 (Same as: l Capsule 03:00: Neurontin) Melatonin 2020-05 No Notes: Memori a 1-24 (Same as: l 03:00: Melatonin) atorvastati 2020-05 No Notes: Mathieu chaitanya n 1-24 (Same as: l 03:00: Lipitor) gabapentin 2020-05 No Notes: Memor ia 100 MG Oral -24 (Same as: l Capsule 03:00: Neurontin) Melatonin 2020-05 No Notes: Memori a 1-24 (Same as: l 03:00: Melatonin) Cefazolin 2020-05 No Notes: Memori a 1-23 (Same as l 22:00: Ancef) Cefazolin 2020-05 No Notes: Memori a 1-23 (Same as l 22:00: Ancef) Cefazolin 2020-05 No Notes: Memori a 1-23 (Same as l 22:00: Ancef) omega-3 2020-05 No Notes: Memoria polyunsatur 1-23 (Same as: l ated fatty 20:00: MaxEPA, Herm vonda acids 00 [place] 3 fish oil ) Tylenol 2020-05 No Notes: Max Mathieu chaitanya 1-23 acetaminop l 20:00: hen 4000 [place] 00 mg/day (4 gm/day). (Same as: Tylenol Extra Strength) omega-3 2020-05 No Notes: Memoria polyunsatur 1-23 (Same as: l ated fatty 20:00: MaxEPA, Herm vonda acids 00 [place] 3 fish oil ) Tylenol 2020-05 No Notes: Max Mathieu chaitanya 1-23 acetaminop l 20:00: hen 4000 [place] 00 mg/day (4 gm/day). (Same as: Tylenol Extra Strength) omega-3 2020-05 No Notes: Memoria polyunsatur 1-23 (Same as: l ated fatty 20:00: MaxEPA, Herm vonda acids 00 [place] 3 fish oil ) Tylenol 2020-05 No Notes: Max Mathieu chaitanya 1-23 acetaminop l 20:00: hen 4000 Kaz 00 mg/day (4 gm/day). (Same as: Tylenol Extra Strength) Primidone 2020-05 No Notes: Memori a 1-23 (Same as: l 17:00: Mysoline) Kaz Primidone 2020-05 No Notes: Memori a 1-23 (Same as: l 17:00: Mysoline) Kaz Primidone 2020-05 No Notes: Memori a 1-23 (Same as: l 17:00: Mysoline) Kaz Flomax 2020-05 No Notes: Memoria 1-23 (Same As: l 16:59: Flomax) Kaz 00 "Do Not Crush" Flomax 2020-05 No Notes: Memoria 1-23 (Same As: l 16:59: Flomax) [place] 00 "Do Not Crush" Flomax 2020-05 No Notes: Memoria 1-23 (Same As: l 16:59: Flomax) Kaz 00 "Do Not Crush" Aspirin 2020-05 Yes 81 mg, PO, Mathieu chaitanya 1-23 Daily, 0 l 16:52: Refill(s) omega-3 2020-05 Yes 1,200 mg, Memor ia polyunsatur 1-23 PO, Daily, l ated fatty 16:52: 0 Kaz acids 00 Refill(s) aspirin 2020-05 Yes 81 mg, PO, Mathieu chaitanya 1-23 Daily, 0 l 16:52: Refill(s) Kaz omega-3 2020-05 Yes 1,200 mg, Memor ia polyunsatur 1-23 PO, Daily, l ated fatty 16:52: 0 [place] acids 00 Refill(s) Aspirin 2020-05 Yes 81 mg, PO, Mathieu chaitanya 1-23 Daily, 0 l 16:52: Refill(s) Kaz Aspirin 2020-05 Yes 81 mg, PO, Mathieu chaitanya 1-23 Daily, 0 l 16:52: Refill(s) omega-3 2020-05 Yes 1,200 mg, Memor ia polyunsatur 06-21 PO, Daily, l ated fatty 16:52: 0 Kaz 00 Refill(s) aspirin 2020-05 Yes 81 mg, PO, Mathieu chaitanya 06-21 Daily, 0 l 16:52: Refill(s) atorvastati 2020-05 Yes 40 mg, PO, Memoria n 06-21 Bedtime, 0 l 16:50: Refill(s) atorvastati 2020-05 Yes 40 mg, PO, Memoria n 06-21 Bedtime, 0 l 16:50: Refill(s) atorvastati 2020-05 Yes 40 mg, PO, Memoria n 06-21 Bedtime, 0 l 16:50: Refill(s) atorvastati 2020-05 Yes 40 mg, PO, Memoria n 06-21 Bedtime, 0 l 16:50: Refill(s) atorvastati 2020-05 Yes 40 mg, PO, Memoria n 06-21 Bedtime, 0 l 16:50: Refill(s) Thyroxine 2020-05 Yes 100 Memoria 1-23 microgram, l 16:49: PO, Daily, 0 Refill(s) levothyroxi 2020-05 Yes 100 Memori a ne 1-23 microgram, l 16:49: PO, Daily, 0 Refill(s) Thyroxine 2020-05 Yes 100 Memoria 1-23 microgram, l 16:49: PO, Daily, 0 Refill(s) Thyroxine 2020-05 Yes 100 Memoria 1-23 microgram, l 16:49: PO, Daily, 0 Refill(s) levothyroxi 2020-05 Yes 100 Memori a ne 1-23 microgram, l 16:49: PO, Daily, 0 Refill(s) Oxycodone 2020-05 No 5 mg, Memoria Hydrochlori 06-21 Route: PO, l de 5 MG 15:38: Drug form: Herm vonda Oral Tablet 00 TAB, Q4H, Dosing Weight 66.364, kg, PRN Pain Score 4-6, Start date: 04/21/21 9:38:00 HAY CHOPPER, Duration: 30 day, Stop date: 05/21/21 9:37:00 HAY CHOPPER Oxycodone 2020-05 No 5 mg, Memoria Hydrochlori 06-21 Route: PO, l de 5 MG 15:38: Drug form: Herm vonda Oral Tablet 00 TAB, Q4H, Dosing Weight 66.364, kg, PRN Pain Score 4-6, Start date: 04/21/21 9:38:00 HAY CHOPPER, Duration: 30 day, Stop date: 05/21/21 9:37:00 HAY CHOPPER Oxycodone 2020-05 No 5 mg, Memoria Hydrochlori 06-21 Route: PO, l de 5 MG 15:38: Drug form: Herm vonad Oral Tablet 00 TAB, Q4H, Dosing Weight 66.364, kg, PRN Pain Score 4-6, Start date: 04/21/21 9:38:00 HAY CHOPPER, Duration: 30 day, Stop date: 05/21/21 9:37:00 HAY CHOPPER Cefazolin 2020-05 No 2 gm, Memoria 06-21 Route: l 15:00: IVPB, Drug form: INJ, ABXQ8H, Dosing Weight 66.364, kg, Start date: 04/21/21 9:00:00 HAY CHOPPER, Duration: 2 day, Stop date: 04/23/21 1:00:00 HAY CHOPPER, ABX Indication : Surgical Prophylaxi s POLYETHYLEN 2020-05 No Notes: Mathieu chaitanya E GLYCOL 06-21 Dissolve l 3350 15:00: in 8 oz of water or juice. (Same as: Miralax) atorvastati 2020-05 No Notes: Mathieu chaitanya n -23 (Same as: l 15:00: Lipitor) Finasteride 2020-05 No Notes: Mathieu chaitanya -23 (Same as: l 15:00: Proscar) "Do Not Crush" Women of childbeari ng age should not touch or handle broken tablets Hazardous Drug Group 3:Reproduc tive risk Hazardous Drug -- Refer to safe handling procedure PPE Matrix Sertraline 2020-05 No Notes: Memor ia - (Same as: l 15:00: Zoloft) Cefazolin 2020-05 No 2 gm, Memoria 06-21 Route: l 15:00: IVPB, Drug form: INJ, ABXQ8H, Dosing Weight 66.364, kg, Start date: 04/21/21 9:00:00 HAY CHOPPER, Duration: 2 day, Stop date: 04/23/21 1:00:00 HAY CHOPPER, ABX Indication : Surgical Prophylaxi s POLYETHYLEN 2020-05 No Notes: Mathieu chaitanya E GLYCOL 1-23 Dissolve l 3350 15:00: in 8 oz of [place] 00 water or juice. (Same as: Miralax) atorvastati 2020-05 No Notes: Mathieu chaitanya n 1-23 (Same as: l 15:00: Lipitor) Finasteride 2020-05 No Notes: Mathieu chaitanya 1-23 (Same as: l 15:00: Proscar) "Do Not Crush" Women of childbeari ng age should not touch or handle broken tablets Hazardous Drug Group 3:Reproduc tive risk Hazardous Drug -- Refer to safe handling procedure PPE Matrix Sertraline 2020-05 No Notes: Memor ia - (Same as: l 15:00: Zoloft) Cefazolin 2020-05 No 2 gm, Memoria 06-21 Route: l 15:00: IVPB, Drug form: INJ, ABXQ8H, Dosing Weight 66.364, kg, Start date: 04/21/21 9:00:00 HAY CHOPPER, Duration: 2 day, Stop date: 04/23/21 1:00:00 HAY CHOPPER, ABX Indication : Surgical Prophylaxi s POLYETHYLEN 2020-05 No Notes: Mathieu chaitanya E GLYCOL 1-23 Dissolve l 3350 15:00: in 8 oz of [place] 00 water or juice. (Same as: Miralax) atorvastati 2020-05 No Notes: Mathieu chaitanya n 1-23 (Same as: l 15:00: Lipitor) Finasteride 2020-05 No Notes: Mathieu chaitanya 1-23 (Same as: l 15:00: Proscar) "Do Not [...] 14:54: INJ, ONCE, Stop date: 04/21/21 8:54:00 HAY CHOPPER esmolol 2020-05 No Route: IV, Mathieu chaitanya (ANES) 06-21 Drug form: l 14:54: INJ, ONCE, Stop date: 04/21/21 8:54:00 HAY CHOPPER sugammadex 2020-05 No Route: IV, M emoria (ANES) 06-21 Drug form: l 14:54: SOLN, Kaz ONCE, Stop date: 04/21/21 8:54:00 HAY CHOPPER ondansetron 2020-05 No Route: IV, Memoria (ANES) 06-21 Drug form: l 14:54: INJ, ONCE, Stop date: 04/21/21 8:54:00 HAY CHOPPER esmolol 2020-05 No Route: IV, Mathieu chaitanya (ANES) 06-21 Drug form: l 14:54: INJ, ONCE, Stop date: 04/21/21 8:54:00 HAY CHOPPER sugammadex 2020-05 No Route: IV, M emoria (ANES) 06-21 Drug form: l 14:54: SOLN, Kaz ONCE, Stop date: 04/21/21 8:54:00 HAY CHOPPER ondansetron 2020-05 No Route: IV, Memoria (ANES) 06-21 Drug form: l 14:54: INJ, ONCE, Stop date: 04/21/21 8:54:00 HAY CHOPPER esmolol 2020-05 No Route: IV, Mathieu chaitanya (ANES) 06-21 Drug form: l 14:54: INJ, ONCE, Stop date: 04/21/21 8:54:00 HAY CHOPPER sugammadex 2020-05 No Route: IV, M emoria (ANES) 06-21 Drug form: l 14:54: SOLN, [place] ONCE, Stop date: 04/21/21 8:54:00 HAY CHOPPER albuterol 2020-05 No Route: Memori a (ANES) 06-21 INHALATION l 14:23: , Drug form: AERO/A, ONCE, Stop date: 04/21/21 8:23:00 HAY CHOPPER ePHEDrine 2020-05 No Route: IV, Me moria (ANES) 06-21 Drug form: l 14:23: INJ, ONCE, Stop date: 04/21/21 8:23:00 HAY CHOPPER albuterol 2020-05 No Route: Memori a (ANES) 06-21 INHALATION l 14:23: , Drug form: AERO/A, ONCE, Stop date: 04/21/21 8:23:00 HAY CHOPPER ePHEDrine 2020-05 No Route: IV, Me moria (ANES) 06-21 Drug form: l 14:23: INJ, ONCE, Stop date: 04/21/21 8:23:00 HAY CHOPPER albuterol 2020-05 No Route: Memori a (ANES) 06-21 INHALATION l 14:23: , Drug form: AERO/A, ONCE, Stop date: 04/21/21 8:23:00 HAY CHOPPER ePHEDrine 2020-05 No Route: IV, Me moria (ANES) 06-21 Drug form: l 14:23: INJ, ONCE, Stop date: 04/21/21 8:23:00 HAY CHOPPER Hydromorpho 2020-05 No 0.5 mg, Mem oria ne 06-21 Route: l 14:20: IVP, Kaz 00 Q5Min, Dosing Weight 66.364, kg, PRN Pain Score 7-10, Start date: 04/21/21 8:20:00 HAY CHOPPER, Duration: 4 doses or times, Stop date: Limited # of times Flumazenil 2020-05 No 0.2 mg, Mathieu chaitanya 06-21 Route: l 14:20: IVP, PRN, [place] 00 Dosing Weight 66.364, kg, PRN Benzodiaze pine Reversal, Initial dose, Start date: 04/21/21 8:20:00 HAY CHOPPER, Duration: 30 day, Stop date: 05/21/21 8:19:00 HAY CHOPPER Naloxone 2020-05 No 0.4 mg, Memori a 06-21 Route: l 14:20: IVP, [place] 00 Q2MIN, Dosing Weight 66.364, kg, PRN Narcotic Reversal, Start date: 04/21/21 8:20:00 HAY CHOPPER, Duration: 8 doses or times, Stop date: Limited # of times Ondansetron 2020-05 No 4 mg, Memor ia 06-21 Route: l 14:20: IVP, ONCE, Kaz 00 Dosing Weight 66.364, kg, PRN Nausea & Vomiting, Start date: 04/21/21 8:20:00 HAY CHOPPER Hydromorpho 2020-05 No 0.5 mg, Mem oria ne 06-21 Route: l 14:20: IVP, [place] 00 Q5Min, Dosing Weight 66.364, kg, PRN Pain Score 7-10, Start date: 04/21/21 8:20:00 HAY CHOPPER, Duration: 4 doses or times, Stop date: Limited # of times Flumazenil 2020-05 No 0.2 mg, Mathieu chaitanya 06-21 Route: l 14:20: IVP, PRN, Kaz Dosing Weight 66.364, kg, PRN Benzodiaze pine Reversal, Initial dose, Start date: 04/21/21 8:20:00 HAY CHOPPER, Duration: 30 day, Stop date: 05/21/21 8:19:00 HAY CHOPPER Naloxone 2020-05 No 0.4 mg, Memori a 06-21 Route: l 14:20: IVP, Kaz 00 Q2MIN, Dosing Weight 66.364, kg, PRN Narcotic Reversal, Start date: 04/21/21 8:20:00 HAY CHOPPER, Duration: 8 doses or times, Stop date: Limited # of times Ondansetron 2020-05 No 4 mg, Memor ia 06-21 Route: l 14:20: IVP, ONCE, Kaz 00 Dosing Weight 66.364, kg, PRN Nausea & Vomiting, Start date: 04/21/21 8:20:00 HAY CHOPPER Hydromorpho 2020-05 No 0.5 mg, Mem oria ne 06-21 Route: l 14:20: IVP, Kaz 00 Q5Min, Dosing Weight 66.364, kg, PRN Pain Score 7-10, Start date: 04/21/21 8:20:00 HAY CHOPPER, Duration: 4 doses or times, Stop date: Limited # of times Flumazenil 2020-05 No 0.2 mg, Mathieu chaitanya 06-21 Route: l 14:20: IVP, PRN, Dosing Weight 66.364, kg, PRN Benzodiaze pine Reversal, Initial dose, Start date: 04/21/21 8:20:00 HAY CHOPPER, Duration: 30 day, Stop date: 05/21/21 8:19:00 HAY CHOPPER Naloxone 2020-05 No 0.4 mg, Memori a 06-21 Route: l 14:20: IVP, Q2MIN, Dosing Weight 66.364, kg, PRN Narcotic Reversal, Start date: 04/21/21 8:20:00 HAY CHOPPER, Duration: 8 doses or times, Stop date: Limited # of times Ondansetron 2020-05 No 4 mg, Memor ia 06-21 Route: l 14:20: IVP, ONCE, Dosing Weight 66.364, kg, PRN Nausea & Vomiting, Start date: 04/21/21 8:20:00 HAY CHOPPER fentaNYL 2020-05 No Route: IV, Mem oria (ANES) 06-21 Drug form: l 14:17: INJ, ONCE, Stop date: 04/21/21 8:17:00 HAY CHOPPER dexamethaso 2020-05 No Route: IV, Memoria ne (ANES) 06-21 Drug form: l 14:17: INJ, ONCE, Stop date: 04/21/21 8:17:00 HAY CHOPPER rocuronium 2020-05 No Route: IV, M emoria (ANES) 06-21 Drug form: l 14:17: INJ, ONCE, Stop date: 04/21/21 8:17:00 HAY CHOPPER rocuronium 2020-05 No Route: IV, M emoria (ANES) 06-21 Drug form: l 14:17: INJ, ONCE, Stop date: 04/21/21 8:17:00 HAY CHOPPER fentaNYL 2020-05 No Route: IV, Mem oria (ANES) 06-21 Drug form: l 14:17: INJ, ONCE, Stop date: 04/21/21 8:17:00 HAY CHOPPER dexamethaso 2020-05 No Route: IV, Memoria ne (ANES) 06-21 Drug form: l 14:17: INJ, ONCE, Stop date: 04/21/21 8:17:00 HAY CHOPPER rocuronium 2020-05 No Route: IV, M emoria (ANES) 06-21 Drug form: l 14:17: INJ, ONCE, Stop date: 04/21/21 8:17:00 HAY CHOPPER fentaNYL 2020-05 No Route: IV, Mem oria (ANES) 06-21 Drug form: l 14:17: INJ, ONCE, Stop date: 04/21/21 8:17:00 HAY CHOPPER dexamethaso 2020-05 No Route: IV, Memoria ne (ANES) 06-21 Drug form: l 14:17: INJ, ONCE, Stop date: 04/21/21 8:17:00 HAY CHOPPER lidocaine 2020-05 No Route: IV, Me moria (ANES) 06-21 Drug form: l 14:12: INJ, ONCE, Stop date: 04/21/21 8:12:00 HAY CHOPPER propofol 2020-05 No Route: IV, Mem oria (ANES) - Drug form: l 14:12: INJ, ONCE, Stop date: 04/21/21 8:12:00 HAY CHOPPER ceFAZolin 2020-05 No Route: IV, Me moria (ANES) - Drug form: l 14:12: INJ, ONCE, Stop date: 04/21/21 8:12:00 HAY CHOPPER lidocaine 2020-05 No Route: IV, Me moria (ANES) - Drug form: l 14:12: INJ, ONCE, Stop date: 04/21/21 8:12:00 HAY CHOPPER propofol 2020-05 No Route: IV, Mem oria (ANES) - Drug form: l 14:12: INJ, ONCE, Stop date: 04/21/21 8:12:00 HAY CHOPPER ceFAZolin 2020-05 No Route: IV, Me moria (ANES) - Drug form: l 14:12: INJ, ONCE, Stop date: 04/21/21 8:12:00 HAY CHOPPER lidocaine 2020-05 No Route: IV, Me moria (ANES) 06-21 Drug form: l 14:12: INJ, ONCE, Stop date: 04/21/21 8:12:00 HAY CHOPPER propofol 2020-05 No Route: IV, Mem oria (ANES) 06-21 Drug form: l 14:12: INJ, ONCE, Stop date: 04/21/21 8:12:00 HAY CHOPPER ceFAZolin 2020-05 No Route: IV, Me moria (ANES) 06-21 Drug form: l 14:12: INJ, ONCE, Stop date: 04/21/21 8:12:00 HAY CHOPPER phenylephri 2020-05 No Route: IV, Memoria ne (ANES) 06-21 Drug form: l 14:02: INJ, ONCE, Stop date: 04/21/21 8:02:00 HAY CHOPPER phenylephri 2020-05 No Route: IV, Memoria ne (ANES) 06-21 Drug form: l 14:02: INJ, ONCE, Stop date: 04/21/21 8:02:00 HAY CHOPPER phenylephri 2020-05 No Route: IV, Memoria ne (ANES) 06-21 Drug form: l 14:02: INJ, ONCE, Stop date: 04/21/21 8:02:00 HAY CHOPPER Albuterol 2020-05 No Notes: SEE Me moria 0.83 MG/ML 06-21 RT l Inhalant 13:21: DOCUMENTAT Her wray Solution 00 ION (Same as: Proventil) Ondansetron 2020-05 No Notes: Mathieu chaitanya 06-21 (Same as: l 13:21: Zofran) MEDICATION WASTE Product Size: 4 mg Product Wasted: ___ mg Oxycodone 2020-05 No Notes: Memori a -23 (Same as: l 13:21: Roxicodone ) Albuterol 2020-05 No Notes: SEE Me moria 0.83 MG/ML 23 RT l Inhalant 13:21: DOCUMENTAT Her wray Solution 00 ION (Same as: Proventil) Ondansetron 2020-05 No Notes: Mathieu chaitanya -23 (Same as: l 13:21: Zofran) [place] 00 MEDICATION WASTE Product Size: 4 mg Product Wasted: ___ mg Oxycodone 2020-05 No Notes: Memori a - (Same as: l 13:21: Roxicodone Kaz 00 ) Albuterol 2020-05 No Notes: SEE Me moria 0.83 MG/ML 06-21 RT l Inhalant 13:21: DOCUMENTAT Her wray Solution 00 ION (Same as: Proventil) Ondansetron 2020-05 No Notes: Mathieu chaitanya 06-21 (Same as: l 13:21: Zofran) [place] 00 MEDICATION WASTE Product Size: 4 mg Product Wasted: ___ mg Oxycodone 2020-05 No Notes: Memori a 06-21 (Same as: l 13:21: Roxicodone [place] 00 ) Lactated 2020-05 No Route: IV, Mem oria Ringers 1-23 Total l Injection 13:17: Volume: Audra nn IV (ANES) 00 500, Start 500 mL date: 04/21/21 7:17:00 HAY CHOPPER, Stop date: 04/21/21 8:17:00 HAY CHOPPER Lactated 2020-05 No Route: IV, Mem oria Ringers 1-23 Total l Injection 13:17: Volume: Audra nn IV (ANES) 00 500, Start 500 mL date: 04/21/21 7:17:00 HAY CHOPPER, Stop date: 04/21/21 8:17:00 HAY CHOPPER Lactated 2020-05 No Route: IV, Mem oria Ringers 1-23 Total l Injection 13:17: Volume: Audra nn IV (ANES) 00 500, Start 500 mL date: 04/21/21 7:17:00 HAY CHOPPER, Stop date: 04/21/21 8:17:00 HAY CHOPPER Thyroxine 2020-05 No Notes: Memori a 1-23 Take 1 l 12:30: hour [place] 00 before or 2 hours after meal; Enteral feeds may interefere with the absorption of this medication . (Same as:Levothr oid, Synthroid) Thyroxine 2020-05 No Notes: Memori a 1-23 Take 1 l 12:30: hour Kaz 00 before or 2 hours after meal; Enteral feeds may interefere with the absorption of this medication . (Same as:Levothr oid, Synthroid) Thyroxine 2020-05 No Notes: Memori a 1-23 Take 1 l 12:30: hour Kaz 00 before or 2 hours after meal; Enteral feeds may interefere with the absorption of this medication . (Same as:Levothr oid, Synthroid) gabapentin 2020-05 No Notes: Memor ia 100 MG Oral 1-23 (Same as: l Capsule 06:00: Neurontin) Herm gabapentin 2020-05 No Notes: Memor ia 100 MG Oral 1-23 (Same as: l Capsule 06:00: Neurontin) Herm gabapentin 2020-05 No Notes: Memor ia 100 MG Oral 1-23 (Same as: l Capsule 06:00: Neurontin) Herm sennosides, 2020-05 No Notes: Mathieu chaitanya FDC -23 (Same as: l 03:00: Senokot) Cefazolin 2020-05 No Notes: Memori a 1-23 (Same as l 03:00: Ancef) sennosides, 2020-05 No Notes: Mathieu chaitanya FDC -23 (Same as: l 03:00: Senokot) Cefazolin 2020-05 No Notes: Memori a 1-23 (Same as l 03:00: Ancef) sennosides, 2020-05 No Notes: Mathieu chaitanya FDC -23 (Same as: l 03:00: Senokot) Cefazolin 2020-05 No Notes: Memori a 1-23 (Same as l 03:00: Ancef) Pulmicort 2020-05 No Notes: Memori a Respules 1-23 (Same As: l 02:00: Pulmicort) Pulmicort 2020-05 No Notes: Memori a Respules 1-23 (Same As: l 02:00: Pulmicort) Pulmicort 2020-05 No Notes: Memori a Respules 1-23 (Same As: l 02:00: Pulmicort) [place] 00 Albuterol 2020-05 No Notes: SEE Me moria 1-23 RT l 01:00: DOCUMENTAT [place] 00 ION (Same as: Proventil) Albuterol 2020-05 No Notes: SEE Me moria 1-23 RT l 01:00: DOCUMENTAT Kaz 00 ION (Same as: Proventil) Albuterol 2020-05 No Notes: SEE Me moria 1-23 RT l 01:00: DOCUMENTAT [place] 00 ION (Same as: Proventil) Tylenol 2020-05 No 650 mg, Memoria 06-21 Route: PO, l 00:00: Drug form: [place] 00 TAB, Q6H, Dosing Weight 65.455, kg, Priority: Routine, Start date: 04/20/21 18:00:00 HAY CHOPPER, Duration: 30 day, Stop date: 05/20/21 12:00:00 HAY CHOPPER Tylenol 2020-05 No 650 mg, Memoria 06-21 Route: PO, l 00:00: Drug form: Kaz 00 TAB, Q6H, Dosing Weight 65.455, kg, Priority: Routine, Start date: 04/20/21 18:00:00 HAY CHOPPER, Duration: 30 day, Stop date: 05/20/21 12:00:00 HAY CHOPPER Tylenol 2020-05 No 650 mg, Memoria 06-21 Route: PO, l 00:00: Drug form: Kaz 00 TAB, Q6H, Dosing Weight 65.455, kg, Priority: Routine, Start date: 04/20/21 18:00:00 HAY CHOPPER, Duration: 30 day, Stop date: 05/20/21 12:00:00 HAY CHOPPER Methocarbam 2020-05 No Notes: Mathieu chaitanya ol - (Same l 23:02: as:Robaxin [place] ) tramadol 2020-05 No Notes: Not Mem oria hydrochlori 06-20 to exceed l de 50 MG 23:02: 400mg/day. Her wray Oral Tablet 00 (Same As: Ultram) Methocarbam 2020-05 No Notes: Mathieu chaitanya ol -22 (Same l 23:02: as:Robaxin Kaz ) tramadol 2020-05 No Notes: Not Mem oria hydrochlori 06-20 to exceed l de 50 MG 23:02: 400mg/day. Her wray Oral Tablet 00 (Same As: Ultram) Methocarbam 2020-05 No Notes: Mathieu chaitanya ol [...] 65.455, kg, BID, Start date: 04/20/21 17:00:00 HAY CHOPPER, Duration: 30 day, Stop date: 05/20/21 9:00:00 HAY CHOPPER Ipratropium 2020-05 No Notes: SEE Memoria Doniphan 0.2 1-22 RT l MG/ML 23:00: DOCUMENTAT Eddie n Inhalant 00 ION (Same Solution as:Atroven t) Fish Oil 2020-05 No Notes: Memoria - (Same as: l 23:00: MaxEPA, Kaz 00 [place] 3 fish oil ) Primidone 2020-05 No Notes: Memori a - (Same as: l 23:00: Mysoline) Kaz 00 Advair 2020-05 No 1 puff, Memoria Diskus 250 06-20 Route: l mcg-50 mcg 23:00: INHALATION H ermann inhalation , Drug powder Form: AERO, Dosing Weight 65.455, kg, BID, Start date: 04/20/21 17:00:00 HAY CHOPPER, Duration: 30 day, Stop date: 05/20/21 9:00:00 HAY CHOPPER Ipratropium 2020-05 No Notes: SEE Memoria Doniphan 0.2 1-22 RT l MG/ML 23:00: DOCUMENTAT Eddie n Inhalant 00 ION (Same Solution as:Atroven t) Fish Oil 2020-05 No Notes: Memoria 1-22 (Same as: l 23:00: MaxEPA, [place] 00 [place] 3 fish oil ) Primidone 2020-05 No Notes: Memori a 1-22 (Same as: l 23:00: Mysoline) [place] Advair 2020-05 No 1 puff, Memoria Diskus 250 06-20 Route: l mcg-50 mcg 23:00: INHALATION H ermann inhalation 00 , Drug powder Form: AERO, Dosing Weight 65.455, kg, BID, Start date: 04/20/21 17:00:00 HAY CHOPPER, Duration: 30 day, Stop date: 05/20/21 9:00:00 HAY CHOPPER Ipratropium 2020-05 No Notes: SEE Memoria Doniphan 0.2 06-20 RT l MG/ML 23:00: DOCUMENTAT Eddie n Inhalant 00 ION (Same Solution as:Atroven t) Fish Oil 2020-05 No Notes: Memoria 06-20 (Same as: l 23:00: MaxEPA, [place] 00 [place] 3 fish oil ) Primidone 2020-05 No Notes: Memori a 06-20 (Same as: l 23:00: Mysoline) [place] 00 Advair 2020-05 Yes 1 puff, Memoria Diskus 250 - INHALATION l mcg-50 mcg 22:41: , BID, # 1 H ermann inhalation 00 ea, 3 powder Refill(s) losartan 2020-05 Yes 25 mg = 1 M emoria mg oral 1-22 tab, PO, l tablet 22:41: Daily, # [place] 00 30 tab, 0 Refill(s) sertraline 2020-05 Yes 100 mg = 1 M emoria 100 mg oral 1-22 tab, PO, l tablet 22:41: Daily, # Kaz 00 30 tab, 0 Refill(s) Advair 2020-05 Yes 1 puff, Memoria Diskus 250 -22 INHALATION l mcg-50 mcg 22:41: , BID, # 1 H ermann inhalation 00 ea, 3 powder Refill(s) losartan 2020-05 Yes 25 mg = 1 M emoria mg oral 1-22 tab, PO, l tablet 22:41: Daily, # [place] 00 30 tab, 0 Refill(s) sertraline 2020-05 Yes 100 mg = 1 M emoria 100 mg oral 1-22 tab, PO, l tablet 22:41: Daily, # Kaz 00 30 tab, 0 Refill(s) Advair 2020-05 Yes 1 puff, Memoria Diskus 250 -22 INHALATION l mcg-50 mcg 22:41: , BID, # 1 H ermann inhalation 00 ea, 3 powder Refill(s) losartan 25 2020-05 Yes 25 mg = 1 M emoria mg oral 1-22 tab, PO, l tablet 22:41: Daily, # [place] 00 30 tab, 0 Refill(s) sertraline 2020-05 Yes 100 mg = 1 M emoria 100 mg oral 1-22 tab, PO, l tablet 22:41: Daily, # Kaz 00 30 tab, 0 Refill(s) finasteride 2020-05 Yes 5 mg = 1 Me moria 5 mg oral 1-22 tab, PO, l tablet 22:40: Daily, # Kaz 00 30 tab, 0 Refill(s) finasteride 2020-05 Yes 5 mg = 1 Me moria 5 mg oral 1-22 tab, PO, l tablet 22:40: Daily, # Kaz 00 30 tab, 0 Refill(s) finasteride 2020-05 Yes 5 mg = 1 Me moria 5 mg oral 1-22 tab, PO, l tablet 22:40: Daily, # [place] 00 30 tab, 0 Refill(s) Albuterol 2020-05 No Notes: SEE Me moria 0.83 MG/ML 06-20 RT l Inhalant 22:02: DOCUMENTAT Her wray Solution 00 ION (Same as: Proventil) Albuterol 2020-05 No Notes: SEE Me moria 0.83 MG/ML 06-20 RT l Inhalant 22:02: DOCUMENTAT Her wray Solution 00 ION (Same as: Proventil) Albuterol 2020-05 No Notes: SEE Me moria 0.83 MG/ML 06-20 RT l Inhalant 22:02: DOCUMENTAT Her wray Solution 00 ION (Same as: Proventil) Oxycodone 2020-05 No Notes: Memori a Hydrochlori 06-20 (Same as: l de 1 MG/ML 22:01: 'Roxicodon H ermann Oral 00 e) Solution Oxycodone 2020-05 No Notes: Memori a 06-20 (Same as: l 22:01: Roxicodone Kaz 00 ) Oxycodone 2020-05 No Notes: Memori a Hydrochlori 22 (Same as: l de 1 MG/ML 22:01: 'Roxicodon H ermann Oral 00 e) Solution Oxycodone 2020-05 No Notes: Memori a 06-20 (Same as: l 22:01: Roxicodone ) Oxycodone 2020-05 No Notes: Memori a Hydrochlori 06-20 (Same as: l de 1 MG/ML 22:01: 'Roxicodon H ermann Oral 00 e) Solution Oxycodone 2020-05 No Notes: Memori a 06-20 (Same as: l 22:01: Roxicodone ) Enoxaparin 2020-05 No Notes: Memor ia 06-20 (Same as: l 22:00: Lovenox) Enoxaparin 2020-05 No Notes: Memor ia 06-20 (Same as: l 22:00: Lovenox) Enoxaparin 2020-05 No Notes: Memor ia 06-20 (Same as: l 22:00: Lovenox) Dextrose 2020-05 No 12.5 gm, Memor ia 50% Syringe 06-20 25 mL, l ([id number]) 21:59: Route: IVP, Drug Form: INJ, Dosing Weight 65.455, kg, PRN, PRN Blood Glucose Results, Start date: 04/20/21 15:59:00 HAY CHOPPER, Duration: 30 day, Stop date: 05/20/21 15:58:00 HAY CHOPPER, 0 Glucagon 2020-05 No 1 mg, Memoria 06-20 Route: IM, l 21:59: Drug form: PDR/INJ, PRN, Dosing Weight 65.455, kg, PRN Blood Glucose Results, Start date: 04/20/21 15:59:00 HAY CHOPPER, Duration: 30 day, Stop date: 05/20/21 15:58:00 HAY CHOPPER, 0 Bisacodyl 2020-05 No Notes: Memori a 06-20 (Same As: l 21:59: Dulcolax, Bisco-Lax) Ondansetron 2020-05 No Notes: Mathieu chaitanya 06-20 (Same as: l 21:59: Zofran) MEDICATION WASTE Product Size: 4 mg Product Wasted: ___ mg Melatonin 2020-05 No Notes: Memori a - (Same as: l 21:59: Melatonin) Dextrose 2020-05 No 12.5 gm, Memor ia 50% Syringe -22 25 mL, l (D50W) 21:59: Route: Sayner 00 IVP, Drug Form: INJ, Dosing Weight 65.455, kg, PRN, PRN Blood Glucose Results, Start date: 04/20/21 15:59:00 HAY CHOPPER, Duration: 30 day, Stop date: 05/20/21 15:58:00 HAY CHOPPER, 0 Glucagon 2020-05 No 1 mg, Memoria 06-20 Route: IM, l 21:59: Drug form: Kaz 00 PDR/INJ, PRN, Dosing Weight 65.455, kg, PRN Blood Glucose Results, Start date: 04/20/21 15:59:00 HAY CHOPPER, Duration: 30 day, Stop date: 05/20/21 15:58:00 HAY CHOPPER, 0 Bisacodyl 2020-05 No Notes: Memori a 06-20 (Same As: l 21:59: Dulcolax, Bisco-Lax) Ondansetron 2020-05 No Notes: Mathieu chaitanya 06-20 (Same as: l 21:59: Zofran) MEDICATION WASTE Product Size: 4 mg Product Wasted: ___ mg Melatonin 2020-05 No Notes: Memori a - (Same as: l 21:59: Melatonin) Dextrose 2020-05 No 12.5 gm, Memor ia 50% Syringe 06-20 25 mL, l (D50W) 21:59: Route: Sayner 00 IVP, Drug Form: INJ, Dosing Weight 65.455, kg, PRN, PRN Blood Glucose Results, Start date: 04/20/21 15:59:00 HAY CHOPPER, Duration: 30 day, Stop date: 05/20/21 15:58:00 HAY CHOPPER, 0 Glucagon 2020-05 No 1 mg, Memoria 06-20 Route: IM, l 21:59: Drug form: Sayner 00 PDR/INJ, PRN, Dosing Weight 65.455, kg, PRN Blood Glucose Results, Start date: 04/20/21 15:59:00 HAY CHOPPER, Duration: 30 day, Stop date: 05/20/21 15:58:00 HAY CHOPPER, 0 Bisacodyl 2020-05 No Notes: Memori a 06-20 (Same As: l 21:59: Dulcolax, Bisco-Lax) Ondansetron 2020-05 No Notes: Mathieu chaitanya 06-20 (Same as: l 21:59: Zofran) MEDICATION WASTE Product Size: 4 mg Product Wasted: ___ mg Melatonin 2020-05 No Notes: Memori a 06-20 (Same as: l 21:59: Melatonin) Morphine 2020-05 No 2 mg, Memoria 06-20 Route: l 20:38: IVP, ONCE, Dosing Weight 65.455, kg, Priority: STAT, Start date: 04/20/21 14:38:00 HAY CHOPPER, Stop date: 04/20/21 14:38:00 HAY CHOPPER Morphine 2020-05 No 2 mg, Memoria 06-20 Route: l 20:38: IVP, ONCE, Dosing Weight 65.455, kg, Priority: STAT, Start date: 04/20/21 14:38:00 HAY CHOPPER, Stop date: 04/20/21 14:38:00 HAY CHOPPER Morphine 2020-05 No 2 mg, Memoria 06-20 Route: l 20:38: IVP, ONCE, Dosing Weight 65.455, kg, Priority: STAT, Start date: 04/20/21 14:38:00 HAY CHOPPER, Stop date: 04/20/21 14:38:00 HAY CHOPPER Albuterol 2020-05 No Notes: Memori a 0.833 MG/ML 06-20 (Same as: :15: Duoneb) Sayner Ipratropium 00 [place] 0.167 MG/ML Inhalant Solution [DuoNeb] Albuterol 2020-05 No Notes: Memori a 0.833 MG/ML 06-20 (Same as: :15: Duoneb) [place] Ipratropium 00 [place] 0.167 MG/ML Inhalant Solution [DuoNeb] Albuterol 2020-05 No Notes: Memori a 0.833 MG/ML 06-20 (Same as: :15: Duoneb) [place]ner Ipratropium 00 [place] 0.167 MG/ML Inhalant Solution [DuoNeb] primidone No 100 mg = 2 Me moria 50 mg oral 9-07 tab, PO, l tablet 15:35: BID, # 360 Audra nn 00 tab, 3 Refill(s), Pharmacy: [facility] #[id number], 162.56, cm, 02/03/21 10:23:00 CDT, Height, 65.455, kg, 02/03/21 10:23:00 CDT, Weight primidone 0 No 100 mg = 2 Me moria 50 mg oral 9-07 tab, PO, l tablet 15:35: BID, # 360 Audra nn 00 tab, 3 Refill(s), Pharmacy: [facility] #[id number], 162.56, cm, 02/03/21 10:23:00 CDT, Height, 65.455, kg, 02/03/21 10:23:00 CDT, Weight primidone No 100 mg = 2 Me moria 50 mg oral 9-07 tab, PO, l tablet 15:35: BID, # 360 Audra nn 00 tab, 3 Refill(s), Pharmacy: [facility] #[id number], 162.56, cm, 02/03/21 10:23:00 CDT, Height, 65.455, kg, 02/03/21 10:23:00 CDT, Weight Proscar 5 Proscar 5 2021- No 1{table QD Proscar 5 MG MG 1-20 07-16 t} MG 00:00: 00:00 00 :00 Proscar 5 Proscar 5 2020-2021- No 1{table QD Proscar 5 MG MG 1-20 07-16 t} MG 00:00: 00:00 00 :00 Proscar 5 Proscar 5 2020-2021- No 1{table QD Proscar 5 MG MG 1-20 07-16 t} MG 00:00: 00:00 00 :00 Proscar 5 Proscar 5 2020-2021- No 1{table QD Proscar 5 MG MG 1-20 07-16 t} MG 00:00: 00:00 00 :00 Proscar 5 Proscar 5 2021- No 1{table QD Proscar 5 MG MG 1-20 -16 t} MG 00:00: 00:00 00 :00 Proscar 5 Proscar 5 2020-0 2- No 1{table QD Proscar 5 MG MG 1-20 -16 t} MG 00:00: 00:00 00 :00 ALBUTEROL 2020-0 Yes TAKE 2 Univer s [...] Eddie n 00 tab, 3 Refill(s), Pharmacy: [facility]/[employer] [facility] [employer] [facility] #[id number] primidone 2020-0 Yes 50 mg = 1 Mem oria 50 mg oral 5-01 tab, PO, l tablet 15:30: BID, # 60 Eddie n 00 tab, 3 Refill(s), Pharmacy: [facility] [facility] cy #[id number] primidone 2020-0 Yes 50 mg = 1 Mem oria 50 mg oral 5-01 tab, PO, l tablet 15:30: BID, # 60 Eddie n 00 tab, 3 Refill(s), Pharmacy: [facility] #[id number] primidone 2020-0 Yes 50 mg = 1 Mem oria 50 mg oral 1-07 tab, PO, l tablet 22:25: BID, # 60 Eddie n 32 tab, 3 Refill(s), [id number] primidone 2020-0 Yes 50 mg = 1 Mem oria 50 mg oral 1-07 tab, PO, l tablet 22:25: BID, # 60 Eddie n 32 tab, 3 Refill(s), [id number] primidone 0 Yes 50 mg = 1 Mem oria 50 mg oral 1-07 tab, PO, l tablet 22:25: BID, # 60 Eddie n 32 tab, 3 Refill(s), [id number] primidone 0 No 50 mg = 1 Mem oria 50 mg oral 1-07 tab, PO, l tablet 22:22: BID, X 30 Eddie n 48 day, # 60 tab, 3 Refill(s), Pharmacy: [place] [id number] primidone No 50 mg = 1 Mem oria 50 mg oral 1-07 tab, PO, l tablet 22:22: BID, X 30 Eddie n 48 day, # 60 tab, 3 Refill(s), Pharmacy: [place] [id number] primidone No 50 mg = 1 Mem oria 50 mg oral 1-07 tab, PO, l tablet 22:22: BID, X 30 Eddie n 48 day, # 60 tab, 3 Refill(s), Pharmacy: [place] [id number] primidone 2018-05 Yes 50 mg = 1 Mem oria 50 mg oral 1-22 tab, PO, l tablet 17:52: Daily, # Sayner 00 30 tab, 3 Refill(s), Pharmacy: [place] [id number] primidone 2018-05 Yes 50 mg = 1 Mem oria 50 mg oral 1-22 tab, PO, l tablet 17:52: Daily, # Sayner 00 30 tab, 3 Refill(s), Pharmacy: [place] [id number] primidone 2018-05 Yes 50 mg = 1 Mem oria 50 mg oral 1-22 tab, PO, l tablet 17:52: Daily, # Sayner 00 30 tab, 3 Refill(s), Pharmacy: [place] [id number] omeprazole 2018-05 Yes 20 mg = 1 [...] moria 0-23 TID, 0 l 20:03: Refill(s) Sayner 00 atorvastati 2018-05 Yes 40 mg = 1 M emoria n 40 mg 0-23 tab, PO, l oral tablet 20:03: Daily, 0 He rmann 00 Refill(s) Fish Oil 2018-05 Yes 1,200 mg = Mem oria 1200 mg 0-23 1 cap, PO, l oral 20:03: TID, 0 Kaz capsule 00 Refill(s) Ipratropium 2018-05 Yes 250 Memori a Doniphan 0.2 0-23 microgram l MG/ML 20:03: = [...] tab, PO, l tablet 20:03: Daily, 0 Sayner 00 Refill(s) Bupropion 2018-05 Yes 15 mg, PO, Me moria 0-23 TID, 0 l 20:03: Refill(s) Sayner 00 atorvastati 2018-05 Yes 40 mg = 1 M emoria n 40 mg 0-23 tab, PO, l oral tablet 20:03: Daily, 0 He rmann 00 Refill(s) Fish Oil 2018-05 Yes 1,200 mg = Mem oria 1200 mg 0-23 1 cap, PO, l oral 20:03: TID, 0 Sayner capsule 00 Refill(s) Ipratropium 2018-05 Yes 250 Memori a [place]iphan 0.2 0-23 microgram l MG/ML 20:03: = [...] n inhalation 00 ea, 3 aerosol Refill(s) mirtazapine 2018-05 Yes 15 mg = 1 M emoria 15 mg oral 0-23 tab, PO, l tablet 20:03: Bedtime, 0 Audra nn 00 Refill(s) ipratropium 2018-05 Yes 250 Memori a 0.02% 0-23 microgram l inhalation 20:03: = 1.25 mL, H ermann solution 00 INHALATION , TID, # 75 mL, 0 Refill(s) levothyroxi 2018-05 Yes 100 Memori a ne [...] tab, PO, l tablet 20:03: Daily, 0 Sayner 00 Refill(s) Bupropion 2018-05 Yes 15 mg, PO, Me moria 0-23 TID, 0 l 20:03: Refill(s) Kaz 00 atorvastati 2018-05 Yes 40 mg = 1 M emoria n 40 mg 0-23 tab, PO, l oral tablet 20:03: Daily, 0 He rmann 00 Refill(s) Fish Oil 2018-05 Yes 1,200 mg = Mem oria 1200 mg 0-23 1 cap, PO, l oral 20:03: TID, 0 Sayner capsule 00 Refill(s) Ipratropium 2018-05 Yes 250 Memori a Doniphan 0.2 0-23 microgram l MG/ML 20:03: = 1.25 mL, Eddie n Inhalant 00 INHALATION Solution , TID, # 75 mL, 0 Refill(s) Albuterol 2018-05 Yes 2.5 mg = 3 Me moria 0.83 MG/ML 0-23 mL, NEB, l Inhalant 20:03: Q6H, 0 Sayner Solution 00 Refill(s) Dulera 100 2018-05 Yes 2 puff, Mathieu chaitanya mcg-5 0-23 INHALER, l mcg/inh 20:03: BID, # 1 Eddie n inhalation 00 ea, 3 aerosol Refill(s) omeprazole 2018-05 Yes 20 mg = 1 Me moria 20 mg oral 0-23 tab, PO, l enteric 20:03: Daily, 0 Eddie n coated 00 Refill(s) tablet mirtazapine 2018-05 Yes 15 mg = 1 M emoria 15 mg oral 0-23 tab, PO, l tablet 20:03: Bedtime, 0 Audra nn 00 Refill(s) ipratropium 2018-05 Yes 250 Memori a 0.02% 0-23 microgram l inhalation 20:03: = 1.25 mL, H ermann solution 00 INHALATION , TID, # 75 mL, 0 Refill(s) ipratropium 2019-0 Yes [id number] .5mg Inhale 2.5 Univers 0.02 % 8-26 mL every 6 ity of nebulizer 00:00: (six) [place] solution 00 hours as Medical needed for Branch Wheezing or Shortness of Breath. albuterol 2019-0 Yes [id number] 2.5mg Inhale 3 Univers 2.5 mg /3 8-26 mL every 6 ity of mL (0.083 00:00: (six) [place] %) 00 hours as Medical nebulizer needed for Bran ch solution Wheezing or Shortness of Breath. ipratropium 2019-0 Yes [id number] .5mg Inhale 2.5 Univers 0.02 % 8-26 mL every 6 ity of nebulizer 00:00: (six) [place] solution 00 hours as Medical needed for Branch Wheezing or Shortness of Breath. albuterol 2019-0 Yes [id number] 2.5mg Inhale 3 Univers 2.5 mg /3 8-26 mL every 6 ity of mL (0.083 00:00: (six) [place] %) 00 hours as Medical nebulizer needed for Bran ch solution Wheezing or Shortness of Breath. ipratropium 2019-0 Yes [id number] .5mg Inhale 2.5 Univers 0.02 % 8-26 mL every 6 ity of nebulizer 00:00: (six) [place] solution 00 hours as Medical needed for Branch Wheezing or Shortness of Breath. albuterol 2019-0 Yes [id number] 2.5mg Inhale 3 Univers 2.5 mg /3 8-26 mL every 6 ity of mL (0.083 00:00: (six) [place] %) 00 hours as Medical nebulizer needed for Bran ch solution Wheezing or Shortness of Breath. ipratropium 2019-0 Yes [id number] .5mg Inhale 2.5 Univers 0.02 % 8-26 mL every 6 ity of nebulizer 00:00: (six) [place] solution 00 hours as Medical needed for Branch Wheezing or Shortness of Breath. albuterol 2019-0 Yes [id number] 2.5mg Inhale 3 Univers 2.5 mg /3 8-26 mL every 6 ity of mL (0.083 00:00: (six) [place] %) 00 hours as Medical nebulizer needed for Bran ch solution Wheezing or Shortness of Breath. Diclofenac Diclofenac 2018- No Chito 1 tablet Common Sodium Sodium 4-15 05-15 Taryn with food Spir it 00:00: 00:00 or milk - [facility] 00 :00 [facility] atorvastati Yes 40mg Take 40 mg Univers n 40 mg 1-22 by mouth ity of tablet 00:00: at [place] [address] bedtime. Medical Branch atorvastati Yes 40mg Take 40 mg Univers n 40 mg 1-22 by mouth ity of tablet 00:00: at [place] [address] bedtime. Medical Branch atorvastati Yes 40mg Take 40 mg Univers n 40 mg 1-22 by mouth ity of tablet 00:00: at [place] [address] bedtime. Medical Branch atorvastati Yes 40mg Take 40 mg Univers n 40 mg 1-22 by mouth ity of tablet 00:00: at [place] [address] bedtime. Medical Branch Levothyroxi Levothyroxi 2017-05 Yes Chito 1 tablet Common ne Sodium ne Sodium 2-10 Taryn on an Spi rit 00:00: empty - [facility] [address] [facility] Nitrostat Nitrostat 2017-05 Yes Chito as needed Common 2-10 Taryn for chest Spirit 00:00: pain - [facility] 00 [facility] Nitrostat Nitrostat 2017-05 No QD Nitrostat 0.3 MG 0.3 MG 2-10 0.3 MG 00:00: 00 Nitrostat Nitrostat 2017-05 No QD Nitrostat 0.3 MG 0.3 MG 2-10 0.3 MG 00:00: 00 Nitrostat Nitrostat 2017-05 No QD Nitrostat 0.3 MG 0.3 MG 2-10 0.3 MG 00:00: 00 Nitrostat Nitrostat 2017-05 No QD Nitrostat 0.3 MG 0.3 MG 2-10 0.3 MG 00:00: 00 Nitrostat Nitrostat 2017-05 No QD Nitrostat 0.3 MG 0.3 MG 2-10 0.3 MG 00:00: 00 Nitrostat Nitrostat 2017-05 No QD Nitrostat 0.3 MG 0.3 MG 2-10 0.3 MG 00:00: 00 lansoprazol 2017-0 Yes 30mg QD Take [address] [facility] 5-04 [facility] (PREVACID) 09:14: daily. Medic al 30 MG 50 Center capsule fluticasone 2017-0 Yes 1{puff} Inhale [address] [facility] [address] -salmeterol 5-04 puff by [facility] (ADVAIR) 09:14: mouth via Medi nba 250-50 50 inhaler Center mcg/dose every 12 diskus (twelve) inhaler hours. aspirin 81 2017-0 Yes 81mg QD Take [address] [facility] EC 5-04 [facility] tablet 09:14: daily. [address] magnesium 2017-0 Yes 400mg QD Take [address] oxide 5-04 mg by [facility] (MAG-OX) 09:14: mouth Medical 400 mg 50 daily. Center tablet lansoprazol 2017-0 Yes 30mg QD Take [address] [facility] e 5-04 by [facility] (PREVACID) 09:14: daily. Medic al 30 MG 50 Center capsule fluticasone 2017-0 Yes 1{puff} Inhale [address] -salmeterol 5-04 puff by [facility] (ADVAIR) 09:14: mouth via Medi nba 250-50 50 inhaler Center mcg/dose every 12 diskus (twelve) inhaler hours. aspirin 81 2017-0 Yes 81mg QD Take [address] MG EC 5-04 [facility] tablet 09:14: daily. [address] magnesium 2017-0 Yes 400mg QD Take [address] oxide 5-04 mg by [facility] (MAG-OX) 09:14: mouth Medical 400 mg 50 daily. Center tablet lansoprazol 2017-0 Yes 30mg QD Take [address] [facility] e 5-04 by [facility] (PREVACID) 09:14: daily. Medic al 30 MG 50 Center capsule fluticasone 2017-0 Yes 1{puff} Inhale [address] -salmeterol 5-04 puff by [facility] (ADVAIR) 09:14: mouth via Medi nba 250-50 50 inhaler Center mcg/dose every 12 diskus (twelve) inhaler hours. aspirin 81 2017-0 Yes 81mg QD Take [address] MG EC 5-04 [facility] tablet 09:14: daily. [address] magnesium 2017-0 Yes 400mg QD Take [address] oxide 5-04 mg by [facility] (MAG-OX) 09:14: mouth Medical 400 mg 50 daily. Center tablet Diazepam 5 Yes See Memoria MG Oral 2-06 Instructio l Tablet 19:25: ns, PRN [place] [Valium] 00 Muscle Spasms, 1 tab PO [...] 2-06 Instructio l Tablet 19:25: ns, PRN Sayner [Valium] 00 Muscle Spasms, 1 tab PO q4-6 hrs prn muscle spasms, # 30 tab, 4 Refill(s) Docusate Yes 100 mg = 1 Mem oria Sodium 100 2-06 cap, PO, l MG Oral 19:25: BID, # 30 Audra nn Capsule 00 cap, 1 Refill(s) glycopyrrol No Route: IV, Memoria ate (ANES) 07-05 Drug form: l 17:07: INJ, ONCE, Kaz Stop date: 07/05/16 11:07:00 HAY CHOPPER neostigmine No Route: IV, Memoria (ANES) 07-05 Drug form: l 17:07: INJ, ONCE, Kaz Stop date: 07/05/16 11:07:00 HAY CHOPPER glycopyrrol No Route: IV, Memoria ate (ANES) 07-05 Drug form: l 17:07: INJ, ONCE, Sayner Stop date: 07/05/16 11:07:00 HAY CHOPPER neostigmine No Route: IV, Memoria (ANES) 07-05 Drug form: l 17:07: INJ, ONCE, Stop date: 07/05/16 11:07:00 HAY CHOPPER glycopyrrol No Route: IV, Memoria ate (ANES) 07-05 Drug form: l 17:07: INJ, ONCE, Stop date: 07/05/16 11:07:00 HAY CHOPPER neostigmine No Route: IV, Memoria (ANES) 07-05 Drug form: l 17:07: INJ, ONCE, Stop date: 07/05/16 11:07:00 HAY CHOPPER vancomycin No Route: IV, M emoria (ANES) 07-05 Drug form: l 16:56: INJ, ONCE, Stop date: 07/05/16 10:56:00 HAY CHOPPER vancomycin No Route: IV, M emoria (ANES) 07-05 Drug form: l 16:56: INJ, ONCE, Stop date: 07/05/16 10:56:00 HAY CHOPPER vancomycin No Route: IV, M emoria (ANES) 07-05 Drug form: l 16:56: INJ, ONCE, Stop date: 07/05/16 10:56:00 HAY CHOPPER ondansetron No Route: IV, Memoria (ANES) 07-05 Drug form: l 16:51: INJ, ONCE, Stop date: 07/05/16 10:51:00 HAY CHOPPER ketOROLAC No IV, ONCE Mathieu chaitanya (ANES) 07-05 l 16:51: Kaz 00 propofol No Route: IV, Mem oria (ANES) 07-05 Drug form: l 16:51: INJ, ONCE, Stop date: 07/05/16 10:51:00 HAY CHOPPER fentaNYL No Route: IV, Mem oria (ANES) 07-05 Drug form: l 16:51: INJ, ONCE, Stop date: 07/05/16 10:51:00 HAY CHOPPER phenylephri No Route: IV, Memoria ne (ANES) 07-05 Drug form: l 16:51: INJ, ONCE, Stop date: 07/05/16 10:51:00 HAY CHOPPER rocuronium 2017-0 No Route: IV, M emoria (ANES) 07-05 Drug form: l 16:51: INJ, ONCE, Stop date: 07/05/16 10:51:00 HAY CHOPPER lidocaine 2017-0 No Route: IV, Me moria (ANES) 07-05 Drug form: l 16:51: INJ, ONCE, Stop date: 07/05/16 10:51:00 HAY CHOPPER midazolam 2017-0 No Route: IV, Me moria (ANES) 07-05 Drug form: l 16:51: SOLN, ONCE, Stop date: 07/05/16 10:51:00 HAY CHOPPER ondansetron 2016- No Route: IV, Memoria (ANES) 07-05 Drug form: l 16:51: INJ, ONCE, Stop date: 07/05/16 10:51:00 HAY CHOPPER ketOROLAC 2016-0 No IV, ONCE Mathieu chaitanya (ANES) 07-05 l 16:51: propofol 2017-0 No Route: IV, Mem oria (ANES) 07-05 Drug form: l 16:51: INJ, ONCE, Stop date: 07/05/16 10:51:00 HAY CHOPPER fentaNYL 2017-0 No Route: IV, Mem oria (ANES) 07-05 Drug form: l 16:51: INJ, ONCE, Stop date: 07/05/16 10:51:00 HAY CHOPPER phenylephri 2016-0 No Route: IV, Memoria ne (ANES) 07-05 Drug form: l 16:51: INJ, ONCE, Stop date: 07/05/16 10:51:00 HAY CHOPPER rocuronium 2017-0 No Route: IV, M emoria (ANES) 07-05 Drug form: l 16:51: INJ, ONCE, Stop date: 07/05/16 10:51:00 HAY CHOPPER lidocaine 2017-0 No Route: IV, Me moria (ANES) 2 Drug form: l 16:51: INJ, ONCE, Stop date: 07/05/16 10:51:00 HAY CHOPPER midazolam 2017-0 No Route: IV, Me moria (ANES) 2-06 Drug form: l 16:51: SOLN, [place] 00 ONCE, Stop date: 07/05/16 10:51:00 HAY CHOPPER ondansetron 2016-0 No Route: IV, Memoria (ANES) 07-05 Drug form: l 16:51: INJ, ONCE, Stop date: 07/05/16 10:51:00 HAY CHOPPER ketOROLAC 2016-0 No IV, ONCE Mathieu chaitanya (ANES) 07-05 l 16:51: Kaz propofol 2016-0 No Route: IV, Mem oria (ANES) 07-05 Drug form: l 16:51: INJ, ONCE, Stop date: 07/05/16 10:51:00 HAY CHOPPER fentaNYL 2016- No Route: IV, Mem oria (ANES) 07-05 Drug form: l 16:51: INJ, ONCE, Stop date: 07/05/16 10:51:00 HAY CHOPPER phenylephri 2016- No Route: IV, Memoria ne (ANES) 07-05 Drug form: l 16:51: INJ, ONCE, Stop date: 07/05/16 10:51:00 HAY CHOPPER rocuronium No Route: IV, M emoria (ANES) 07-05 Drug form: l 16:51: INJ, ONCE, Stop date: 07/05/16 10:51:00 HAY CHOPPER lidocaine 2016-0 No Route: IV, Me moria (ANES) 07-05 Drug form: l 16:51: INJ, ONCE, Stop date: 07/05/16 10:51:00 HAY CHOPPER midazolam 2016-0 No Route: IV, Me moria (ANES) 07-05 Drug form: l 16:51: SOLN, [place] 00 ONCE, Stop date: 07/05/16 10:51:00 HAY CHOPPER Albuterol 2016-0 No Notes: SEE Me moria 0.83 MG/ML 2- RT l Inhalant 16:46: DOCUMENTAT Her wray Solution 00 ION MEDICATION WASTE Product Size: 2.5 mg Product Wasted: ___ mg Atropine 2016- No Notes: Mem oria - MEDICATION l 16:46: WASTE Kaz 00 Product Size: 0.4 mg Product Wasted: ___ [...] Notes: Memoria 2-06 (Same l 16:46: as:MORPhin [place] 00 e Sulfate) Labetalol No Notes: Memori [...] e 2-06 50 mL, l 16:46: Route: Sayner 00 IVPB, Drug form: SOLN, ONCE, Dosing Weight 60.455, kg, PRN Nausea & Vomiting, Start date: 07/05/16 10:46:00 HAY CHOPPER Ondansetron No Notes: Mathieu chaitanya 2-06 (Same as: l 16:46: Zofran) Sayner 00 MEDICATION WASTE Product Size: 4 mg Product Wasted: ___ mg Albuterol No Notes: SEE Me moria 0.83 MG/ML 2- RT l Inhalant 16:46: DOCUMENTAT Her wray Solution 00 ION MEDICATION WASTE Product Size: 2.5 mg Product Wasted: ___ mg Atropine No Notes: Mem oria - MEDICATION l 16:46: WASTE Kaz 00 Product Size: 0.4 mg Product Wasted: ___ mg Ephedrine No Notes: Memori a 2-06 (Same as: l 16:46: ePHEDrine [place]ner 00 Sulfate) Naloxone No Notes: Memoria 2-06 Same as l 16:46: Narcan Meperidine No Notes: Memor ia 2-06 (Same as: l 16:46: Demerol) "Use Precaution in Elderly, Seizure disorders, and Renal impairment " Glycopyrrol No Notes: Mathieu chaitanya ate 2-06 (Same as: l 16:46: Robinul) Kaz 00 Racepinephr No Notes: Mathieu chaitanya ine 2-06 (racepinep l 16:46: hrine *2.25% inh 0.5ml SOLN) (Same as:S2) Flumazenil No Notes: Memor ia 2-06 (Same as: l 16:46: Romazicon) Morphine No Notes: Memoria 2-06 (Same l 16:46: as:MORPhin [place] 00 e Sulfate) Labetalol No Notes: Memori a 2-06 (Same as: l 16:46: Normodyne, Kaz 00 Trandate) Push over 2 minutes Give bolus over 2-3 minutes. Ibuprofen No Notes: Memori a 2-06 (Same as: l 16:46: Motrin) "Do Not Crush" Take with food. Oxycodone No Notes: Memori a 2- (Same as: l 16:46: Roxicodone ) Acetaminoph No Notes: Mathieu chaitanya en 2- Infuse l 16:46: over 15 Sayner 00 minutes Do not exceed 4gm/day of acetaminop hen MEDICATION WASTE Product Size: 1000 mg Product Wasted: ___ mg Hydralazine No Notes: Mathieu chaitanya 2- (Same as: l 16:46: Apresoline ) Push over 5 minutes 72 HR No Notes: Memoria Scopolamine - Change l 0.0139 16:46: patch Sayner MG/HR 00 every 72 Transdermal hours Patch (Same as: Transderm- Scop) Promethazin No 6.25 mg, Me moria e 2- 50 mL, l 16:46: Route: Kaz 00 IVPB, Drug form: SOLN, ONCE, Dosing Weight 60.455, kg, PRN Nausea & Vomiting, Start date: 07/05/16 10:46:00 HAY CHOPPER Ondansetron No Notes: Mathieu chaitanya - (Same as: l 16:46: Zofran) Kaz 00 MEDICATION WASTE Product Size: 4 mg Product Wasted: ___ mg Albuterol No Notes: SEE Me moria 0.83 MG/ML 2-06 RT l Inhalant 16:46: DOCUMENTAT Her wray Solution 00 ION MEDICATION WASTE Product Size: 2.5 mg Product Wasted: ___ mg Atropine No Notes: Mem oria 07-05 MEDICATION l 16:46: WASTE Kaz 00 Product Size: 0.4 mg Product Wasted: ___ mg Ephedrine No Notes: Memori a 2-06 (Same as: l 16:46: ePHEDrine [place] 00 Sulfate) Naloxone No Notes: Memoria 2-06 [...] Notes: Memoria 2-06 (Same l 16:46: as:MORPhin Kaz 00 e Sulfate) Labetalol No Notes: Memori [...] en 2-06 Infuse l 16:46: over 15 Kaz 00 minutes Do not exceed 4gm/day of acetaminop hen MEDICATION WASTE Product Size: 1000 mg Product Wasted: ___ mg Hydralazine No Notes: Mathieu chaitanya 2-06 (Same as: l 16:46: Apresoline ) Push over 5 minutes 72 HR No Notes: Memoria Scopolamine 2-06 Change l 0.0139 16:46: patch Sayner MG/HR 00 every 72 Transdermal hours Patch (Same as: Transderm- Scop) Promethazin No 6.25 mg, Me moria e 2-06 50 mL, l 16:46: Route: Kaz 00 IVPB, Drug form: SOLN, ONCE, Dosing Weight 60.455, kg, PRN Nausea & Vomiting, Start date: 07/05/16 10:46:00 HAY CHOPPER Ondansetron No Notes: Mathieu chaitanya 2-06 (Same as: l 16:46: Zofran) MEDICATION WASTE Product Size: 4 mg Product Wasted: ___ mg LR 1000 mL No Route: IV, M emoria INJ (ANES) 2-06 Total l 16:01: Volume: Kaz 00 1,000, Start date: 07/05/16 10:01:00 HAY CHOPPER, Stop date: 07/05/16 11:01:00 HAY CHOPPER LR 1000 mL No Route: IV, M emoria INJ (ANES) 2-06 Total l 16:01: Volume: Kaz 00 1,000, Start date: 07/05/16 10:01:00 HAY CHOPPER, Stop date: 07/05/16 11:01:00 HAY CHOPPER LR 1000 mL No Route: IV, M emoria INJ (ANES) 2-06 Total l 16:01: Volume: Sayner 00 1,000, Start date: 07/05/16 10:01:00 HAY CHOPPER, Stop date: 07/05/16 11:01:00 HAY CHOPPER HYDROcodone Yes 30 mg = 1 M emoria 30 mg oral 2-06 cap, PO, l capsule, 14:21: Q12H, 0 Eddie n extended 00 Refill(s) release HYDROcodone Yes 30 mg = 1 M emoria 30 mg oral 2-06 cap, PO, l capsule, 14:21: Q12H, 0 Eddie n extended 00 Refill(s) release HYDROcodone 2016-0 Yes 30 mg = 1 M emoria 30 mg oral 2-06 cap, PO, l capsule, 14:21: Q12H, 0 Eddie n extended 00 Refill(s) release Lactated No 1,000 mL, Mathieu chaitanya Ringers 2-06 Rate: 100 l 1,000 mL 13:04: ml/hr, Infuse over: 10 hr, Route: IV, Dosing Weight 60.455 kg, Total Volume: 1,000, Start date: 07/05/16 7:04:00 HAY CHOPPER, Duration: 30 day, Stop date: 08/04/16 7:03:00 HAY CHOPPER Lactated 2017-0 No 1,000 mL, Mathieu chaitanya Ringers 2-06 Rate: 100 l 1,000 mL 13:04: ml/hr, Kaz 00 Infuse over: 10 hr, Route: IV, Dosing Weight 60.455 kg, Total Volume: 1,000, Start date: 07/05/16 7:04:00 HAY CHOPPER, Duration: 30 day, Stop date: 08/04/16 7:03:00 HAY CHOPPER Lactated 2017-0 No 1,000 mL, Mathieu chaitanya Ringers 2-06 Rate: 100 l 1,000 mL 13:04: ml/hr, Kaz 00 Infuse over: 10 hr, Route: IV, Dosing Weight 60.455 kg, Total Volume: 1,000, Start date: 07/05/16 7:04:00 HAY CHOPPER, Duration: 30 day, Stop date: 08/04/16 7:03:00 HAY CHOPPER vancomycin 2016-0 No 2000 mg: Me moria + sodium 2-06 infuse l chloride 11:00: over 2.5 Audra nn 0.9% INJ 00 hours 250 mL MEDICATION WASTE Product Size: 1000 mg Product Wasted: ___ mg vancomycin 2016-0 No 2000 mg: Me moria + sodium 2-06 infuse l chloride 11:00: over 2.5 Audra nn 0.9% INJ 00 hours 250 mL MEDICATION WASTE Product Size: 1000 mg Product Wasted: ___ mg vancomycin 2016-0 No 2000 mg: Me moria + sodium 2-06 infuse l chloride 11:00: over 2.5 Audra nn 0.9% INJ 00 hours 250 mL MEDICATION WASTE Product Size: 1000 mg Product Wasted: ___ mg LIVALO 4 mg 2015-[address] [facility] [place] LIVALO 4 mg 2015-[address] [facility] LIVALO 4 mg 2015-[address] [facility] clopidogrel 2016-0 Yes [facility] 75 [facility] tablet [facility]: Medical 00 [place] clopidogrel [facility] 75 [facility] tablet [facility]: Medical 00 [place] clopidogrel [facility] 75 [facility] tablet 00:00: Medical 00 [place] metoclopram Yes [facility] keysha HCl 5-24 [facility] (REGLAN) 10 00:00: Medica l MG tablet 00 [place] SUPREP Yes [facility] BOWEL PREP 5-24 [facility] KIT 00:00: Medical 17.5-3.13-1 00 Center .6 gram SolR metoclopram Yes [facility] keysha HCl 5-24 [facility] (REGLAN) 10 00:00: Medica l MG tablet 00 [place] SUPREP Yes [facility] BOWEL PREP 5-24 [facility] KIT 00:00: Medical 17.5-3.13-1 00 Center .6 gram SolR metoclopram Yes [facility] keysha HCl 5-24 [facility] (REGLAN) 10 00:00: Medica l MG tablet 00 [place] SUPREP Yes [facility] BOWEL PREP 5-24 [facility] KIT 00:00: Medical 17.5-3.13-1 00 Center .6 gram SolR montelukast Yes [facility] (SINGULAIR[facility] 5-16 [facility] 10 [facility] [place] [facility] 10 [facility] 00:[facility] [place] [facility] 10 mg 00:00: Medical tablet 00 [place] Aspirin Aspirin Yes [place] 1 tablet Com mon Adult Low Adult Low Taryn Spir it Dose Dose - [facility] atarax atarax Yes [place] 1 Common Taryn [facility] PreserVisio PreserVisio Yes [place] not Common n AREDS 2 n AREDS 2 Taryn defined S pirit [facility] Claritin-D Claritin-D Yes Chito 1 tablet Common 12 Hour 12 Hour Taryn as needed Spi rit [facility] Neurontin Neurontin Yes [facility] 1 tablet Common Taryn [facility] Magnesium Magnesium Yes [facility] 1 tablet Common Oxide Oxide Taryn as needed [facility] PredniSONE PredniSONE Yes [place] 1 tablet Common Taryn [facility] Montelukast Montelukast Yes [facility] 1 tablet Common Sodium Sodium Taryn in [facility] Livalo Livalo Yes [place] 1 tablet Commo n Taryn [facility] Plavix Plavix Yes [place] 1 tablet Commo n Taryn [facility] Prevacid Prevacid Yes [facility] Ventolin Ventolin Yes [facility] 2 puffs as Common HFA HFA Taryn needed [facility] Prevacid 30 Prevacid 30 No 1{capsu QD Prevacid MG MG le} 30 MG atarax 25mg atarax 25mg No atarax 25mg Claritin-D Claritin-D No 1{table BID Claritin-D 12 Hour 12 Hour t_as_ne 12 Hour 5-120 MG 5-120 MG eded} 5-120 MG Plavix 75 Plavix 75 No 1{table QD Plavix 75 MG MG t} MG Montelukast Montelukast No 1{table QD Montelukas Sodium 10 Sodium 10 t_in_th t Sodium MG MG e_eveni 10 MG ng} Prevacid 30 Prevacid 30 No 1{capsu QD Prevacid MG MG le} 30 MG Magnesium Magnesium No 1{table QD Magnesium Oxide 400 Oxide 400 t_as_ne Oxide 400 MG MG eded} MG PreserVisio PreserVisio No PreserVisi n AREDS 2 - n AREDS 2 - on AREDS 2 - Levothyroxi Levothyroxi No QD Levothyrox ne Sodium ne Sodium ine Sodium 100 MCG 100 MCG 100 MCG Aspirin Aspirin No 1{table QD Aspirin Adult Low Adult Low t} Adult Low Dose 81 MG Dose 81 MG Dose 81 MG Ventolin Ventolin No 2{puffs QID Ventolin HFA 108 (90 HFA 108 (90 _as_nee HFA 108 Base) Base) ded} (90 Base) MCG/ACT MCG/ACT MCG/ACT Neurontin Neurontin No 1{table BID Neurontin 600 MG 600 MG t} 600 MG Livalo 4 MG Livalo 4 MG No 1{table QD Livalo 4 t} MG predniSONE predniSONE No 1{table QD predniSONE 10 MG 10 MG t} 10 MG Claritin-D Claritin-D No 1{table BID Claritin-D 12 Hour 12 Hour t_as_ne 12 Hour 5-120 MG 5-120 MG eded} 5-120 MG predniSONE predniSONE No 1{table QD predniSONE 10 MG 10 MG t} 10 MG Prevacid 30 Prevacid 30 No 1{capsu QD Prevacid MG MG le} 30 MG atarax 25mg atarax 25mg No atarax 25mg Montelukast Montelukast No 1{table QD Montelukas Sodium 10 Sodium 10 t_in_th t Sodium MG MG e_eveni 10 MG ng} Magnesium Magnesium No 1{table QD Magnesium Oxide 400 Oxide 400 t_as_ne Oxide 400 MG MG eded} MG Levothyroxi Levothyroxi No QD Levothyrox ne Sodium ne Sodium ine Sodium 100 MCG 100 MCG 100 MCG Plavix 75 Plavix 75 No 1{table QD Plavix 75 MG MG t} MG Ventolin Ventolin No 2{puffs QID Ventolin HFA 108 (90 HFA 108 (90 _as_nee HFA 108 Base) Base) ded} (90 Base) MCG/ACT MCG/ACT MCG/ACT Livalo 4 MG Livalo 4 MG No 1{table QD Livalo 4 t} MG PreserVisio PreserVisio No PreserVisi n AREDS 2 - n AREDS 2 - on AREDS 2 - Neurontin Neurontin No 1{table BID Neurontin 600 MG 600 MG t} 600 MG Aspirin Aspirin No 1{table QD Aspirin Adult Low Adult Low t} Adult Low Dose 81 MG Dose 81 MG Dose 81 MG PreserVisio PreserVisio No PreserVisi n AREDS 2 - n AREDS 2 - on AREDS 2 - Levothyroxi Levothyroxi No QD Levothyrox ne Sodium ne Sodium ine Sodium 100 MCG 100 MCG 100 MCG Prevacid 30 Prevacid 30 No 1{capsu QD Prevacid MG MG le} 30 MG atarax 25mg atarax 25mg No atarax 25mg predniSONE predniSONE No 1{table QD predniSONE 10 MG 10 MG t} 10 MG Claritin-D Claritin-D No 1{table BID Claritin-D 12 Hour 12 Hour t_as_ne 12 Hour 5-120 MG 5-120 MG eded} 5-120 MG Aspirin Aspirin No 1{table QD Aspirin Adult Low Adult Low t} Adult Low Dose 81 MG Dose 81 MG Dose 81 MG Neurontin Neurontin No 1{table BID Neurontin 600 MG 600 MG t} 600 MG Montelukast Montelukast No 1{table QD Montelukas Sodium 10 Sodium 10 t_in_th t Sodium MG MG e_eveni 10 MG ng} Livalo 4 MG Livalo 4 MG No 1{table QD Livalo 4 t} MG Ventolin Ventolin No 2{puffs QID Ventolin HFA 108 (90 HFA 108 (90 _as_nee HFA 108 Base) Base) ded} (90 Base) MCG/ACT MCG/ACT MCG/ACT Magnesium Magnesium No 1{table QD Magnesium Oxide 400 Oxide 400 t_as_ne Oxide 400 MG MG eded} MG Plavix 75 Plavix 75 No 1{table QD Plavix 75 MG MG t} MG Neurontin Neurontin No 1{table BID Neurontin 600 MG 600 MG t} 600 MG predniSONE predniSONE No 1{table QD predniSONE 10 MG 10 MG t} 10 MG Livalo 4 MG Livalo 4 MG No 1{table QD Livalo 4 t} MG Prevacid 30 Prevacid 30 No 1{capsu QD Prevacid MG MG le} 30 MG Plavix 75 Plavix 75 No 1{table QD Plavix 75 MG MG t} MG Levothyroxi Levothyroxi No QD Levothyrox ne Sodium ne Sodium ine Sodium 100 MCG 100 MCG 100 MCG Magnesium Magnesium No 1{table QD Magnesium Oxide 400 Oxide 400 t_as_ne Oxide 400 MG MG eded} MG PreserVisio PreserVisio No PreserVisi n AREDS 2 - n AREDS 2 - on AREDS 2 - Aspirin Aspirin No 1{table QD Aspirin Adult Low Adult Low t} Adult Low Dose 81 MG Dose 81 MG Dose 81 MG Ventolin Ventolin No 2{puffs QID Ventolin HFA 108 (90 HFA 108 (90 _as_nee HFA 108 Base) Base) ded} (90 Base) MCG/ACT MCG/ACT MCG/ACT Claritin-D Claritin-D No 1{table BID Claritin-D 12 Hour 12 Hour t_as_ne 12 Hour 5-120 MG 5-120 MG eded} 5-120 MG Montelukast Montelukast No 1{table QD Montelukas Sodium 10 Sodium 10 t_in_th t Sodium MG MG e_eveni 10 MG ng} atarax 25mg atarax 25mg No atarax 25mg Magnesium Magnesium No 1{table QD Magnesium Oxide 400 Oxide 400 t_as_ne Oxide 400 MG MG eded} MG Neurontin Neurontin No 1{table BID Neurontin 600 MG 600 MG t} 600 MG Levothyroxi Levothyroxi No QD Levothyrox ne Sodium ne Sodium ine Sodium 100 MCG 100 MCG 100 MCG Aspirin Aspirin No 1{table QD Aspirin Adult Low Adult Low t} Adult Low Dose 81 MG Dose 81 MG Dose 81 MG predniSONE predniSONE No 1{table QD predniSONE 10 MG 10 MG t} 10 MG atarax 25mg atarax 25mg No atarax 25mg Plavix 75 Plavix 75 No 1{table QD Plavix 75 MG MG t} MG Livalo 4 MG Livalo 4 MG No 1{table QD Livalo 4 t} MG Ventolin Ventolin No 2{puffs QID Ventolin HFA 108 (90 HFA 108 (90 _as_nee HFA 108 Base) Base) ded} (90 Base) MCG/ACT MCG/ACT MCG/ACT Prevacid 30 Prevacid 30 No 1{capsu QD Prevacid MG MG le} 30 MG Montelukast Montelukast No 1{table QD Montelukas Sodium 10 Sodium 10 t_in_th t Sodium MG MG e_eveni 10 MG ng} Claritin-D Claritin-D No 1{table BID Claritin-D 12 Hour 12 Hour t_as_ne 12 Hour 5-120 MG 5-120 MG eded} 5-120 MG PreserVisio PreserVisio No PreserVisi n AREDS 2 - n AREDS 2 - on AREDS 2 - Neurontin Neurontin No 1{table BID Neurontin 600 MG 600 MG t} 600 MG atarax 25mg atarax 25mg No atarax 25mg Levothyroxi Levothyroxi No QD Levothyrox ne Sodium ne Sodium ine Sodium 100 MCG 100 MCG 100 MCG Aspirin Aspirin No 1{table QD Aspirin Adult Low Adult Low t} Adult Low Dose 81 MG Dose 81 MG Dose 81 MG Claritin-D Claritin-D No 1{table BID Claritin-D 12 Hour 12 Hour t_as_ne 12 Hour 5-120 MG 5-120 MG eded} 5-120 MG PreserVisio PreserVisio No PreserVisi n AREDS 2 - n AREDS 2 - on AREDS 2 - predniSONE predniSONE No 1{table QD predniSONE 10 MG 10 MG t} 10 MG Montelukast Montelukast No 1{table QD Montelukas Sodium 10 Sodium 10 t_in_th t Sodium MG MG e_eveni 10 MG ng} Ventolin Ventolin No 2{puffs QID Ventolin HFA 108 (90 HFA 108 (90 _as_nee HFA 108 Base) Base) ded} (90 Base) MCG/ACT MCG/ACT MCG/ACT Livalo 4 MG Livalo 4 MG No 1{table QD Livalo 4 t} MG Magnesium Magnesium No 1{table QD Magnesium Oxide 400 Oxide 400 t_as_ne Oxide 400 MG MG eded} MG Plavix 75 Plavix 75 No 1{table QD Plavix 75 MG MG t} MG Immunizations Ordered Filled Immunization Date Status Comments [facility] Immunization Name Name Influenza Virus 2019-03-22 Completed [facility] [place] [facility], Preserv and ABX Branc h Free 18-64 YRS Influenza Virus 2019-03-22 Completed [facility] Vaccine Recomb [facility] 00:00:00 [place] [facility] IM, Preserv and ABX Branc h Free 18-64 YRS Influenza Virus 2019-03-22 Completed [facility] Vaccine Recomb Quad 00:00:00 [place] [facility] IM, Preserv and ABX Branc h Free 18-64 YRS Influenza Virus 2019-03-22 Completed [facility] of Vaccine Recomb Quad 00:00:00 [place] [facility] IM, Preserv and ABX Branc h Free 18-64 YRS Pneumococcal 2018-10-18 Completed [place] [facility] f Polysaccharide, 00:00:00 [place] [facility] PPSV23 (PNEUMOVAX) Branch Pneumococcal 2018-10-18 Completed [place] o f Polysaccharide, 00:00:00 [place] [facility] PPSV23 (PNEUMOVAX) Branch Pneumococcal 2018-10-18 Completed [place] o f Polysaccharide, 00:00:00 [place] [facility] PPSV23 (PNEUMOVAX) Branch Pneumococcal 2018-10-18 Completed University o f Polysaccharide, 00:00:00 [facility] ica PPSV23 (PNEUMOVAX) Branch TDAP 2018-05-30 Completed University of 00:00:[address] [facility] TDAP 2018-05-30 Completed University of 00:00:[address] [facility] TDAP 2018-05-30 Completed University of 00:00:[address] [facility] TDAP 2018-05-30 Completed University of 00:00:[address] [facility] Zoster Vaccine 2015-05-30 Completed University of Recombinant 00:00:[address] [facility] Zoster Vaccine 2015-05-30 Completed University of Recombinant 00:00:[address] [facility] Zoster Vaccine 2015-05-30 Completed University of Recombinant 00:00:[address] [facility] Zoster Vaccine 2015-05-30 Completed University of Recombinant 00:00:[address] [facility] Vital Signs Vital Name Observation Time Observation Value Comments Source Systolic blood 2022-04-27 17:11:00 132 mm[Hg] Univer sity of pressure [facility] Diastolic blood 2022-04-27 17:11:00 73 mm[Hg] Unive rsity of [facility] Heart rate 2022-04-27 17:11:00 82 /min [facility] Respiratory rate 2022-04-27 17:11:00 19 /[facility] Body height 2022-04-27 17:11:00 157.5 cm [facility] Body weight 2022-04-27 17:11:00 64.411 kg [facility] BMI 2022-04-27 17:11:00 25.97 kg/m2 [facility] Oxygen saturation in 2022-04-27 17:11:00 95 /min [facility] Arterial blood by [facility] Pulse oximetry Branch height 2021-09-11 09:15:00 63.5 [in_i] [facility] weight 2021-09-11 09:15:00 136.4 [lb_av] Common [facility] temperature 2021-09-11 09:15:00 98.1 [degF] [facility] bmi 2021-09-11 09:15:00 23.78 kg/m2 [facility] oximetry 2021-09-11 09:15:00 97 % Common [facility] respiratory rate 2021-09-11 09:15:00 16 /min Comm on [facility] blood pressure 2021-09-11 09:15:00 124 mm[Hg] Common [facility] - systolic [facility] blood pressure 2021-09-11 09:15:00 64 mm[Hg] Common [facility] - diastolic [facility] Body height 2021-08-20 16:20:00 157.5 cm [facility] Body weight 2021-08-20 16:20:00 64.411 [facility] BMI 2021-08-20 16:20:00 25.97 kg/m2 [facility] height 2021-08-12 15:00:00 63.5 [in_i] [facility] weight 2021-08-12 15:00:00 38.4 [lb_av] [facility] temperature 2021-08-12 15:00:00 98.6 [degF] Common [facility] bmi 2021-08-12 15:00:00 6.69 kg/m2 [facility] oximetry 2021-08-12 15:00:00 93 % [facility] respiratory rate 2021-08-12 15:00:00 18 /min Comm on [facility] blood pressure 2021-08-12 15:00:00 102 mm[Hg] Common [facility] - systolic [facility] blood pressure 2021-08-12 15:00:00 67 mm[Hg] Common [facility] - diastolic [facility] height 2021-06-17 09:15:00 63.5 [in_i] Common [facility] weight 2021-06-17 09:15:00 143 [lb_av] [facility] temperature 2021-06-17 09:15:00 98.1 [degF] [facility] bmi 2021-06-17 09:15:00 24.93 kg/m2 [facility] oximetry 2021-06-17 09:15:00 91 % Common [facility] respiratory rate 2021-06-17 09:15:00 20 /min Comm on [facility] - [facility] blood pressure 2021-06-17 09:15:00 178 mm[Hg] Common [facility] - systolic [facility] blood pressure 2021-06-17 09:15:00 77 mm[Hg] Common [facility] - diastolic [facility] Body height 2021-06-04 17:32:[facility] 2021-06-04 17:32:[facility] BMI 2021-06-04 17:32:00 26.70 [facility] height 2021-05-07 17:42:00 [facility] weight 2021-05-07 17:42:00 [facility]225 [facility] BMI 2021-05-07 17:42:00 26.70 [facility] height 2021-04-29 09:20:00 63.5 [in_i] Common [facility] weight 2021-04-29 09:20:00 146 [lb_av] [facility] temperature 2021-04-29 09:20:00 98.7 [degF] Common [facility] bmi 2021-04-29 09:20:00 25.45 kg/m2 [facility] oximetry 2021-04-29 09:20:00 91 % Common S [facility] blood pressure 2021-04-29 09:20:00 167 mm[Hg] Common [facility] - systolic [facility] blood pressure 2021-04-29 09:20:00 77 mm[Hg] Common [facility] - diastolic [facility] height 2020-12-17 11:00:00 63.5 [in_i] [facility] weight 2020-12-17 11:00:00 147.8 [lb_av] Common [facility] - [facility] temperature 2020-12-17 11:00:00 97.6 [degF] Common S pirit - [facility] bmi 2020-12-17 11:00:00 25.77 kg/m2 Common S pirit - [facility] oximetry 2020-12-17 11:00:00 97 % Common S pirit - [facility] blood pressure 2020-12-17 11:00:00 136 mm[Hg] Common [facility] - systolic [facility] blood pressure 2020-12-17 11:00:00 67 mm[Hg] Common [facility] - diastolic [facility] Systolic (mm Hg) 2022-06-29 15:46:00 Mathieu rial [facility] Diastolic (mm Hg) 2022-06-29 15:46:00 Mem orial [facility] Heart Rate 2022-06-29 15:46:00 [facility] Height 2022-06-29 15:46:00 5 [ft_i] [facility] Weight 2022-06-29 15:46:00 [facility] BMI Calculated 2022-06-29 15:46:00 [facility] Systolic (mm Hg) 2022-03-26 19:22:00 Mathieu rial [facility] Diastolic (mm Hg) 2022-03-26 19:22:00 Mem [facility] Heart Rate 2022-03-26 19:22:00 [facility] Height 2022-03-26 19:22:00 5 [ft_i] [facility] Weight 2022-03-26 19:22:00 [facility] BMI Calculated 2022-03-26 19:22:00 [facility] Systolic (mm Hg) 2022-02-04 15:51:00 Mathieu rial [facility] Diastolic (mm Hg) 2022-02-04 15:51:00 Mem [facility] Heart Rate 2022-02-04 15:51:00 [facility] Respitory Rate 2022-02-04 15:51:00 [facility] Height 2022-02-04 15:51:00 162.56 cm [facility] Weight 2022-02-04 15:51:00 [facility] BMI Calculated 2022-02-04 15:51:00 [facility] Systolic (mm Hg) 2021-08-04 16:03:00 Mathieu rial [facility] Diastolic (mm Hg) 2021-08-04 16:03:00 Mem orial Kaz Heart Rate 2021-08-04 16:03:00 [facility] Respitory Rate 2021-08-04 16:03:00 Memori [facility] Height 2021-08-04 16:03:00 160.02 cm [facility] Weight 2021-08-04 16:03:00 [facility] BMI Calculated 2021-08-04 16:03:00 [facility] Temperature Oral (F) 2021-04-22 17:36:00 97.6 F [facility] Heart Rate 2021-04-22 17:36:00 [facility] Respitory Rate 2021-04-22 17:36:00 [facility] Systolic (mm Hg) 2021-04-22 17:36:00 Mathieu rial Kaz Diastolic (mm Hg) 2021-04-22 17:36:00 Mem orial [facility] Temperature Oral (F) 2021-04-22 13:16:00 98.1 F [facility] Heart Rate 2021-04-22 13:16:00 [facility] Respitory Rate 2021-04-22 13:16:00 Mem[facility] Systolic (mm Hg) 2021-04-22 13:16:00 Mathieu rial [facility] Diastolic (mm Hg) 2021-04-22 13:16:00 Mem [facility] Temperature Oral (F) 2021-04-22 11:27:00 98.1 F [facility] Heart Rate 2021-04-22 11:27:00 [facility] Respitory Rate 2021-04-22 11:27:00 [facility] Systolic (mm Hg) 2021-04-22 11:27:00 Mathieu rial [facility] Diastolic (mm Hg) 2021-04-22 11:27:00 [facility] Height 2021-04-21 02:56:00 157.48 cm [facility] Weight 2021-04-21 02:56:00 [facility] BMI Calculated 2021-04-21 02:56:00 [facility] Systolic (mm Hg) 2021-02-03 15:23:00 Mathieu rial [facility] Diastolic (mm Hg) 2021-02-03 15:23:00 Mem [facility] Heart Rate 2021-02-03 15:23:00 [facility] Respitory Rate 2021-02-03 15:23:00 [facility] Height 2021-02-03 15:23:00 162.56 cm [facility] Weight 2021-02-03 15:23:00 [facility] BMI Calculated 2021-02-03 15:23:00 [facility] Systolic (mm Hg) 2020-08-01 16:06:00 Mathieu rial [facility] Diastolic (mm Hg) 2020-08-01 16:06:00 Mem orial [facility] Heart Rate 2020-08-01 16:06:00 [facility] Respitory Rate 2020-08-01 16:06:00 [facility] Height 2020-08-01 16:06:00 160.02 cm [facility] Weight 2020-08-01 16:06:00 [facility] BMI Calculated 2020-08-01 16:06:00 [facility] Systolic (mm Hg) 2020-02-01 15:51:00 Mathieu rial [facility] Diastolic (mm Hg) 2020-02-01 15:51:00 Mem orial [facility] Heart Rate 2020-02-01 15:51:00 [facility] Respitory Rate 2020-02-01 15:51:00 [facility] Height 2020-02-01 15:51:00 160.02 cm [facility] Weight 2020-02-01 15:51:00 [facility] BMI Calculated 2020-02-01 15:51:00 [facility] Systolic (mm Hg) 2019-06-05 21:39:00 Mathieu rial [facility] Diastolic (mm Hg) 2019-06-05 21:39:00 Mem orial [facility] Heart Rate 2019-06-05 21:39:00 [facility] Respitory Rate 2019-06-05 21:39:00 [facility] Height 2019-06-05 21:39:00 162.56 cm [facility] Weight 2019-06-05 21:39:00 [facility] BMI Calculated 2019-06-05 21:39:00 [facility] Systolic (mm Hg) 2019-04-20 17:30:00 Mathieu rial [facility] Diastolic (mm Hg) 2019-04-20 17:30:00 Mem orial [facility] Heart Rate 2019-04-20 17:30:00 [facility] Respitory Rate 2019-04-20 17:30:00 [facility] Height 2019-04-20 17:30:00 160.02 cm [facility] Weight 2019-04-20 17:30:00 [facility] BMI Calculated 2019-04-20 17:30:00 [facility] Systolic (mm Hg) 2019-03-21 19:53:00 Mathieu rial [facility] Diastolic (mm Hg) 2019-03-21 19:53:00 Mem orial [facility] Heart Rate 2019-03-21 19:53:00 [facility] Respitory Rate 2019-03-21 19:53:00 [facility] Height 2019-03-21 19:53:00 167.64 cm [facility] Weight 2019-03-21 19:53:00 [facility] BMI Calculated 2019-03-21 19:53:00 Mem[facility] Systolic (mm Hg) 2016-07-05 19:05:00 Mathieu rial [facility] Diastolic (mm Hg) 2016-07-05 19:05:00 Mem [facility] Respitory Rate 2016-07-05 19:05:00 Memori al [facility] Heart Rate 2016-07-05 19:05:00 [facility] Systolic (mm Hg) 2016-07-05 18:30:00 Mathieu rial Kaz Diastolic (mm Hg) 2016-07-05 18:30:00 Mem [facility] Heart Rate 2016-07-05 18:30:00 [facility] Respitory Rate 2016-07-05 18:30:00 [facility] Respitory Rate 2016-07-05 18:15:00 Mem[facility] Systolic (mm Hg) 2016-07-05 18:15:00 Mathieu rial [facility] Diastolic (mm Hg) 2016-07-05 18:15:00 [facility] Heart Rate 2016-07-05 14:02:00 [facility] Height 2016-07-01 20:29:00 167.64 cm [facility] BMI Calculated 2016-07-01 20:29:00 Tasha anderson Kaz Weight 2016-07-01 20:29:00 [facility] Procedures Procedure Date / Time Performing Clinician Source Performed EXTERNAL PROVIDER - ADC 2021-12-02 05:01:00 Doctor Unassigned, N o [facility] REFERRAL Name Medical Branch Hernia repair [facility] Hand closure<sup>1</sup> Marimar hendrickson [facility] Miscellaneous operations Marimar hendrickson Kaz Tonsillectomy and [facility] Audra nn adenoidectomy Cataract extraction [facility] Heart procedure [facility] stents in heart [facility] Tonsillectomy [facility] Encounters Start End Encounter Admission Attending Care Care Encounter Source Date/Time Date/Time Type Type Clinicians Facility Department ID 2022-03-23 Outpatient [facility] [id number] [place] 20:11:41 [id number] [facility] 2021-09-02 Outpatient [facility] [id number] Common 12:56:00 [facility] 2021-08-18 Outpatient [facility] [id number] Common 10:39:01 [facility] 2021-07-21 Outpatient [facility] [id number] [place] 01:04:45 [facility] 2021-07-13 Outpatient [facility] [id number] Common 13:52:00 [facility] 2021-06-29 Outpatient [facility] [id number] [place] 10:00:43 [facility] 2021-06-24 Outpatient [facility] [id number] Common 12:23:38 [id number] [facility] 2021-06-24 Outpatient Erica, ST[facility] [id number] Common 12:19:51 Chito [id number] [facility] 2021-06-04 Outpatient [facility] [id number] [place] 11:33:41 [facility] 2021-05-28 Outpatient [facility] [id number] [place] 10:05:27 [facility] 2023-01-11 2023-01-11 Outpatient BHAVNA HUGGINS [id number] Memoria 09:00:00 09:00:00 16 l Kaz 2022-10-26 2022-10-26 Outpatient R ANALILIA ALSTON [facility] 10 [id number] Univers 11:00:00 11:00:00 ANALLIIA ALSTON i ty [facility] 2022-06-29 2022-06-30 Outpatient MHIE MNA [id number] Memoria 15:45:00 05:59:59 Neurology 15 l Carisa Mccurdy 2022-06-29 2022-06-29 Outpatient PEGGY Lees [facility] [id number] 09:45:00 23:59:59 Juan 15 Leonel 2022-06-29 2022-06-29 Outpatient MHIE MHIE [id number] Memoria 09:45:00 09:45:00 15 emeka Kaz 2022-06-29 2022-06-29 Outpatient MHIE MHIE [id number] Memoria 09:45:00 09:45:00 15 emeka Kaz 2022-05-10 2022-05-10 Outpatient R ANALILIA ALSTON [facility] 10 [id number] Univers 00:00:00 00:00:00 ANALILIA ALSTON i ty [facility] 2022-04-27 2022-04-27 Outpatient R ANALILIA ALSTON [facility] 10 [id number] Univers 10:30:00 11:46:13 ANALILIA ALSTON i ty [facility] 2022-04-27 2022-04-27 Office [place] [email or web address] [id number] Univers 10:30:00 11:46:13 [facility] [facility] 350.1.13.10 i [facility] 4.2.7.2.686 [facility] PROFESSIO [phone] Oh dical NAL 085 [facility] 2022-03-26 2022-03-27 Outpatient nullFlavo MNA [id number] Memoria 19:00:00 04:59:59 r Neurology 14 l Carisa Mccurdy 2022-03-26 2022-03-27 Outpatient nullFlavo MNA [id number] Memoria 19:00:00 04:59:59 r Neurology 14 l Carisa Mccurdy 2022-03-26 2022-03-26 Outpatient PEGGY Lees MHMISCHER [id number] 14:00:00 23:59:59 Juan 14 Leonel 2022-03-26 2022-03-26 Outpatient MHIE MHIE [id number] Memoria 14:00:00 14:00:00 14 emeka Mccurdy 2022-02-11 2022-02-11 Outpatient R ANALLIIA ALSTON [facility] [[email or web address] 10 [id number] Univers 09:00:00 09:00:00 ANALILIA ALSTON i ty of [facility] 2022-02-04 2022-02-05 Outpatient nullFlavo MNA [id number] Memoria 15:45:00 04:59:59 r Neurology 13 l Carisa Sayner 2022-02-04 2022-02-05 Outpatient nullFlavo MNA [id number] Memoria 15:45:00 04:59:59 r Neurology 13 l Pamplico Kaz 2022-02-04 2022-02-04 Outpatient PEGGY Lees NANCYSCHKIMBERLY [id number] 10:45:00 23:59:59 Juan 13 Leonel 2022-02-04 2022-02-04 Outpatient MHIE MHIE [id number] Memoria 10:45:00 10:45:00 13 emeka Kaz 2021-12-02 2021-12-02 [facility] 1.2.818.334 [id number] Univers 00:00:00 00:00:00 Analilia KENNEDY 350.1.13.10 i ty of [place] [phone] Oh dical [facility]LY [facility] 085 [facility] 2021-12-02 2021-12-02 Orders Doctor MAMTA 1.2.840.114 [id number] Univers 00:00:00 00:00:00 Only Unassigned, TIMOTHY 350.1.13.10 ity of [place] [facility] 4.2.7.2.686 Shawn as [phone] [address] 2021-11-11 2021-11-11 Case [facility] 1.2.840.114 [id number] Univers 00:00:00 00:00:00 Management Analilia KENNEDY 350.1.13.10 ity of [place] [phone] Oh dical NAL 085 [facility] 2021-11-04 2021-11-04 Refill Chavez [facility] [[email or web address]] 1.2.840.114 [id number] Univers 00:00:00 00:00:00 Sallyerica KENNEDY 350.1.13.10 i ty of [place] [phone] Oh dicok NAL [address] [place] [address] 2021-10-28 2021-10-28 Outpatient R ANALILIA ALSTON [facility] 10 [id number] Univers 09:27:27 23:59:00 ANALILIA ALSTON i ty of [facility] 2021-10-28 2021-10-28 Hospital [facility] 1.2.840.114 [id number] Univers 09:27:27 23:59:00 Encounter nAalilia KENNEDY 350.1.13.10 ity of [place].7.2.[place] C[place] [id number] [facility] [address] [place] 2021-10-22 2021-10-22 Outpatient R ANALILIA ALSTON [facility] 10 [id number] Univers 10:30:00 14:37:22 ANALILIA ALSTON i ty of [facility] 2021-10-22 2021-10-22 Office Chavez [facility] [[email or web address]] 1.2.840.114 [id number] Univers 10:30:00 11:00:00 Visit Analilia KENNEDY 350.1.13.10 i ty [place] [phone] [address] 2021-10-22 2021-10-22 Orders Doctor MAMTA 1.2.840.114 [id number] Univers 00:00:00 00:00:00 Only Unassigned, TIMOTHY 350.1.13.10 ity of [place] [facility] 4.2.7.2.686 Shawn as [phone] [facility] [address] 2021-09-11 2021-09-11 OFFICE [facility] [id number] Co mmon 00:00:00 00:00:00 VISIT Spirit ESTAB PT - CHI LEVEL 2 [facility] 2021-08-20 2021-08-20 Office RUDY Miles 6414 1.2.840.114 [id number] [place] 11:00:00 11:50:00 Visit Anna Marie LUKE 350.1.13.58 Health [id number] 1 2021-08-14 2021-08-14 (ESTPT) STLMLC STLMLC [id number] Co mmon 00:00:00 00:00:00 Establishe [place] pruitt d Patient - [facility] 2021-08-12 2021-08-12 OFFICE STLMLC STLMLC [id number] Co mmon 00:00:00 00:00:00 VISIT Spirit ESTAB PT - CHI LEVEL 1 [facility] 2021-08-07 2021-08-07 Saba Alston [facility] [[email or web address]] 1.2.840.114 [id number] Univers 00:00:00 00:00:00 Analilia KENNEDY 350.1.13.10 i ty [facility] [place] [phone] Oh dical NAL 085 [facility] 2021-08-04 2021-08-05 Outpatient nullFlavo MNA [id number] Memoria 16:00:00 05:59:59 r Neurology 12 l Carisa Mccurdy 2021-08-04 2021-08-05 Outpatient nullFlavo MNA [id number] Memoria 16:00:00 05:59:59 r Neurology 12 l Carisa Mccurdy 2021-08-04 2021-08-04 Outpatient PEGGY Lees [id number] 10:00:00 23:59:59 Juan 12 Leonel 2021-08-04 2021-08-04 Outpatient ISHANIE BHAVNA [id number] Memoria 10:00:00 10:00:00 12 emeka Mccurdy 2021-06-22 2021-06-22 Orders Doctor OLEARY 1.2.840.114 [id number] Univers 00:00:00 00:00:00 Only Unassigned, TIMOTHY 350.1.13.10 ity of [place] [facility] 4.2.7.2.686 Shawn as [phone] [address] 2021-06-17 2021-06-17 OFFICE STLMLC STLMLC [id number] Co mmon 00:00:00 00:00:00 VISIT Jax JEFFERS PT - CHI LEVEL 2 [facility] 2021-06-04 2021-06-04 Office RUDY [place] 6414 1.2.224.473 [id number] [place] 11:00:00 11:32:[address] 350.1.13.58 Health 9.2.7.2.686 [id number] 1 2021-05-07 2021-05-07 Office RUDY [place] 6414 1.2.727.019 [id number] [place] 10:45:00 12:04:[address] 350.1.13.58 Health 9.2.7.2.686 [id number] 1 2021-04-29 2021-04-29 (ESTPT) STLMLC STLMLC [id number] Co mmon 00:00:00 00:00:00 Seth lyon Patient - [facility] 2021-04-20 2021-04-22 [facility] [id number] Memoria 18:07:00 19:45:[address] 2021-04-20 2021-04-22 [facility] [id number] Memoria 18:07:00 19:45:[address] 2021-04-20 2021-04-22 Outpatient Priya [facility] [id number] 12:07:00 13:45:00 Heena 26 [address] 2021-04-20 2021-04-22 Outpatient Priya [facility] [id number] 12:07:00 13:45:00 Heena 26 [place] 2021-04-16 2021-04-16 Outpatient ANALILIA MORROW [facility] 10 [id number] Univers 10:00:00 10:00:00 ANALILIA ALSTON i [facility] 2021-04-02 2021-04-02 Refrashi Alston [facility] [[email or web address]] 1.2.840.114 [id number] Univers 00:00:00 00:00:00 Analilia KENNEDY 350.1.13.10 i ty of [place] 4.2.7.2.686 Margot sheppard AMARAALEX [phone] Oh dical NAL 5 [facility] 2021-02-03 2021-02-04 Outpatient nullFlavo MNA [id number] Memoria 15:15:00 04:59:59 r Neurology 11 l Carisa Izquierdoann 2021-02-03 2021-02-04 Outpatient nullFlavo MNA [id number] Memoria 15:15:00 04:59:59 r Neurology 11 l Pamplicooz Izquierdoann 2021-02-03 2021-02-03 Outpatient ISHAN LeesMISCHER MHMISCHER [id number] 10:15:00 23:59:59 Juan 11 Leonel 2021-02-03 2021-02-03 Outpatient MHIE MHIE [id number] Memoria 10:15:00 10:15:00 11 emeka IzquierdoSayner 2020-12-17 2020-12-17 OFFICE STLC [facility] [id number] Co mmon 00:00:00 00:00:00 VISIT Spirit ESTAB PT - CHI LEVEL 2 [facility] 2020-08-01 2020-08-02 Outpatient nullFlavo MNA [id number] Memoria 16:00:00 05:59:59 r Neurology 10 l Pamplico Kaz 2020-08-01 2020-08-02 Outpatient nullFlavo MNA [id number] Memoria 16:00:00 05:59:59 r Neurology 10 l Carisa Mccurdy 2020-08-01 2020-08-01 Outpatient KHOA LeesSCHKIMBERLY OMLSTEADMISCHER [id number] 10:00:00 23:59:59 Juan Nahed Leonel 2020-08-01 2020-08-01 Outpatient MHIE MHIE [id number] Memoria 10:00:00 10:00:00 10 emeka Kaz 2020-08-01 2020-08-01 Patient Aníbal IAOMARI 1.2.840.114 [id number] Univers 00:00:00 00:00:00 Outreach Adán PINO 350.1.13.10 i ty of [facility] [place] [phone] Oh dical [address] 2020-08-01 2020-08-01 [facility] 1.2.840.114 [id number] 00:00:00 00:00:00 Outreach [facility] 350.1.13.10 [facility] 4.2.7.2.686 PAVILLION [id number] 388 2020-06-18 2020-06-18 Outpatient STLC STLC [id number] Common 00:00:00 00:00:00 [facility] 2020-02-23 2020-02-23 [facility]ill [facility] 1.2.840.114 [id number] Univers 00:00:00 00:00:00 Shiwan Hartleton 350.1.13.10 i ty of [place] Profess[place] [id number] Oh dical [facility] 2020-02-23 2020-02-23 Refill Chavez [facility] [[email or web address]] 1.2.840.114 [id number] 09 00:00:00 00:00:00 Shiwan Hartleton 350.1.13.10 [place] 4.2.7.2.686 Professio [phone] [address] 2020-02-21 2020-02-21 Letter Chavez, UNIVERSIT 1.2.512.136 [id number] Univers 00:00:00 00:00:00 (Out) Shiwan Y HEALTH 350.1.13.10 i ty of [place] [phone] [address] 2020-02-21 2020-02-21 Letter Chavez, UNIVERSIT 1.2.931.810 [id number] 00:00:00 00:00:00 (Out) Shiwan Y HEALTH 350.1.13.10 CLINICS 4.2.7.2.686 [id number] [facility] 2020-02-14 2020-02-14 Patient DEVONTE Alston 1.2.326.379 [id number] Univers 00:00:00 00:00:00 [facility] 350.1.13.10 [place] [facility] [id number] [place] [address] [place] 2020-02-14 2020-02-14 Patient Chavez [facility] 1.2.295.760 [id number] 00:00:00 00:00:00 Secure Msg Analilia Y HEALTH 350.1.13.10 CLINICS 4.2.7.2.686 [id number] [facility] 2020-02-01 2020-02-02 Outpatient nullFlavo MNA [id number] Memoria 15:30:00 04:59:59 r Neurology 09 l Pamplico Sayner 2020-02-01 2020-02-02 Outpatient nullFlavo MNA [id number] Memoria 15:30:00 04:59:59 r Neurology 09 l [facility] 2020-02-01 2020-02-01 Outpatient ISHAN LeesMISCHER MHMISCHER [id number] 10:30:00 23:59:59 Juan 09 Leonel 2020-02-01 2020-02-01 Ambulatory nullFlavo MNA [id number] Memoria 15:30:00 15:30:00 Pre-Reg r Neurology 08 l Pamplico Sayner 2020-02-01 2020-02-01 Ambulatory nullFlavo MNA [id number] Memoria 15:30:00 15:30:00 Pre-Reg r Neurology 08 l Pamplico Kaz 2020-02-01 2020-02-01 Outpatient MHIE MHIE [id number] Memoria 10:30:00 10:30:00 08 l Sayner 2020-02-01 2020-02-01 Outpatient MHIE MHIE [id number] Memoria 10:30:00 10:30:00 09 l Sayner 2020-02-01 2020-02-01 Outpatient KHOA LeesSCHER MHMISCHER [id number] 10:30:00 10:30:00 Juan 08 [facility] 2020-01-31 2020-01-31 Telephone Chavez [facility] [[email or web address]] 1.2.085.077 [id number] Univers 00:00:00 00:00:00 Analilia Hartleton 350.1.13.10 i ty [place] [phone] [address] 2020-01-31 2020-01-31 Telephone [facility] 1.2.461.267 [id number] 00:00:00 00:00:00 Sallyn Hartleton 350.1.13.10 [place] 4.2.7.2.686 Professio [phone] [address] 2020-01-10 2020-01-10 [facility] 1.2.840.114 [id number] Univers 13:21:33 23:59:00 Encounter Analilia Barrientoston 350.1.13.10 ity of [place].2.686 [place] [id number] [address] 2020-01-10 2020-01-10 Outpatient R ANALILIA ALSTON [facility] [[email or web address]] RAD 10 [id number] Univers 00:00:00 00:00:00 ANALILIA ALSTON i ty of [facility] 2019-12-22 2019-12-22 Refill [facility] 1.2.840.114 [id number] Univers 00:00:00 00:00:00 Rhinajosen Hartleton 350.1.13.10 i ty of [place] Profess[place] [phone] [address] 2019-11-01 2019-11-01 [facility] 1.2.840.114 [id number] Univers 00:00:00 00:00:00 Sallyn Hartleton 350.1.13.10 i ty of [place].2.[place] Profess[place] [phone] [address] 2019-10-12 2019-10-12 Outpatient R ANALILIA ALSTON [facility] 10 [id number] Univers 10:00:00 10:00:00 ANALILIA ALSTON i ty of [facility] 2019-10-12 2019-10-12 Telemedici [facility] 1.2.840.114 [id number] Univers 07:50:28 08:10:28 ne Visit Analilia Barrientoston 350.1.13.10 ity of [place].2.[place] Profess[place] [phone] Me dical nal 085 [facility] 2019-10-01 2019-10-01 Outpatient R ANALILIA ALSTON [facility] [[email or web address]] RAD 10 [id number] Univers 09:22:50 23:59:00 ANALILIA ALSTON i ty [facility] 2019-10-01 2019-10-01 Hospital Chavez [facility] [[email or web address]] 1.2.840.114 [id number] Univers 09:22:00 23:59:00 Encounter Analilia Kennedy 350.1.13.10 ity of [place] 4.2.7.2.686 [place] [facility] [phone] [address] 2019-10-01 2019-10-01 Orders Doctor MAMTA 1.2.840.114 [id number] Univers 00:00:00 00:00:00 Only Unassigned, TIMOTHY 350.1.13.10 ity of [place] [facility] 4.2.7.2.686 Shawn as [phone] [address] 2019-09-28 2019-09-29 Outpatient nullFlavo MNA [id number] Memoria 15:30:00 04:59:59 r Neurology 07 l Carisa Sayner 2019-09-28 2019-09-29 Outpatient nullFlavo MNA [id number] Memoria 15:30:00 04:59:59 r Neurology 07 l Carisa Mccurdy 2019-09-28 2019-09-28 Outpatient Nabeel MHMISCHER MHMISCHER [id number] 10:30:00 23:59:59 Juan 07 Leonel 2019-09-28 2019-09-28 Outpatient MHIE MHIE [id number] Memoria 10:30:00 10:30:00 07 emeka Sayner 2019-08-01 2019-08-01 Orders Doctor OLEARY 1.2.840.114 [id number] Univers 00:00:00 00:00:00 Only Unassigned, TIMOTHY 350.1.13.10 ity of [place] [facility] 4.2.7.2.686 Shawn as [phone] [address] 2019-07-19 2019-07-19 Outpatient R ANALILIA ALSTON [facility] 10 [id number] Univers 09:40:00 09:22:07 ANALILIA ALSTON i ty [facility] 2019-07-19 2019-07-19 Office Chavez [facility] [[email or web address]] 1.2.840.114 [id number] Univers 08:02:41 08:22:41 Visit Analilia Kennedy 350.1.13.10 i ty of [place].2.[place] [id number] Oh dical nal 085 [facility] 2019-07-18 2019-07-18 Orders Doctor MAMTA 1.2.840.114 [id number] Univers 00:00:00 00:00:00 Only Unassigned, TIMOTHY 350.1.13.10 ity of [place] [facility] 4.2.7.2.686 Shawn as [phone] [facility] [address] [place] 2019-07-02 2019-07-02 Telephone [facility] 1.2.958.611 [id number] Univers 00:00:00 00:00:00 Analilia Kennedy 350.1.13.10 i ty of [place] [id number] Oh dical nal 059 [facility] 2019-06-05 2019-06-06 Outpatient nullFlavo MNA [id number] Memoria 21:30:00 05:59:59 r Neurology 06 emeka Pamplico Kaz 2019-06-05 2019-06-06 Outpatient nullFlavo MNA [id number] Memoria 21:30:00 05:59:59 r Neurology 06 emeka Pamplico Sayner 2019-06-05 2019-06-05 Outpatient PEGGY Lees MISCHER [id number] 15:30:00 23:59:59 Juan Balwinder Castaneda 2019-06-05 2019-06-05 Outpatient MHIE MHIE [id number] Memoria 15:30:00 15:30:00 06 emeka Kaz 2019-04-20 2019-04-21 Outpatient nullFlavo MNA [id number] Memoria 17:15:00 05:59:59 r Neurology 05 l Carisa Sayner 2019-04-20 2019-04-21 Outpatient nullFlavo MNA [id number] Memoria 17:15:00 05:59:59 r Neurology 05 emeka Carisa Sayner 2019-04-20 2019-04-20 Outpatient KHOA LeesSCHER MHMISCHER [id number] 11:15:00 23:59:59 Juan 05 Leonel 2019-04-20 2019-04-20 Outpatient MHIE MHIE [id number] Memoria 11:15:00 11:15:00 05 emeka Mccurdy 2019-03-21 2019-03-22 Outpatient nullFlavo MNA [id number] Memoria 20:00:00 04:59:59 r Neurology 04 l Carisa Mccurdy 2019-03-21 2019-03-22 Outpatient nullFlavo MNA [id number] Memoria 20:00:00 04:59:59 r Neurology 04 l Carisa Mccurdy 2019-03-21 2019-03-21 Outpatient [facility]abeel [facility] [id number] 15:00:00 23:59:59 Juan 04 Leonel 2019-03-21 2019-03-21 Outpatient MHIE MHIE [id number] Memoria 15:00:00 15:00:00 04 emeka Kaz 2019-02-13 2019-02-13 [facility]phone [facility] 1.2.840.114 [id number] Univers 00:00:00 00:00:00 Angel Kennedy 350.1.13.10 ity of [place] [id number] Oh dicmonica nal 092 [facility] 2019-02-07 2019-02-07 Telephone Henok Corona [facility] [[email or web address]] 1.2.840.114 [id number] Univers 00:00:00 00:00:00 Meagan Kennedy 350.1.13.10 i ty of [place] 4[place].2.[place] [phone] Oh dical nal 044 [facility] 2019-02-06 2019-02-06 [facility] Henok Corona [facility] [[email or web address]] 1.2.840.114 [id number] Univers 14:57:14 23:59:00 Encounter C SPECIALTY 350.1.13.10 it[place] of [place].2.[place] C[place] AT [phone] Oh dical VICTORY 804 [facility] 2019-01-30 2019-02-01 Office Henok Corona [facility] [[email or web address]] 1.2.840.114 [id number] Univers 15:11:23 08:54:18 Visit C [place] 350.1.13.10 i ty of [place].2.[place] Profess[place] [phone] Oh dical nal 044 [facility] 2019-01-31 2019-01-31 Edger Liner 2, [facility] [place] 1.2.840.114 [id number] Univers 08:19:00 08:34:00 Visit Henok Corona 350.1.13.10 ity of [place].2.[place] [phone] Oh dical nal 353 [facility] 2019-01-30 2019-01-30 Orders Doctor MAMTA 1.2.840.114 [id number] Univers 00:00:00 00:00:00 Only Unassigned, TIMOTHY 350.1.13.10 ity of [place] [facility] 4.2.7.2.686 Shawn as [phone] [address] 2019-01-22 2019-01-22 Office Chavez [facility] [[email or web address]] 1.2.840.[id number] [place] [address] 08:22:57 09:24:15 Visit Analilia Kennedy 350.1.13.10 i ty of [place] 4.2.7.2.[place] Profess[place] [phone] Oh dicok nal 085 [facility] 2019-01-15 2019-01-15 Telephone Henok Corona [facility] [[email or web address]] 1.2.840.114 [id number] Univers 00:00:00 00:00:00 Meagan Kennedy 350.1.13.10 i ty of [place] 4[place].2.[place] [phone] Oh dical nal 044 [facility] 2019-01-11 2019-01-11 Edger Liner 2, [facility] [place] 1.2.840.114 [id number] Univers 09:36:58 10:06:58 Visit Henok Corona 350.1.13.10 ity of [place].2.[place] [phone] Oh dical nal 353 [facility] 2019-01-11 2019-01-11 Office Henok Corona [email or web address]] 1.2.840.114 [id number] Univers 08:38:13 09:31:04 Visit Meagan Kennedy 350.1.13.10 i ty of [place].2.[place] Profess[place] [phone] Oh dical nal 044 [facility] 2019-01-11 2019-01-11 [facility] 1.2.840.114 [id number] Univers 00:00:00 00:00:00 (Out) Vesna Meagan Kennedy 350.1.13.10 i ty of [place] 4[place].2.[place] [phone] Oh dical nal 296 [facility] 2019-01-11 2019-01-11 Orders Doctor MAMTA 1.2.840.114 [id number] Univers 00:00:00 00:00:00 Only Unassigned, TIMOTHY 350.1.13.10 ity of [place] [facility] 4.2.7.2.686 Shawn as [phone] [address] 2018-11-21 2018-11-21 Outpatient Chay PAGE [facility] [id number] Univers 10:00:00 15:12:43 ESTELA silvestre [facility] 2018-10-27 2018-10-27 Outpatient Chay PAGE [facility] [id number] Univers 10:00:00 13:09:17 ESTELA silvestre [facility] 2018-09-19 2018-09-19 Outpatient [facility] [id number] Common 13:24:00 13:24:00 t [facility] [address] [facility] 2018-09-11 2018-09-11 Outpatient [facility] [id number] Common 11:30:00 11:30:00 t [facility] [address] [facility] 2018-07-17 2018-07-17 Outpatient [facility] [id number] Common 09:15:00 09:15:00 t [facility] [address] [facility] 2018-05-15 2018-05-15 Outpatient [facility] [id number] Common 10:15:00 10:15:00 t [facility] [address] [facility] 2018-05-08 2018-05-08 Outpatient [facility] [id number] Common 08:45:00 08:45:00 t [facility] [address] [facility] 2018-02-06 2018-02-06 Outpatient [facility] [id number] Common 09:00:00 09:00:00 t [facility] [address] [facility] 2017-07-08 2017-07-10 Phone nullFlavo MNA Spine [id number] Memoria 18:23:00 05:59:59 Message r Clinic [facility] 04 emeka IzquierdoSayner 2017-07-08 2017-07-10 Phone nullFlavo MNA Spine [id number] Memoria 18:23:00 05:59:59 Message r Clinic [facility] 04 emeka IzquierdoKaz 2017-07-08 2017-07-09 Outpatient MHMISCHER MHMISCHER [id number] 12:23:00 23:59:59 04 2016-08-18 2016-08-18 Outpatient MHIE MHIE [id number] Memoria 09:15:00 09:15:00 03 emeka Mccurdy 2016-08-18 2016-08-18 Outpatient MHIE MHIE [id number] Memoria 09:15:00 09:15:00 03 emeka IzquierdoSayner 2016-07-21 2016-07-21 Outpatient MHIE MHIE [id number] Memoria 08:15:00 08:15:00 02 emeka IzquierdoKaz 2016-07-21 2016-07-21 Outpatient MHIE MHIE [id number] Memoria 08:15:00 08:15:00 02 emeka Sayner 2016-07-05 2016-07-05 [facility] [id number] Memoria 13:55:00 19:30:00 Surgery r Kaz 00 l [facility] 2016-07-05 2016-07-05 [facility] [id number] Memoria 13:55:00 19:30:00 Surgery r Kaz 00 l [facility] 2016-07-05 2016-07-05 Outpatient SHON Harvey [facility] [id number] 07:55:00 13:30:00 Alex Mcnamara 2016-07-05 2016-07-05 Outpatient MHIE MHIE [id number] Memoria 08:45:00 08:45:00 emeka Mccurdy 2016-07-05 2016-07-05 Outpatient BHAVNA HUGGINS [id number] Memoria 08:45:00 08:45:00 emeka Mccurdy 2016-06-23 2016-06-23 Outpatient BHAVNA HUGGINS [id number] Memoria 10:00:00 10:00:00 emeka Mccurdy 2016-06-23 2016-06-23 Outpatient BHAVNA HUGGINS [id number] Memoria 10:00:00 10:00:00 emeka Mccurdy Results Test Description Test Time Test Comments Results Result Comments Source CHEM PANEL 2021-04-22 06:15:00 Test Item Value Reference Range Interpretation Comme nts Glucose Lvl (test code = Glucose Lvl) 102 70-99 [facility] [id number] 06:15:00 Test Item Value Reference Range Interpretation Comments BUN (test code = BUN) [id number] 06:15:00 Test Item Value Reference Range Interpretation Comments Creatinine Lvl (test code = Creatinine 0.89 0.50-1.40 Lvl) [facility] [id number] 06:15:00 Test Item Value Reference Range Interpretation Comments Sodium Lvl (test code = Sodium Lvl) 136 135-145 [facility] [id number] 06:15:00 Test Item Value Reference Range Interpretation Comments Potassium Lvl (test code = Potassium 3.9 3.5-5.1 Lvl) [facility] [id number] 06:15:00 Test Item Value Reference Range Interpretation Comments Chloride Lvl (test code = Chloride Lvl) 104 95-109 [facility] [id number] 06:15:00 Test Item Value Reference Range Interpretation Comments CO2 (test code = CO2) 28 24-32 [facility] [id number] 06:15:00 Test Item Value Reference Range Interpretation Comments AGAP (test code = AGAP) 7.9 10.0-20.0 [facility] [id number] 06:15:00 Test Item Value Reference Range Interpretation Comments Calcium Lvl (test code = Calcium Lvl) 8.2 8.5-10.5 [facility] [id number] 06:15:00 Test Item Value Reference Range Interpretation Comments B/C Ratio (test code = B/C Ratio) 18 1 6-25 [place] [id number] 06:15:00 Test Item Value Reference Range Interpretation Comments Total Protein (test code = Total 6.0 6.4-8.4 Protein) [place] 194681-11-24 06:15:00 Test Item Value Reference Range Interpretation Comments Albumin Lvl (test code = Albumin Lvl) 2.5 3.5-5.0 [place] 194681-11-24 06:15:00 Test Item Value Reference Range Interpretation Comments Globulin (test code = Globulin) 3.5 2.7-4.2 [place] 194681-11-24 06:15:00 Test Item Value Reference Range Interpretation Comments A/G Ratio (test code = A/G Ratio) 0.7 1 0.7-1.6 [place] 194681-11-24 06:15:00 Test Item Value Reference Range Interpretation Comments ALT (test code = ALT) 28 See_Comment [Auto mated message] The system which ge nerated this result transmit tequila reference range : <=65. The reference range was not used to interpr et this result as morgan l/abnormal. [place] 194681-11-24 06:15:00 Test Item Value Reference Range Interpretation Comments AST (test code = AST) 40 See_Comment [Auto mated message] The system which ge nerated this result transmit tequila reference range : <=37. The reference range was not used to interpr et this result as morgan l/abnormal. [place] 194681-11-24 06:15:00 Test Item Value Reference Range Interpretation Comments Alk Phos (test code = Alk Phos) 74 39-136 [place] 194681-11-24 06:15:00 Test Item Value Reference Range Interpretation Comments Bili Total (test code = Bili Total) 0.2 0.2-1.3 [place] 194681-11-24 06:15:00 Test Item Value Reference Range Interpretation Comments eGFR (test code = eGFR) 84 [facility]13[facility]86 06:15:00 Test Item Value Reference Range Interpretation Comments Segs (test code = Segs) 66.5 45.0-75.0 [place] 611891-11-24 06:15:00 Test Item Value Reference Range Interpretation Comments Lymphocytes (test code = Lymphocytes) 18.4 20.0-40.0 [place] 611891-11-24 06:15:00 Test Item Value Reference Range Interpretation Comments Monocytes (test code = Monocytes) 12.2 2.0-12.0 [place] 611891-11-24 06:15:00 Test Item Value Reference Range Interpretation Comments Eosinophils (test code = 2.5 See_Comment [A utomated message] The Eosinophils) system which ge nerated this result tra nsmitted reference range : <=4.0. The reference r brandie was not used to int erpret this result as normal/abnormal . [place] 611891-11-24 06:15:00 Test Item Value Reference Range Interpretation Comments Basophils (test code = 0.4 See_Comment [Aut omated message] The Basophils) system which ge nerated this result tra nsmitted reference range : <=1.0. The reference r brandie was not used to int erpret this result as normal/abnormal . [facility]phbyxyKASIJKUFSH0968-72-67 06:15:00 Test Item Value Reference Range Interpretation Comments Neutrophils # (test code = Neutrophils 4.1 1.5-8.1 #) [facility]okzqpwEOIWKAPGSU0478-36-19 06:15:00 Test Item Value Reference Range Interpretation Comments Lymphocytes # (test code = Lymphocytes 1.1 1.0-5.5 #) [facility]KovoazbOMOLEFTSVL5537-84-16 06:15:00 Test Item Value Reference Range Interpretation Comments Monocytes # (test code 0.7 See_Comment [Aut omated message] The = Monocytes #) system which generated this result tra nsmitted reference range : <=0.8. The reference r brandie was not used to int erpret this result as normal/abnormal . [place] 611891-11-24 06:15:00 Test Item Value Reference Range Interpretation Comments Eosinophils # (test code 0.2 See_Comment [A utomated message] The = Eosinophils #) system whic h generated this result tra nsmitted reference range : <=0.5. The reference r brandie was not used to int erpret this result as normal/abnormal . [place] [address]-11-24 06:15:00 Test Item Value Reference Range Interpretation Comments RBC (test code = RBC) 3.11 4.70-6.10 [place] [address]-11-24 06:15:00 Test Item Value Reference Range Interpretation Comments Hgb (test code = Hgb) 10.0 14.0-18.0 [place] [address]-11-24 06:15:00 Test Item Value Reference Range Interpretation Comments Hct (test code = Hct) 29.5 42.0-54.0 [place] 611891-11-24 06:15:00 Test Item Value Reference Range Interpretation Comments MCV (test code = MCV) 95.0 80.0-94.0 [place] 611891-11-24 06:15:00 Test Item Value Reference Range Interpretation Comments MCH (test code = MCH) 32.2 pg 27.0-31.0 [place] [address]-11-24 06:15:00 Test Item Value Reference Range Interpretation Comments MCHC (test code = MCHC) 33.9 32.0-36.0 [place] [address]-11-24 06:15:00 Test Item Value Reference Range Interpretation Comments RDW (test code = RDW) 15.4 11.5-14.5 [place] [address]-11-24 06:15:00 Test Item Value Reference Range Interpretation Comments Platelet (test code = Platelet) 200 133-450 [place] 611891-11-24 06:15:00 Test Item Value Reference Range Interpretation Comments MPV (test code = MPV) 7.1 7.4-10.4 [place] [address]-11-24 06:15:00 Test Item Value Reference Range Interpretation Comments WBC (test code = WBC) 6.1 3.7-10.4 [place] 194681-11-24 06:15:00 Test Item Value Reference Range Interpretation Comments Glucose Lvl (test code = Glucose Lvl) 102 70-99 [place] 194681-11-24 06:15:00 Test Item Value Reference Range Interpretation Comments BUN (test code = BUN) 16 7-22 [place] 194681-11-24 06:15:00 Test Item Value Reference Range Interpretation Comments Creatinine Lvl (test code = Creatinine 0.89 0.50-1.40 Lvl) [facility]2021-11-24 06:15:00 Test Item Value Reference Range Interpretation Comments Sodium Lvl (test code = Sodium Lvl) 136 135-145 [place] 194681-11-24 06:15:00 Test Item Value Reference Range Interpretation Comments Potassium Lvl (test code = Potassium 3.9 3.5-5.1 Lvl) [place] 194681-11-24 06:15:00 Test Item Value Reference Range Interpretation Comments Chloride Lvl (test code = Chloride Lvl) 104 95-109 [place] 194681-11-24 06:15:00 Test Item Value Reference Range Interpretation Comments CO2 (test code = CO2) 28 24-32 [place] 194681-11-24 06:15:00 Test Item Value Reference Range Interpretation Comments AGAP (test code = AGAP) 7.9 10.0-20.0 [place] 194681-11-24 06:15:00 Test Item Value Reference Range Interpretation Comments Calcium Lvl (test code = Calcium Lvl) 8.2 8.5-10.5 [place] 194681-11-24 06:15:00 Test Item Value Reference Range Interpretation Comments B/C Ratio (test code = B/C Ratio) 18 1 6-25 [place] 194681-11-24 06:15:00 Test Item Value Reference Range Interpretation Comments Total Protein (test code = Total 6.0 6.4-8.4 Protein) [place] 194681-11-24 06:15:00 Test Item Value Reference Range Interpretation Comments Albumin Lvl (test code = Albumin Lvl) 2.5 3.5-5.0 [place] 194681-11-24 06:15:00 Test Item Value Reference Range Interpretation Comments Globulin (test code = Globulin) 3.5 2.7-4.2 [place] 194681-11-24 06:15:00 Test Item Value Reference Range Interpretation Comments A/G Ratio (test code = A/G Ratio) 0.7 1 0.7-1.6 [place] 194681-11-24 06:15:00 Test Item Value Reference Range Interpretation Comments ALT (test code = ALT) 28 See_Comment [Auto mated message] The system which ge nerated this result transmit tequila reference range : <=65. The reference range was not used to interpr et this result as morgan l/abnormal. [place] [address]-11-24 06:15:00 Test Item Value Reference Range Interpretation Comments AST (test code = AST) 40 See_Comment [Auto mated message] The system which ge nerated this result transmit tequila reference range : <=37. The reference range was not used to interpr et this result as morgan l/abnormal. [place] 194681-11-24 06:15:00 Test Item Value Reference Range Interpretation Comments Alk Phos (test code = Alk Phos) 74 39-136 [place] [address]-11-24 06:15:00 Test Item Value Reference Range Interpretation Comments Bili Total (test code = Bili Total) 0.2 0.2-1.[address]11-24 06:15:00 Test Item Value Reference Range Interpretation Comments eGFR (test code = eGFR) 84 [place] [address]-11-24 06:15:00 Test Item Value Reference Range Interpretation Comments Segs (test code = Segs) 66.5 45.0-75.0 [address]11-24 06:15:00 Test Item Value Reference Range Interpretation Comments Lymphocytes (test code = Lymphocytes) 18.4 20.0-40.0 [address]11-24 06:15:00 Test Item Value Reference Range Interpretation Comments Monocytes (test code = Monocytes) 12.2 2.0-12.0 [place] [address]-11-24 06:15:00 Test Item Value Reference Range Interpretation Comments Eosinophils (test code = 2.5 See_Comment [A utomated message] The Eosinophils) system which ge nerated this result tra nsmitted reference range : <=4.0. The reference r brandie was not used to int erpret this result as normal/abnormal . [place] [address]-11-24 06:15:00 Test Item Value Reference Range Interpretation Comments Basophils (test code = 0.4 See_Comment [Aut omated message] The Basophils) system which ge nerated this result tra nsmitted reference range : <=1.0. The reference r brandie was not used to int erpret this result as normal/abnormal . [place] 611891-11-24 06:15:00 Test Item Value Reference Range Interpretation Comments Neutrophils # (test code = Neutrophils 4.1 1.5-8.1 #) [place] 611891-11-24 06:15:00 Test Item Value Reference Range Interpretation Comments Lymphocytes # (test code = Lymphocytes 1.1 1.0-5.5 #) [place] 611891-11-24 06:15:00 Test Item Value Reference Range Interpretation Comments Monocytes # (test code 0.7 See_Comment [Aut omated message] The = Monocytes #) system which generated this result tra nsmitted reference range : <=0.8. The reference r brandie was not used to int erpret this result as normal/abnormal . [place] 611891-11-24 06:15:00 Test Item Value Reference Range Interpretation Comments Eosinophils # (test code 0.2 See_Comment [A utomated message] The = Eosinophils #) system whic h generated this result tra nsmitted reference range : <=0.5. The reference r brandie was not used to int erpret this result as normal/abnormal . [place] 611891-11-24 06:15:00 Test Item Value Reference Range Interpretation Comments RBC (test code = RBC) 3.11 4.70-6.10 [place] 611891-11-24 06:15:00 Test Item Value Reference Range Interpretation Comments Hgb (test code = Hgb) 10.0 14.0-18.0 [place] 611891-11-24 06:15:00 Test Item Value Reference Range Interpretation Comments Hct (test code = Hct) 29.5 42.0-54.0 [place] 611891-11-24 06:15:00 Test Item Value Reference Range Interpretation Comments MCV (test code = MCV) 95.0 80.0-94.0 [place] 611891-11-24 06:15:00 Test Item Value Reference Range Interpretation Comments MCH (test code = MCH) 32.2 pg 27.0-31.0 [place] 611891-11-24 06:15:00 Test Item Value Reference Range Interpretation Comments MCHC (test code = MCHC) 33.9 32.0-36.0 [place] [address]-11-24 06:15:00 Test Item Value Reference Range Interpretation Comments RDW (test code = RDW) 15.4 11.5-14.5 [place] 611891-11-24 06:15:00 Test Item Value Reference Range Interpretation Comments Platelet (test code = Platelet) 200 133-450 [place] 611891-11-24 06:15:00 Test Item Value Reference Range Interpretation Comments MPV (test code = MPV) 7.1 7.4-10.4 [place] [address]-11-24 06:15:00 Test Item Value Reference Range Interpretation Comments WBC (test code = WBC) 6.1 3.7-10.4 [place] 194681-11-24 06:15:00 Test Item Value Reference Range Interpretation Comments Glucose Lvl (test code = Glucose Lvl) 102 70-99 [place] 194681-11-24 06:15:00 Test Item Value Reference Range Interpretation Comments BUN (test code = BUN) 16 -22 [place] 194681-11-24 06:15:00 Test Item Value Reference Range Interpretation Comments Creatinine Lvl (test code = Creatinine 0.89 0.50-1.40 Lvl) [place] 194681-11-24 06:15:00 Test Item Value Reference Range Interpretation Comments Sodium Lvl (test code = Sodium Lvl) 136 135-145 [place] 194681-11-24 06:15:00 Test Item Value Reference Range Interpretation Comments Potassium Lvl (test code = Potassium 3.9 3.5-5.1 Lvl) [place] 194681-11-24 06:15:00 Test Item Value Reference Range Interpretation Comments Chloride Lvl (test code = Chloride Lvl) 104 95-109 [place] 194681-11-24 06:15:00 Test Item Value Reference Range Interpretation Comments CO2 (test code = CO2) 28 -32 [place] 194681-11-24 06:15:00 Test Item Value Reference Range Interpretation Comments AGAP (test code = AGAP) 7.9 10.0-20.0 [place] 194681-11-24 06:15:00 Test Item Value Reference Range Interpretation Comments Calcium Lvl (test code = Calcium Lvl) 8.2 8.5-10.5 [place] 194681-11-24 06:15:00 Test Item Value Reference Range Interpretation Comments B/C Ratio (test code = B/C Ratio) 18 1 6-25 [place] [address]-11-24 06:15:00 Test Item Value Reference Range Interpretation Comments Total Protein (test code = Total 6.0 6.4-8.4 Protein) [place] 194681-11-24 06:15:00 Test Item Value Reference Range Interpretation Comments Albumin Lvl (test code = Albumin Lvl) 2.5 3.5-5.0 [place] 194681-11-24 06:15:00 Test Item Value Reference Range Interpretation Comments Globulin (test code = Globulin) 3.5 2.7-4.2 [place] 194681-11-24 06:15:00 Test Item Value Reference Range Interpretation Comments A/G Ratio (test code = A/G Ratio) 0.7 1 0.7-1.6 [place] [address]-11-24 06:15:00 Test Item Value Reference Range Interpretation Comments ALT (test code = ALT) 28 See_Comment [Auto mated message] The system which ge nerated this result transmit tequila reference range : <=65. The reference range was not used to interpr et this result as morgan l/abnormal. [place] 194681-11-24 06:15:00 Test Item Value Reference Range Interpretation Comments AST (test code = AST) 40 See_Comment [Auto mated message] The system which ge nerated this result transmit tequila reference range : <=37. The reference range was not used to interpr et this result as morgan l/abnormal. [place] 194681-11-24 06:15:00 Test Item Value Reference Range Interpretation Comments Alk Phos (test code = Alk Phos) 74 39-136 [place] [address]-11-24 06:15:00 Test Item Value Reference Range Interpretation Comments Bili Total (test code = Bili Total) 0.2 0.2-1.3 [place] [address]-11-24 06:15:00 Test Item Value Reference Range Interpretation Comments eGFR (test code = eGFR) 84 [place] 611891-11-24 06:15:00 Test Item Value Reference Range Interpretation Comments Segs (test code = Segs) 66.5 45.0-75.0 [place] 611891-11-24 06:15:00 Test Item Value Reference Range Interpretation Comments Lymphocytes (test code = Lymphocytes) 18.4 20.0-40.0 [place] 611891-11-24 06:15:00 Test Item Value Reference Range Interpretation Comments Monocytes (test code = Monocytes) 12.2 2.0-12.0 [place] [address]-11-24 06:15:00 Test Item Value Reference Range Interpretation Comments Eosinophils (test code = 2.5 See_Comment [A utomated message] The Eosinophils) system which ge nerated this result tra nsmitted reference range : <=4.0. The reference r brandie was not used to int erpret this result as normal/abnormal . [place] [address]-11-24 06:15:00 Test Item Value Reference Range Interpretation Comments Basophils (test code = 0.4 See_Comment [Aut omated message] The Basophils) system which ge nerated this result tra nsmitted reference range : <=1.0. The reference r brandie was not used to int erpret this result as normal/abnormal . [place] 611891-11-24 06:15:00 Test Item Value Reference Range Interpretation Comments Neutrophils # (test code = Neutrophils 4.1 1.5-8.1 #) [place] 611891-11-24 06:15:00 Test Item Value Reference Range Interpretation Comments Lymphocytes # (test code = Lymphocytes 1.1 1.0-5.5 #) [place] [address]-11-24 06:15:00 Test Item Value Reference Range Interpretation Comments Monocytes # (test code 0.7 See_Comment [Aut omated message] The = Monocytes #) system which generated this result tra nsmitted reference range : <=0.8. The reference r brandie was not used to int erpret this result as normal/abnormal . [place] 611891-11-24 06:15:00 Test Item Value Reference Range Interpretation Comments Eosinophils # (test code 0.2 See_Comment [A utomated message] The = Eosinophils #) system whic h generated this result tra nsmitted reference range : <=0.5. The reference r brandie was not used to int erpret this result as normal/abnormal . [facility]FwtujchYIRZLMROBX5816-17-35 06:15:00 Test Item Value Reference Range Interpretation Comments RBC (test code = RBC) 3.11 4.70-6.10 [facility] HospitalXfdkycuFGBWHNPNCU8304-14-66 06:15:00 Test Item Value Reference Range Interpretation Comments Hgb (test code = Hgb) 10.0 14.0-18.0 [facility] HospitalImjrejwEOHSGHOKDB9753-19-86 06:15:00 Test Item Value Reference Range Interpretation Comments Hct (test code = Hct) 29.5 42.0-54.0 [facility] HospitalAnyeubpSNYACWJVUA5987-33-76 06:15:00 Test Item Value Reference Range Interpretation Comments MCV (test code = MCV) 95.0 80.0-94.0 [facility] HospitalSsxgvhzZJITOIOFIL6615-62-44 06:15:00 Test Item Value Reference Range Interpretation Comments MCH (test code = MCH) 32.2 pg 27.0-31.0 [facility] HospitalInhomumEUXBFSHXVL3447-09-86 06:15:00 Test Item Value Reference Range Interpretation Comments MCHC (test code = MCHC) 33.9 32.0-36.0 [facility] HospitalEaxpgqwROYAKOIZRE2593-12-65 06:15:00 Test Item Value Reference Range Interpretation Comments RDW (test code = RDW) 15.4 11.5-14.5 [facility] HospitalPpuljhgHXFXJNSDUP8337-34-99 06:15:00 Test Item Value Reference Range Interpretation Comments Platelet (test code = Platelet) 200 133-450 [facility] HospitalKceopnmLYDWODXFJZ4488-70-81 06:15:00 Test Item Value Reference Range Interpretation Comments MPV (test code = MPV) 7.1 7.4-10.4 [facility] HospitalOzgrsutGOXYZMVKIW4599-95-10 06:15:00 Test Item Value Reference Range Interpretation Comments WBC (test code = WBC) 6.1 3.7-10.4 [facility] CVGOYTJ4609-12-44 10:33:00 Test Item Value Reference Range Interpretation Comments RBC product (test code Product available = RBC product) (04/21/21 4:33 AM) [facility] AFZUYGM5931-02-48 10:33:00 Test Item Value Reference Range Interpretation Comments RBC product (test code Product available = RBC product) (04/21/21 4:33 AM) [facility] TBHCISV[facility]32[facility]02 10:33:00 Test Item Value Reference Range Interpretation Comments RBC product (test code Product available = RBC product) (04/21/21 4:33 AM) [place] 194681-11-23 08:49:00 Test Item Value Reference Range Interpretation Comments Glucose Lvl (test code = Glucose Lvl) 103 70-99 [facility]2021-11-23 08:49:00 Test Item Value Reference Range Interpretation Comments BUN (test code = BUN) 14 7-22 [place] 194681-11-23 08:49:00 Test Item Value Reference Range Interpretation Comments Creatinine Lvl (test code = Creatinine 0.64 0.50-1.40 Lvl) [facility]2021-11-23 08:49:00 Test Item Value Reference Range Interpretation Comments Sodium Lvl (test code = Sodium Lvl) 137 135-145 [facility]2021-11-23 08:49:00 Test Item Value Reference Range Interpretation Comments Potassium Lvl (test code = Potassium 4.0 3.5-5.1 Lvl) [facility]2021-11-23 08:49:00 Test Item Value Reference Range Interpretation Comments Chloride Lvl (test code = Chloride Lvl) 106 95-109 [place] 194681-11-23 08:49:00 Test Item Value Reference Range Interpretation Comments CO2 (test code = CO2) 26 24-32 [place] [address]681-11-23 08:49:00 Test Item Value Reference Range Interpretation Comments Calcium Lvl (test code = Calcium Lvl) 8.4 8.5-10.5 [place] 194681-11-23 08:49:00 Test Item Value Reference Range Interpretation Comments AGAP (test code = AGAP) 9.0 10.0-20.0 [place] 194681-11-23 08:49:00 Test Item Value Reference Range Interpretation Comments eGFR (test code = eGFR) 96 [facility] HospitalCjeikroPXLJNNMKCE9090-25-74 08:49:00 Test Item Value Reference Range Interpretation Comments WBC (test code = WBC) 5.8 3.7-10.4 [facility] HospitalQppvrpkHBKAYPMMSL2421-54-83 08:49:00 Test Item Value Reference Range Interpretation Comments RBC (test code = RBC) 3.59 4.70-6.10 [facility] HospitalWwozpavZVYYDEBMFZ7871-56-25 08:49:00 Test Item Value Reference Range Interpretation Comments Hgb (test code = Hgb) 11.5 14.0-18.0 [place] 611891-11-23 08:49:00 Test Item Value Reference Range Interpretation Comments Hct (test code = Hct) 34.1 42.0-54.0 [facility] HospitalTievlkeNTYWRTAKPY7129-30-02 08:49:00 Test Item Value Reference Range Interpretation Comments MCV (test code = MCV) 95.1 80.0-94.0 [facility] HospitalBkzhgveZISBWIKROC5600-11-14 08:49:00 Test Item Value Reference Range Interpretation Comments MCH (test code = MCH) 32.1 pg 27.0-31.0 [facility] HospitalGltcgreLWJBSVWAHI5778-63-67 08:49:00 Test Item Value Reference Range Interpretation Comments MCHC (test code = MCHC) 33.7 32.0-36.0 [facility] HospitalSmkxsgqOOHGDYTQOB8295-72-94 08:49:00 Test Item Value Reference Range Interpretation Comments RDW (test code = RDW) 15.8 11.5-14.5 [facility] HospitalTqsrinoOTJNOBRFJK0361-45-18 08:49:00 Test Item Value Reference Range Interpretation Comments Platelet (test code = Platelet) 236 133-450 [facility] HospitalTtbrzdnWHOZVHBRGT0997-06-22 08:49:00 Test Item Value Reference Range Interpretation Comments MPV (test code = MPV) 6.7 7.4-10.4 [facility] HospitalSktlenjMDVUAMFBHY9480-47-75 08:49:00 Test Item Value Reference Range Interpretation Comments RBC Morph (test code = Normal (04/21/21 2:49 RBC Morph) AM) [facility] HospitalNjovkyjXZKVCMLRWF1294-89-63 08:49:00 Test Item Value Reference Range Interpretation Comments Plt Morph (test code = Normal (04/21/21 2:49 Plt Morph) AM) [facility] HospitalMcbpxbjVZYJTRZQGJ1296-61-78 08:49:00 Test Item Value Reference Range Interpretation Comments Segs (test code = Segs) 71.4 45.0-75.0 [place] [address]-11-23 08:49:00 Test Item Value Reference Range Interpretation Comments Lymphocytes (test code = Lymphocytes) 14.4 20.0-40.0 [place] [address]-11-23 08:49:00 Test Item Value Reference Range Interpretation Comments Monocytes (test code = Monocytes) 12.7 2.0-12.0 [place] [address]-11-23 08:49:00 Test Item Value Reference Range Interpretation Comments Eosinophils (test code = 0.7 See_Comment [A utomated message] The Eosinophils) system which ge nerated this result tra nsmitted reference range : <=4.0. The reference r brandie was not used to int erpret this result as normal/abnormal . [place] [address]-11-23 08:49:00 Test Item Value Reference Range Interpretation Comments Basophils (test code = 0.8 See_Comment [Aut omated message] The Basophils) system which ge nerated this result tra nsmitted reference range : <=1.0. The reference r brandie was not used to int erpret this result as normal/abnormal . [place] 611891-11-23 08:49:00 Test Item Value Reference Range Interpretation Comments Neutrophils # (test code = Neutrophils 4.2 1.5-8.1 #) [place] 611891-11-23 08:49:00 Test Item Value Reference Range Interpretation Comments Lymphocytes # (test code = Lymphocytes 0.8 1.0-5.5 #) [place] 611891-11-23 08:49:00 Test Item Value Reference Range Interpretation Comments Monocytes # (test code 0.7 See_Comment [Aut omated message] The = Monocytes #) system which generated this result tra nsmitted reference range : <=0.8. The reference r brandie was not used to int erpret this result as normal/abnormal . [place] [address]681-11-23 08:49:00 Test Item Value Reference Range Interpretation Comments Glucose Lvl (test code = Glucose Lvl) 103 70-99 [place] 194681-11-23 08:49:00 Test Item Value Reference Range Interpretation Comments BUN (test code = BUN) 14 7-22 [place] 194681-11-23 08:49:00 Test Item Value Reference Range Interpretation Comments Creatinine Lvl (test code = Creatinine 0.64 0.50-1.40 Lvl) [place] 194681-11-23 08:49:00 Test Item Value Reference Range Interpretation Comments Sodium Lvl (test code = Sodium Lvl) 137 135-145 [place] [address]-11-23 08:49:00 Test Item Value Reference Range Interpretation Comments Potassium Lvl (test code = Potassium 4.0 3.5-5.1 Lvl) [address]11-23 08:49:00 Test Item Value Reference Range Interpretation Comments Chloride Lvl (test code = Chloride Lvl) 106 95-109 [place] [address]-11-23 08:49:00 Test Item Value Reference Range Interpretation Comments CO2 (test code = CO2) 26 24-32 [place] [address]-11-23 08:49:00 Test Item Value Reference Range Interpretation Comments Calcium Lvl (test code = Calcium Lvl) 8.4 8.5-10.5 [place] 194681-11-23 08:49:00 Test Item Value Reference Range Interpretation Comments AGAP (test code = AGAP) 9.0 10.0-20.0 [place] 194681-11-23 08:49:00 Test Item Value Reference Range Interpretation Comments eGFR (test code = eGFR) 96 [place] 611891-11-23 08:49:00 Test Item Value Reference Range Interpretation Comments WBC (test code = WBC) 5.8 3.7-10.4 [place] 611891-11-23 08:49:00 Test Item Value Reference Range Interpretation Comments RBC (test code = RBC) 3.59 4.70-6.10 [place] [address]-11-23 08:49:00 Test Item Value Reference Range Interpretation Comments Hgb (test code = Hgb) 11.5 14.0-18.0 [place] [address]-11-23 08:49:00 Test Item Value Reference Range Interpretation Comments Hct (test code = Hct) 34.1 42.0-54.0 [place] [address]-11-23 08:49:00 Test Item Value Reference Range Interpretation Comments MCV (test code = MCV) 95.1 80.0-94.0 [address]11-23 08:49:00 Test Item Value Reference Range Interpretation Comments MCH (test code = MCH) 32.1 pg 27.0-31.0 [place] 611891-11-23 08:49:00 Test Item Value Reference Range Interpretation Comments MCHC (test code = MCHC) 33.7 32.0-36.0 [place] 611891-11-23 08:49:00 Test Item Value Reference Range Interpretation Comments RDW (test code = RDW) 15.8 11.5-14.5 [place] 611891-11-23 08:49:00 Test Item Value Reference Range Interpretation Comments Platelet (test code = Platelet) 236 133-450 [place] 611891-11-23 08:49:00 Test Item Value Reference Range Interpretation Comments MPV (test code = MPV) 6.7 7.4-10.4 [place] 611891-11-23 08:49:00 Test Item Value Reference Range Interpretation Comments RBC Morph (test code = Normal (04/21/21 2:49 RBC Morph) AM) [place] 611891-11-23 08:49:00 Test Item Value Reference Range Interpretation Comments Plt Morph (test code = Normal (04/21/21 2:49 Plt Morph) AM) [facility] Test Item Value Reference Range Interpretation Comments Segs (test code = Segs) 71.4 45.0-75.0 [place] 611891-11-23 08:49:00 Test Item Value Reference Range Interpretation Comments Lymphocytes (test code = Lymphocytes) 14.4 20.0-40.0 [place] 611891-11-23 08:49:00 Test Item Value Reference Range Interpretation Comments Monocytes (test code = Monocytes) 12.7 2.0-12.0 [place] 611891-11-23 08:49:00 Test Item Value Reference Range Interpretation Comments Eosinophils (test code = 0.7 See_Comment [A utomated message] The Eosinophils) system which ge nerated this result tra nsmitted reference range : <=4.0. The reference r brandie was not used to int erpret this result as normal/abnormal . [place] 611891-11-23 08:49:00 Test Item Value Reference Range Interpretation Comments Basophils (test code = 0.8 See_Comment [Aut omated message] The Basophils) system which ge nerated this result tra nsmitted reference range : <=1.0. The reference r brandie was not used to int erpret this result as normal/abnormal . [place] 611891-11-23 08:49:00 Test Item Value Reference Range Interpretation Comments Neutrophils # (test code = Neutrophils 4.2 1.5-8.1 #) [place] 611891-11-23 08:49:00 Test Item Value Reference Range Interpretation Comments Lymphocytes # (test code = Lymphocytes 0.8 1.0-5.5 #) [place] 611891-11-23 08:49:00 Test Item Value Reference Range Interpretation Comments Monocytes # (test code 0.7 See_Comment [Aut omated message] The = Monocytes #) system which generated this result tra nsmitted reference range : <=0.8. The reference r brandie was not used to int erpret this result as normal/abnormal . [place] 194681-11-23 08:49:00 Test Item Value Reference Range Interpretation Comments Glucose Lvl (test code = Glucose Lvl) 103 70-99 [place] 194681-11-23 08:49:00 Test Item Value Reference Range Interpretation Comments BUN (test code = BUN) 14 7-22 [place] [address]-11-23 08:49:00 Test Item Value Reference Range Interpretation Comments Creatinine Lvl (test code = Creatinine 0.64 0.50-1.40 Lvl) [place] 194681-11-23 08:49:00 Test Item Value Reference Range Interpretation Comments Sodium Lvl (test code = Sodium Lvl) 137 135-145 [place] 194681-11-23 08:49:00 Test Item Value Reference Range Interpretation Comments Potassium Lvl (test code = Potassium 4.0 3.5-5.1 Lvl) [place] 194681-11-23 08:49:00 Test Item Value Reference Range Interpretation Comments Chloride Lvl (test code = Chloride Lvl) 106 95-109 [place] 194681-11-23 08:49:00 Test Item Value Reference Range Interpretation Comments CO2 (test code = CO2) 26 24-32 [place] 194681-11-23 08:49:00 Test Item Value Reference Range Interpretation Comments Calcium Lvl (test code = Calcium Lvl) 8.4 8.5-10.5 [place] 194681-11-23 08:49:00 Test Item Value Reference Range Interpretation Comments AGAP (test code = AGAP) 9.0 10.0-20.0 [place] 194681-11-23 08:49:00 Test Item Value Reference Range Interpretation Comments eGFR (test code = eGFR) 96 [place] 611891-11-23 08:49:00 Test Item Value Reference Range Interpretation Comments WBC (test code = WBC) 5.8 3.7-10.4 [place] 611891-11-23 08:49:00 Test Item Value Reference Range Interpretation Comments RBC (test code = RBC) 3.59 4.70-6.10 [place] 611891-11-23 08:49:00 Test Item Value Reference Range Interpretation Comments Hgb (test code = Hgb) 11.5 14.0-18.0 [place] 611891-11-23 08:49:00 Test Item Value Reference Range Interpretation Comments Hct (test code = Hct) 34.1 42.0-54.0 [place] 611891-11-23 08:49:00 Test Item Value Reference Range Interpretation Comments MCV (test code = MCV) 95.1 80.0-94.0 [place] 611891-11-23 08:49:00 Test Item Value Reference Range Interpretation Comments MCH (test code = MCH) 32.1 pg 27.0-31.0 [place] 611891-11-23 08:49:00 Test Item Value Reference Range Interpretation Comments MCHC (test code = MCHC) 33.7 32.0-36.0 [place] 611891-11-23 08:49:00 Test Item Value Reference Range Interpretation Comments RDW (test code = RDW) 15.8 11.5-14.5 [place] 611891-11-23 08:49:00 Test Item Value Reference Range Interpretation Comments Platelet (test code = Platelet) 236 435-450 [place] 611891-11-23 08:49:00 Test Item Value Reference Range Interpretation Comments MPV (test code = MPV) 6.7 7.4-10.4 [place] 611891-11-23 08:49:00 Test Item Value Reference Range Interpretation Comments RBC Morph (test code = Normal (04/21/21 2:49 RBC Morph) AM) [place] 611891-11-23 08:49:00 Test Item Value Reference Range Interpretation Comments Plt Morph (test code = Normal (04/21/21 2:49 Plt Morph) AM) [place] 611891-11-23 08:49:00 Test Item Value Reference Range Interpretation Comments Segs (test code = Segs) 71.4 45.0-75.0 [place] 611891-11-23 08:49:00 Test Item Value Reference Range Interpretation Comments Lymphocytes (test code = Lymphocytes) 14.4 20.0-40.0 [place] 611891-11-23 08:49:00 Test Item Value Reference Range Interpretation Comments Monocytes (test code = Monocytes) 12.7 2.0-12.0 [place] 611891-11-23 08:49:00 Test Item Value Reference Range Interpretation Comments Eosinophils (test code = 0.7 See_Comment [A utomated message] The Eosinophils) system which ge nerated this result tra nsmitted reference range : <=4.0. The reference r brandie was not used to int erpret this result as normal/abnormal . [place] 611891-11-23 08:49:00 Test Item Value Reference Range Interpretation Comments Basophils (test code = 0.8 See_Comment [Aut omated message] The Basophils) system which ge nerated this result tra nsmitted reference range : <=1.0. The reference r brandie was not used to int erpret this result as normal/abnormal . [place] 611891-11-23 08:49:00 Test Item Value Reference Range Interpretation Comments Neutrophils # (test code = Neutrophils 4.2 1.5-8.1 #) [place] 611891-11-23 08:49:00 Test Item Value Reference Range Interpretation Comments Lymphocytes # (test code = Lymphocytes 0.8 1.0-5.5 #) [place] 611891-11-23 08:49:00 Test Item Value Reference Range Interpretation Comments Monocytes # (test code 0.7 See_Comment [Aut omated message] The = Monocytes #) system which generated this result tra nsmitted reference range : <=0.8. The reference r brandie was not used to int erpret this result as normal/abnormal . [facility] [employer] [id number] 20:12:00 Test Item Value Reference Range Interpretation Comments ABO/Rh (test code = ABO/Rh) A POS [facility] [employer] BANK [id number] 20:12:00 Test Item Value Reference Range Interpretation Comments Antibody Scrn (test Positive (04/20/21 code = Antibody Scrn) 2:12 PM) [facility] [employer] BANK [id number] 20:12:00 Test Item Value Reference Range Interpretation [...] with the resident Dr. Richmond's interpretation. CPT: 95852-VN [facility] [employer] [id number] 20:12:00 Test Item Value Reference Range Interpretation Comments AB Int (test code = AB Int) Anti-E [facility] [employer] [id number] 20:12:00 Test Item Value Reference Range Interpretation Comments BB Note (test code = Result Note 4(04/20/21 BB Note) 2:12 PM) [id number] 20:12:00 Test Item Value Reference Range Interpretation Comments Coronavirus (COVID-19) Not Detected SAHIL (test code = (04/20/21 2:12 PM) Coronavirus (COVID-19) SAHIL[facility] [id number] 20:12:00 Test Item Value Reference Range Interpretation Comments ABO/Rh (test code = ABO/Rh) A POS [facility] BANK [id number] 20:12:00 Test Item Value Reference Range Interpretation Comments Antibody Scrn (test Positive (04/20/21 code = Antibody Scrn) 2:12 PM) [facility] BANK [id number] 20:12:00 Test Item Value Reference Range Interpretation [...] with the resident Dr. Richmond's interpretation. CPT: 83804-MV [facility] [id number] 20:12:00 Test Item Value Reference Range Interpretation Comments AB Int (test code = AB Int) Anti-E [facility] [employer] [id number] 20:12:00 Test Item Value Reference Range Interpretation Comments BB Note (test code = Result Note 4(04/20/21 BB Note) 2:12 PM) [id number] 20:12:00 Test Item Value Reference Range Interpretation Comments Coronavirus (COVID-19) Not Detected SAHIL (test code = (04/20/21 2:12 PM) Coronavirus (COVID-19) SAHIL) [facility] [employer] [id number] 20:12:00 Test Item Value Reference Range Interpretation Comments ABO/Rh (test code = ABO/Rh) A POS [facility] BANK [id number] 20:12:00 Test Item Value Reference Range Interpretation Comments Antibody Scrn (test Positive (04/20/21 code = Antibody Scrn) 2:12 PM) [facility] [employer] [id number] 20:12:00 Test Item Value Reference Range Interpretation [...] with the resident Dr. Richmond's interpretation. CPT: 65326-AR [facility] [employer] [id number] 20:12:00 Test Item Value Reference Range Interpretation Comments AB Int (test code = AB Int) Anti-E [facility] [employer] [id number] 20:12:00 Test Item Value Reference Range Interpretation Comments BB Note (test code = Result Note 4(04/20/21 BB Note) 2:12 PM) [facility] [id number] 20:12:00 Test Item Value Reference Range Interpretation Comments Coronavirus (COVID-19) Not Detected SAHIL (test code = (04/20/21 2:12 PM) Coronavirus (COVID-19) SAHIL) [employer] [id number] 18:55:00 Test Item Value Reference Range Interpretation Comments Glucose Lvl (test code = Glucose Lvl) 97 70-99 [facility] NXVISION2021-11-22 18:55:00 Test Item Value Reference Range Interpretation Comments BUN (test code = BUN) 11 12-18 [employer] [id number] 18:55:00 Test Item Value Reference Range Interpretation Comments Creatinine Lvl (test code = Creatinine 0.56 0.50-1.40 Lvl) [place] [address]-11-22 18:55:00 Test Item Value Reference Range Interpretation Comments Sodium Lvl (test code = Sodium Lvl) 138 135-145 [place] 194681-11-22 18:55:00 Test Item Value Reference Range Interpretation Comments Potassium Lvl (test code = Potassium 4.4 3.5-5.1 Lvl) [place] 194681-11-22 18:55:00 Test Item Value Reference Range Interpretation Comments Chloride Lvl (test code = Chloride Lvl) 108 95-109 [place] [address]-11-22 18:55:00 Test Item Value Reference Range Interpretation Comments CO2 (test code = CO2) 24 24-32 [place] 194681-11-22 18:55:00 Test Item Value Reference Range Interpretation Comments Calcium Lvl (test code = Calcium Lvl) 8.3 8.5-10.5 [place] 194681-11-22 18:55:00 Test Item Value Reference Range Interpretation Comments AGAP (test code = AGAP) 10.4 10.0-20.0 [place] [address]-11-22 18:55:00 Test Item Value Reference Range Interpretation Comments eGFR (test code = eGFR) 102 [place] 611891-11-22 18:55:00 Test Item Value Reference Range Interpretation Comments WBC X 10x3 (test code = WBC X 10x3) 9.2 3.7-10.4 [place] [address]-11-22 18:55:00 Test Item Value Reference Range Interpretation Comments RBC X 10x6 (test code = RBC X 10x6) 4.05 4.70-6.10 [place] [address]-11-22 18:55:00 Test Item Value Reference Range Interpretation Comments Hgb (test code = Hgb) 12.8 14.0-18.0 [place] [address]-11-22 18:55:00 Test Item Value Reference Range Interpretation Comments Hct (test code = Hct) 39.1 42.0-54.0 [place] [address]-11-22 18:55:00 Test Item Value Reference Range Interpretation Comments MCV (test code = MCV) 96.5 80.0-94.0 [place] [address]-11-22 18:55:00 Test Item Value Reference Range Interpretation Comments MCH (test code = MCH) 31.5 pg 27.0-31.0 [place] 611891-11-22 18:55:00 Test Item Value Reference Range Interpretation Comments MCHC (test code = MCHC) 32.7 32.0-36.0 [place] 611891-11-22 18:55:00 Test Item Value Reference Range Interpretation Comments RDW (test code = RDW) 16.3 11.5-14.5 [place] 611891-11-22 18:55:00 Test Item Value Reference Range Interpretation Comments Platelet (test code = Platelet) 283 133-450 [id number] 18:55:00 Test Item Value Reference Range Interpretation Comments MPV (test code = MPV) 6.5 7.4-10.4 [place] 611891-11-22 18:55:00 Test Item Value Reference Range Interpretation Comments PT (test code = PT) 14.2 s 12.0-14.7 [place] 611891-11-22 18:55:00 Test Item Value Reference Range Interpretation Comments INR (test code = INR) 1.11 1 0.85-1.17 [place] 611891-11-22 18:55:00 Test Item Value Reference Range Interpretation Comments PTT (test code = PTT) 30.9 s 22.9-35.8 [place] 611891-11-22 18:55:00 Test Item Value Reference Range Interpretation Comments Segs (test code = Segs) 84.0 45.0-75.0 [place] 611891-11-22 18:55:00 Test Item Value Reference Range Interpretation Comments Lymphocytes (test code = Lymphocytes) 6.9 20.0-40.0 [place] 611891-11-22 18:55:00 Test Item Value Reference Range Interpretation Comments Monocytes (test code = Monocytes) 7.9 2.0-12.0 [place] 611891-11-22 18:55:00 Test Item Value Reference Range Interpretation Comments Eosinophils (test code = 0.7 See_Comment [A utomated message] The Eosinophils) system which ge nerated this result tra nsmitted reference range : <=4.0. The reference r brandie was not used to int erpret this result as normal/abnormal . [place] 611891-11-22 18:55:00 Test Item Value Reference Range Interpretation Comments Basophils (test code = 0.5 See_Comment [Aut omated message] The Basophils) system which ge nerated this result tra nsmitted reference range : <=1.0. The reference r brandie was not used to int erpret this result as normal/abnormal . [place] 611891-11-22 18:55:00 Test Item Value Reference Range Interpretation Comments Neutrophils # (test code = Neutrophils 7.8 1.5-8.1 #) [id number] 18:55:00 Test Item Value Reference Range Interpretation Comments Lymphocytes # (test code = Lymphocytes 0.6 1.0-5.5 #) [facility]WCZLPBMLBI2523-95-39 18:55:00 Test Item Value Reference Range Interpretation Comments Monocytes # (test code 0.7 See_Comment [Aut omated message] The = Monocytes #) system which generated this result tra nsmitted reference range : <=0.8. The reference r brandie was not used to int erpret this result as normal/abnormal . [place] 611891-11-22 18:55:00 Test Item Value Reference Range Interpretation Comments Eosinophils # (test code 0.1 See_Comment [A utomated message] The = Eosinophils #) system whic h generated this result tra nsmitted reference range : <=0.5. The reference r brandie was not used to int erpret this result as normal/abnormal . [facility]2021-11-22 18:55:00 Test Item Value Reference Range Interpretation Comments Glucose Lvl (test code = Glucose Lvl) 97 70-99 [place] 194681-11-22 18:55:00 Test Item Value Reference Range Interpretation Comments BUN (test code = BUN) 11 - [place] 194681-11-22 18:55:00 Test Item Value Reference Range Interpretation Comments Creatinine Lvl (test code = Creatinine 0.56 0.50-1.40 Lvl) [facility]2021-11-22 18:55:00 Test Item Value Reference Range Interpretation Comments Sodium Lvl (test code = Sodium Lvl) 138 135-145 [address]11-22 18:55:00 Test Item Value Reference Range Interpretation Comments Potassium Lvl (test code = Potassium 4.4 3.5-5.1 Lvl) [place] [address]-11-22 18:55:00 Test Item Value Reference Range Interpretation Comments Chloride Lvl (test code = Chloride Lvl) 108 95-109 [place] [address]-11-22 18:55:00 Test Item Value Reference Range Interpretation Comments CO2 (test code = CO2) 24 24-32 [place] [address]-11-22 18:55:00 Test Item Value Reference Range Interpretation Comments Calcium Lvl (test code = Calcium Lvl) 8.3 8.5-10.5 [place] [address]-11-22 18:55:00 Test Item Value Reference Range Interpretation Comments AGAP (test code = AGAP) 10.4 10.0-20.0 [address]11-22 18:55:00 Test Item Value Reference Range Interpretation Comments eGFR (test code = eGFR) 102 [place] [address]-11-22 18:55:00 Test Item Value Reference Range Interpretation Comments WBC X 10x3 (test code = WBC X 10x3) 9.2 3.7-10.4 [place] [address]-11-22 18:55:00 Test Item Value Reference Range Interpretation Comments RBC X 10x6 (test code = RBC X 10x6) 4.05 4.70-6.10 [place] [address]-11-22 18:55:00 Test Item Value Reference Range Interpretation Comments Hgb (test code = Hgb) 12.8 14.0-18.0 [place] [address]-11-22 18:55:00 Test Item Value Reference Range Interpretation Comments Hct (test code = Hct) 39.1 42.0-54.0 [place] [address]-11-22 18:55:00 Test Item Value Reference Range Interpretation Comments MCV (test code = MCV) 96.5 80.0-94.0 [place] [address]-11-22 18:55:00 Test Item Value Reference Range Interpretation Comments MCH (test code = MCH) 31.5 pg 27.0-31.0 [place] [address]-11-22 18:55:00 Test Item Value Reference Range Interpretation Comments MCHC (test code = MCHC) 32.7 32.0-36.0 [place] 611891-11-22 18:55:00 Test Item Value Reference Range Interpretation Comments RDW (test code = RDW) 16.3 11.5-14.5 [place] 611891-11-22 18:55:00 Test Item Value Reference Range Interpretation Comments Platelet (test code = Platelet) 283 133-450 [place] 611891-11-22 18:55:00 Test Item Value Reference Range Interpretation Comments MPV (test code = MPV) 6.5 7.4-10.4 [place] 611891-11-22 18:55:00 Test Item Value Reference Range Interpretation Comments PT (test code = PT) 14.2 s 12.0-14.7 [place] [address]-11-22 18:55:00 Test Item Value Reference Range Interpretation Comments INR (test code = INR) 1.11 1 0.85-1.17 [place] 611891-11-22 18:55:00 Test Item Value Reference Range Interpretation Comments PTT (test code = PTT) 30.9 s 22.9-35.8 [place] 611891-11-22 18:55:00 Test Item Value Reference Range Interpretation Comments Segs (test code = Segs) 84.0 45.0-75.0 [place] 611891-11-22 18:55:00 Test Item Value Reference Range Interpretation Comments Lymphocytes (test code = Lymphocytes) 6.9 20.0-40.0 [place] 611891-11-22 18:55:00 Test Item Value Reference Range Interpretation Comments Monocytes (test code = Monocytes) 7.9 2.0-12.0 [place] [address]-11-22 18:55:00 Test Item Value Reference Range Interpretation Comments Eosinophils (test code = 0.7 See_Comment [A utomated message] The Eosinophils) system which ge nerated this result tra nsmitted reference range : <=4.0. The reference r brandie was not used to int erpret this result as normal/abnormal . [place] 611891-11-22 18:55:00 Test Item Value Reference Range Interpretation Comments Basophils (test code = 0.5 See_Comment [Aut omated message] The Basophils) system which ge nerated this result tra nsmitted reference range : <=1.0. The reference r brandie was not used to int erpret this result as normal/abnormal . [facility]ES[facility]23[facility]99-84 18:55:00 Test Item Value Reference Range Interpretation Comments Neutrophils # (test code = Neutrophils 7.8 1.5-8.1 #) [facility]linqtrCOGLWRLECG8673-57-36 18:55:00 Test Item Value Reference Range Interpretation Comments Lymphocytes # (test code = Lymphocytes 0.6 1.0-5.5 #) [place] 611891-11-22 18:55:00 Test Item Value Reference Range Interpretation Comments Monocytes # (test code 0.7 See_Comment [Aut omated message] The = Monocytes #) system which generated this result tra nsmitted reference range : <=0.8. The reference r brandie was not used to int erpret this result as normal/abnormal . [facility]adngoKFNZAMFWQP4105-63-25 18:55:00 Test Item Value Reference Range Interpretation Comments Eosinophils # (test code 0.1 See_Comment [A utomated message] The = Eosinophils #) system whic h generated this result tra nsmitted reference range : <=0.5. The reference r brandie was not used to int erpret this result as normal/abnormal . [facility]2021-11-22 18:55:00 Test Item Value Reference Range Interpretation Comments Glucose Lvl (test code = Glucose Lvl) 97 70-99 [facility]2021-11-22 18:55:00 Test Item Value Reference Range Interpretation Comments BUN (test code = BUN) 11 7-22 [place] 194681-11-22 18:55:00 Test Item Value Reference Range Interpretation Comments Creatinine Lvl (test code = Creatinine 0.56 0.50-1.40 Lvl) [place] 194681-11-22 18:55:00 Test Item Value Reference Range Interpretation Comments Sodium Lvl (test code = Sodium Lvl) 138 135-145 [place] 194681-11-22 18:55:00 Test Item Value Reference Range Interpretation Comments Potassium Lvl (test code = Potassium 4.4 3.5-5.1 Lvl) [place] 194681-11-22 18:55:00 Test Item Value Reference Range Interpretation Comments Chloride Lvl (test code = Chloride Lvl) 108 95-109 [place] [address]-11-22 18:55:00 Test Item Value Reference Range Interpretation Comments CO2 (test code = CO2) 24 24-32 [place] [address]-11-22 18:55:00 Test Item Value Reference Range Interpretation Comments Calcium Lvl (test code = Calcium Lvl) 8.3 8.5-10.5 [place] 194681-11-22 18:55:00 Test Item Value Reference Range Interpretation Comments AGAP (test code = AGAP) 10.4 10.0-20.0 [place] 194681-11-22 18:55:00 Test Item Value Reference Range Interpretation Comments eGFR (test code = eGFR) 102 [place] 611891-11-22 18:55:00 Test Item Value Reference Range Interpretation Comments WBC X 10x3 (test code = WBC X 10x3) 9.2 3.7-10.4 [place] 611891-11-22 18:55:00 Test Item Value Reference Range Interpretation Comments RBC X 10x6 (test code = RBC X 10x6) 4.05 4.70-6.10 [place] [address]-11-22 18:55:00 Test Item Value Reference Range Interpretation Comments Hgb (test code = Hgb) 12.8 14.0-18.0 [place] [address]-11-22 18:55:00 Test Item Value Reference Range Interpretation Comments Hct (test code = Hct) 39.1 42.0-54.0 [place] [address]-11-22 18:55:00 Test Item Value Reference Range Interpretation Comments MCV (test code = MCV) 96.5 80.0-94.0 [place] [address]-11-22 18:55:00 Test Item Value Reference Range Interpretation Comments MCH (test code = MCH) 31.5 pg 27.0-31.0 [place] [address]-11-22 18:55:00 Test Item Value Reference Range Interpretation Comments MCHC (test code = MCHC) 32.7 32.0-36.0 [place] 611891-11-22 18:55:00 Test Item Value Reference Range Interpretation Comments RDW (test code = RDW) 16.3 11.5-14.5 [place] 611891-11-22 18:55:00 Test Item Value Reference Range Interpretation Comments Platelet (test code = Platelet) 283 133-450 [place] 611891-11-22 18:55:00 Test Item Value Reference Range Interpretation Comments MPV (test code = MPV) 6.5 7.4-10.4 [place] 611891-11-22 18:55:00 Test Item Value Reference Range Interpretation Comments PT (test code = PT) 14.2 s 12.0-14.7 [place] 611891-11-22 18:55:00 Test Item Value Reference Range Interpretation Comments INR (test code = INR) 1.11 1 0.85-1.17 [place] [address]-11-22 18:55:00 Test Item Value Reference Range Interpretation Comments PTT (test code = PTT) 30.9 s 22.9-35.8 [place] 611891-11-22 18:55:00 Test Item Value Reference Range Interpretation Comments Segs (test code = Segs) 84.0 45.0-75.0 [place] 611891-11-22 18:55:00 Test Item Value Reference Range Interpretation Comments Lymphocytes (test code = Lymphocytes) 6.9 20.0-40.0 [place] [address]-11-22 18:55:00 Test Item Value Reference Range Interpretation Comments Monocytes (test code = Monocytes) 7.9 2.0-12.0 [place] [address]-11-22 18:55:00 Test Item Value Reference Range Interpretation Comments Eosinophils (test code = 0.7 See_Comment [A utomated message] The Eosinophils) system which ge nerated this result tra nsmitted reference range : <=4.0. The reference r brandie was not used to int erpret this result as normal/abnormal . [place] [address]-11-22 18:55:00 Test Item Value Reference Range Interpretation Comments Basophils (test code = 0.5 See_Comment [Aut omated message] The Basophils) system which ge nerated this result tra nsmitted reference range : <=1.0. The reference r brandie was not used to int erpret this result as normal/abnormal . [facility]ckssMJOZNCFXNX8943-61-25 18:55:00 Test Item Value Reference Range Interpretation Comments Neutrophils # (test code = Neutrophils 7.8 1.5-8.1 #) [facility]BsawsudIYMBRGWLNM1340-91-21 18:55:00 Test Item Value Reference Range Interpretation Comments Lymphocytes # (test code = Lymphocytes 0.6 1.0-5.5 #) [facility] HospitalIptxpiuDCNOLXMVPG9269-12-72 18:55:00 Test Item Value Reference Range Interpretation Comments Monocytes # (test code 0.7 See_Comment [Aut omated message] The = Monocytes #) system which generated this result tra nsmitted reference range : <=0.8. The reference r brandie was not used to int erpret this result as normal/abnormal . [facility] HospitalJhngzykOUAJXMXCNN2707-62-92 18:55:00 Test Item Value Reference Range Interpretation Comments Eosinophils # (test code 0.1 See_Comment [A utomated message] The = Eosinophils #) system whic h generated this result tra nsmitted reference range : <=0.5. The reference r brandie was not used to int erpret this result as normal/abnormal . [facility] TUMOR [id number] 11:09:00 Test Item Value Reference Range Interpretation Comments ALPHA-FETOPROTEIN (BEAKER) (test code < ng/mL <10.0 = 1094) Effective 04/16/2014: Reference Range ChangeNew: <10.0 Previous: 0.0-8.0CBC W/PLT COUNT & AUTO [id number] 10:05:00 Test Item Value Reference Range Interpretation [...] 0.00-0.20 (test code = 417) 0.00HEPATIC FUNCTION [id number] 09:42:00 Test Item Value Reference Range Interpretation [...] = 23 U/L 6-55 347) BASIC METABOLIC [id number] 09:42:00 Test Item Value Reference Range Interpretation [...] 697) EGFR (BEAKER) (test 86 mL/min/1.73 ESTIMA TEQUILA GFR IS code = 1092) sq m NOT ACCURATE CREATININE CLEARANCE IN PREDICTING GLOMERULAR FILTRATION RATE . ESTIMATED GFR I S NOT APPLICABLE FOR DIALYSIS PATIEN TS. GAMMA GLUTAMYL TRANSFERASE (GGT)2016-09-01 09:42:00 Test Item Value Reference Range Interpretation Comments GAMMA GLUTAMYL TRANSFERASE (BEAKER) 33 U/L 9-64 (test code = 364) PROTHROMBIN TIME/[id number] 09:25:00 Test Item Value Reference Range Interpretation Comments PROTIME (BEAKER) (test code = 13.2 seconds 11.7-14.7 759) INR (BEAKER) (test code = 370) 1.0 <=5.9 RECOMMENDED COUMADIN/WARFARIN INR THERAPY RANGESSTANDARD DOSE: 2.0 - 3.0 Includes: PROPHYLAXIS for venous thrombosis, systemic embolization; TREATMENT for venous thrombosis and/or pulmonary embolus.HIGH RISK: Target INR is 2.5-3.5 for patients with mechanical heart valves.BLOOD BANK [id number] 15:08:00 Test Item Value Reference Range Interpretation Comments AB Int (test code = AB Int) Anti-E [facility] BANK [id number] 15:08:00 Test Item Value Reference Range Interpretation Comments Antigen VOLODYMYR Int (test code = Antigen c pos VOLODYMYR Int) [facility] [id number] 15:08:00 Test Item Value Reference Range Interpretation Comments Antigen VOLODYMYR Int (test code = Antigen E neg VOLODYMYR Int) [facility] [id number] 15:08:00 Test Item Value Reference Range Interpretation Comments Antibody Scrn (test Positive 1(07/05/16 9:08 code = Antibody Scrn) AM) [facility] [id number] 15:08:00 Test Item Value Reference Range Interpretation Comments ABO/Rh (test code = ABO/Rh) A POS [facility] [employer] [facility] [id number] 15:08:00 Test Item Value Reference Range Interpretation Comments AB Int (test code = AB Int) Anti-E [facility] [id number] 15:08:00 Test Item Value Reference Range Interpretation Comments Antigen VOLODYMYR Int (test code = Antigen c pos VOLODYMYR Int) [facility] [id number] 15:08:00 Test Item Value Reference Range Interpretation Comments Antigen VOLODYMYR Int (test code = Antigen E neg VOLODYMYR Int) [facility] [id number] 15:08:00 Test Item Value Reference Range Interpretation Comments Antibody Scrn (test Positive 1(07/05/16 9:08 code = Antibody Scrn) AM) [facility] [id number] 15:08:00 Test Item Value Reference Range Interpretation Comments ABO/Rh (test code = ABO/Rh) A POS [facility] [employer] BANK [id number] 15:08:00 Test Item Value Reference Range Interpretation Comments AB Int (test code = AB Int) Anti-E [facility] [employer] BANK [id number] 15:08:00 Test Item Value Reference Range Interpretation Comments Antigen VOLODYMYR Int (test code = Antigen c pos VOLODYMYR Int) [facility] [id number] 15:08:00 Test Item Value Reference Range Interpretation Comments Antigen VOLODYMYR Int (test code = Antigen E neg VOLODYMYR Int) [facility] [id number] 15:08:00 Test Item Value Reference Range Interpretation Comments Antibody Scrn (test Positive 1(07/05/16 9:08 code = Antibody Scrn) AM) [facility] [id number] 15:08:00 Test Item Value Reference Range Interpretation Comments ABO/Rh (test code = ABO/Rh) A POS [facility] HospitalXqtaqfgKUMDVYXGEJLQ3533-25-74 20:55:00 Test Item Value Reference Range Interpretation Comments AGAP (test code = AGAP) 7.8 10.0-20.0 [facility] HospitalBwckzpzDPXZJLQBEACD5037-93-85 20:55:00 Test Item Value Reference Range Interpretation Comments Globulin (test code = Globulin) 3.7 2.7-4.2 [facility] HospitalJbwkbbuDQYCDLRMBGHJ6682-87-42 20:55:00 Test Item Value Reference Range Interpretation Comments A/G Ratio (test code = A/G Ratio) 0.9 0.7-1.6 [facility] HospitalDamulbaKFDLFCLEKHUW2862-14-18 20:55:00 Test Item Value Reference Range Interpretation Comments B/C Ratio (test code = B/C Ratio) 10 6-25 [facility] HospitalHbtxtyaAHFOGMJKGNTP9993-46-38 20:55:00 Test Item Value Reference Range Interpretation Comments eGFR (test code = eGFR) 93 [facility] HospitalXfjgqdfDFKHECLCTXVP2973-93-47 20:55:00 Test Item Value Reference Range Interpretation Comments CO2 (test code = CO2) 35 24-32 [facility] HospitalWycssuvHSMJWGPXTIWY3839-89-98 20:55:00 Test Item Value Reference Range Interpretation Comments Chloride Lvl (test code = Chloride Lvl) 103 95-109 [facility] HospitalLiluaffRTCMMEJAMXBN4756-46-32 20:55:00 Test Item Value Reference Range Interpretation Comments Potassium Lvl (test code = Potassium 3.8 3.5-5.1 Lvl) [facility] HospitalUxyeqrnNIVHFQPOBZDS1254-60-38 20:55:00 Test Item Value Reference Range Interpretation Comments Calcium Lvl (test code = Calcium Lvl) 8.4 8.5-10.5 [facility] HospitalSuijmdkVAWVDZGVJBAM9442-96-39 20:55:00 Test Item Value Reference Range Interpretation Comments ALT (test code = ALT) 34 See_Comment [Auto mated message] The system which ge nerated this result transmit tequila reference range : <=65. The reference range was not used to interpr et this result as morgan l/abnormal. [facility] HospitalOmvbdzcHTPDXRGYCGKM4129-26-39 20:55:00 Test Item Value Reference Range Interpretation Comments Albumin Lvl (test code = Albumin Lvl) 3.4 3.5-5.0 [facility] HospitalLhtcklsDTPTGSRVFWSC7769-43-85 20:55:00 Test Item Value Reference Range Interpretation Comments Total Protein (test code = Total 7.1 6.4-8.4 Protein) [facility] HospitalQajeewyRKIQRLXQVWMD8826-82-37 20:55:00 Test Item Value Reference Range Interpretation Comments AST (test code = AST) 30 See_Comment [Auto mated message] The system which ge nerated this result transmit tequila reference range : <=37. The reference range was not used to interpr et this result as morgan l/abnormal. [facility] HospitalGfkbtlpIEMBTEWSZQEW5316-60-78 20:55:00 Test Item Value Reference Range Interpretation Comments Bili Total (test code = Bili Total) 0.2 0.2-1.3 [facility] HospitalIlujiwaCMWAQXXTHPAX9495-55-73 20:55:00 Test Item Value Reference Range Interpretation Comments Alk Phos (test code = Alk Phos) 72 39-136 [facility] HospitalWyvotvuUREWELPDELZS7125-57-57 20:55:00 Test Item Value Reference Range Interpretation Comments Sodium Lvl (test code = Sodium Lvl) 142 135-145 [facility] HospitalMosfuleUVFZEIFTMGWE0713-75-76 20:55:00 Test Item Value Reference Range Interpretation Comments Glucose Lvl (test code = Glucose Lvl) 110 70-99 [facility] HospitalGskpgumRZQPDONRESEX5837-71-27 20:55:00 Test Item Value Reference Range Interpretation Comments Creatinine Lvl (test code = Creatinine 0.77 0.50-1.40 Lvl) [facility] HospitalLmjzbxfOTNFQGPSUEQV4128-05-37 20:55:00 Test Item Value Reference Range Interpretation Comments BUN (test code = BUN) 8 7-22 [facility] HospitalXzfbkniHREVSHXEVK3269-51-54 20:55:00 Test Item Value Reference Range Interpretation Comments Lymphocytes (test code = Lymphocytes) 17.8 20.0-40.0 [facility] HospitalDltgyhfZDVSFRZEYP1553-59-76 20:55:00 Test Item Value Reference Range Interpretation Comments Monocytes (test code = Monocytes) 9.2 2.0-12.0 [facility] HospitalQjpxqdsDHPCOOIFYR0496-31-17 20:55:00 Test Item Value Reference Range Interpretation Comments Segs (test code = Segs) 69.9 45.0-75.0 [facility] HospitalRvjnlffKCBCYDGGNY2633-29-18 20:55:00 Test Item Value Reference Range Interpretation Comments Basophils (test code = 0.7 See_Comment [Aut omated message] The Basophils) system which ge nerated this result tra nsmitted reference range : <=1.0. The reference r brandie was not used to int erpret this result as normal/abnormal . [facility] HospitalWaqfldtYNWNFWZUDO9303-32-65 20:55:00 Test Item Value Reference Range Interpretation Comments Eosinophils (test code = 2.4 See_Comment [A utomated message] The Eosinophils) system which ge nerated this result tra nsmitted reference range : <=4.0. The reference r brandie was not used to int erpret this result as normal/abnormal . [facility] HospitalRjegonvQIJVQHTWIX8796-39-72 20:55:00 Test Item Value Reference Range Interpretation Comments Lymphocytes # (test code = Lymphocytes 1.0 1.0-5.5 #) [facility] HospitalYbzntczSGKALEBKJY2760-57-84 20:55:00 Test Item Value Reference Range Interpretation Comments Eosinophils # (test code 0.1 See_Comment [A utomated message] The = Eosinophils #) system whic h generated this result tra nsmitted reference range : <=0.5. The reference r brandie was not used to int erpret this result as normal/abnormal . [facility] HospitalAjxoeejCWHCECJMZO5126-05-38 20:55:00 Test Item Value Reference Range Interpretation Comments Segs-Bands # (test code = Segs-Bands #) 4.0 1.5-8.1 [facility] HospitalQybrlkwRBCERSOGXI4516-13-70 20:55:00 Test Item Value Reference Range Interpretation Comments Monocytes # (test code 0.5 See_Comment [Aut omated message] The = Monocytes #) system which generated this result tra nsmitted reference range : <=0.8. The reference r brandie was not used to int erpret this result as normal/abnormal . [facility] HospitalTstqyznQHVJPKNPYS9376-56-30 20:55:00 Test Item Value Reference Range Interpretation Comments INR (test code = INR) 1.02 0.85-1.17 [facility] HospitalGpgthwiDYMHXMJRNL2826-16-79 20:55:00 Test Item Value Reference Range Interpretation Comments PTT (test code = PTT) 28.1 s 22.9-35.8 [facility] HospitalTnrbrthUJKOBVTZPH7295-14-14 20:55:00 Test Item Value Reference Range Interpretation Comments PT (test code = PT) 13.6 s 12.0-14.7 [facility] HospitalMvgwcavJJVMKYGSSU7293-58-11 20:55:00 Test Item Value Reference Range Interpretation Comments MPV (test code = MPV) 7.1 7.4-10.4 [facility] HospitalXjyqkxaKKODOBNUHO5887-72-73 20:55:00 Test Item Value Reference Range Interpretation Comments MCV (test code = MCV) 95.1 80.0-94.0 [facility] HospitalYwpdsyrOAJMHXMAUT1007-07-79 20:55:00 Test Item Value Reference Range Interpretation Comments MCHC (test code = MCHC) 33.0 32.0-36.0 [facility] HospitalEdfiyrhXUSNYHACFO7360-36-22 20:55:00 Test Item Value Reference Range Interpretation Comments MCH (test code = MCH) 31.4 pg 27.0-31.0 [facility] HospitalHzugnoyXFEWSLFJZN5892-42-82 20:55:00 Test Item Value Reference Range Interpretation Comments Platelet (test code = Platelet) 256 133-450 [facility] HospitalPhymbkpJJMTRICLZL8360-59-62 20:55:00 Test Item Value Reference Range Interpretation Comments RDW (test code = RDW) 14.1 11.5-14.5 [facility] HospitalSygeybxKPSGLEKNVL6821-35-07 20:55:00 Test Item Value Reference Range Interpretation Comments Hgb (test code = Hgb) 13.0 14.0-18.0 [facility] HospitalUwrkropZOTOJBAKWU0199-75-46 20:55:00 Test Item Value Reference Range Interpretation Comments RBC (test code = RBC) 4.14 4.70-6.10 [facility] HospitalExzypzqHKWEJRPKSQ6267-81-04 20:55:00 Test Item Value Reference Range Interpretation Comments WBC (test code = WBC) 5.7 3.7-10.4 [facility] HospitalBxiimrzDLFQNCXKLW7758-92-84 20:55:00 Test Item Value Reference Range Interpretation Comments Hct (test code = Hct) 39.4 42.0-54.0 [facility]2017-02-02 20:55:00 Test Item Value Reference Range Interpretation Comments UA Turbidity (test code Cloudy *ABN*(07/01/16 = UA Turbidity) 2:55 PM) [facility] AND YFRWW8966-47-23 20:55:00 Test Item Value Reference Range Interpretation Comments UA Spec Grav (test code = UA Spec 1.010 1 Grav) [facility] AND [id number] 20:55:00 Test Item Value Reference Range Interpretation Comments UA Nitrite (test code Negative (07/01/16 2:55 = UA Nitrite) PM) [facility] AND VLQIK8061-97-29 20:55:00 Test Item Value Reference Range Interpretation Comments UA Leuk Est (test Negative (07/01/16 2:55 code = UA Leuk Est) PM) [facility] AND [id number] 20:55:00 Test Item Value Reference Range Interpretation Comments UA Glucose (test code Negative (07/01/16 2:55 = UA Glucose) PM) [facility] AND FOHKP5245-50-52 20:55:00 Test Item Value Reference Range Interpretation Comments UA Protein (test code Negative (07/01/16 2:55 = UA Protein) PM) [facility] AND GKPHQ2853-32-55 20:55:00 Test Item Value Reference Range Interpretation Comments UA Bili (test code = Negative *NA*(07/01/16 UA Bili) 2:55 PM) [facility] AND ERTXW5486-57-11 20:55:00 Test Item Value Reference Range Interpretation Comments UA Urobilinogen (test code = UA 0.2 0.1-1.0 Urobilinogen) [facility] AND [id number] 20:55:00 Test Item Value Reference Range Interpretation Comments UA Blood (test code = Negative (07/01/16 2:55 UA Blood) PM) [facility] AND [id number] 20:55:00 Test Item Value Reference Range Interpretation Comments UA Color (test code = Yellow *NA*(07/01/16 2:55 UA Color) PM) [facility] AND PZBRO1609-88-77 20:55:00 Test Item Value Reference Range Interpretation Comments UA Ketones (test code Negative *NA*(07/01/16 = UA Ketones) 2:55 PM) [facility] AND [id number] 20:55:00 Test Item Value Reference Range Interpretation Comments UA pH (test code = UA pH) 8.0 1 5.0-8.0 [facility] AND [id number] 20:55:00 Test Item Value Reference Range Interpretation Comments UA RBC (test code = 0-2 /HPF See_Comment [Automa tequila message] The UA RBC) system which ge nerated this result tra nsmitted reference range : <=2. The reference range was not used to interpr et this result as morgan l/abnormal. [facility] AND ZQVFB3362-25-29 20:55:00 Test Item Value Reference Range Interpretation Comments UA Mucus (test code = UA Mucus) Few /LPF [facility] AND KESAN8605-04-02 20:55:00 Test Item Value Reference Range Interpretation Comments UA Sq Epi (test code = None Seen (07/01/16 2:55 UA Sq Epi) PM) [facility] AND [id number] 20:55:00 Test Item Value Reference Range Interpretation Comments UA WBC (test code = UA WBC) 0-2 /HPF [facility] AND [id number] 20:55:00 Test Item Value Reference Range Interpretation Comments UA Amorph Rani (test code = UA Many /HPF Amorph Rani) [facility] HospitalJenfcbvHZDHTIDAPNWD4703-68-47 20:55:00 Test Item Value Reference Range Interpretation Comments AGAP (test code = AGAP) 7.8 10.0-20.0 [facility] HospitalFguebrvCNMJMNHDROMI3526-96-95 20:55:00 Test Item Value Reference Range Interpretation Comments Globulin (test code = Globulin) 3.7 2.7-4.2 [facility] HospitalQoxpkfiXWJKRCEUOHAD8730-00-07 20:55:00 Test Item Value Reference Range Interpretation Comments A/G Ratio (test code = A/G Ratio) 0.9 0.7-1.6 [facility] HospitalXixjxdoOGMKNITDKLFS4198-71-54 20:55:00 Test Item Value Reference Range Interpretation Comments B/C Ratio (test code = B/C Ratio) 10 6-25 [facility] HospitalHksqvucUBUOMVEMCCRL5904-64-89 20:55:00 Test Item Value Reference Range Interpretation Comments eGFR (test code = eGFR) 93 [facility] HospitalJorjuyfUTYSANDEKQLZ6533-17-95 20:55:00 Test Item Value Reference Range Interpretation Comments CO2 (test code = CO2) 35 24-32 [facility] HospitalOdpjwovELNYUXMHPBFZ2175-57-12 20:55:00 Test Item Value Reference Range Interpretation Comments Chloride Lvl (test code = Chloride Lvl) 103 95-109 [facility] HospitalLkbqibbQGOXEFMNTWAB1009-40-12 20:55:00 Test Item Value Reference Range Interpretation Comments Potassium Lvl (test code = Potassium 3.8 3.5-5.1 Lvl) [facility] HospitalNvraskzTMLCVAXROMST2251-12-14 20:55:00 Test Item Value Reference Range Interpretation Comments Calcium Lvl (test code = Calcium Lvl) 8.4 8.5-10.5 [facility] HospitalQmsakszTUOBJOAUAKWB1103-27-33 20:55:00 Test Item Value Reference Range Interpretation Comments ALT (test code = ALT) 34 See_Comment [Auto mated message] The system which ge nerated this result transmit tequila reference range : <=65. The reference range was not used to interpr et this result as morgan l/abnormal. [facility] HospitalTnpjonjBKROBQQYUFVJ4614-34-50 20:55:00 Test Item Value Reference Range Interpretation Comments Albumin Lvl (test code = Albumin Lvl) 3.4 3.5-5.0 [facility] HospitalTnuqwtbHDACIZZQXSAY6166-00-49 20:55:00 Test Item Value Reference Range Interpretation Comments Total Protein (test code = Total 7.1 6.4-8.4 Protein) [facility] HospitalYpadbmmNJDWVGPDHHPK1048-73-97 20:55:00 Test Item Value Reference Range Interpretation Comments AST (test code = AST) 30 See_Comment [Auto mated message] The system which ge nerated this result transmit tequila reference range : <=37. The reference range was not used to interpr et this result as morgan l/abnormal. [facility] HospitalUvwowrqULVROVPKZNNX1660-74-83 20:55:00 Test Item Value Reference Range Interpretation Comments Bili Total (test code = Bili Total) 0.2 0.2-1.3 [facility] HospitalAnaeauuGNECDAWNIGPC8866-45-95 20:55:00 Test Item Value Reference Range Interpretation Comments Alk Phos (test code = Alk Phos) 72 39-136 [facility] HospitalQhkoqpeILTTBTWMHJZF6850-50-54 20:55:00 Test Item Value Reference Range Interpretation Comments Sodium Lvl (test code = Sodium Lvl) 142 135-145 [facility] HospitalEscqcdmZEHTUJGTNAXD3087-20-72 20:55:00 Test Item Value Reference Range Interpretation Comments Glucose Lvl (test code = Glucose Lvl) 110 70-99 [facility] HospitalUqbqqgoJXIDOBAJHCBI6805-65-31 20:55:00 Test Item Value Reference Range Interpretation Comments Creatinine Lvl (test code = Creatinine 0.77 0.50-1.40 Lvl) [facility] HospitalFxglyvrRLLNFDDMBMRZ0484-90-57 20:55:00 Test Item Value Reference Range Interpretation Comments BUN (test code = BUN) 8 7-22 [facility] HospitalEvsckpyXHMZVQNNYO5893-55-91 20:55:00 Test Item Value Reference Range Interpretation Comments Lymphocytes (test code = Lymphocytes) 17.8 20.0-40.0 [facility] HospitalRprqreeEOBUWCJTKW6099-65-67 20:55:00 Test Item Value Reference Range Interpretation Comments Monocytes (test code = Monocytes) 9.2 2.0-12.0 [facility] HospitalXvamaqbYWKVSFTEVJ6326-83-34 20:55:00 Test Item Value Reference Range Interpretation Comments Segs (test code = Segs) 69.9 45.0-75.0 [facility] HospitalAhexeopNKSJQNXATN8649-88-60 20:55:00 Test Item Value Reference Range Interpretation Comments Basophils (test code = 0.7 See_Comment [Aut omated message] The Basophils) system which ge nerated this result tra nsmitted reference range : <=1.0. The reference r brandie was not used to int erpret this result as normal/abnormal . [facility] HospitalUjltzotVVLRSSLZOH0749-90-49 20:55:00 Test Item Value Reference Range Interpretation Comments Eosinophils (test code = 2.4 See_Comment [A utomated message] The Eosinophils) system which ge nerated this result tra nsmitted reference range : <=4.0. The reference r brandie was not used to int erpret this result as normal/abnormal . [facility]QqjgncdACTMABRPLG1282-16-49 20:55:00 Test Item Value Reference Range Interpretation Comments Lymphocytes # (test code = Lymphocytes 1.0 1.0-5.5 #) [facility] HospitalJitobirSQPFKCQYSE3068-49-86 20:55:00 Test Item Value Reference Range Interpretation Comments Eosinophils # (test code 0.1 See_Comment [A utomated message] The = Eosinophils #) system whic h generated this result tra nsmitted reference range : <=0.5. The reference r brandie was not used to int erpret this result as normal/abnormal . [facility] HospitalZowowihAOIAOMSRVX2023-00-56 20:55:00 Test Item Value Reference Range Interpretation Comments Segs-Bands # (test code = Segs-Bands #) 4.0 1.5-8.1 [facility] HospitalPfkmlmeOPFTPWQHVA2660-45-17 20:55:00 Test Item Value Reference Range Interpretation Comments Monocytes # (test code 0.5 See_Comment [Aut omated message] The = Monocytes #) system which generated this result tra nsmitted reference range : <=0.8. The reference r brandie was not used to int erpret this result as normal/abnormal . [facility] HospitalZvrbrvvUUGAHNCVIB0797-76-65 20:55:00 Test Item Value Reference Range Interpretation Comments INR (test code = INR) 1.02 0.85-1.17 [facility] HospitalEclbxarMTEASKYWGH0423-62-31 20:55:00 Test Item Value Reference Range Interpretation Comments PTT (test code = PTT) 28.1 s 22.9-35.8 [facility] HospitalHphluwaASPJMRPOUO6742-54-62 20:55:00 Test Item Value Reference Range Interpretation Comments PT (test code = PT) 13.6 s 12.0-14.7 [facility] HospitalYzojttyGUYPETKVQK6959-62-54 20:55:00 Test Item Value Reference Range Interpretation Comments MPV (test code = MPV) 7.1 7.4-10.4 [facility] HospitalDzgiwflSSRFIHWZNN8936-83-85 20:55:00 Test Item Value Reference Range Interpretation Comments MCV (test code = MCV) 95.1 80.0-94.0 [facility] HospitalLolopvdUQGRXTPCEE3091-21-54 20:55:00 Test Item Value Reference Range Interpretation Comments MCHC (test code = MCHC) 33.0 32.0-36.0 [facility] HospitalRznlyczYQNZWOREAM7171-57-17 20:55:00 Test Item Value Reference Range Interpretation Comments MCH (test code = MCH) 31.4 pg 27.0-31.0 [facility] HospitalZoucirzMCNADADMBU3766-07-51 20:55:00 Test Item Value Reference Range Interpretation Comments Platelet (test code = Platelet) 256 133-450 [facility] HospitalTajwsknGTFYHNGKPZ0983-58-20 20:55:00 Test Item Value Reference Range Interpretation Comments RDW (test code = RDW) 14.1 11.5-14.5 [facility] HospitalGojatyeOOJVYVEBRE8061-63-71 20:55:00 Test Item Value Reference Range Interpretation Comments Hgb (test code = Hgb) 13.0 14.0-18.0 [facility] HospitalCzglfcrUCKFRTPZNI7940-10-59 20:55:00 Test Item Value Reference Range Interpretation Comments RBC (test code = RBC) 4.14 4.70-6.10 [facility] HospitalMdxlsdgGWQPWQYJXU8074-30-90 20:55:00 Test Item Value Reference Range Interpretation Comments WBC (test code = WBC) 5.7 3.7-10.4 [facility] HospitalOfbazlmXEEZTXWJQQ7745-68-60 20:55:00 Test Item Value Reference Range Interpretation Comments Hct (test code = Hct) 39.4 42.0-54.0 [facility] AND [id number] 20:55:00 Test Item Value Reference Range Interpretation Comments UA Turbidity (test code Cloudy *ABN*(07/01/16 = UA Turbidity) 2:55 PM) [facility] AND [id number] 20:55:00 Test Item Value Reference Range Interpretation Comments UA Spec Grav (test code = UA Spec 1.010 1 Grav) [facility] AND [id number] 20:55:00 Test Item Value Reference Range Interpretation Comments UA Nitrite (test code Negative (07/01/16 2:55 = UA Nitrite) PM) [facility] AND [id number] 20:55:00 Test Item Value Reference Range Interpretation Comments UA Leuk Est (test Negative (07/01/16 2:55 code = UA Leuk Est) PM) [facility] AND [id number] 20:55:00 Test Item Value Reference Range Interpretation Comments UA Glucose (test code Negative (07/01/16 2:55 = UA Glucose) PM) [facility] AND [id number] 20:55:00 Test Item Value Reference Range Interpretation Comments UA Protein (test code Negative (07/01/16 2:55 = UA Protein) PM) [facility] AND [id number] 20:55:00 Test Item Value Reference Range Interpretation Comments UA Bili (test code = Negative *NA*(07/01/16 UA Bili) 2:55 PM) [facility] [id number] 20:55:00 Test Item Value Reference Range Interpretation Comments UA Urobilinogen (test code = UA 0.2 0.1-1.0 Urobilinogen) [facility] [id number] 20:55:00 Test Item Value Reference Range Interpretation Comments UA Blood (test code = Negative (07/01/16 2:55 UA Blood) PM) [facility] [id number] 20:55:00 Test Item Value Reference Range Interpretation Comments UA Color (test code = Yellow *NA*(07/01/16 2:55 UA Color) PM) [facility] [id number] 20:55:00 Test Item Value Reference Range Interpretation Comments UA Ketones (test code Negative *NA*(07/01/16 = UA Ketones) 2:55 PM) [facility] [id number] 20:55:00 Test Item Value Reference Range Interpretation Comments UA pH (test code = UA pH) 8.0 1 5.0-8.0 [facility] AND [id number] 20:55:00 Test Item Value Reference Range Interpretation Comments UA RBC (test code = 0-2 /HPF See_Comment [Automa tequila message] The UA RBC) system which ge nerated this result tra nsmitted reference range : <=2. The reference range was not used to interpr et this result as morgan l/abnormal. [facility] AND [id number] 20:55:00 Test Item Value Reference Range Interpretation Comments UA Mucus (test code = UA Mucus) Few /LPF [facility] [id number] 20:55:00 Test Item Value Reference Range Interpretation Comments UA Sq Epi (test code = None Seen (07/01/16 2:55 UA Sq Epi) PM) [facility] [id number] 20:55:00 Test Item Value Reference Range Interpretation Comments UA WBC (test code = UA WBC) 0-2 /HPF [facility] [id number] 20:55:00 Test Item Value Reference Range Interpretation Comments UA Amorph Rani (test code = UA Many /HPF Amorph Rani) [facility]FkbotzmNQVQCMOJCHLC8363-66-18 20:55:00 Test Item Value Reference Range Interpretation Comments AGAP (test code = AGAP) 7.8 10.0-20.0 [facility] HospitalEenqasvMSADMCYXUMBI7649-60-13 20:55:00 Test Item Value Reference Range Interpretation Comments Globulin (test code = Globulin) 3.7 2.7-4.2 [facility] HospitalWkxtjuoUGIYKPEUUDVA1291-38-24 20:55:00 Test Item Value Reference Range Interpretation Comments A/G Ratio (test code = A/G Ratio) 0.9 0.7-1.6 [facility] HospitalKqiduimHXUGODKMWPJI9816-75-17 20:55:00 Test Item Value Reference Range Interpretation Comments B/C Ratio (test code = B/C Ratio) 10 6-25 [facility] HospitalUoauhedSGPQIZYHBBDX1020-88-27 20:55:00 Test Item Value Reference Range Interpretation Comments eGFR (test code = eGFR) 93 [facility] HospitalMsqdyipYCLDKXIZFWYK1146-02-01 20:55:00 Test Item Value Reference Range Interpretation Comments CO2 (test code = CO2) 35 24-32 [facility] HospitalHvtftplPKNWIBBACTUZ7838-97-53 20:55:00 Test Item Value Reference Range Interpretation Comments Chloride Lvl (test code = Chloride Lvl) 103 95-109 [facility] HospitalEdjhxqvUJNDVUQMYAWH6617-09-61 20:55:00 Test Item Value Reference Range Interpretation Comments Potassium Lvl (test code = Potassium 3.8 3.5-5.1 Lvl) [facility] HospitalHdadfotHOMDNNISNPKO6652-53-18 20:55:00 Test Item Value Reference Range Interpretation Comments Calcium Lvl (test code = Calcium Lvl) 8.4 8.5-10.5 [facility] HospitalGexqanaRCQKWUOLNPXB9274-45-96 20:55:00 Test Item Value Reference Range Interpretation Comments ALT (test code = ALT) 34 See_Comment [Auto mated message] The system which ge nerated this result transmit tequila reference range : <=65. The reference range was not used to interpr et this result as morgan l/abnormal. [facility] HospitalCcsdbzsNAENIIVSULEU4083-52-29 20:55:00 Test Item Value Reference Range Interpretation Comments Albumin Lvl (test code = Albumin Lvl) 3.4 3.5-5.0 [facility] HospitalSwyixhwHDMSXEMJHRVF2318-22-88 20:55:00 Test Item Value Reference Range Interpretation Comments Total Protein (test code = Total 7.1 6.4-8.4 Protein) [facility] HospitalWwvnmndQCXCXPMHPVVF7717-16-94 20:55:00 Test Item Value Reference Range Interpretation Comments AST (test code = AST) 30 See_Comment [Auto mated message] The system which ge nerated this result transmit tequila reference range : <=37. The reference range was not used to interpr et this result as morgan l/abnormal. [facility] HospitalTaffjkjVXMIPCSYMGVL3301-35-16 20:55:00 Test Item Value Reference Range Interpretation Comments Bili Total (test code = Bili Total) 0.2 0.2-1.3 [facility] HospitalAmmlbanSAHYEFPFTDAZ5126-37-38 20:55:00 Test Item Value Reference Range Interpretation Comments Alk Phos (test code = Alk Phos) 72 39-136 [facility] HospitalDfwcufqKILASGYUTQOJ9616-58-42 20:55:00 Test Item Value Reference Range Interpretation Comments Sodium Lvl (test code = Sodium Lvl) 142 135-145 [facility] HospitalBjvpxiqXGQDJPAGRNET2724-18-04 20:55:00 Test Item Value Reference Range Interpretation Comments Glucose Lvl (test code = Glucose Lvl) 110 70-99 [facility] HospitalAyaclatPKGUBIYOWOUL9429-41-39 20:55:00 Test Item Value Reference Range Interpretation Comments Creatinine Lvl (test code = Creatinine 0.77 0.50-1.40 Lvl) [facility] HospitalMlevhyoYTEEILAUDZDO0356-79-61 20:55:00 Test Item Value Reference Range Interpretation Comments BUN (test code = BUN) 8 7-22 [facility] HospitalYzgtjdsGDBUTXGBOU5320-49-43 20:55:00 Test Item Value Reference Range Interpretation Comments Lymphocytes (test code = Lymphocytes) 17.8 20.0-40.0 [facility] HospitalIfsrcyvLYXIKNTXNC7423-36-01 20:55:00 Test Item Value Reference Range Interpretation Comments Monocytes (test code = Monocytes) 9.2 2.0-12.0 [facility] HospitalMopuprwABOTAXNNRY6028-62-20 20:55:00 Test Item Value Reference Range Interpretation Comments Segs (test code = Segs) 69.9 45.0-75.0 [facility] HospitalJxfhrkcVMDMWCSXWY0609-77-13 20:55:00 Test Item Value Reference Range Interpretation Comments Basophils (test code = 0.7 See_Comment [Aut omated message] The Basophils) system which ge nerated this result tra nsmitted reference range : <=1.0. The reference r brandie was not used to int erpret this result as normal/abnormal . [facility] HospitalLfbbulcPOBXJEYMFJ2585-62-95 20:55:00 Test Item Value Reference Range Interpretation Comments Eosinophils (test code = 2.4 See_Comment [A utomated message] The Eosinophils) system which ge nerated this result tra nsmitted reference range : <=4.0. The reference r brandie was not used to int erpret this result as normal/abnormal . [facility] HospitalFtydflqEHTUQRMDJW8098-57-54 20:55:00 Test Item Value Reference Range Interpretation Comments Lymphocytes # (test code = Lymphocytes 1.0 1.0-5.5 #) [facility] HospitalBkvezayBGFTUZNGNN9527-76-89 20:55:00 Test Item Value Reference Range Interpretation Comments Eosinophils # (test code 0.1 See_Comment [A utomated message] The = Eosinophils #) system whic h generated this result tra nsmitted reference range : <=0.5. The reference r brandie was not used to int erpret this result as normal/abnormal . [facility] HospitalNmonxkjQEWMGYYUXP2723-08-90 20:55:00 Test Item Value Reference Range Interpretation Comments Segs-Bands # (test code = Segs-Bands #) 4.0 1.5-8.1 [facility] HospitalYiotmnzQCLMBERFRM9415-60-66 20:55:00 Test Item Value Reference Range Interpretation Comments Monocytes # (test code 0.5 See_Comment [Aut omated message] The = Monocytes #) system which generated this result tra nsmitted reference range : <=0.8. The reference r brandie was not used to int erpret this result as normal/abnormal . [facility] HospitalNrcsmctQAYBRGYAPO4968-43-88 20:55:00 Test Item Value Reference Range Interpretation Comments INR (test code = INR) 1.02 0.85-1.17 [facility] HospitalHsxnopcTPBQODBJHH2931-00-24 20:55:00 Test Item Value Reference Range Interpretation Comments PTT (test code = PTT) 28.1 s 22.9-35.8 [facility] HospitalYsqiyalOUNGUTAXKQ1937-48-02 20:55:00 Test Item Value Reference Range Interpretation Comments PT (test code = PT) 13.6 s 12.0-14.7 [facility] HospitalHumknrsDBPVLRPJRB7130-69-84 20:55:00 Test Item Value Reference Range Interpretation Comments MPV (test code = MPV) 7.1 7.4-10.4 [facility] HospitalEmasbekWMEDXGGOML4858-84-26 20:55:00 Test Item Value Reference Range Interpretation Comments MCV (test code = MCV) 95.1 80.0-94.0 [facility] HospitalOpfinzoHHTHMUOUAZ5347-98-14 20:55:00 Test Item Value Reference Range Interpretation Comments MCHC (test code = MCHC) 33.0 32.0-36.0 [facility] HospitalRnnjmumZBTLRIGMJV6355-58-51 20:55:00 Test Item Value Reference Range Interpretation Comments MCH (test code = MCH) 31.4 pg 27.0-31.0 [facility] HospitalHukfenvOOIYJYMENI4507-66-17 20:55:00 Test Item Value Reference Range Interpretation Comments Platelet (test code = Platelet) 256 133-450 [facility] HospitalAifxrsdAIUARUKYPA7202-29-50 20:55:00 Test Item Value Reference Range Interpretation Comments RDW (test code = RDW) 14.1 11.5-14.5 [facility] HospitalWrmtahjHFLSHTJXKA5535-71-23 20:55:00 Test Item Value Reference Range Interpretation Comments Hgb (test code = Hgb) 13.0 14.0-18.0 [facility] HospitalWibppxzUAIMMNCIQS8234-91-55 20:55:00 Test Item Value Reference Range Interpretation Comments RBC (test code = RBC) 4.14 4.70-6.10 [facility] HospitalShhhwscPIEMBMRGEN7079-20-47 20:55:00 Test Item Value Reference Range Interpretation Comments WBC (test code = WBC) 5.7 3.7-10.4 [facility] HospitalFujkkkxGKQHJSKECA3312-53-79 20:55:00 Test Item Value Reference Range Interpretation Comments Hct (test code = Hct) 39.4 42.0-54.0 [facility] AND EPRSX9792-17-26 20:55:00 Test Item Value Reference Range Interpretation Comments UA Turbidity (test code Cloudy *ABN*(07/01/16 = UA Turbidity) 2:55 PM) [facility] AND [id number] 20:55:00 Test Item Value Reference Range Interpretation Comments UA Spec Grav (test code = UA Spec 1.010 1 Grav) [facility] AND [id number] 20:55:00 Test Item Value Reference Range Interpretation Comments UA Nitrite (test code Negative (07/01/16 2:55 = UA Nitrite) PM) [facility] AND [id number] 20:55:00 Test Item Value Reference Range Interpretation Comments UA Leuk Est (test Negative (07/01/16 2:55 code = UA Leuk Est) PM) [facility] AND [id number] 20:55:00 Test Item Value Reference Range Interpretation Comments UA Glucose (test code Negative (07/01/16 2:55 = UA Glucose) PM) [facility] AND [id number] 20:55:00 Test Item Value Reference Range Interpretation Comments UA Protein (test code Negative (07/01/16 2:55 = UA Protein) PM) [facility] AND [id number] 20:55:00 Test Item Value Reference Range Interpretation Comments UA Bili (test code = Negative *NA*(07/01/16 UA Bili) 2:55 PM) [facility] AND [id number] 20:55:00 Test Item Value Reference Range Interpretation Comments UA Urobilinogen (test code = UA 0.2 0.1-1.0 Urobilinogen) [facility] AND [id number] 20:55:00 Test Item Value Reference Range Interpretation Comments UA Blood (test code = Negative (07/01/16 2:55 UA Blood) PM) [facility] AND [id number] 20:55:00 Test Item Value Reference Range Interpretation Comments UA Color (test code = Yellow *NA*(07/01/16 2:55 UA Color) PM) [facility] AND [id number] 20:55:00 Test Item Value Reference Range Interpretation Comments UA Ketones (test code Negative *NA*(07/01/16 = UA Ketones) 2:55 PM) [facility] AND [id number] 20:55:00 Test Item Value Reference Range Interpretation Comments UA pH (test code = UA pH) 8.0 1 5.0-8.0 [facility] AND OGYXJ0564-21-22 20:55:00 Test Item Value Reference Range Interpretation Comments UA RBC (test code = 0-2 /HPF See_Comment [Automa tequila message] The UA RBC) system which ge nerated this result tra nsmitted reference range : <=2. The reference range was not used to interpr et this result as morgan l/abnormal. [facility] AND [id number] 20:55:00 Test Item Value Reference Range Interpretation Comments UA Mucus (test code = UA Mucus) Few /LPF [facility] AND [id number] 20:55:00 Test Item Value Reference Range Interpretation Comments UA Sq Epi (test code = None Seen (07/01/16 2:55 UA Sq Epi) PM) [facility] AND [id number] 20:55:00 Test Item Value Reference Range Interpretation Comments UA WBC (test code = UA WBC) 0-2 /HPF [facility] AND [id number] 20:55:00 Test Item Value Reference Range Interpretation Comments UA Amorph Rani (test code = UA Many /HPF Amorph Rani) [facility]
[2022-08-18] MEDS ORDERED: PANTOPRAZOLE 40 MG INJ ONE (10:48)
[2022-08-18] MEDS ORDERED: NA CHLORIDE 0.9% 1,000 ML ONE (10:48)
[2022-08-18 11:21] LABS: Absolute Lymphocytes (CBC) 0.8 K/uL (0.7-4.9); Hematocrit 27.8 % (39.6-49.0); MCV 96.1 fL (80-100); MPV 6.7 fL (7.6-11.3)
[2022-08-18 11:23] LABS: Protime INR 1.35
[2022-08-18 11:34] LABS: Albumin 3.4 g/dL (3.4-5.0); Bilirubin Total 0.3 mg/dL (0.2-1.0); Potassium 3.3 mEq/L (3.5-5.1); Protein, Total 6.3 g/dL (6.4-8.2); Troponin High Sensitivity 7.8 pg/mL (<58.9)
--- NOTE | 2022-08-18 13:04 | RAD REPORT ---
EXAM DESCRIPTION: CT - Abdomen Pelvis W Contrast - 08/18/2022 11:47 am CLINICAL HISTORY: ABD PAIN. Diarrhea and nausea. Weakness COMPARISON: Abdomen Pelvis W Contrast dated 04/30/2016; Abdomen Pelvis W Contrast dated 11/04/2015; CT ABD PELVIS W CONTRAST dated 08/06/2008 TECHNIQUE: Thin cut axial CT imaging of the abdomen and pelvis was performed following intravenous a dministration of 100 mL Isovue 300. Multiplanar reformats were generated and reviewed. All CT scans are performed using dose optimization technique as appropriate and may include automated exposure control or mA/KV adjustment according to patient size. FINDINGS: Mild reticular opacities and peripheral nodularity in the right more than left lung base. The liver, spleen, and pancreas show no suspicious findings. Status post cholecystectomy. Mild promin ence of the main pancreatic duct, nonspecific. Symmetric renal function is seen with no hydronephrosis or suspicious renal mass. No dilated bowel loops. Diffuse wall thickening, mucosal hyperenhancement, and mild adventitial fat s tranding throughout the colon and rectum, most pronounced along the cecum and ascending colon. Simila r mild wall thickening along the gastric fundus and body. No localized fluid collections. No free air , free fluid or inflammatory stranding. No hernia, mass or bulky lymphadenopathy. The urinary bladder is without significant finding. No suspicious bony findings. IMPRESSION: Diffuse inflammatory changes throughout the colon and stomach, most pronounced along the ascending colon and cecum. These are nonspecific and could be of infectious or inflammatory etiology . Mild reticular opacities and peripheral nodularity in the right more than left lung base, may reflect early or resolving pneumonia or COPD exacerbation.
--- NOTE | 2022-08-18 13:15 | EDPHYS ---
Physician Documentation [facility] Name: Jose Lake Age: 77 yrs Sex: Male : 1945 Arrival Date: 08/18/2022 Time: 10:02 Bed 19 Private MD: Chito Centeno ED Physician Vitaliy Earl HPI: 08/18 10:46 This 77 yrs old Male presents to ER via Ambulatory with complaints of Pain With rt Urination, Low Back Pain, dehydration. 10:46 Patient presents to the ED from his primary care office for nausea, diarrhea, rt generalized weakness for about 3 days. Patient epigastric pain yesterday that is since resolved. The patient reports feeling generally weak. The patient's primary care reported that he was hypotensive to 96/56 in the office, stated that he appeared to be dehydrated with some petechiae. Denies other acute complaints at this time, symptoms are moderate in severity, no other aggravating or alleviating factors.. Historical: - Allergies: 10:16 PENICILLINS; hb 10:16 Sulfa (Sulfonamide Antibiotics); hb - Family history:: not pertinent. ROS: 10:46 Neck: Negative for injury, pain, and swelling, Cardiovascular: Negative for chest pain, rt palpitations, and edema, Respiratory: Negative for shortness of breath, cough, wheezing, and pleuritic chest pain, MS/Extremity: Negative for injury and deformity, Skin: Negative for injury, rash, and discoloration, Neuro: Negative for headache, weakness, numbness, tingling, and seizure, Psych: Negative for depression, anxiety, suicide ideation, homicidal ideation, and hallucinations. 10:46 Constitutional: Positive for fatigue, Negative for fever. 10:46 Abdomen/GI: Positive for abdominal pain, nausea, diarrhea. Exam: 10:46 Constitutional: This is a well developed, well nourished patient who is awake, alert, rt and in no acute distress. Head/Face: Normocephalic, atraumatic. Chest/axilla: Normal chest wall appearance and motion. Nontender with no deformity. No lesions are appreciated. Cardiovascular: Regular rate and rhythm with a normal S1 and S2. No gallops, murmurs, or rubs. Normal PMI, no JVD. No pulse deficits. Respiratory: Lungs have equal breath sounds bilaterally, clear to auscultation and percussion. No rales, rhonchi or wheezes noted. No increased work of breathing, no retractions or nasal flaring. Abdomen/GI: Soft, non-tender, with normal bowel sounds. No distension or tympany. No guarding or rebound. No evidence of tenderness throughout. Skin: Warm, dry with normal turgor. Normal color with no rashes, no lesions, and no evidence of cellulitis. MS/ Extremity: Pulses equal, no cyanosis. Neurovascular intact. Full, normal range of motion. Neuro: Awake and alert, GCS 15, oriented to person, place, time, and situation. Cranial nerves II-XII grossly intact. Motor strength 5/5 in all extremities. Sensory grossly intact. Cerebellar exam normal. Normal gait. Psych: Awake, alert, with orientation to person, place and time. Behavior, mood, and affect are within normal limits. 11:13 ECG was reviewed by the Attending Physician. rt Vital Signs: 10:13 BP 107 / 50; Pulse 73; Resp 20; Temp 97.9(TE); Pulse Ox 93% on R/A; Weight 57.61 kg; hb Height 5 ft. 3 in. ; Pain 8/10; 11:12 BP 97 / 54; Pulse 72; Pulse Ox 100% on R/A; ap3 12:15 BP 104 / 50; Pulse 71; Resp 16; Pulse Ox 100% ; Pain 0/10; mb9 13:08 BP 95 / 56; Pulse 71; Resp 17; Pulse Ox 99% on R/A; mb9 10:13 Body Mass Index 22.50 (57.61 kg, 160.02 cm) hb 10:13 Pain Scale: Adult hb 12:15 Pain Scale: Adult mb9 MDM: 10:18 Patient medically screened. rt 13:14 Differential diagnosis: Colitis, diverticulitis, nephrolithiasis, bowel obstruction. rt Data reviewed: vital signs, nurses notes, lab test result(s), radiologic studies. Consideration of Admission/Observation Patient was admitted/placed on observation. Management of patient was discussed with the following: Primary Care Provider: Agrees to admit. I considered the following discharge prescriptions or medication management in the emergency department Medications were administered in the Emergency Department. See MAR. Independent interpretation of the following test(s) in the Emergency Department CT Scan: My interpretation is No bowel obstruction seen on my interpretation of the CT images. Counseling: I had a detailed discussion with the patient and/or guardian regarding: the historical points, exam findings, and any diagnostic results supporting the discharge/admit diagnosis, lab results, radiology results, the need for further work-up and treatment in the hospital. 08/18 10:25 Order name: CBC with Diff; Complete Time: 11:28 rt 08/18 10:25 Order name: CMP; Complete Time: 11:38 rt 08/18 10:25 Order name: Troponin High Sensitivity; Complete Time: 11:38 rt 08/18 10:25 Order name: Lipase; Complete Time: 11:38 rt 08/18 10:25 Order name: Type And Screen rt 08/18 10:25 Order name: PT-INR; Complete Time: 11:28 rt 08/18 10:25 Order name: Ptt, Activated; Complete Time: 11:28 rt 08/18 11:59 Order name: Antibody Identification [facility] 08/18 13:12 Order name: Sendout Antibody ID [facility] 08/18 13:22 Order name: Urinalysis w/ reflexes [facility] 08/18 14:16 Order name: ETOH Level rt 08/18 15:14 Order name: Alcohol Serum/Plasma [facility] 08/18 15:30 Order name: Retic Count [facility] 08/18 10:25 Order name: CT Abd/Pelvis - IV Contrast Only; Complete Time: 13:04 rt 08/18 10:25 Order name: EKG; Complete Time: 10:26 rt 08/18 13:22 Order name: NPO; Complete Time: 13:27 [facility] 08/18 10:25 Order name: EKG - Nurse/Tech; Complete Time: 11:04 rt EC:13 Rate is 72 beats/min. Rhythm is regular, Normal Sinus Rhythm with No ectopy, rt Nonspecific intraventricular block. QRS [place] is Normal. NC interval is normal. QRS interval is normal. QT interval is normal. No Q waves. Administered Medications: 11:08 Drug: NS 0.9% IV 1000 ml Route: IV; Rate: 1 bolus; Site: right antecubital; ap3 12:15 Follow up: Response: No adverse reaction; IV Status: Completed infusion mb9 11:08 Drug: Pantoprazole IVP 40 mg Route: IVP; Site: right antecubital; ap3 13:27 Drug: metroNIDAZOLE IVPB 500 mg Volume: 100 ml; Route: IVPB; Rate: 200 ml/hr; Infused mb9 Over: 30 mins; Site: right antecubital; Disposition Summary: 08/18/22 13:14 Hospitalization Ordered Hospitalization Status: Inpatient Admission rt Provider: Chito Centeno rt [facility] ([facility]) rt Condition: Stable rt Problem: new rt Symptoms: have improved rt Bed/Room Type: Standard rt Room Assignment: 406(08/18/22 18:45) eb Diagnosis - Colitis rt Forms: - Medication Reconciliation Form rt - SBAR form rt Signatures: Dispatcher [employer] EDAnna Marie Lizama RN RN hb Prokisch, Amanda, RN RN [email or web address] Gaby Sheridan Mary Beth, RN RN mb9 Vitaliy Earl MD MD rt Corrections: (The following items were deleted from the chart) 18:45 13:14 rt eb
--- NOTE | 2022-08-18 13:15 | ER ---
Nurse's Notes [facility] Name: Jose Lake Age: 77 yrs Sex: Male : 1945 Arrival Date: 08/18/2022 Time: 10:02 Bed 19 Private MD: Chito Centeno Diagnosis: Colitis Presentation: 08/18 10:13 Chief complaint: Sent from Dr. Centeno's office for possible dehydration. Pt c/o fatigue, hb low back pain, and diarrhea x 3 days, nausea since last night. Reports SOB r/t COPD at baseline today. Coronavirus screen: Client presents with at least one sign or symptom that may indicate coronavirus-19. Standard/surgical mask placed on the client. Provider contacted for isolation considerations. Ebola Screen: No symptoms or risks identified at this time. Initial Sepsis Screen: Does the patient meet any 2 criteria? No. Patient's initial sepsis screen is negative. Does the patient have a suspected source of infection? No. Patient's initial sepsis screen is negative. Risk Assessment: Do you want to hurt yourself or someone else? Patient reports no desire to harm self or others. Onset of symptoms was August 15, 2022. 10:13 Method Of Arrival: Ambulatory hb 10:13 Acuity: LASHANDA 3 hb Historical: - Allergies: 10:16 PENICILLINS; hb 10:16 Sulfa (Sulfonamide Antibiotics); hb - Family history:: not pertinent. Screenin:07 [facility] ED Fall Risk Assessment (Adult) History of falling in the last 3 months, ap3 including since admission No falls in past 3 months (0 pts). Abuse screen: Denies threats or abuse. Nutritional screening: No deficits noted. Tuberculosis screening: No symptoms or risk factors identified. Assessment: 11:07 General: Appears in no apparent distress. Behavior is calm, cooperative, Reports ap3 fatigue for. Pain: Complains of pain in low back area. Neuro: Level of Consciousness is awake, alert, obeys commands, Oriented to person, place, time, situation. Cardiovascular: Patient's skin is warm and dry. Respiratory: Airway is patent Respiratory effort is even, unlabored, Respiratory pattern is regular, symmetrical. GI: Reports diarrhea. : Reports pain with urination. 12:07 Reassessment: Received report from Gabriela, RN. mb9 12:16 General: Appears in no apparent distress. comfortable, Behavior is calm. Pain: Denies mb9 pain. Neuro: Level of Consciousness is awake, alert, obeys commands, Oriented to person, place, time, situation. Cardiovascular: Patient's skin is warm and dry. Respiratory: Airway is patent Respiratory effort is even, unlabored, Respiratory pattern is regular, symmetrical. GI: Reports diarrhea. Derm: Skin is pink, warm \T\ dry. Musculoskeletal: Range of motion: intact in all extremities. 15:45 Reassessment: see [facility] for further charting. mb9 Vital Signs: 10:13 BP 107 / 50; Pulse 73; Resp 20; Temp 97.9(TE); Pulse Ox 93% on R/A; Weight 57.61 kg; hb Height 5 ft. 3 in. ; Pain 8/10; 11:12 BP 97 / 54; Pulse 72; Pulse Ox 100% on R/A; ap3 12:15 BP 104 / 50; Pulse 71; Resp 16; Pulse Ox 100% ; Pain 0/10; mb9 13:08 BP 95 / 56; Pulse 71; Resp 17; Pulse Ox 99% on R/A; mb9 10:13 Body Mass Index 22.50 (57.61 kg, 160.02 cm) hb 10:13 Pain Scale: Adult hb 12:15 Pain Scale: Adult mb9 ED Course: 10:02 Patient arrived in ED. am2 10:02 Chtio Centeno MD is Private Physician. am2 10:02 Vitaliy Earl MD is Attending Physician. rt 10:16 Triage completed. hb 10:39 Gabriela Schwartz, RN is Primary Nurse. ap3 11:04 EKG done, by ED staff, reviewed by Vitaliy Earl MD. em1 11:06 Initial lab(s) drawn, by oh, sent to lab. Inserted saline lock: 22 gauge in right ap3 antecubital area, using aseptic technique. Blood collected. 11:07 Arm band placed on right wrist. ap3 11:08 Patient has correct armband on for positive identification. Bed in low position. Call ap3 light in reach. Side rails up X2. phototypesetting equipment monitor on. Pulse ox on. NIBP on. Door closed. Noise minimized. 11:49 CT Abd/Pelvis - IV Contrast Only In Process Unspecified. EDMS 13:14 Chito Centeno MD is Hospitalizing Provider. rt 19:35 Patient admitted, IV remains in place. mb9 Administered Medications: 11:08 Drug: NS 0.9% IV 1000 ml Route: IV; Rate: 1 bolus; Site: right antecubital; ap3 12:15 Follow up: Response: No adverse reaction; IV Status: Completed infusion mb9 11:08 Drug: Pantoprazole IVP 40 mg Route: IVP; Site: right antecubital; ap3 13:27 Drug: metroNIDAZOLE IVPB 500 mg Volume: 100 ml; Route: IVPB; Rate: 200 ml/hr; Infused mb9 Over: 30 mins; Site: right antecubital; Medication: 11:08 VIS not applicable for this client. ap3 Outcome: 13:14 Decision to Hospitalize by Provider. rt 19:35 Admitted to Tele accompanied by tech, room 406, with chart, Report called to jeanine Arroyo RN 19:35 Condition: stable 19:35 Instructed on the need for admit. 19:44 Patient left the ED. jeanine Signatures: Dispatcher [employer] EDMS Julian Alvarenga em1 Anna Marie Duque, RN RN hb Gabriela Fonseca am2 Gabriela Schwartz RN RN ap3 Lashon Bowen RN RN mb9 Vitaliy Earl MD MD rt Corrections: (The following items were deleted from the chart) 10:17 10:13 Chief complaint: Sent from Dr. Centeno's office for possible dehydration. Pt c/o hb fatigue and diarrhea x 3 days, nausea since last night. Reports SOB r/t COPD at baseline today. hb
[2022-08-18] MEDS ORDERED: ONDANSETRON 4 MG/2 ML VIAL IV PRN (13:17)
[2022-08-18] MEDS ORDERED: METRONIDAZOLE 500mg IVPB 500 MG/100 ML BAG IV ONE ×2 (13:24→16:11)
[2022-08-18] MEDS ORDERED: NA CHLORIDE 0.9% 1,000 ML IV SCH (14:00)
--- NOTE | 2022-08-18 14:25 | P.HP ---
Certification for Inpatient Patient admitted to: Inpatient With expected LOS: >2 Midnights Patient will require the following post-hospital care: None Practitioner: I am a practitioner with admitting privileges, knowledge of patient current condition, hospital course, and medical plan of care. Services: Services provided to patient in accordance with Admission requirements found in Title 42 Section 412.3 of the Code of Federal Regulations Patient History Date of Service: 08/18/22 Primary Care Provider: Gato Reason for admission: colitis, anemia, h/o anemia History of Present Illness: Patient is an office patient with a history of alcoholism and depression. He was brought in by his daughter. Was weak and pale, hypotensive with a bp of 96/56 Lost 7 lbs since his visit 6 days previously. He was sent to the ER,. He was found to have a colitis on CT WBC of 16.9 and a hb of 8.9. He had a cbc in the offic 2.24 when his hb was 11.9. So he has lost approx 2 units in the last month. Will admit him Allergies Penicillins Adverse Reaction (Verified 08/07/21 10:04) unknown Sulfa (Sulfonamide Antibiotics) Adverse Reaction (Verified 08/07/21 10:04) unknown Home Medications: Clopidogrel Bisulfate [Plavix] 75 mg PO DAILY 05/13/17 Albuterol Inhaler [Ventolin Inhaler*] 2 puff IH Q6HP PRN 08/07/21 Albuterol Neb [Proventil 0.083% Neb Soln] 2.5 mg IH PRN PRN 08/07/21 Atorvastatin Calcium 40 mg PO BEDTIME 08/07/21 Levothyroxine [Synthroid*] 100 mcg PO [id number] 08/07/21 Primidone 100 mg PO BID 08/07/21 Sertraline HCl 100 mg PO DAILY 08/07/21 Temazepam [Restoril*] 15 mg PO BEDTIME 08/07/21 Levofloxacin [Levaquin] 500 mg PO DAILY 10 Days #10 tab 03/03/22 - Past Medical/Surgical History Diabetic: No -: bleeding ulcer -: high cholesterol -: COPD -: hypothyroid -: HTN -: blockage in L arm -: 4 cardiac stents -: gallbladder removal. - Social History Alcohol use: Yes CD- Drugs: No Caffeine use: Yes Review of Systems General: Weakness, Malaise Gastrointestinal: Melena (2-3 weeks ago) Physical Examination - Physical Exam General: Alert, Moderate distress HEENT: Atraumatic, PERRLA, Mucous membr. moist/pink, EOMI, Sclerae nonicteric Neck: Supple, 2+ carotid pulse no bruit, No LAD, Without JVD or thyroid abnormality Respiratory: Clear to auscultation bilaterally, Normal air movement Cardiovascular: Regular rate/rhythm, Normal S1 S2 Gastrointestinal: Normal bowel sounds, No tenderness Musculoskeletal: No tenderness Integumentary: No rashes Neurological: Normal gait, Normal speech, Normal strength at 5/5 x4 extr, Normal tone, Normal affect Lymphatics: No axilla or inguinal lymphadenopathy - Studies Laboratory Data (last 24 hrs) 08/18/22 10:56: PT 14.9 H, INR 1.35, APTT 27.2 08/18/22 10:56: Sodium 136, Potassium 3.3 L, BUN 8, Creatinine 0.80, Glucose 98, Total Bilirubin 0.3, AST 25, ALT 30, Alkaline Phosphatase 83, Lipase 16 08/18/22 10:56: WBC 16.80 H, Hgb 8.9 L, Hct 27.8 L, Plt Count 299 Assessment and Plan - Problems (Diagnosis) (1) Colitis Current Visit: Yes Status: Acute Plan: start the patient on clear liquids and flagyl. Will monitor his vitals and wbc. possible discharge on oral antibiotics in a day or two (2) Anemia Current Visit: Yes Status: Acute Plan: discussed with Dr. Ramos. Will plan on outpatient scope. Transfuse as needed. Qualifiers: Anemia type: iron deficiency Iron deficiency anemia type: chronic blood loss Qualified Code(s): D50.0 - Iron deficiency anemia secondary to blood loss (chronic) (3) Alcohol abuse Current Visit: Yes Status: Chronic Plan: will check an alcohol level. Start thiamine and multivitamin Discharge Plan: Home Plan to discharge in: Greater than 2 days - Advance Directives Does patient have a Living Will: No Does patient have a Durable POA for Healthcare: No - Code Status/Comfort Care Code Status Assessed: Yes Code Status: Full Code Physician Review: Patient Assessed, Agree with Above Assessment and Plan Critical Care: No Time Spent Managing Pts Care (In Minutes): 50
[2022-08-18 15:27] LABS: RBC Red Blood Cell Count 2.96 M/uL (4.33-5.43)
[2022-08-18 15:31] VITALS: BMI 22.4
[2022-08-18] MEDS: METRONIDAZOLE 500mg IVPB 500 MG/100 ML BAG IV SCH (17:00)
[2022-08-18] MEDS: DONEPEZIL HCL 5 MG TAB PO SCH (20:45)
[2022-08-19] MEDS: METRONIDAZOLE 500mg IVPB 500 MG/100 ML BAG IV SCH ×3 (00:04→17:00)
[2022-08-19] MEDS: LEVOTHYROXINE SOD 0.1 MG TAB PO SCH (06:35)
[2022-08-19 07:20] LABS: Absolute Lymphocytes (CBC) 0.7 K/uL (0.7-4.9); Hematocrit 26.2 % (39.6-49.0); Lymphocytes % 6.5 % (15.3-44.8); MCV 95.8 fL (80-100); MPV 6.7 fL (7.6-11.3); RBC Red Blood Cell Count 2.74 M/uL (4.33-5.43)
[2022-08-19 07:44] LABS: Albumin 2.9 g/dL (3.4-5.0); Bilirubin Total 0.2 mg/dL (0.2-1.0); Potassium 3.3 mEq/L (3.5-5.1); Protein, Total 5.3 g/dL (6.4-8.2); Thyroid Stimulating Hormone 1.34 uIU/mL (0.358-3.740)
--- NOTE | 2022-08-19 08:30 | P.PN ---
Subjective Date of Service: 08/19/22 Primary Care Provider: Gato Chief Complaint: colitis, anemia, h/o anemia Subjective: Improving Review of Systems 10-point ROS is otherwise unremarkable Physical Examination - Vital Signs Temperature: 97.0 F Blood Pressure: 108/59 Pulse: 64 Respirations: 16 Pulse Ox (%): 100 - Physical Exam General: Alert, In no apparent distress HEENT: Atraumatic, PERRLA, EOMI Neck: Supple, JVD not distended Respiratory: Clear to auscultation bilaterally, Normal air movement Cardiovascular: Regular rate/rhythm, Normal S1 S2 Gastrointestinal: Normal bowel sounds, No tenderness Musculoskeletal: No tenderness Integumentary: No rashes Neurological: Normal speech, Normal tone, Normal affect Lymphatics: No axilla or inguinal lymphadenopathy - Studies Laboratory Data (last 24 hrs) 08/18/22 10:56: PT 14.9 H, INR 1.35, APTT 27.2 08/18/22 10:56: Sodium 136, Potassium 3.3 L, BUN 8, Creatinine 0.80, Glucose 98, Total Bilirubin 0.3, AST 25, ALT 30, Alkaline Phosphatase 83, Lipase 16 08/18/22 10:56: WBC 16.80 H, Hgb 8.9 L, Hct 27.8 L, Plt Count 299 Assessment And Plan - Current Problems (Diagnosis) (1) Colitis Current Visit: Yes Status: Acute Plan: start the patient on clear liquids and flagyl. Will monitor his vitals and wbc. possible discharge on oral antibiotics in a day or two (2) Anemia Current Visit: Yes Status: Acute Plan: discussed with Dr. Ramos. Will plan on outpatient scope. Transfuse as needed. Qualifiers: Anemia type: iron deficiency Iron deficiency anemia type: chronic blood loss Qualified Code(s): D50.0 - Iron deficiency anemia secondary to blood loss (chronic) (3) Alcohol abuse Current Visit: Yes Status: Resolved Plan: will check an alcohol level. Start thiamine and multivitamin 08/19 last drink was Tuesday. not likely to be the cause Discharge Plan: Home Plan to discharge in: 48 Hours - Code Status/Comfort Care Code Status Assessed: No Physician Review: Patient Assessed, Agree with Above Assessment and Plan Critical Care: No Time Spent Managing PTS Care (In Minutes): 20
[2022-08-19] MEDS ORDERED: HOME MED 1 EA UNK (Fluticasone/Salmeterol [Advair 250-50 Diskus] Blst.W.Dev) IH SCH (09:00)
[2022-08-19] MEDS: FLUOXETINE 20 MG CAP PO SCH (09:18)
[2022-08-19 09:41] VITALS: O2SAT 100
[2022-08-19] MEDS: DULERA 100/5 (MOMETASONE/FORMOTEROL) INHALER IH SCH ×2 (11:44→21:35)
--- NOTE | 2022-08-19 12:17 | EKG ---
Test Date: 2022-08-18 Test Time: 11:02:02 Sheet Taker: GIL MEASUREMENT RESULTS: Intervals: Rate: 72 DC: 128 QRSD: 132 QT: 444 QTc: 486 Scott: P: 50 DC: 128 QRS: 85 T: 77 INTERPRETIVE STATEMENTS: Normal sinus rhythm Right bundle branch block Abnormal ECG Compared to ECG 03/01/2022 09:28:00 Left-axis deviation no longer present Electronically Signed On 08-19-22 12:13:33 CDT by Janusz Ceron
[2022-08-19] MEDS ORDERED: DIPHENHYDRAMINE 25 MG TAB/CAP PO PRN (18:05)
[2022-08-19] MEDS ORDERED: ATORVASTATIN 40 MG TAB PO SCH (21:00)
[2022-08-19] MEDS: DONEPEZIL HCL 5 MG TAB PO SCH (21:32)
[2022-08-19] MEDS: CIPROFLOXACIN 400mg IV 400 MG/200 ML BAG IV SCH (21:32)
[2022-08-19 21:57] LABS: C.diff Antigen/Toxin Ag neg : Tox neg (NEG : NEG)
[2022-08-20] MEDS: METRONIDAZOLE 500mg IVPB 500 MG/100 ML BAG IV SCH ×2 (00:21→07:50)
[2022-08-20] MEDS: LEVOTHYROXINE SOD 0.1 MG TAB PO SCH (06:24)
[2022-08-20 07:14] LABS: Absolute Lymphocytes (CBC) 0.7 K/uL (0.7-4.9); Hematocrit 26.9 % (39.6-49.0); MCV 95.2 fL (80-100); MPV 6.6 fL (7.6-11.3); RBC Red Blood Cell Count 2.83 M/uL (4.33-5.43)
[2022-08-20 07:37] LABS: Albumin 2.9 g/dL (3.4-5.0); Bilirubin Total 0.2 mg/dL (0.2-1.0); Potassium 3.1 mEq/L (3.5-5.1); Protein, Total 5.3 g/dL (6.4-8.2)
[2022-08-20] MEDS: CIPROFLOXACIN 400mg IV 400 MG/200 ML BAG IV SCH (07:49)
[2022-08-20] MEDS: DULERA 100/5 (MOMETASONE/FORMOTEROL) INHALER IH SCH (07:50)
[2022-08-20] MEDS: FLUOXETINE 20 MG CAP PO SCH (07:50)
[2022-08-20 12:16] VITALS: BP 106/55; TEMP 97.5
--- NOTE | 2022-08-20 12:44 | P.DS ---
Admission Date: 08/18/22 Discharge Date: 08/20/22 Primary Care Provider: Gato Disposition: ROUTINE DISCHARGE Discharge Condition: GOOD Reason for Admission: colitis, anemia, h/o anemia - Problems (1) Colitis Current Visit: Yes Status: Acute (2) Anemia Current Visit: Yes Status: Acute Qualifiers: Anemia type: iron deficiency Iron deficiency anemia type: chronic blood loss Qualified Code(s): D50.0 - Iron deficiency anemia secondary to blood loss (chronic) (3) Alcohol abuse Current Visit: Yes Status: Resolved Brief History of Present Illness: Patient is an office patient with a history of alcoholism and depression. He was brought in by his daughter. Was weak and pale, hypotensive with a bp of 96/56 Lost 7 lbs since his visit 6 days previously. He was sent to the ER,. He was found to have a colitis on CT WBC of 16.9 and a hb of 8.9. He had a cbc in the offic 2.24 when his hb was 11.9. So he has lost approx 2 units in the last month. Will admit him Hospital Course: Patient was admitted and started on flagy. WBc recovered. HB remained stable. Was seen by Dr. Ramos. Will discharge on cipro as the patient has a history of drinking and flagly and alcohol will make him violently ill. Will have him follow up with Dr. Zhong for an outpatient scope Thank you for allowing me to be a part of his care. Vital Signs/Physical Exam: Temp Pulse Resp BP Pulse Ox 97.5 F 67 16 106/55 L 97 08/20/22 12:00 08/20/22 12:00 08/20/22 12:00 08/20/22 12:00 08/20/22 12:00 General: Alert, In no apparent distress HEENT: Atraumatic, PERRLA, EOMI Neck: Supple, JVD not distended Respiratory: Clear to auscultation bilaterally, Normal air movement Cardiovascular: Regular rate/rhythm, Normal S1 S2 Gastrointestinal: Normal bowel sounds, No tenderness Musculoskeletal: No tenderness Integumentary: No rashes Neurological: Normal speech, Normal tone, Normal affect Lymphatics: No axilla or inguinal lymphadenopathy Laboratory Data at Discharge: WBC 6.20 thou/uL (4.3-10.9) 08/20/22 07:02 Hgb 8.7 g/dL (13.6-17.9) L 08/20/22 07:02 Hct 26.9 % (39.6-49.0) L 08/20/22 07:02 Plt Count 267 thou/uL (152-406) 08/20/22 07:02 PT 14.9 SECONDS (9.5-12.5) H 08/18/22 10:56 INR 1.35 08/18/22 10:56 APTT 27.2 SECONDS (24.3-36.9) 08/18/22 10:56 Sodium 137 mEq/L (136-145) 08/20/22 07:02 Potassium 3.1 mEq/L (3.5-5.1) L 08/20/22 07:02 BUN 6 mg/dL (7-18) L 08/20/22 07:02 Creatinine 0.50 mg/dL (0.70-1.30) L 08/20/22 07:02 Glucose 103 mg/dL (74-106) 08/20/22 07:02 Total Bilirubin 0.2 mg/dL (0.2-1.0) 08/20/22 07:02 AST 21 U/L (15-37) 08/20/22 07:02 ALT 28 U/L (16-61) 08/20/22 07:02 Alkaline Phosphatase 66 U/L (45-117) 08/20/22 07:02 Lipase 16 U/L (13-75) 08/18/22 10:56 Home Medications: Clopidogrel Bisulfate [Plavix] 75 mg PO DAILY 05/13/17 Albuterol Inhaler [Ventolin Inhaler*] 2 puff IH Q6HP PRN 08/07/21 Albuterol Neb [Proventil 0.083% Neb Soln] 2.5 mg IH PRN PRN 08/07/21 Atorvastatin Calcium 40 mg PO BEDTIME 08/07/21 Levothyroxine [Synthroid*] 100 mcg PO [id number] 08/07/21 Primidone 100 mg PO BID 08/07/21 Temazepam [Restoril*] 15 mg PO BEDTIME 08/07/21 Aspirin [Aspirin EC 81 MG] 1 tab PO DAILY 08/18/22 Diphenhydramine HCl [Benadryl Allergy] 1 tab PO Q6HP PRN 08/18/22 Donepezil [Aricept*] 10 mg PO BEDTIME 08/18/22 Ergocalciferol (Vitamin D2) [Vitamin D2] 1 tab PO UD 08/18/22 Fluoxetine HCl [Prozac] 1 tab PO DAILY 08/18/22 Fluticasone/Salmeterol [Advair 250-50 Diskus] 1 puff IH BID 08/18/22 Ipratropium/Albuterol Sulfate [Iprat-Albut 0.5-3(2.5) mg/3 ml] 3 ml IH Q4HP PRN 08/18/22 Losartan Potassium [Cozaar] 1 tab PO DAILY 08/18/22 [place]-3/Dha/Epa/Fish Oil [Fish Oil 1,000 mg Softgel] 1 cap PO DAILY 08/18/22 Umeclidinium Vader [Incruse Ellipta] 1 dose IH DAILY 08/18/22 Vit C/E/Zn/Coppr/Lutein/Zeaxan [Preservision Areds 2 Softgel] 1 cap PO BID 08/18/22 Ciprofloxacin HCl [Cipro 500 MG Tablet] 500 mg PO BID 5 Days #10 tab 08/20/22 New Medications: Ciprofloxacin HCl [Cipro 500 MG Tablet] 500 mg PO BID 5 Days #10 tab Diet: Regular Activity: Ad johnnie Followup: Chito Centeno MD [Primary Care Provider] - 1 Week Ashu Ramos MD [ACTIVE - CAN ADMIT] - 1-2 Weeks Physician Review: Patient Assessed, Agree with Above Assessment and Plan Time spent managing pt's care (in minutes): 30
[2022-08-23] MEDS ORDERED: DRISDOL (VITAMIN D=ERGOCALCIFEROL) 50000 UNIT CAP PO SCH (09:00)
== END 2022-08-20 13:25 | disposition home or self-care (01) | DRG 392 ==
LOC: ER 10:00 → ERHOLD 13:16 → 4TH 19:38
PROVIDERS: ADMIT Internal Medicine; ATTEND Internal Medicine
DX: K52.9 Noninfective gastroenteritis and colitis, unspecified (principal); E86.0 Dehydration; I10 Essential (primary) hypertension; I95.9 Hypotension, unspecified; E03.9 Hypothyroidism, unspecified; J44.9 Chronic obstructive pulmonary disease, unspecified; D50.0 Iron deficiency anemia secondary to blood loss (chronic); E78.00 Pure hypercholesterolemia, unspecified; F10.20 Alcohol dependence, uncomplicated; Z88.0 Allergy status to penicillin; Z95.5 Presence of coronary angioplasty implant and graft; Z88.1 Allergy status to other antibiotic agents; Z90.49 Acquired absence of other specified parts of digestive tract; Z79.82 Long term (current) use of aspirin; Z79.02 Long term (current) use of antithrombotics/antiplatelets; Z79.890 Hormone replacement therapy; Z79.899 Other long term (current) drug therapy
CPT/HCPCS: 36415; 74177; 80053; 83690; 84443; 84484; 85025; 85044; 85610; 85730; 86850; 86870; 86880; 86900; 86901; 86905; 86970; 87324; 93005; 96361; 96374; 96375; 99285; C9113; G0480; J0744; J3535; J7030; Q9967

== ENCOUNTER → 2023-04-06 | Day surgery (SDC) | payer OTHER ==
[2023-04-05 08:57] LABS: Absolute Lymphocytes (CBC) 0.7 K/uL (0.7-4.9); Hematocrit 33.5 % (39.6-49.0); Lymphocytes % 12.2 % (15.3-44.8); MPV 6.4 fL (7.6-11.3); Platelets 319 thou/uL (152-406)
[2023-04-05 09:00] LABS: Protime INR 1.05
[~2023-04-06] MED LIST changes: -CLINDAMYCIN 600MG/D5W 600 MG/50 ML BAG IV ONE; +EPHEDRINE SULF 50 MG/ML VIAL ONE; -Gentamicin Inj 120 MG in NA CHLORIDE 0.9% 100 ML IV ONE; +LIDOCAINE 1% MPF 5 ML VIAL ONE; +Ringers Lactate 1,000 ML IV ONE; +propofoL 200 MG/20 ML VIAL IV ONE
[2023-04-06 10:44] VITALS: O2SAT 99
--- NOTE | 2023-04-06 11:16 | RAD REPORT ---
EXAM DESCRIPTION: CT - Chest Angio - 04/06/2023 10:39 am CLINICAL HISTORY: Asymmetric upper extremity blood pressure. Evaluate for Coartation COMPARISON: Thorax Wo Con dated 11/29/2016; Thorax Wo Con dated 03/15/2016; Abdomen Pelvis W Contras t dated 08/31/2022 TECHNIQUE: Dynamically enhanced thin axial CT images of the chest were obtained during administratio n of approximately 100mL Isovue 370 IV contrast. Sagittal and coronal reconstructions as well as maxi mal intensity projection reconstruction were generated and reviewed per an aortic angiography protoco l. All CT scans are performed using dose optimization technique as appropriate and may include automated exposure control or mA/KV adjustment according to patient size. FINDINGS: Aorta is normal in diameter with mild tortuosity along the arch and descending aorta. Mode rate burden of atherosclerotic calcifications. There is moderate atherosclerotic narrowing, predomina ntly due to noncalcified atheromatous plaque along the proximal left subclavian artery, with narrowes t luminal diameter measuring 2.8 millimeter on the axial images, although sagittal and coronal recons tructions suggest there may be a more severe focal narrowing. No dissection or other acute aortic fin dings. Reconstruction images show no other significant findings. Pulmonary arteries are normal as well. No suspicious lung mass. Dependent bilateral patchy airspace opacities with trace bilateral effusions . Bronchial wall thickening and subocclusive secretions throughout the leading lower lobe bronchi. Ba ckground [id number] centrilobular apical predominant emphysematous changes. . No pleural thicke jackie, or pneumothorax. No abnormal mediastinal or hilar mass or lymphadenopathy seen. No chest wall mass or abnormal axillar y lymphadenopathy. Celiac, SMA and renal arteries show no suspicious findings. Included abdominal viscera and bowel show no significant findings. Status post cholecystectomy. IMPRESSION: Focal narrowing along the proximal left subclavian artery, with narrowest luminal diamet er measuring 2.8 millimeter on the axial images although sagittal and coronal reconstructions suggest a more severe focal narrowing. This may contribute to the patient's symptoms. No evidence of aortic dissection, coarctation, or aneurysmal dilation. Moderate burden of atheroscler otic calcifications. Dependent bilateral patchy airspace opacities with bronchial wall thickening and secretions throughou t the leading bronchi. Findings suggest acute exacerbation of airway obstructive disease, and/or pneu monitis.
[2023-04-06 12:00] VITALS: BP 86/52; TEMP 97.6
== END ==
LOC: OR 06:54
PROVIDERS: ATTEND Internal Medicine Gastroenterology
PROC: 0DBN8ZX Excision of Sigmoid Colon, Via Natural or Artificial Opening Endoscopic, Diagnostic (ICD-10-PCS; 2023-04-06)
PROC: 0DBL8ZX Excision of Transverse Colon, Via Natural or Artificial Opening Endoscopic, Diagnostic (ICD-10-PCS; principal; 2023-04-06 08:45)
DX: D50.9 Iron deficiency anemia, unspecified (principal); D12.5 Benign neoplasm of sigmoid colon; D12.3 Benign neoplasm of transverse colon; Z86.010 Personal history of colon polyps; E03.9 Hypothyroidism, unspecified; J44.9 Chronic obstructive pulmonary disease, unspecified; F17.210 Nicotine dependence, cigarettes, uncomplicated; Z88.0 Allergy status to penicillin; Z88.2 Allergy status to sulfonamides; Z95.5 Presence of coronary angioplasty implant and graft
CPT/HCPCS: 93005; 85025; 36415; 85610; 82565; 88305; 85730; 71275; 45385; Q9967; J2704; J2001; J7120

== ENCOUNTER → 2023-04-13 | Day surgery (SDC) | payer OTHER ==
[~2023-04-13] MED LIST changes: -EPHEDRINE SULF 50 MG/ML VIAL ONE; -LIDOCAINE 1% MPF 5 ML VIAL ONE; +Ringers Lactate 0 ML IV ONE; -propofoL 200 MG/20 ML VIAL IV ONE
[2023-04-13 09:59] VITALS: BP 105/62; TEMP 97.8; O2SAT 100
== END ==
LOC: OR 09:21
PROVIDERS: ATTEND Internal Medicine Gastroenterology
DX: R13.10 Dysphagia, unspecified (principal); Z53.8 Procedure and treatment not carried out for other reasons; K21.9 Gastro-esophageal reflux disease without esophagitis; R10.13 Epigastric pain; D64.9 Anemia, unspecified; Z79.82 Long term (current) use of aspirin; Z79.899 Other long term (current) drug therapy; Z88.0 Allergy status to penicillin; Z88.2 Allergy status to sulfonamides
CPT/HCPCS: J7120

== ENCOUNTER 2023-05-04 06:28 | Day surgery (SDC) | payer OTHER ==
[2023-05-04] MEDS ORDERED: Ringers Lactate 1,000 ML IV ONE (06:46)
[2023-05-04 07:07] VITALS: O2SAT 100
[2023-05-04] MEDS ORDERED: propofoL 200 MG/20 ML VIAL IV ONE (07:17)
[2023-05-04] MEDS ORDERED: LIDOCAINE 1% MPF 5 ML VIAL ONE (07:17)
[2023-05-04] MEDS ORDERED: EPHEDRINE SULF 50 MG/ML VIAL ONE (07:45)
[2023-05-04 10:33] VITALS: BP 118/56; TEMP 97
== END 2023-05-04 09:18 | disposition home or self-care (01) ==
LOC: OR 06:28
PROVIDERS: ATTEND Internal Medicine Gastroenterology
PROC: 0DB78ZX Excision of Stomach, Pylorus, Via Natural or Artificial Opening Endoscopic, Diagnostic (ICD-10-PCS; 2023-05-04)
PROC: 0DB68ZX Excision of Stomach, Via Natural or Artificial Opening Endoscopic, Diagnostic (ICD-10-PCS; 2023-05-04)
PROC: 0DB98ZX Excision of Duodenum, Via Natural or Artificial Opening Endoscopic, Diagnostic (ICD-10-PCS; principal; 2023-05-04 07:30)
DX: R13.19 Other dysphagia (principal); R10.13 Epigastric pain; R12 Heartburn; K21.9 Gastro-esophageal reflux disease without esophagitis; D64.9 Anemia, unspecified; R63.4 Abnormal weight loss; K29.80 Duodenitis without bleeding; K44.9 Diaphragmatic hernia without obstruction or gangrene; K25.4 Chronic or unspecified gastric ulcer with hemorrhage; K29.60 Other gastritis without bleeding
CPT/HCPCS: 43239; 43248; J2704; J2001; J7120; C1769

== ENCOUNTER 2023-05-11 14:24 | Observation (INO) | payer OTHER ==
[2023-05-11 15:15] LABS: Absolute Lymphocytes (CBC) 0.6 K/uL (0.7-4.9); Hematocrit 35.3 % (39.6-49.0); Lymphocytes % 6.9 % (15.3-44.8); MCV 86.6 fL (80-100); MPV 6.7 fL (7.6-11.3); Platelets 250 thou/uL (152-406); RBC Red Blood Cell Count 4.08 M/uL (4.33-5.43)
[2023-05-11 15:17] LABS: Protime INR 1.23
--- NOTE | 2023-05-11 15:28 | RAD REPORT ---
EXAM DESCRIPTION: RAD - Chest Single View - 05/11/2023 3:19 pm CLINICAL HISTORY: COPD Chest pain. COMPARISON: Chest Single View dated 09/04/2022; Abdomen 1 View (KUB) dated 09/03/2022; Chest Single View dated 03/01/2022; Chest Pa And Lat (2 Views) dated 08/07/2021; Chest Angio dated 04/06/2023 FINDINGS: Portable technique limits examination quality. The lungs are significantly emphysematous but grossly clear. The heart is normal in size. No displace d fractures.Aortic atherosclerosis. IMPRESSION: Advanced COPD.
[2023-05-11 15:35] LABS: ALT/SGPT 45 U/L (16-61); AST/SGOT 33 U/L (15-37); Albumin 3.9 g/dL (3.4-5.0); Alkaline Phosphatase 99 U/L (45-117); BUN Blood Urea Nitrogen 10 mg/dL (7-18); Bicarbonate 28 mEq/L (21-32); Bilirubin Total 0.3 mg/dL (0.2-1.0); Glomerular Filtration Rate 94 ml/min (=/>90); Glucose Level 96 mg/dL (74-106); Magnesium 2.3 mg/dL (1.6-2.4); NT PRO-BNP 172 pg/mL (<450); Potassium 3.8 mEq/L (3.5-5.1); Protein, Total 6.7 g/dL (6.4-8.2); Sodium Level 137 mEq/L (136-145); Troponin High Sensitivity 5.8 pg/mL (<58.9)
[2023-05-11 15:36] LABS: Bilirubin Direct < 0.1 mg/dL (0-0.2); Bilirubin Indirect, Calculated ND mg/dL (0.2-0.8)
[2023-05-11] MEDS ORDERED: METHYLPREDNISOLONE 125 MG INJ ONE (15:36)
[2023-05-11] MEDS ORDERED: NA CHLORIDE 0.9% 500 ML ONE (15:37)
[2023-05-11] MEDS ORDERED: LEVALBUTEROL 1.25 MG/3 ML NEB ONE ×2 (15:37→16:30)
[2023-05-11] MEDS ORDERED: IPRATROPIUM BROM 0.5MG/2.5ML ONE ×2 (15:37→20:41)
[2023-05-11] MEDS ORDERED: Levofloxacin500mg IV 500 MG/100 ML BAG IV ONE (15:37)
[2023-05-11] MEDS ORDERED: NA CHLORIDE 0.9% 1,000 ML ONE (15:37)
[2023-05-11] MEDS ORDERED: predniSONE 20 MG TAB ONE (15:37)
[2023-05-11 16:27] LABS: Blood Morphology Comment NOT SEEN (NOT SEEN); Platelet Estimate ADEQ; White Blood Cell Scan OK (OK)
--- NOTE | 2023-05-11 16:48 | ER ---
Nurse's Notes [facility] Name: Jose Lake Age: 77 yrs Sex: Male : 1945 Arrival Date: 05/11/2023 Time: 14:24 Bed 2 Private MD: Diagnosis: COPD/ Chronic obstructive pulmonary disease with acute lower respiratory infection;COPD/ Chronic obstructive pulmonary disease with (acute) exacerbation;Tobacco abuse counseling;Tobacco use;Hypoxemia Presentation: 05/11 14:29 Chief complaint: Patient states: Shortness of breath and generalized weakness onset a cm10 few days ago. pt states that he has a history of COPD and his nebulizer machine quit working. 14:33 Coronavirus screen: Vaccine status: Patient reports receiving the 2nd dose of the covid hb vaccine. Client denies travel out of the [place] in the last 14 days. Ebola Screen: Patient denies travel to an Ebola-affected area in the 21 days before illness onset. No symptoms or risks identified at this time. Initial Sepsis Screen: Does the patient meet any 2 criteria? No. Patient's initial sepsis screen is negative. Does the patient have a suspected source of infection? No. Patient's initial sepsis screen is negative. Risk Assessment: Do you want to hurt yourself or someone else? Patient reports no desire to harm self or others. Onset of symptoms was May 11, 2023. 14:33 Method Of Arrival: Ambulatory 14:33 Acuity: LASHANDA 3 hb Historical: - Allergies: 14:30 PENICILLINS; cm10 14:30 Sulfa (Sulfonamide Antibiotics); cm10 - PMHx: 14:30 bleeding ulcers; COPD; High Cholesterol; Hypertensive disorder; cardiac stents; cm10 Colitis; Thyroid problem; - Immunization history:: Adult Immunizations unknown. - Social history:: Smoking status: Patient reports the use of cigarette tobacco products, smokes one pack cigarettes per day. Screenin:[facility] ED Fall Risk Assessment (Adult) History of falling in the last 3 months, ld1 including since admission No falls in past 3 months (0 pts). Abuse screen: Denies threats or abuse. Denies injuries from another. Nutritional screening: No deficits noted. Tuberculosis screening: No symptoms or risk factors identified. Assessment: 15:10 General: Appears in no apparent distress. comfortable, Behavior is calm, cooperative, ld1 appropriate for age. Pain: Denies pain. Neuro: Level of Consciousness is awake, alert, obeys commands, Oriented to person, place, time, situation. Cardiovascular: Capillary refill < 3 seconds Patient's skin is warm and dry. Rhythm is sinus rhythm. Respiratory: Airway is patent Respiratory effort is even, unlabored, Breath sounds with wheezes bilaterally. GI: Abdomen is flat, non-distended. : No signs and/or symptoms were reported regarding the genitourinary system. EENT: No signs and/or symptoms were reported regarding the EENT system. Derm: No signs and/or symptoms reported regarding the dermatologic system. Musculoskeletal: No signs and/or symptoms reported regarding the musculoskeletal system. 16:32 Reassessment: Patient appears in no apparent distress at this time. No changes from ld1 previously documented assessment. Patient and/or family updated on plan of care and expected duration. Pain level reassessed. Patient states feeling better. Vital Signs: 14:33 BP 105 / 58; Pulse 75; Resp 22; Temp 98.6; Pulse Ox 100% on R/A; hb 15:10 BP 102 / 56; Pulse 71; Resp 18; Pulse Ox 97% on R/A; ld1 15:38 BP 106 / 64; Pulse 63; Resp 23; Pulse Ox 100% on Nebulizer Mask; ld1 16:31 BP 119 / 60; Pulse 77; Resp 18; Pulse Ox 100% on Nebulizer Mask; ld1 17:07 BP 105 / 51; Pulse 82; Resp 25; Pulse Ox 99% ; ld1 ED Course: 14:29 Patient arrived in ED. cm10 14:32 Pako Jones MD is Attending Physician. galo 14:33 Triage completed. hb 14:33 Arm band placed on Patient placed in an exam room, on a stretcher. hb 14:37 Lynda Galicia, EVENS is Primary Nurse. nj1 15:05 Inserted saline lock: 20 gauge in left forearm, using aseptic technique. Blood bc6 collected. 15:06 Basic Metabolic Panel Sent. bc6 15:06 CBC with Diff Sent. bc6 15:06 LFT's Sent. bc6 15:06 Magnesium Sent. bc6 15:06 NT PRO-BNP Sent. bc6 15:06 Troponin HS Sent. bc6 15:09 Blood Culture Adult (2) Sent. bc6 15:09 Lactate w/ 2H reflex if indic. Sent. bc6 15:10 Elena Camara, RN is Primary Nurse. ld1 15:10 Patient has correct armband on for positive identification. Placed in gown. Bed in low ld1 position. Call light in reach. Side rails up X2. court recording monitor on. Pulse ox on. NIBP on. Door closed. Noise minimized. Warm blanket given. 15:10 No provider procedures requiring assistance completed. ld1 15:20 XRAY Chest (1 view) In Process Unspecified. EDIN 16:46 Mahesh De La O is Hospitalizing Provider. [facility] 22:09 Provided Education on: admission process. km8 22:09 Patient admitted, IV remains in place. km8 Administered Medications: 15:37 Drug: NS 0.9% IV 500 ml IV at bolus once Route: IV; Rate: bolus; Site: left forearm; ld1 19:47 Follow up: Response: No adverse reaction; IV Status: Completed infusion; IV Intake: km8 500ml 15:37 Drug: Levalbuterol Inhalation 3.75 mg Inhalation once Route: Inhalation; ld1 19:47 Follow up: Response: No adverse reaction 8 15:37 Drug: Ipratropium Inhalation Aerosol 0.5 mg Inhalation once Route: Inhalation; ld1 19:46 Follow up: Response: No adverse reaction 8 15:37 Drug: levofloxacin IVPB 500 mg 100 ml IVPB once over 60 mins Volume: 100 ml; Route: ld1 IVPB; Infused Over: 60 mins; Site: left forearm; 19:46 Follow up: Response: No adverse reaction 8 15:38 Drug: NS 0.9% IV 1000 ml IV at 125 ml/hr continuous Route: IV; Rate: 125 ml/hr; Site: ld1 left forearm; 22:59 Follow up: IV Status: Infusion continued upon admission km8 15:38 Drug: MethylPrednisoLONE IVP 125 mg IVP once Route: IVP; Site: left forearm; ld1 19:45 Follow up: Response: No adverse reaction km8 15:38 Drug: predniSONE PO 60 mg PO once Route: PO; ld1 19:45 Follow up: Response: No adverse reaction [facility] 16:29 Drug: Levalbuterol Inhalation 2.5 mg Inhalation once Route: Inhalation; ld1 19:46 Follow up: Response: No adverse reaction km8 Medication: 15:10 VIS not applicable for this client. ld1 Intake: 19:47 IV: 500ml; Total: 500ml. km8 Outcome: 16:47 Decision to Hospitalize by Provider. galo 22:58 Admitted to Med/surg accompanied by tech, via wheelchair, room 209, with oxygen, with km8 chart, Report called to EVENS Velasco 22:58 Condition: stable 22:58 Discharge instructions given to patient, Instructed on the need for admit, Demonstrated understanding of instructions, 23:00 Patient left the ED. km8 Signatures: Dispatcher [employer] EDPako Kiser MD MD cha Baxter, Heather, RN RN Elena Camara, RN RN ld1 Zhane Gray6 Lynda Galicia, RN RN nj1 Rachel Alvarenga, RN RN cm10 Tracy Castañeda, RN RN km8
--- NOTE | 2023-05-11 16:48 | EDPHYS ---
Physician Documentation [facility] Name: Jose Lake Age: 77 yrs Sex: Male : 1945 Arrival Date: 05/11/2023 Time: 14:24 Bed 2 Private MD: ED Physician Pako Jones HPI: 05/11 16:34 This 77 yrs old Male presents to ER via Ambulatory with complaints of galo Shortness Of Breath. 16:34 The patient has shortness of breath at rest, with light activity. Onset: The galo symptoms/episode began/occurred 3 day(s) ago. Duration: The symptoms are continuous, and are steadily getting worse. The patient's shortness of breath is aggravated by nothing, is alleviated by nothing. Associated signs and symptoms: Pertinent positives: non-productive cough. Severity of symptoms: At their worst the symptoms were moderate in the emergency department the symptoms are unchanged. The patient has experienced similar episodes in the past, multiple times. Historical: - Allergies: 14:30 PENICILLINS; cm10 14:30 Sulfa (Sulfonamide Antibiotics); cm10 - PMHx: 14:30 bleeding ulcers; COPD; High Cholesterol; Hypertensive disorder; cardiac stents; cm10 Colitis; Thyroid problem; - Immunization history:: Adult Immunizations unknown. - Social history:: Smoking status: Patient reports the use of cigarette tobacco products, smokes one pack cigarettes per day. ROS: 16:35 Constitutional: Negative for fever, chills, and weight loss, Eyes: Negative for injury, galo pain, redness, and discharge, ENT: Negative for injury, pain, and discharge, Neck: Negative for injury, pain, and swelling, Cardiovascular: Negative for chest pain, palpitations, and edema, Abdomen/GI: Negative for abdominal pain, nausea, vomiting, diarrhea, and constipation, Back: Negative for injury and pain, : Negative for injury, bleeding, discharge, and swelling, MS/Extremity: Negative for injury and deformity, Skin: Negative for injury, rash, and discoloration, Neuro: Negative for headache, weakness, numbness, tingling, and seizure, Psych: Negative for depression, anxiety, suicide ideation, homicidal ideation, and hallucinations, Allergy/Immunology: Negative for hives, rash, and allergies, Endocrine: Negative for neck swelling, polydipsia, polyuria, polyphagia, and marked weight changes, Hematologic/Lymphatic: Negative for swollen nodes, abnormal bleeding, and unusual bruising, 16:35 Respiratory: Positive for cough, shortness of breath, wheezing, expiratory, Exam: 16:35 Constitutional: This is a well developed, well nourished patient who is awake, alert, galo and in no acute distress. Head/Face: Normocephalic, atraumatic. Eyes: Pupils equal round and reactive to light, extra-ocular motions intact. Lids and lashes normal. Conjunctiva and sclera are non-icteric and not injected. Cornea within normal limits. Periorbital areas with no swelling, redness, or edema. ENT: Nares patent. No nasal discharge, no septal abnormalities noted. Tympanic membranes are normal and external auditory canals are clear. Oropharynx with no redness, swelling, or masses, exudates, or evidence of obstruction, uvula midline. Mucous membranes moist. Neck: Trachea midline, no thyromegaly or masses palpated, and no cervical lymphadenopathy. Supple, full range of motion without nuchal rigidity, or vertebral point tenderness. No Meningismus. Chest/axilla: Normal chest wall appearance and motion. Nontender with no deformity. No lesions are appreciated. Cardiovascular: Regular rate and rhythm with a normal S1 and S2. No gallops, murmurs, or rubs. Normal PMI, no JVD. No pulse deficits. Abdomen/GI: Soft, non-tender, with normal bowel sounds. No distension or tympany. No guarding or rebound. No evidence of tenderness throughout. Back: No spinal tenderness. No costovertebral tenderness. Full range of motion. Male : Normal genitalia with no discharge or lesions. Skin: Warm, dry with normal turgor. Normal color with no rashes, no lesions, and no evidence of cellulitis. MS/ Extremity: Pulses equal, no cyanosis. Neurovascular intact. Full, normal range of motion. Neuro: Awake and alert, GCS 15, oriented to person, place, time, and situation. Cranial nerves II-XII grossly intact. Motor strength 5/5 in all extremities. Sensory grossly intact. Cerebellar exam normal. Normal gait. Psych: Awake, alert, with orientation to person, place and time. Behavior, mood, and affect are within normal limits. 16:35 ECG was reviewed by the Attending Physician. Vital Signs: 14:33 BP 105 / 58; Pulse 75; Resp 22; Temp 98.6; Pulse Ox 100% on R/A; hb 15:10 BP 102 / 56; Pulse 71; Resp 18; Pulse Ox 97% on R/A; ld1 15:38 BP 106 / 64; Pulse 63; Resp 23; Pulse Ox 100% on Nebulizer Mask; ld1 16:31 BP 119 / 60; Pulse 77; Resp 18; Pulse Ox 100% on Nebulizer Mask; ld1 17:07 BP 105 / 51; Pulse 82; Resp 25; Pulse Ox 99% ; ld1 MDM: 14:32 Patient medically screened. galo 16:36 Differential diagnosis: Anemia Bronchitis CHF exacerbation, Chronic Obstructive galo Pulmonary Disease CHF, URI, Myocardial Infarction pneumonia, Pneumothorax reactive airway disease, Sepsis Unstable Angina. Antibiotic administration: Rocephin and Zithromax given. Differential Diagnosis: Obstructed Airway Bronchitis Influenza Upper Respiratory Infection Sinusitis Pharyngitis Asthma Exacerbation Viral Syndrome Pneumonia. Immunization status: Pneumococcal vaccine: within last 5 years. Influenza vaccine: within last 5 years. Data reviewed: vital signs, nurses notes, lab test result(s), EKG, radiologic studies, plain films. Consideration of Admission/Observation Patient was admitted/placed on observation. Escalation of care including admission/observation considered. I considered the following discharge prescriptions or medication management in the emergency department Medications were administered in the Emergency Department. See MAR. Test considered but Not performed: CT: no ct chest ro pe. Care significantly affected by the following chronic conditions: Hypertension, Chronic Obstructive Pulmonary Disease, colitis. Counseling: I had a detailed discussion with the patient and/or guardian regarding the historical points, exam findings, and any diagnostic results supporting the discharge/admit diagnosis, lab results, radiology results, the need for further work-up and treatment in the hospital. 05/11 14:34 Order name: Basic Metabolic Panel; Complete Time: 15:55 galo 05/11 14:34 Order name: CBC with Diff galo 05/11 14:34 Order name: LFT's; Complete Time: 15:55 galo 05/11 14:34 Order name: Magnesium; Complete Time: 15:55 galo 05/11 14:34 Order name: NT PRO-BNP; Complete Time: 15:55 galo 05/11 14:34 Order name: PT-INR; Complete Time: 15:55 galo 05/11 14:34 Order name: Troponin HS; Complete Time: 15:55 [facility] 05/11 14:34 Order name: Blood Culture Adult (2) [facility] 05/11 14:34 Order name: Lactate w/ 2H reflex if indic.; Complete Time: 15:55 [facility] 05/11 16:27 Order name: CBC Smear Scan EDCT 05/11 17:37 Order name: Urinalysis w/ reflexes EDMS 05/11 17:37 Order name: Basic Metabolic Panel EDMS 05/11 17:37 Order name: Basic Metabolic Panel EDMS 05/11 17:37 Order name: CBC with Automated Diff EDMS 05/11 17:37 Order name: CBC with Automated Diff EDMS 05/11 17:37 Order name: Magnesium EDMS 05/11 17:37 Order name: Magnesium EDMS 05/11 17:37 Order name: Phosphorus EDCT 05/11 17:37 Order name: Phosphorus EDCT 05/11 17:37 Order name: Thyroid Stimulating Hormone EDCT 05/11 17:37 Order name: Thyroid Stimulating Hormone EDCT 05/11 14:34 Order name: XRAY Chest (1 view); Complete Time: 15:55 [facility] 05/11 14:34 Order name: EKG; Complete Time: 14:36 [facility] 05/11 14:34 Order name: Cardiac monitoring; Complete Time: 15:38 [facility] 05/11 14:34 Order name: EKG - Nurse/Tech; Complete Time: 15:38 [facility] 05/11 14:34 Order name: IV Saline Lock; Complete Time: 15:06 [facility] 05/11 14:34 Order name: Labs collected and sent; Complete Time: 15:06 [facility] 05/11 14:34 Order name: O2 Per Protocol; Complete Time: 15:06 [facility] 05/11 14:34 Order name: O2 Sat Monitoring; Complete Time: 15:06 [facility] EC:35 Rate is 61 beats/min. Rhythm is regular. QRS [place] is Normal. [place] interval is shortened [facility] at 104 msec. QRS interval is normal. QT interval is normal. No Q waves. T waves are Normal. No ST changes noted. Clinical impression: NSR w/ Non-specific ST/T Changes and No evidence of ischemia. Interpreted by me. Reviewed by me. Administered Medications: 15:37 Drug: NS 0.9% IV 500 ml IV at bolus once Route: IV; Rate: bolus; Site: left forearm; ld1 19:47 Follow up: Response: No adverse reaction; IV Status: Completed infusion; IV Intake: km8 500ml 15:37 Drug: Levalbuterol Inhalation 3.75 mg Inhalation once Route: Inhalation; ld1 19:47 Follow up: Response: No adverse reaction km8 15:37 Drug: Ipratropium Inhalation Aerosol 0.5 mg Inhalation once Route: Inhalation; ld1 19:46 Follow up: Response: No adverse reaction km8 15:37 Drug: levofloxacin IVPB 500 mg 100 ml IVPB once over 60 mins Volume: 100 ml; Route: ld1 IVPB; Infused Over: 60 mins; Site: left forearm; 19:46 Follow up: Response: No adverse reaction km8 15:38 Drug: NS 0.9% IV 1000 ml IV at 125 ml/hr continuous Route: IV; Rate: 125 ml/hr; Site: ld1 left forearm; 22:59 Follow up: IV Status: Infusion continued upon admission km8 15:38 Drug: MethylPrednisoLONE IVP 125 mg IVP once Route: IVP; Site: left forearm; ld1 19:45 Follow up: Response: No adverse reaction km8 15:38 Drug: predniSONE PO 60 mg PO once Route: PO; ld1 19:45 Follow up: Response: No adverse reaction km8 16:29 Drug: Levalbuterol Inhalation 2.5 mg Inhalation once Route: Inhalation; ld1 19:46 Follow up: Response: No adverse reaction km8 Disposition Summary: 05/11/23 16:47 Hospitalization Ordered Notes: Hospitalization Status: Observation galo Provider: Mahesh De La O cha Condition: Fair galo Problem: new galo Symptoms: have improved galo Bed/Room Type: Standard galo Location: Telemetry/MedSurg (observation)(05/11/23 21:29) jr12 Room Assignment: [facility](05/11/23 21:29) [facility] Diagnosis - COPD/ Chronic obstructive pulmonary disease with acute lower respiratory infection galo - COPD/ Chronic obstructive pulmonary disease with (acute) exacerbation galo - Tobacco abuse counseling galo - Tobacco use galo - Hypoxemia galo Forms: - Medication Reconciliation Form galo - SBAR form galo - Leadership Thank You Letter galo Signatures: Dispatcher [employer] Johnna Chowdhury Corey, MD MD cha Sims, Lauren, RN RN ld1 Rachel Alvarenga RN RN cm10 Tierra Chacon jr12 Tracy Castañeda RN km8 Corrections: (The following items were deleted from the chart) 17:33 16:47 [facility] bd 18:14 16:47 Telemetry/MedSurg (observation) [facility] bd 18:14 17:33 409 bd bd 18:14 18:14 bd bd 21:29 18:14 [facility] ER HOLD bd jr12 21:29 18:14 ERHOLD- bd jr12
[2023-05-11] MEDS ORDERED: ACETAMINOPHEN 500 MG TAB PO PRN (17:27)
[2023-05-11] MEDS ORDERED: ONDANSETRON 4 MG/2 ML VIAL IV PRN (17:27)
--- NOTE | 2023-05-11 17:49 | P.HP ---
Certification for Inpatient Patient admitted to: Observation With expected LOS: <2 Midnights Practitioner: I am a practitioner with admitting privileges, knowledge of patient current condition, hospital course, and medical plan of care. Services: Services provided to patient in accordance with Admission requirements found in Title 42 Section 412.3 of the Code of Federal Regulations Patient History Date of Service: 05/11/23 Reason for admission: Shortness of breath History of Present Illness: 77-year-old gentleman with history of COPD, current smoker, history of hypertension presented to the emergency department with a complaint of shortness of breath of 3 days duration. Symptoms associated with cough productive of whitish sputum. He reports intermittent runny nose of about 3 months duration. Patient continues to smoke. He also reported loss of appetite but denies any chest pain or fever. Patient noted to be wheezing on arrival to the ED. chest x-ray done in the emergency department showed evidence of emphysema, advanced COPD but grossly clear. Patient was given breathing treatments, IV steroid, IV Levaquin in the ED with partial improvement. Patient noted to be stable on room air. He is hospitalized for further management of COPD exacerbation. Allergies Penicillins Adverse Reaction (Verified 04/29/23 11:18) unknown Sulfa (Sulfonamide Antibiotics) Adverse Reaction (Verified 04/29/23 11:18) unknown Home Medications: Albuterol Sulfate [Albuterol Sulfate Hfa] 8.5 gm IH PRN PRN 04/05/23 Aspirin 81 mg PO DAILY 04/05/23 Atorvastatin Calcium [Lipitor] 40 mg PO BEDTIME 04/05/23 Clopidogrel Bisulfate [Plavix] 75 mg PO DAILY 04/05/23 Donepezil HCl 10 mg PO DAILY 04/05/23 Fluoxetine HCl [Prozac] 40 mg PO DAILY 04/05/23 Fluticasone/Umeclidin/Vilanter [Trelegy Ellipta 100-62.5-25] 1 each IH DAILY 04/05/23 Ipratropium [place] 0.2 mg IH DAILY 04/05/23 Levothyroxine [Synthroid] 100 mcg PO [id number] 04/05/23 [place]-3/Dha/Epa/Fish Oil [Fish Oil 1,000 mg Softgel] 1 each PO DAILY 04/05/23 Potassium Oral Tab [Klor-Con 10 mEq Tab] 20 meq PO DAILY 04/05/23 Primidone [Mysoline] 3 tab PO BID 04/05/23 Vit C/E/Zn/Coppr/Lutein/Zeaxan [Preservision Areds 2 Softgel] 2 each PO DAILY 04/29/23 - Past Medical/Surgical History Diabetic: No -: bleeding ulcer -: high cholesterol -: COPD -: hypothyroid -: HTN -: blockage in L arm -: 4 cardiac stents -: gallbladder removal. - Social History Smoking Status: Current every day smoker Alcohol use: Yes CD- Drugs: No Caffeine use: Yes Review of Systems Other: Patient denies any dysuria, denies any urinary frequency. He denied any orthopnea. He denied any abdominal pain. Except as documented, all other systems reviewed and negative. Physical Examination - Physical Exam General: Alert, In no apparent distress, Oriented x3 HEENT: PERRLA, Mucous membr. moist/pink, Sclerae nonicteric Neck: Supple, JVD not distended Respiratory: Diminished (Bilateral), Expiratory wheezes Cardiovascular: No edema, Normal S1 S2, Irregular heart rate/rhythm Gastrointestinal: Normal bowel sounds, Soft and benign, Non-distended Musculoskeletal: No swelling, No tenderness Integumentary: No rashes, No cyanosis Neurological: Normal speech, Normal strength at 5/5 x4 extr, Cranial nerves 3-12 intact Lymphatics: No axilla or inguinal lymphadenopathy - Studies Laboratory Data (last 24 hrs) 05/11/23 05/11/23 05/11/23 15:03 15:03 15:03 WBC 9.00 Hgb 11.4 L Hct 35.3 L Plt Count 250 PT 13.4 H INR 1.23 Sodium 137 Potassium 3.8 BUN 10 Creatinine 0.73 Glucose 96 Magnesium 2.3 Total Bilirubin 0.3 AST 33 ALT 45 Alkaline Phosphatase 99 Assessment and Plan - Problems (Diagnosis) (1) COPD exacerbation Current Visit: No Status: Acute (2) Longstanding persistent atrial fibrillation Current Visit: Yes Status: Acute (3) Atherosclerotic heart disease of [place] coronary artery without angina pectoris Current Visit: No Status: Chronic Qualifiers: (4) Tobacco use Current Visit: Yes Status: Acute - Plan Place patient under observation on the medical floor. Treat COPD exacerbation with IV steroids, scheduled nebs, antibiotics. Resume home inhalers. Supplemental oxygen as needed. Atrial fibrillation is stable. Continue home medications. Patient advised to quit smoking. - Advance Directives Does patient have a Living Will: No Does patient have a Durable POA for Healthcare: No
[2023-05-11] MEDS: levoFLOXacin 500 MG TAB PO SCH (18:00)
[2023-05-11] MEDS: ENOXAPARIN 40 MG/0.4 ML SQ SCH (20:06)
[2023-05-11] MEDS ORDERED: ENOXAPARIN 40 MG/0.4 ML SQ ONE (20:12)
[2023-05-11] MEDS: ALBUTEROL 2.5 MG/3 ML NEB SOL NEB SCH (20:30)
[2023-05-11] MEDS: IPRATROPIUM BROM 0.5MG/2.5ML NEB SCH (20:30)
[2023-05-11] MEDS ORDERED: ALBUTEROL 2.5 MG/3 ML NEB SOL ONE (20:41)
[2023-05-11] MEDS ORDERED: INFLUENZA VACCINE (for 6+ mo) 0.5 ML DOSE IMVAC ONE (21:00)
[2023-05-11 23:44] VITALS: BMI 17.2
[2023-05-12] MEDS: IPRATROPIUM BROM 0.5MG/2.5ML NEB SCH ×2 (01:15→08:05)
[2023-05-12] MEDS: ALBUTEROL 2.5 MG/3 ML NEB SOL NEB SCH ×2 (01:15→08:06)
[2023-05-12] MEDS: METHYLPREDNISOLONE 40 MG INJ IV SCH ×2 (01:16→08:41)
[2023-05-12 04:09] LABS: Absolute Lymphocytes (CBC) 0.4 K/uL (0.7-4.9); Hematocrit 31.9 % (39.6-49.0); Lymphocytes % 6.7 % (15.3-44.8); Platelets 205 thou/uL (152-406); RBC Red Blood Cell Count 3.71 M/uL (4.33-5.43)
[2023-05-12 04:25] LABS: Magnesium 2.2 mg/dL (1.6-2.4); Phosphorus 3.1 mg/dL (2.5-4.9); Thyroid Stimulating Hormone 0.718 uIU/mL (0.358-3.740)
[2023-05-12] MEDS: levoFLOXacin 500 MG TAB PO SCH (08:40)
[2023-05-12] MEDS: ENOXAPARIN 40 MG/0.4 ML SQ SCH (08:41)
--- NOTE | 2023-05-12 09:12 | P.DS ---
Admission Date: 05/11/23 Discharge Date: 05/12/23 Disposition: DC HOME/HOME HEALTH CARE Discharge Condition: FAIR Reason for Admission: Shortness of breath - Problems (1) COPD exacerbation Status: Acute (2) Longstanding persistent atrial fibrillation Status: Acute (3) Atherosclerotic heart disease of [place] coronary artery without angina pectoris Status: Chronic Qualifiers: (4) Tobacco use Status: Acute Brief History of Present Illness: 77-year-old gentleman with history of COPD, current smoker, history of hypertension presented to the emergency department with a complaint of shortness of breath of 3 days duration. Symptoms associated with cough productive of whitish sputum. He reports intermittent runny nose of about 3 months duration. Patient continues to smoke. He also reported loss of appetite but denies any chest pain or fever. Patient noted to be wheezing on arrival to the ED. chest x-ray done in the emergency department showed evidence of emphysema, advanced COPD but grossly clear. Patient was given breathing treatments, IV steroid, IV Levaquin in the ED with partial improvement. Patient noted to be stable on room air. He is hospitalized for further management of COPD exacerbation. Hospital Course: Placed on observation on the medical floor and treated for COPD exacerbation with IV steroids, oral antibiotics, nebulizer treatments and other bronchodilators. Patient's symptoms improved, did not require oxygen and vitals were stable. Patient reports he feels back to baseline at he is discharged with some taper and oral Levaquin, and to continue nebulizer treatment at home. He states that his nebulizer broke but has already made arrangements for a new one to be delivered. He is advised to quit smoking. Vital Signs/Physical Exam: Temp Pulse Resp BP Pulse Ox 97.9 F 62 18 120/59 L 95 05/12/23 04:00 05/12/23 04:00 05/12/23 04:00 05/12/23 04:00 05/12/23 04:00 General: Alert, In no apparent distress, Oriented x3 HEENT: Mucous membr. moist/pink Neck: Supple, JVD not distended Respiratory: Normal air movement, Other (Mild scattered expiratory wheezes.) Cardiovascular: No edema, Regular rate/rhythm, Normal S1 S2 Gastrointestinal: Normal bowel sounds, Soft and benign, Non-distended, No tenderness Musculoskeletal: No swelling Integumentary: No rashes, No cyanosis Neurological: Normal strength at 5/5 x4 extr Laboratory Data at Discharge: WBC 6.10 thou/uL (4.3-10.9) 05/12/23 02:45 Hgb 10.2 g/dL (13.6-17.9) L D 05/12/23 02:45 Hct 31.9 % (39.6-49.0) L 05/12/23 02:45 Plt Count 205 thou/uL (152-406) 05/12/23 02:45 PT 13.4 SECONDS (9.5-12.5) H 05/11/23 15:03 INR 1.23 05/11/23 15:03 Sodium 136 mEq/L (136-145) 05/12/23 02:45 Potassium 4.0 mEq/L (3.5-5.1) 05/12/23 02:45 BUN 11 mg/dL (7-18) 05/12/23 02:45 Creatinine 0.54 mg/dL (0.70-1.30) L 05/12/23 02:45 Glucose 131 mg/dL (74-106) H 05/12/23 02:45 Phosphorus 3.1 mg/dL (2.5-4.9) 05/12/23 02:45 Magnesium 2.2 mg/dL (1.6-2.4) 05/12/23 02:45 Total Bilirubin 0.3 mg/dL (0.2-1.0) 05/11/23 15:03 AST 33 U/L (15-37) 05/11/23 15:03 ALT 45 U/L (16-61) 05/11/23 15:03 Alkaline Phosphatase 99 U/L (45-117) 05/11/23 15:03 Home Medications: Albuterol Sulfate [Albuterol Sulfate Hfa] 2 puff IH Q4HP PRN 04/05/23 Aspirin 81 mg PO DAILY 04/05/23 Atorvastatin Calcium [Lipitor] 40 mg PO BEDTIME 04/05/23 Clopidogrel Bisulfate [Plavix] 75 mg PO DAILY 04/05/23 Donepezil HCl 10 mg PO DAILY 04/05/23 Levothyroxine [Synthroid*] 100 mcg PO [id number] 04/05/23 [place]-3/Dha/Epa/Fish Oil [Fish Oil 1,000 mg Softgel] 1 each PO DAILY 04/05/23 Primidone [Mysoline *] 150 tab PO BID 04/05/23 Vit C/E/Zn/Coppr/Lutein/Zeaxan [Preservision Areds 2 Softgel] 2 each PO DAILY 04/29/23 Famotidine [Pepcid*] 20 mg PO BEDTIME 05/11/23 Fluoxetine HCl [Prozac] 40 mg PO DAILY 05/11/23 Ipratropium/Albuterol Sulfate [Iprat-Albut 0.5-3(2.5) mg/3 ml] 1 aer IH Q4HP PRN 05/11/23 Methscopolamine [place] 10 mg PO DAILY 05/11/23 levoFLOXacin [Levaquin*] 500 mg PO DAILY #5 tab 05/12/23 predniSONE [Deltasone*] 10 mg PO DAILY #30 tab 05/12/23 New Medications: predniSONE [Deltasone*] 10 mg PO DAILY #30 tab levoFLOXacin [Levaquin*] 500 mg PO DAILY #5 tab Diet: AHA Activity: Ad johnnie Followup: LATOSHA GARCES [Primary Care Provider] - 1-2 Weeks Time spent managing pt's care (in minutes): 27
[2023-05-12 09:22] VITALS: O2SAT 95
[2023-05-12 10:00] VITALS: BP 107/56; TEMP 98
--- NOTE | 2023-05-13 15:25 | EKG ---
Test Date: 2023-05-11 Test Time: 15:34:11 Integration Architect: Mouna SOLORIO MEASUREMENT RESULTS: Intervals: Rate: 61 MN: 104 QRSD: 116 QT: 434 QTc: 436 [place]: P: 1 MN: 104 QRS: 198 T: 46 INTERPRETIVE STATEMENTS: Sinus rhythm with short MN Right bundle branch block Abnormal ECG Compared to ECG 04/05/2023 09:38:06 Short MN interval now present Electronically Signed On 05-13-23 15:20:37 COMPUTER ART INSTRUCTOR by Janusz Ceron
== END 2023-05-12 11:56 | disposition home or self-care (01) ==
LOC: ER 14:24 → ERHOLD 18:40 → 2ND 22:17
PROVIDERS: ADMIT Internal Medicine; ATTEND Internal Medicine
DX: J44.1 Chronic obstructive pulmonary disease with (acute) exacerbation (principal); J44.0 Chronic obstructive pulmonary disease with (acute) lower respiratory infection; I48.11 Longstanding persistent atrial fibrillation; I25.10 Atherosclerotic heart disease of native coronary artery without angina pectoris; R09.02 Hypoxemia; F17.210 Nicotine dependence, cigarettes, uncomplicated; Z88.0 Allergy status to penicillin; Z88.2 Allergy status to sulfonamides; Z95.5 Presence of coronary angioplasty implant and graft; Z71.6 Tobacco abuse counseling; Z23 Encounter for immunization
CPT/HCPCS: 96361; 93005; 87040 ×2; 85025 ×2; 80048 ×2; 36415; 83735 ×2; 84100; 85610; 80076; 83605; 84443; 84484; 83880; 71045; 94640; 94760 ×2; 96375; 96374; 99285; J7512; J7614 ×2; J7613 ×3; J7644 ×4; J1650 ×2; J2930; J7040; J7030; J2920 ×2; G0378

== ENCOUNTER 2024-02-15 09:17 | Emergency (ER) | payer OTHER ==
[2024-02-15 09:51] LABS: Absolute Eosinophils 0.1 K/uL (0-0.5); Absolute Lymphocytes (CBC) 0.6 K/uL (0.7-4.9); Absolute Monocytes 0.6 K/uL (0.1-1.3); Absolute Neutrophil 6.8 K/uL (1.8-8.0); Basophils % 0.4 % (0-1.3); Hemoglobin 11.4 g/dL (13.6-17.9); Lymphocytes % 6.9 % (15.3-44.8); MCH 25.2 pg (27.0-35.0); MCHC 30.8 g/dL (32.0-36.0); MCV 81.9 fL (80-100); MPV 7.3 fL (7.6-11.3); Monocytes % 7.4 % (3.3-12.3); Neutrophils % 84.3 % (41.7-73.7); Platelets 376 thou/uL (152-406); RBC Red Blood Cell Count 4.52 M/uL (4.33-5.43)
[2024-02-15 09:52] LABS: PT Prothrombin Time 14.7 SECONDS (9.4-12.5); Protime INR 1.32
[2024-02-15 10:14] LABS: Albumin 3.9 g/dL (3.4-5.0); Albumin/Globulin Ratio 1.1 (1.1-1.8); Anion Gap 12.4 mEq/L (5.0-15.0); Bilirubin Direct 0.2 mg/dL (0-0.2); Bilirubin Indirect, Calculated 0.2 mg/dL (0.2-0.8); Bilirubin Total 0.4 mg/dL (0.2-1.0); Globulin 3.6 g/dL (2.3-3.5); Magnesium 2.2 mg/dL (1.6-2.4); Potassium 4.4 mEq/L (3.5-5.1); Protein, Total 7.5 g/dL (6.4-8.2); Thyroid Stimulating Hormone 2.39 uIU/mL (0.358-3.740); Troponin High Sensitivity 5.3 pg/mL (<58.9)
[2024-02-15] MEDS ORDERED: NA CHLORIDE 0.9% 1,000 ML ONE (10:23)
--- NOTE | 2024-02-15 11:05 | RAD REPORT ---
EXAM: CT CHEST, ABDOMEN AND PELVIS WITH CONTRAST CLINICAL INDICATION: Male, 78 years old. Malaise, pain TECHNIQUE: CT chest, abdomen and pelvis was performed, following the administration of contrast, as p er department protocol. Axial, sagittal and coronal reconstructions were obtained. One or more of the following dose reduction techniques were used: Automated exposure control, adjustment of the mA a nd/or kV according to patient size, and/or iterative reconstruction. Unless otherwise specified, incidental findings do not require dedicated imaging follow-up. COMPARISON: 04/06/2023. FINDINGS: LUNGS AND AIRWAYS: Patchy airspace and interstitial opacities throughout the right lung. Some periphe ral tree-in-bud nodular opacities in the left upper lobe as well. Largest central right lower lobe ill-defined nodular opacity measures 1.5 cm on axial image 46. No pneumothorax or effusion. PLEURA: No pleural effusion. No pneumothorax. MEDIASTINUM AND LYMPH NODES: No mediastinal mass or fluid collection. Normal size mediastinal, hilar, and axillary lymph nodes. THORACIC AORTA: Normal caliber and configuration. PULMONARY ARTERIES: Normal caliber. OSSEOUS STRUCTURES AND CHEST WALL: Intact. LIVER:Lobulated inferior left segment 3 4.2 cm fluid density cyst, benign in appearance. Normal in si ze and contour. No focal lesion or biliary dilitation. BILIARY SYSTEM: No suspicious abnormalities. PANCREAS: No mass, ductal dilation, or babita-pancreatic fluid. SPLEEN: Normal size. No focal lesion. ADRENALS: Normal; no mass. KIDNEYS AND URETERS: Normal size and contour. No hydronephrosis. URINARY BLADDER: Normal contour. GASTROINTESTINAL TRACT: Mild wall thickening/edema throughout the stomach. No bowel obstruction, free air, significant free fluid or abscess. APPENDIX: No inflammatory changes in region of appendix. LYMPH NODES: No lymphadenopathy. ABDOMINAL AORTA AND OTHER VESSELS: Normal caliber aorta and IVC. Scattered atherosclerotic calcificat ions. MUSCULOSKELETAL: No acute or suspicious osseous abnormality. Prostatomegaly with metallic clips present. IMPRESSION: Scattered bilateral airspace opacities more pronounced on the right, suggesting an infectious or infl ammatory process such as multifocal pneumonia. Follow-up chest imaging impression (CT or x-ray) is recommended following resolution of any acute signs/symptoms, to evaluate for resolution of the imagi ng findings. Mild wall thickening/edema throughout the stomach, may represent nonspecific gastritis.
--- NOTE | 2024-02-15 11:34 | RAD REPORT ---
EXAMINATION: ONE VIEW CHEST XR CLINICAL INDICATION: Male, 78 years old. [facility] MAIN PAIN Bed: TECHNIQUE: Frontal chest projection is submitted. Examination is limited by patient positioning and t echnique. COMPARISON: CT chest, abdomen, and pelvis of earlier the same day. Chest radiograph performed FINDINGS: The lungs are diffusely emphysematous. Some volume reduction on the right. Patchy airspace opacities most pronounced in the central and right basal regions. No pneumothorax or sizable effusion. The heart is normal in size. IMPRESSION: Patchy airspace opacities most pronounced in the central and right basilar regions, may reflect pneum onia or COPD exacerbation. These were better evaluated on CT chest of earlier the same day.
[2024-02-15 12:10] LABS: Sqamous Epithelial <5 /HPF (None Seen); Urine Bacteria None Seen /HPF (<20); Urine Bilirubin NEGATIVE (Negative); Urine Blood Negative (Negative); Urine Clarity Clear (Clear); Urine Color Light-Yellow (Yellow); Urine Culture Reflex Order NOT NEEDED; Urine Glucose NEGATIVE (Negative); Urine Ketones 1+ (Negative); Urine Microscopic Reflex YN ORDER UMIC; Urine Mucus Slight /HPF (None Seen); Urine Nitrite NEGATIVE (Negative); Urine Protein TRACE (Negative); Urine RBC <5 /HPF (None Seen); Urine Urobilinogen Normal (Normal); Urine WBC None Seen /HPF (<5); Urine pH 6.5 (5.0-7.0)
[2024-02-15 12:15] LABS: Specific Gravity > 1.030 (1.005-1.030)
[2024-02-15] MEDS ORDERED: levoFLOXacin 500 MG TAB ONE (14:16)
[2024-02-15] MEDS ORDERED: PANTOPRAZOLE 40 MG INJ ONE (14:18)
--- NOTE | 2024-02-15 14:24 | ER ---
Nurse's Notes [facility] Name: Jose Lake Age: 78 yrs Sex: Male : 1945 Arrival Date: 02/15/2024 Time: 09:17 Bed 5 Private MD: Diagnosis: COPD/ Chronic obstructive pulmonary disease, unspecified;COPD/ Chronic obstructive pulmonary disease with acute lower respiratory infection;Acute gastritis without bleeding;Anorexia Presentation: 02/14 09:35 Chief complaint: Patient states: ever since September when I had C diff I haven't been able iw to gain weight, does not have diarrhea, states he eats but can't gain weight, he weighed 114 lbs 2 weeks ago and now he's 106. Coronavirus screen: At this time, the client does not indicate any symptoms associated with coronavirus-19. Ebola Screen: No symptoms or risks identified at this time. Initial Sepsis Screen: Does the patient meet any 2 criteria? No. Patient's initial sepsis screen is negative. Does the patient have a suspected source of infection? No. Patient's initial sepsis screen is negative. Risk Assessment: Do you want to hurt yourself or someone else? Patient reports no desire to harm self or others. Onset of symptoms was September 2023. 09:35 Method Of Arrival: Ambulatory iw 09:35 Acuity: LASHANDA 3 iw Historical: - Allergies: 09:37 Sulfa (Sulfonamide Antibiotics); iw 09:37 PENICILLINS; iw - PMHx: 09:37 Colitis; Hypertensive disorder; COPD; High Cholesterol; cardiac stents; bleeding iw ulcers; Thyroid problem; - Immunization history:: Adult Immunizations up to date. - Social history:: Smoking status: Patient/guardian denies using tobacco, Stopped _ months ago 2. - Family history:: not pertinent. Screenin:[address] [facility] ED Fall Risk Assessment (Adult) History of falling in the last 3 months, kc6 including since admission No falls in past 3 months (0 pts) Confusion or Disorientation No (0 pts) Intoxicated or Sedated No (0 pts) Impaired Gait No (0 pts) Mobility Assist Device Used No (0 pt) Altered Elimination No (0 pt) Score/Fall Risk Level 0 - 2 = Low Risk. Abuse screen: Denies threats or abuse. Denies injuries from another. Nutritional screening: No deficits noted. Tuberculosis screening: No symptoms or risk factors identified. Assessment: 10:32 General: Appears in no apparent distress. comfortable, slender, well groomed, well kc6 developed, Behavior is calm, cooperative, appropriate for age. Pain: Denies pain. Neuro: Level of Consciousness is awake, alert, obeys commands, Oriented to person, place, time, situation, Appropriate for age. Cardiovascular: Capillary refill < 3 seconds. Respiratory: Airway is patent Trachea midline Respiratory effort is even, unlabored, Respiratory pattern is regular, symmetrical. GI: No signs and/or symptoms were reported involving the gastrointestinal system. : No signs and/or symptoms were reported regarding the genitourinary system. EENT: No signs and/or symptoms were reported regarding the EENT system. Derm: No signs and/or symptoms reported regarding the dermatologic system. Skin is intact, is healthy with good turgor, Skin is pink, warm \T\ dry. Musculoskeletal: No signs and/or symptoms reported regarding the musculoskeletal system. Circulation, motion, and sensation intact. Capillary refill < 3 seconds, Range of motion: intact in all extremities. 11:45 Reassessment: Patient appears in no apparent distress at this time. No changes from kc6 previously documented assessment. Patient and/or family updated on plan of care and expected duration. Pain level reassessed. Patient is alert, oriented x 3, equal unlabored respirations, skin warm/dry/pink. 12:57 Reassessment: Patient appears in no apparent distress at this time. No changes from kc6 previously documented assessment. Patient and/or family updated on plan of care and expected duration. Pain level reassessed. Patient is alert, oriented x 3, equal unlabored respirations, skin warm/dry/pink. Vital Signs: 09:35 BP 109 / 65; Pulse 89; Resp 16; Temp 97.4; Pulse Ox 96% ; Weight 48.08 kg; Height 5 ft. iw 3 in. ; Pain 0/10; 10:31 BP 110 / 61; Pulse 75; Resp 17 S; Pulse Ox 97% on R/A; kc6 11:45 BP 118 / 71; Pulse 75; Resp 16 S; Pulse Ox 100% on R/A; kc6 12:57 BP 128 / 59; Pulse 78; Resp 16 S; Pulse Ox 95% on R/A; kc6 14:32 BP 117 / 68; Pulse 71; Resp 16; Pulse Ox 99% ; ko1 09:35 Body Mass Index 18.78 (48.08 kg, 160.02 cm) iw 09:35 Pain Scale: Adult iw ED Course: 09:20 Patient arrived in ED. mg5 09:21 Pako Jones MD is Attending Physician. galo 09:37 Triage completed. iw 09:38 Arm band placed on. iw 09:54 TSH Sent. bc6 09:54 Lipase Sent. bc6 09:54 Basic Metabolic Panel Sent. bc6 09:54 LFT's Sent. bc6 09:54 Magnesium Sent. bc6 09:54 NT PRO-BNP Sent. bc6 09:54 Troponin HS Sent. bc6 09:54 Initial lab(s) drawn, by me, sent to lab. EKG done, by ED staff, reviewed by Pako Jones MD. Inserted saline lock: 20 gauge in right antecubital area, using aseptic technique. Blood collected. Flushed with 10 mL NS. 10:17 CT Chest, Abdomen, Pelvis - W/Contrast In Process Unspecified. EDMS 10:24 Silvina Diego, RN is Primary Nurse. kc6 10:31 Patient has correct armband on for positive identification. Bed in low position. Call kc6 light in reach. Side rails up X 1. Pulse ox on. NIBP on. Door closed. Noise minimized. Lights dimmed. Warm blanket given. Pillow given. 10:33 XRAY Chest (1 view) In Process Unspecified. EDMS 14:22 Dhruv Thornton MD is Referral Physician. [facility] 14:23 Trevor Diaz MD is Referral Physician. [facility] 14:28 Provided Education on: meds. ko1 14:28 No provider procedures requiring assistance completed. ko1 14:32 IV discontinued, intact, bleeding controlled, No redness/swelling at site. Pressure ko1 dressing applied. Administered Medications: 10:31 Drug: NS 0.9% IV 1000 ml IV at 1 bolus Per protocol; 1000 mL bolus Route: IV; Rate: 1 kc6 bolus; Site: right antecubital; 14:23 Follow up: Response: No adverse reaction; IV Status: Completed infusion; IV Intake: kc6 1000ml 14:25 Drug: LevOfloxacin PO 500 mg PO once Route: PO; ko1 14:39 Follow up: Response: No adverse reaction ko1 14:26 Drug: Pantoprazole IVP 40 mg IVP once Route: IVP; Site: right antecubital; ko1 14:38 Follow up: Response: No adverse reaction ko1 Medication: 14:28 VIS not applicable for this client. ko1 Intake: 14:23 IV: 1000ml; Total: 1000ml. kc6 14:28 PO: 120ml (Juice); Total: 1120ml. ko1 Outcome: 14:23 Discharge ordered by . galo 14:32 Discharged to home ambulatory, ko1 14:32 Condition: stable 14:32 Discharge instructions given to patient, Instructed on discharge instructions, follow up and referral plans. medication usage, Demonstrated understanding of instructions, follow-up care, medications, Prescriptions given X 4, 14:39 Patient left the ED. ko1 Signatures: Dispatcher [employer] EDMS Pako Jones MD MD cha Williams, Irene, RN RN iw Campbell, Kaitlyn, RN RN kc6 Oliver, Kathy, RN RN ko1 Zhane Gray Janet Mast 5
--- NOTE | 2024-02-15 14:24 | EDPHYS ---
Physician Documentation [facility] Name: Jose Lake Age: 78 yrs Sex: Male : 1945 Arrival Date: 02/15/2024 Time: 09:17 Bed 5 Private MD: ED Physician Pako Jones HPI: 02/14 14:16 This 78 yrs old Male presents to ER via Ambulatory with complaints of Losing galo Weight. 14:16 The patient presents to the emergency department with nausea. Onset: The galo symptoms/episode began/occurred 14 day(s) ago. Possible causes: unknown. The symptoms are aggravated by nothing. The symptoms are alleviated by nothing. WEIGHT LOSS, HX OF HEAVY PAST SMOKING. Associated signs and symptoms: Pertinent positives: anorexia. Onset: The symptoms/episode began/occurred 2 week(s) ago. Severity of symptoms: At their worst the symptoms were mild in the emergency department the symptoms are unchanged. The patient has experienced similar episodes in the past, multiple times. Historical: - Allergies: 09:37 Sulfa (Sulfonamide Antibiotics); iw 09:37 PENICILLINS; iw - PMHx: 09:37 Colitis; Hypertensive disorder; COPD; High Cholesterol; cardiac stents; bleeding iw ulcers; Thyroid problem; - Immunization history:: Adult Immunizations up to date. - Social history:: Smoking status: Patient/guardian denies using tobacco, Stopped _ months ago 2. - Family history:: not pertinent. ROS: 14:16 Constitutional: Negative for fever, chills, and weight loss, Eyes: Negative for injury, galo pain, redness, and discharge, ENT: Negative for injury, pain, and discharge, Neck: Negative for injury, pain, and swelling, Cardiovascular: Negative for chest pain, palpitations, and edema, Respiratory: Negative for shortness of breath, cough, wheezing, and pleuritic chest pain, Back: Negative for injury and pain, : Negative for injury, bleeding, discharge, and swelling, MS/Extremity: Negative for injury and deformity, Skin: Negative for injury, rash, and discoloration, Neuro: Negative for headache, weakness, numbness, tingling, and seizure, Psych: Negative for depression, anxiety, suicide ideation, homicidal ideation, and hallucinations, Allergy/Immunology: Negative for hives, rash, and allergies, Endocrine: Negative for neck swelling, polydipsia, polyuria, polyphagia, and marked weight changes, Hematologic/Lymphatic: Negative for swollen nodes, abnormal bleeding, and unusual bruising, 14:16 Abdomen/GI: Positive for nausea, anorexia, Exam: 14:16 Constitutional: This is a well developed, well nourished patient who is awake, alert, galo and in no acute distress. Head/Face: Normocephalic, atraumatic. Eyes: Pupils equal round and reactive to light, extra-ocular motions intact. Lids and lashes normal. Conjunctiva and sclera are non-icteric and not injected. Cornea within normal limits. Periorbital areas with no swelling, redness, or edema. ENT: Nares patent. No nasal discharge, no septal abnormalities noted. Tympanic membranes are normal and external auditory canals are clear. Oropharynx with no redness, swelling, or masses, exudates, or evidence of obstruction, uvula midline. Mucous membranes moist. Neck: Trachea midline, no thyromegaly or masses palpated, and no cervical lymphadenopathy. Supple, full range of motion without nuchal rigidity, or vertebral point tenderness. No Meningismus. Chest/axilla: Normal chest wall appearance and motion. Nontender with no deformity. No lesions are appreciated. Cardiovascular: Regular rate and rhythm with a normal S1 and S2. No gallops, murmurs, or rubs. Normal PMI, no JVD. No pulse deficits. Respiratory: Lungs have equal breath sounds bilaterally, clear to auscultation and percussion. No rales, rhonchi or wheezes noted. No increased work of breathing, no retractions or nasal flaring. Abdomen/GI: Soft, non-tender, with normal bowel sounds. No distension or tympany. No guarding or rebound. No evidence of tenderness throughout. Back: No spinal tenderness. No costovertebral tenderness. Full range of motion. Male : Normal genitalia with no discharge or lesions. Skin: Warm, dry with normal turgor. Normal color with no rashes, no lesions, and no evidence of cellulitis. MS/ Extremity: Pulses equal, no cyanosis. Neurovascular intact. Full, normal range of motion. Neuro: Awake and alert, GCS 15, oriented to person, place, time, and situation. Cranial nerves II-XII grossly intact. Motor strength 5/5 in all extremities. Sensory grossly intact. Cerebellar exam normal. Normal gait. Psych: Awake, alert, with orientation to person, place and time. Behavior, mood, and affect are within normal limits. 14:16 ECG was reviewed by the Attending Physician. Vital Signs: 09:35 BP 109 / 65; Pulse 89; Resp 16; Temp 97.4; Pulse Ox 96% ; Weight 48.08 kg; Height 5 ft. iw 3 in. ; Pain 0/10; 10:31 BP 110 / 61; Pulse 75; Resp 17 S; Pulse Ox 97% on R/A; kc6 11:45 BP 118 / 71; Pulse 75; Resp 16 S; Pulse Ox 100% on R/A; kc6 12:57 BP 128 / 59; Pulse 78; Resp 16 S; Pulse Ox 95% on R/A; kc6 14:32 BP 117 / 68; Pulse 71; Resp 16; Pulse Ox 99% ; ko1 09:35 Body Mass Index 18.78 (48.08 kg, 160.02 cm) iw 09:35 Pain Scale: Adult iw MDM: 09:21 Patient medically screened. [facility] 14:18 Differential diagnosis: Nonspecific abd pain, gastritis, cholecystitis, pancreatitis, galo diverticulitis, viral gastroenteritis, gastroenteritis. Differential Diagnosis altered mental status, sepsis, flu. Data reviewed: vital signs, nurses notes, lab test result(s), EKG, radiologic studies, CT scan, plain films. Consideration of Admission/Observation Escalation of care including admission/observation considered. I considered the following discharge prescriptions or medication management in the emergency department Medications were administered in the Emergency Department. See MAR. Independent interpretation of the following test(s) in the Emergency Department EKG: See my EKG interpretation above. Test considered but Not performed: Ultrasound NO ABD USG. Historians other than the Patient: PT WELL INFORMED. Care significantly affected by the following chronic conditions: Hypertension, Chronic Obstructive Pulmonary Disease, ULCERS, COLITIS, STENTS. Counseling: I had a detailed discussion with the patient and/or guardian regarding the historical points, exam findings, and any diagnostic results supporting the discharge/admit diagnosis, lab results, radiology results, the need for outpatient follow up, for definitive care, a family practitioner, a changer fixer. 02/14 09:25 Order name: Basic Metabolic Panel; Complete Time: 14:09 galo 02/14 09:25 Order name: CBC with Diff; Complete Time: 14: [facility] 02/14 09:25 Order name: LFT's; Complete Time: 14:09 [facility] 02/14 09:25 Order name: Magnesium; Complete Time: 14: [facility] 02/14 09:25 Order name: NT PRO-BNP; Complete Time: 14: [facility] 02/14 09:25 Order name: PT-INR; Complete Time: 14: [facility] 02/14 09:25 Order name: Troponin HS; Complete Time: 14: [facility] 02/14 09:25 Order name: Lipase; Complete Time: 14: [facility] 02/14 09:25 Order name: Urinalysis w/ reflexes; Complete Time: 14: [facility] 02/14 09:25 Order name: TSH; Complete Time: 14: [facility] 02/14 09:25 Order name: XRAY Chest (1 view); Complete Time: 14: [facility] 02/14 09:25 Order name: CT Chest, Abdomen, Pelvis - W/Contrast; Complete Time: 14: [facility] 02/14 09:25 Order name: Cardiac monitoring; Complete Time: 10:24 [facility] 02/14 09:25 Order name: EKG - Nurse/Tech; Complete Time: 09:54 [facility] 02/14 09:25 Order name: IV Saline Lock; Complete Time: 09:54 [facility] 02/14 09:25 Order name: Labs collected and sent; Complete Time: 09:54 [facility] 02/14 09:25 Order name: O2 Per Protocol; Complete Time: 10:24 [facility] 02/14 09:25 Order name: O2 Sat Monitoring; Complete Time: 10:24 [facility] 02/14 14:14 Order name: PO challenge: JUICE; Complete Time: 14:23 [facility] EC:16 Rate is 86 beats/min. Rhythm is regular. QRS [place] is Normal. [place] interval is normal. QRS galo interval is normal. QT interval is normal. No Q waves. T waves are Normal. No ST changes noted. Clinical impression: NSR w/ Non-specific ST/T Changes and No evidence of ischemia. Interpreted by me. Reviewed by me. Administered Medications: 10:31 Drug: NS 0.9% IV 1000 ml IV at 1 bolus Per protocol; 1000 mL bolus Route: IV; Rate: 1 kc6 bolus; Site: right antecubital; 14:23 Follow up: Response: No adverse reaction; IV Status: Completed infusion; IV Intake: kc6 1000ml 14:25 Drug: LevOfloxacin PO 500 mg PO once Route: PO; ko1 14:39 Follow up: Response: No adverse reaction ko1 14:26 Drug: Pantoprazole IVP 40 mg IVP once Route: IVP; Site: right antecubital; ko1 14:38 Follow up: Response: No adverse reaction ko1 Disposition Summary: 02/15/24 14:23 Discharge Ordered Notes: Location: Home galo Problem: new galo Symptoms: have improved galo Condition: Stable galo Diagnosis - COPD/ Chronic obstructive pulmonary disease, unspecified galo - COPD/ Chronic obstructive pulmonary disease with acute lower respiratory infection galo - Acute gastritis without bleeding galo - Anorexia galo Followup: galo - With: Private Physician - When: 2 - 3 days - Reason: Recheck today's complaints, Continuance of care, Re-evaluation by your physician Followup: galo - With: Dhruv Thornton MD - When: 2 - 3 days - Reason: Recheck today's complaints, Re-evaluation by your physician Followup: galo - With: Trevor Diaz MD - When: 2 - 3 days - Reason: Recheck today's complaints, Re-evaluation by your physician Discharge Instructions: - Discharge Summary Sheet galo - Acute Bronchitis, Adult galo - Chronic Obstructive Pulmonary Disease galo - Gastritis, Adult galo - Chronic Obstructive Pulmonary Disease, [id number] galo - Acute Bronchitis, Adult, [id number] galo - Cough, Adult galo - Chronic Obstructive Pulmonary Disease Exacerbation, [id number] [facility] Forms: - Medication Reconciliation Form galo - Antibiotic Education galo - Prescription Opioid Use galo - Patient Portal Instructions [facility] - Leadership Thank You Letter [facility] Prescriptions: - albuterol sulfate 90 mcg/actuation Inhalation HFA Aerosol Inhaler - inhale 2 puff INHALATION route every 6 to 8 hours as needed for shortness of galo breath or wheezing; 1 unit; Refills: 0, Product Selection Permitted - Protonix 40 mg Oral Tablet - take 1 tablet ORAL route once daily; 30 tablet; Refills: 0, Product Selection galo Permitted - Medrol ([place]) 4 mg Oral Tablets, Dose Pack - take 1 tablet ORAL route as directed - follow package instructions; 1 packet; galo Refills: 0, Product Selection Permitted - levofloxacin 500 mg Oral tablet - take 1 tablet ORAL route once daily for 8-10 days; 9 tablet; Refills: 0, galo Product Selection Permitted Signatures: Dispatcher [employer] EDMS Pako Jones MD MD cha Williams, Irene, Silvina Rodriguez RN RN RN [id number] Lyudmila Anthony, [place] RN ko1 Corrections: (The following items were deleted from the chart) 09:25 09:25 BASIC METABOLIC PANEL+C.LAB.BRZ ordered. EDMS EDMS 09:25 09:25 CBC+H.LAB.BRZ ordered. EDMS EDMS 09:25 09:25 HEPATIC FUNCTION+C.LAB.BRZ ordered. EDMS EDMS 09:25 09:25 MAGNESIUM+C.LAB.BRZ ordered. EDMS EDMS 09:25 09:25 PROBNP+C.LAB.BRZ ordered. EDMS EDMS 09:25 09:25 PROTIME (+INR)+COAG.LAB.BRZ ordered. EDMS EDMS 09:25 09:25 Troponin High Sensitivity+C.LAB.BRZ ordered. EDMS EDMS 09:25 09:25 LIPASE+C.LAB.BRZ ordered. EDMS EDMS 09:25 09:25 Urinalysis+U.LAB.BRZ ordered. EDMS EDMS 09:25 09:25 THYROID STIMULAT HORMONE+C.LAB.BRZ ordered. EDMS EDMS 09:25 09:25 Chest Single View+RAD.RAD.BRZ ordered. EDMS EDMS 09:26 09:26 Chest Abdomen Pelvis W Con+CT.RAD.BRZ ordered. EDMS EDMS
[2024-02-15 14:53] VITALS: TEMP 97.4
[2024-02-15 15:07] VITALS: BP 117/68; O2SAT 99
--- NOTE | 2024-02-16 12:21 | EKG ---
Test Date: 2024-02-15 Test Time: 09:49:45 Tin Assorter: MAYA MEASUREMENT RESULTS: Intervals: Rate: 86 NE: 130 QRSD: 124 QT: 406 QTc: 485 [place]: P: 60 NE: 130 QRS: 250 T: 68 INTERPRETIVE STATEMENTS: Normal sinus rhythm Right bundle branch block Abnormal ECG Compared to ECG 05/11/2023 15:34:11 Short NE interval no longer present Electronically Signed On 02-16-24 12:17:34 CDT by Deuce Mills
== END 2024-02-15 14:39 | disposition home or self-care (01) ==
LOC: ER 09:17
DX: K29.00 Acute gastritis without bleeding (principal); J44.0 Chronic obstructive pulmonary disease with (acute) lower respiratory infection; I10 Essential (primary) hypertension; E78.00 Pure hypercholesterolemia, unspecified; R63.0 Anorexia; Z68.1 Body mass index [BMI] 19.9 or less, adult; Z95.5 Presence of coronary angioplasty implant and graft; Z87.891 Personal history of nicotine dependence; Z88.0 Allergy status to penicillin; Z88.2 Allergy status to sulfonamides
CPT/HCPCS: 96361; 93005; 85025; 81001; 80048; 36415; 83735; 85610; 80076; 84443; 84484; 83690; 83880; 71260; 74177; 71045; 96374; 99285; Q9967; J2470; J7030